=== PATIENT | female | born 1980 | race Caucasian/White ===

== ENCOUNTER 2023-04-18 12:56 | Outpatient (AMB) | payer OTHER, SELFPAY ==
--- NOTE | 2023-04-18 13:14 | HO.SPINEOV ---
Intake Intake Visit Reasons: radiculopathy Intake Note: Mr. Gibson is here today c/o back pain. MRI done @ [facility]. Oracle Applications Developer Required: No Assessment & Plan Assessment & Plan (1) Lumbar disc herniation with radiculopathy: Code(s): M51.16 - Intervertebral disc disorders with radiculopathy, lumbar region Plan Dear colleague Thank you for referring Nicolasa Gibson to the office today with a chief complaint of right lumbar radiculopathy. HPI: This 43-year-old male developed an acute pain radiating down his right leg on 07/27/2022. Pain radiates into his posterior thigh, calf and then to the outside of his small toe. Pain is associated with tingling. No weakness. He tried physical therapy and injections without success. The pain is not improving and constantly 4/10 with flare ups to 8/10 when he walks stands or sits for prolonged periods of times. He still uses Tylenol and anti-inflammatory drugs without success PMH: Unprovoked pulmonary embolism in 2016, Chronic pain syndrome for which she has a spinal cord stimulator, bipolar/anxiety/depression, diabetes insipidus Social history: Nonsmoker Medications: Coumadin, Latuda, Trulicity, methylphenidate, Allergies: Sulfa and cephalosporins Physical Exam: Pleasant male. He ambulates with a cane. Straight leg raise positive on the right side radiating pain down to his calf. There is decreased sensation in the S1 dermatome. The Achilles reflex is diminished on the right side. Radiological Studies: MRI done at [facility] on 09/19/2022 shows a disc herniation compressing the right S1 nerve root. The imaging was reviewed in detail with the patient. Impression/Plan: This 43-year-old male is suffering from an right S1 radiculopathy caused by a disc herniation L5-S1 and not responding to conservative treatments. I offered him a lumbar microdiskectomy L5-S1, right side. He is scheduled for May [id number]. He needs to stops Coumadin 1 week prior to surgery. He will obtain surgical clearance from his primary care physician. Thank you for allowing me to participate in your patients care. total time spent was 50 minutes in counseling ,coordination of plan, personal review of imaging, surgical decision making and subsequent plan Arron Salgado MD, PhD Spine Fellowship Trained Neurosurgeon Director, [facility] Coding Level of Care Code New Pt Level 4 (24310) Diagnoses Lumbar disc herniation with radiculopathy M51.16
== END 2023-04-18 13:51 | disposition home or self-care (01) ==
PROVIDERS: Referring Provider Physician Assistant; Visit Provider Neurological Surgery
DX: M51.16 Intervertebral disc disorders with radiculopathy, lumbar region (principal)
CPT/HCPCS: 99204

== ENCOUNTER → 2023-04-18 12:56 | Outpatient (BNVA) | payer OTHER, SELFPAY | PROVIDERS: Visit Provider Neurological Surgery ==

== ENCOUNTER 2023-05-29 05:57 | Day surgery (SDC) | payer OTHER, SELFPAY ==
[2023-05-15 14:36] VITALS: BMI 40.7
--- NOTE | 2023-05-16 09:55 | HO.ANESPROP2 ---
Documented by User: Sofie Mckeon NP 05/28/23 10:18 HPI - Anesthesia Eval Consult details Narrative: 43yo M for Right L5-S1 Microlumbar discectomy, 05/29/23 Medically optimized Pt not seen in PAT d/t travel Coumadin for hx PE Follws renal for CKD St 3, Neurogenic bladder s/p cystectomy with ileal conduit. Stable at Last office visit 06/2022 Diabetes Insipidus - recieves 2L fluid through Jtube overnight. Per Dr Lopez, must hold after midnight DOS. FTM transgender He/Him . s/p hyst/mastectomy PMFSH Active Problems Active Problems: All Active Problems (Updated 05/15/23 @ 14:33 by Shavonne Adamson RN) Lumbar disc herniation with radiculopathy (Acute) Past Medical History Medical History (Updated 05/15/23 @ 14:33 by Shavonne Adamson RN) VRE (vancomycin-resistant Enterococci) Sleep apnea Neurogenic bladder Chronic nausea Secondary nephrogenic diabetes insipidus Reflex sympathetic dystrophy Recurrent UTI (urinary tract infection) Neuropathic pain of lower extremity Chronic renal insufficiency Asthma Transgender man on hormone therapy Depression Anxiety Bipolar disorder Chronic pain syndrome Pulmonary embolism Right lumbar radiculopathy Surgical History Surgical History (Updated 05/15/23 @ 14:32 by Shavonne Adamson RN) Hx of total cystectomy History of esophagogastroduodenoscopy (EGD) H/O colonoscopy Hx of bilateral mastectomy Hx of appendectomy Hx of arthroscopic knee surgery Hx of hysterectomy S/P placement of nerve stimulator Social History Social History Are you a primary furnace caretaker to a significant other at home: No Do you presently have visiting 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 If so, by whom?: No Are you DNR?: No Advance Directives Information Provided: Yes (as above noted-will bring copy DOS) Advance Directives on File: No Recently lost weight without trying: No Eating poorly because of decreased appetite: No Nutrition Risks: No Nutritional Risk Poor oral hygiene: Yes (missing teeth, crowns) Meds Allergies Allergy/AdvReac Type Severity Reaction Status Date / Time Cephalosporins Allergy Intermediate Hives Verified 05/15/23 09:23 enoxaparin [From Lovenox] Allergy Intermediate Hives Verified 05/15/23 09:23 Sulfa (Sulfonamide Allergy Intermediate Hives Verified 05/15/23 09:23 Antibiotics) Home Medications Medication Instructions Recorded Confirmed Last Taken Type albuterol sulfate 90 mcg/actuation 2 puff inhalation Q4-6H PRN 05/15/23 05/15/23 Unknown History aerosol inhaler (Ventolin HFA) Shortness Of Breath bupropion HCl 150 mg 24 hr tablet, 300 mg PO BEDTIME 05/15/23 05/15/23 Unknown History extended release capsaicin 0.025 % topical cream 1 appl topical BID 05/15/23 05/15/23 Unknown History cholecalciferol (vitamin D3) 25 50 mcg PO DAILY 05/15/23 05/15/23 Unknown History mcg (1,000 unit) capsule cyclobenzaprine 5 mg tablet 5 mg PO TID 05/15/23 05/15/23 Unknown History dulaglutide 4.5 mg/0.5 mL 4.5 mg subcut QWEEK 05/15/23 05/15/23 Unknown History subcutaneous pen injector (Trulicity) gabapentin 300 mg capsule 300 mg PO QPM 05/15/23 05/15/23 Unknown History lurasidone 80 mg tablet 80 mg PO QPM 05/15/23 05/15/23 Unknown History methylphenidate HCl 5 mg tablet 5 mg PO TID 05/15/23 05/15/23 Unknown History ondansetron 8 mg disintegrating 8 mg PO QID PRN nausea 05/15/23 05/15/23 05/29/23 History tablet promethazine 6.25 mg/5 mL oral 25 mg PO TID PRN Nausea And 05/15/23 05/15/23 Unknown History syrup Vomiting testosterone (AndroGel) 2 pump topical DAILY 05/15/23 05/15/23 Unknown History trazodone 100 mg tablet 250 mg PO BEDTIME 05/15/23 05/15/23 Unknown History warfarin 5 mg tablet (Jantoven) 5 mg PO DAILY 05/15/23 05/15/23 05/22/23 History Exam Exam Date and Time: May 16, 2023 0955 Height,Weight and Vital Signs: Height 5 ft 5 in Weight 111 kg Pertinent Lab Results Pertinent Lab Results: CMP 02/2023 WNL Narrative Narrative: EKG 04/2023 NSR @ 84 Nonspecific T wave abn (no change from previous) Assessment and Plan Assessment Anesthesia Assessment: Chart Reviewed Documented by User: Mendoza Mina MD 05/29/23 07:27 PMF Past Medical History Medical History (Updated 05/15/23 @ 14:33 by Shavonne Adamson RN) VRE (vancomycin-resistant Enterococci) Sleep apnea Neurogenic bladder Chronic nausea Secondary nephrogenic diabetes insipidus Reflex sympathetic dystrophy Recurrent UTI (urinary tract infection) Neuropathic pain of lower extremity Chronic renal insufficiency Asthma Transgender man on hormone therapy Depression Anxiety Bipolar disorder Chronic pain syndrome Pulmonary embolism Right lumbar radiculopathy Family History Family history of problems with anesthesia: No Surgical History Surgical History (Updated 05/15/23 @ 14:32 by Shavonne Adamson RN) Hx of total cystectomy History of esophagogastroduodenoscopy (EGD) H/O colonoscopy Hx of bilateral mastectomy Hx of appendectomy Hx of arthroscopic knee surgery Hx of hysterectomy S/P placement of nerve stimulator History of Problems with Anesthesia: No Social History Social History Are you a primary furnace caretaker to a significant other at home: No Do you presently have visiting 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 If so, by whom?: No Are you DNR?: No Advance Directives Information Provided: Yes (as above noted-will bring copy DOS) Advance Directives on File: No Recently lost weight without trying: No Eating poorly because of decreased appetite: No Nutrition Risks: No Nutritional Risk Poor oral hygiene: Yes (missing teeth, crowns) Meds Allergies Allergy/AdvReac Type Severity Reaction Status Date / Time Cephalosporins Allergy Intermediate Hives Verified 05/15/23 09:23 enoxaparin [From Lovenox] Allergy Intermediate Hives Verified 05/15/23 09:23 Sulfa (Sulfonamide Allergy Intermediate Hives Verified 05/15/23 09:23 Antibiotics) Home Medications Medication Instructions Recorded Confirmed Last Taken Type albuterol sulfate 90 mcg/actuation 2 puff inhalation Q4-6H PRN 05/15/23 05/15/23 Unknown History aerosol inhaler (Ventolin HFA) Shortness Of Breath bupropion HCl 150 mg 24 hr tablet, 300 mg PO BEDTIME 05/15/23 05/15/23 Unknown History extended release capsaicin 0.025 % topical cream 1 appl topical BID 05/15/23 05/15/23 Unknown History cholecalciferol (vitamin D3) 25 50 mcg PO DAILY 05/15/23 05/15/23 Unknown History mcg (1,000 unit) capsule cyclobenzaprine 5 mg tablet 5 mg PO TID 05/15/23 05/15/23 Unknown History dulaglutide 4.5 mg/0.5 mL 4.5 mg subcut QWEEK 05/15/23 05/15/23 Unknown History subcutaneous pen injector (Trulicity) gabapentin 300 mg capsule 300 mg PO QPM 05/15/23 05/15/23 Unknown History lurasidone 80 mg tablet 80 mg PO QPM 05/15/23 05/15/23 Unknown History methylphenidate HCl 5 mg tablet 5 mg PO TID 05/15/23 05/15/23 Unknown History ondansetron 8 mg disintegrating 8 mg PO QID PRN nausea 05/15/23 05/15/23 05/29/23 History tablet promethazine 6.25 mg/5 mL oral 25 mg PO TID PRN Nausea And 05/15/23 05/15/23 Unknown History syrup Vomiting testosterone (AndroGel) 2 pump topical DAILY 05/15/23 05/15/23 Unknown History trazodone 100 mg tablet 250 mg PO BEDTIME 05/15/23 05/15/23 Unknown History warfarin 5 mg tablet (Jantoven) 5 mg PO DAILY 1005/15/23 05/22/23 History Exam Airway Mallampati Class: II TM Dist: >3cm Neck ROM: Limited Heart: rrr Lungs: cta Assessment and Plan Assessment Anesthesia Assessment: Anesthesia Plan Discussed Final Anesthetic Review Family History of Problems with Anesthesia: No History of Problems with Anesthesia: No ASA Class: III Final Preanesthetic Review: No Changes in Pt Med Stat, Meds/Allgs Chart Reviewed, Consent Obtained/Reviewed and Anes Risks/Benef Reviewed Patient Risk: Intermediate Anesthetic Plan Anesthetic Plan: GA and Agree w/ Assess. and Plan Disposition: Standard PACU
[2023-05-29] VITALS (7 sets, daily range): BP systolic 112–126; BP diastolic 57–82; PULSE 78–93; RESP 16–22; TEMP 36.3–36.6; O2SAT 94–98; BMI 39.1
--- NOTE | ~2023-05-29 | FL_ITS ---
EXAMINATION: XR FLUOROSCOPY WITH IMAGES CLINICAL INFORMATION: L5-S1 decompression. COMPARISON: None available. TECHNIQUE: Fluoroscopy Supervised By: Dr. Arron Salgado. Fluoroscopy Time: 0 minutes 6.5 seconds. Cumulative Dose: 12.733 mGy. DAP: 3.559 Gycm2. Images: 1. FINDINGS: Image demonstrates posterior surgical instruments and probe projecting over the posterior L5-S1 disc space FL/FL guidance in OR IMPRESSION: Fluoroscopy guidance for L5-S1 decompression.
--- OUTSIDE RECORDS SUMMARY | 2023-05-29 05:59 | XMS_ITS | Continuity of Care Document ---
Author Name Unknown Organization [facility] Address Unknown Care Team Providers Care Cover Machine Operator Name Role Phone Luzma SENIOR, Carlos Gaston Primary Care Physician [phone] Encounter [facility] Date(s): 05/29/21 - 06/05/21 [facility] Attending Physician: Shavonne Wolfe MD Referring Physician: Carlos Segal NP Allergies, Adverse Reactions, Alerts Substance Reaction Severity Status cephalosporins 1 Hives Active sulfa drugs Hives Active Lovenox hives Active 1Patient tolerated Zosyn in ED as demonstrated during April 2015 admission. Immunizations Given and Recorded Vaccine Date Status Refusal Reason SARS-CoV-2 (COVID-19) mRNA BNT-162b2 vac 10/14/20 Recorded SARS-CoV-2 (COVID-19) mRNA BNT-162b2 vac 09/23/20 Recorded influenza virus vaccine, inactivated 04/04/20 Eric rded influenza virus vaccine, inactivated 06/12/19 Eric rded influenza virus vaccine, inactivated 1 08/18/18 Gi nevin influenza virus vaccine, inactivated 2 05/29/17 Gi nevin influenza virus vaccine, inactivated 09/19/16 Give n influenza virus vaccine, inactivated 04/30/15 Give n influenza virus vaccine, inactivated 06/01/14 Give n influenza virus vaccine, inactivated 05/19/13 Give n influenza virus vaccine, inactivated 3 06/15/12 Gi nevin influenza virus vaccine, inactivated 4 07/19/10 Gi nevin influenza virus vaccine, inactivated 04/20/09 Give n tetanus/diphtheria/pertussis, acel(Tdap) 5 08/18/18 Given pneumococcal 23-valent vaccine 02/12/14 Given Human Papillomavirus Vaccine 6 06/30/07 Given Human Papillomavirus Vaccine 03/02/07 Given Human Papillomavirus Vaccine 7 01/01/07 Given Influenza Inactive (IM) (oldterm) 8 06/12/07 Given Hepatitis B Vaccine (old term) 9 06/23/06 Given 1Result Comment: [08/18/2018] [facility]: 12908-344-28 2Result Comment: [05/29/2017] [facility]:13288-408-16 3Admin Note: [facility] clinic, date approx per patient 4Admin Note: VIM given dated 03/14/10 MULIT 5Result Comment: [08/18/2018] [facility]: 93120-802-21 6Admin Note: VIM GIVIN 08/20/06 # 3 7Admin Note: VIM GIVIN 08/20/06 8Admin Note: VIM-SANOFI 9Admin Note: BERNICE GIVEN TODAY DATE ON BERNICE 02/11/2001 Medications albuterol 0.083% inhalation solution 3 mL = 2.5 mg, Inhalation, Every 6 hours, # 360 mL, 0 Refills, Maintenance, 04/25/17 10:49:23, Solution Start Date: 04/25/17 Stop Date: 05/25/17 Status: Ordered albuterol CFC free 90 mcg/inh inhalation aerosol 2, puffs, Inhalation, 4 times a day, PRN, # 1 each, Refills 3, Tot. Refills 3, Maintenance, 04/24/18 13:48:36 EDT, Aerosol, Route to Pharmacy Electronically, [id number], [facility], Compound Start Date: 04/24/18 Stop Date: 08/22/18 Status: Ordered AndroGel Pump 20.25 mg/actuation (1.62%) transdermal gel = 40.5 mg, Topically, Daily in AM, # 75 Gm, 5 Refills, Maintenance, 07/31/20 15:28:00 EST, [facility], 165.1, cm, 04/18/20 17:02:00 EDT, Height, 128.1, kg, 04/08/19 8:08:00 EDT, Dry Weight Start Date: 07/31/20 Stop Date: 01/27/21 Status: Ordered atomoxetine 25 mg oral capsule TAKE ONE CAPSULE BY MOUTH EVERY DAY Start Date: 03/21/21 Status: Ordered buPROPion 150 mg/24 hours (XL) oral tablet, extended release 2 tablet = 300 mg, By Mouth, Every 24 hours, # 30 tablet, 0 Refills, Maintenance, 06/22/17 19:39:25EST, ER Tablet Start Date: 06/22/17 Status: Ordered Cogentin Tablet 0.5 mg, By Mouth, 2 times a day, Refills 0, Maintenance, 11/10/20 11:12:00 EDT, Partial fill upon patient request if the prescription is for a schedule II opioid drug. Start Date: 11/10/20 Status: Ordered cyanocobalamin 1000 mcg/ml injectable solution 1 mL = 1,000 mcg, Subcutaneous Injection, Every 30 days, IM injection to Left arm [facility]:30928-997-11 [id number] Exp: 07/23, # 1 mL, 0 Refills, Maintenance, 04/13/19 14:55:41 EDT, Solution Start Date: 04/13/19 Status: Ordered Cyanocobalamin 1000 mcg/mL injection = 1,000 mcg, Intramuscular, Left deltoid IM. Pt tolerated well. Office Supplied Medication [facility] [id number] Lot [id number] Exp 08/2020, # 1 mL, 0 Refills, Maintenance, 02/18/19 13:00:00 EDT Start Date: 02/18/19 Status: Ordered docusate sodium 100 mg oral capsule 1 capsule = 100 mg, By Mouth, 2 times a day, 0 Refills, Maintenance, 03/15/14 10:36:50, Capsule Start Date: 03/15/14 Status: Ordered famotidine 20 mg oral tablet 20 mg, 1, tablet, By Mouth, 2 times a day, PRN, esophageal pain , # 180 tablet, Refills 0, Maintenance, Other, 02/22/16 10:01:17 EDT Start Date: 02/22/16 Status: Ordered G tube change G tube change, See Instructions, # 1 each, Refills 0, Tot. Refills 0, Maintenance, G tube change 6Fr with 5cc baloon, 04/05/21 10:00:00 EDT, Supply Start Date: 04/05/21 Status: Ordered J-tube J-tube, See Instructions, # 1 each, Refills 0, Tot. Refills 0, Maintenance, 16 Filipino Tsrin-Ikeuab-Tgusv J tube, transgastric, 02/20/21 9:48:00 EDT, Supply Start Date: 02/20/21 Status: Ordered Jantoven 5 mg oral tablet See Instructions, TAKE ONE TABLET BY MOUTH EVERY DAY OR DIRECTED BY NURSE, # 30 tablet, 5 Refills, Maintenance, [facility], 165.1, cm, 01/24/21 11:40:00 EDT, Height, 128.1, kg, 04/08/19 8:08:00 EDT, Dry Weight Start Date: 02/18/21 Status: Ordered LaMICtal 200 mg oral tablet 1 tablet = 200 mg, By Mouth, Daily, 0 Refills, Maintenance, 03/30/19 15:11:59 EDT Start Date: 03/30/19 Status: Ordered Latuda 60 mg oral tablet 1 tablet = 60 mg, By Mouth, Daily, # 30 tablet, 5 Refills, Maintenance, 10/24/16 17:25:54, Tablet Start Date: 10/24/16 Status: Ordered NuLYTELY with Flavor Packs oral powder for reconstitution See Instructions, Drink 240mL every 10-15 minutes, # 4,000 mL, 0 Refills, Maintenance, 02/29/20 17:00:00 EDT, [facility], Drink 240mL every 10-15 minutes, 165, cm, 12/29/19 14:57:00 EDT, Height, 128.1, kg, 04/08/19 8:08:00 EDT, Dry Weight Start Date: 02/29/20 Status: Ordered omeprazole 20 mg oral enteric coated capsule 1 capsule = 20 mg, By Mouth, Daily, PRN Other, esophageal pain , # 90 capsule, 0 Refills, Maintenance, 08/14/17 8:17:45 EST, EC Capsule Start Date: 08/14/17 Status: Ordered ondansetron 8 mg oral tablet, disintegrating 1 tablet, By Mouth, 4 times a day, PRN NEEDED FOR NAUSEA, ok to override for travel, # 120 tablet, 1 Refills, Maintenance, 12/27/20 13:14:00 EDT, [facility], 165.1, cm, 12/06/2113:16:00 EDT, Height, 128.1, kg, 04/08/19 8:08:00 EDT,... Start Date: 12/27/20 Status: Ordered promethazine 12.5 mg oral tablet 1 tablet = 12.5 mg, By Mouth, Every 6 hours, PRN for nausea/vomiting, # 60 tablet, 1 Refills, Maintenance, 08/16/20 16:13:00 EST, Tablet, [facility], Partial fill upon patient request if the prescription is for a schedule II opioid drug... Start Date: 08/16/20 Status: Ordered promethazine 12.5 mg rectal suppository 1 supp = 12.5 mg, Rectally, Every 6 hours, PRN for motion sickness, ok to override for travel, # 30supp, 1 Refills, Maintenance, 12/27/20 13:14:00 EDT, Suppository, [facility], Partial fill upon patient request if the prescription is f... Start Date: 12/27/20 Status: Ordered promethazine 6.25 mg/5 mL oral syrup 20 mL = 25 mg, J Tube, 3 times a day, PRN as needed for nausea/vomiting, # 1,000 mL, 1 Refills, Maintenance, 05/18/21 17:19:00 EDT, Syrup, [facility], Partial fill upon patient request if the prescription is for a schedule II opioid hiram... Start Date: 05/18/21 Status: Ordered propranolol 60 mg oral capsule, extended release 60 mg, 1, capsule, By Mouth, Daily, Rx by psych, # 90 capsule, Refills 0, Tot. Refills 0, Maintenance, 06/19/18 10:21:46 EST, Do Not Route Start Date: 06/19/18 Status: Ordered See instructions See instructions, See Instructions, # 1 each, Refills 0, Tot. Refills 0, Maintenance, G/J Tube Supplies: Pump bags (Infinity Pump) and syringes to administer medications., 11/21/17 16:08:24 EDT, Compound Start Date: 11/21/17 Status: Ordered Strattera 25 mg oral capsule 1 capsule = 25 mg, By Mouth, Daily in AM, # 30 capsule, 0 Refills, Maintenance, 03/29/21 14:25:00 EDT, Capsule, Partial fill upon patient request if the prescription is for a schedule II opioid drug. Start Date: 03/29/21 Status: Ordered Sublocade 100 mg/0.5 mL subcutaneous solution, extended release Subcutaneous Infusion, Every 28 days, 0 Refills, Maintenance, 03/30/19 15:14:06 EDT Start Date: 03/30/19 Status: Ordered testosterone 20.25 mg/actuation (1.62%) transdermal gel = 40.5 mg, Topically, Daily in AM, # 75 Gm, 5 Refills, Maintenance, 02/14/20 16:00:00 EDT, [facility], 165, cm, 12/29/19 14:57:00 EDT, Height, 128.1, kg, 04/08/19 8:08:00 EDT, Dry Weight Start Date: 02/14/20 Status: Ordered traZODone 100 mg oral tablet See Instructions, 1 - 2 tablet By Mouth at bedtime 30 days, # 60 tablet, Refills 0, Tot. Refills 0,Maintenance, 05/18/17 15:31:13 EDT, Instructions Replace Required Details, Route to Pharmacy Electronically, [id number], [facility] Start Date: 05/18/17 Status: Ordered Vitamin D3 1000 intl units oral tablet 1 tablet, By Mouth, Daily, WITH FOOD., # 90 Unknown, 3 Refills, Maintenance, 02/14/21 15:18:00 EDT,[facility], 165.1, cm, 01/24/21 11:40:00 EDT, Height, 128.1, kg, 04/08/19 8:08:00 EDT, Dry Weight Start Date: 02/14/21 Status: Ordered Problem List Condition Effective Dates Status Health Status Inform ant Secondary nephrogenic diabet es insipidus(Confirmed) Active Change in bowel habits(Confirmed) Active Asthma-moderate persistent(Confirmed) Active Bipolar disorder(Confirmed) Active Cannabis use daily; has cert ificate for medical marijuana use for nausea, sleep +/- pain ,+/- mood(Confirmed) Active Chronic colitis(Confirmed) Active Chronic use of opiate drugs therapeutic purposes(Confirmed) 10/28/13 Active Self-catheterizes urinary bladder(Confirmed) Active Vitamin B 12 deficiency(Confirmed) Active Constipation(Confirmed) Active Nausea(Confirmed) Active Excision of meniscus of knee(Confirmed) Active Gender identity disorder(Confirmed) Active Chronic use of opiate drugs therapeutic purposes(Confirmed) Active History of appendectomy(Confirmed) Active History of bilateral mastectomy(Confirmed) Active Jejunostomy tube in situ(Confirmed) Active Lack of Adequate Sleep(Confirmed) Active Severe obesity (BMI >= 40)(Confirmed) Active Neuropathic pain of lower extremity(Confirmed) Active *[facility] [phone] CARE MANAG ER MEME GREGORY(Confirmed) Active Pruritus with morphine(Confirmed) Active Recurrent UTI(Confirmed) Active Reflex sympathetic dystrophy(Confirmed) Active Dry heaves(Confirmed) Active Urinary retention(Confirmed) Active Urinary retention(Confirmed) Active Sepsis(Confirmed) Active Sleep-disordered breathing(Confirmed) Active Feeding by G-tube(Confirmed) Active Suprapubic catheter(Confirmed) Active Vital Signs Most recent to oldest [Reference Range]: 1 Height 165.1 cm (05/29/21 2:39 PM) Weight 123.2 kg (05/29/21 2:39 PM) Pulse Rate [55-90 bpm] 101 bpm *H* (05/29/21 2:39 PM) Body Mass Index [18.5-24.99] 45.2 *>HHI* (05/29/21 2:39 PM) Blood Pressure [90-138/55-84 mm Hg] 113/ 74mm Hg (05/29/21 2:39 PM) Temperature [96.8-100.4 DegF] 98.1 DegF (05/29/21 2:39 PM) Blood pressure sites Arm, left (05/29/21 2:39 PM) Weight Obtained Via Bed scale (05/29/21 2:39 PM) Social History Social History Type Response Smoking Status Former smoker; Other : quit few months ago; entered on: 02/15/15 Sex
--- OUTSIDE RECORDS SUMMARY | 2023-05-29 05:59 | XMS_ITS | Continuity of Care Document ---
Author Name Unknown Organization [facility] Address [address] [place] [address]- Care Team Providers Care Pharmacy Account Director Name Role Phone Luzma SENIOR, Carlos Gaston Primary Care Physician Encounter [facility] Date(s): 08/02/21 - 09/01/21 [facility] [address] [place] [address]- Allergies, Adverse Reactions, Alerts Substance Reaction Severity [...] term) 9 06/23/06 Given 1Result Comment: [08/18/2018] [facility]: [id number] 2Result Comment: [05/29/2017] [facility]:[id number] 3Admin Note: [facility] clinic, date approx per patient 4Admin Note: VIM given dated 03/14/10 MULIT 5Result Comment: [08/18/2018] [facility]: [id number] 6Admin Note: VIM GIVIN 08/20/06 # 3 [...] 13:48:36 EDT, Aerosol, Route to Pharmacy Electronically, [id number], [facility], Compound Start [...] 30 days, IM injection to Left arm [facility]:[id number] Lot:[id number] Exp: 07/23, # 1 mL, 0 Refills, Maintenance, 04/13/19 14:55:41 EDT, Solution Start Date: 04/13/19 Status: Ordered Cyanocobalamin 1000 mcg/mL injection = 1,000 mcg, Intramuscular, Left deltoid IM. Pt tolerated well. Office Supplied Medication [facility] [id number] Lot [id number] Exp 08/2020, # 1 mL, [...] Refills 0, Tot. Refills 0, Maintenance, 16 Central African Kivkq-Fygqwx-Clhdl J tube, transgastric, 02/20/21 9:48:00 EDT, Supply Start Date: 02/20/21 Status: Ordered Jantoven 5 mg oral tablet 1 tablet, By Mouth, Daily, OR DIRECTED BY NURSE., # 30 tablet, 5 Refills, [facility], 165, cm, 08/16/21 8:31:00 EST, Height, 113.4, kg, 08/16/21 8:31:00 EST, Dry Weight Start Date: 08/20/21 Status: Ordered LaMICtal 200 mg oral tablet [...] times a day, PRN NEEDED FOR NAUSEA, # 120 tablet, 1 Refills, [facility], 165.1, cm, 05/29/21 14:39:00 EDT, Height Start Date: 06/26/21 Status: Ordered promethazine 12.5 mg oral tablet [...] Replace Required Details, Route to Pharmacy Electronically, [id number], [facility] Start Date: 05/18/17 Status: Ordered Vitamin D3 1000 intl units oral tablet 1 tablet, By Mouth, Daily, WITH FOOD., # 90 Unknown, 3 Refills, Maintenance, 02/14/21 15:18:00 EDT,[facility], 165.1, cm, 01/24/21 [...] Active Neuropathic pain of lower extremity(Confirmed) Active *[facility] [phone] CARE MANAG MEME GREGORY(Confirmed) Active Pruritus with morphine(Confirmed) Active Pulmonary embolus(Confirmed) 1 Active Recurrent UTI(Confirmed) Active Reflex sympathetic dystrophy(Confirmed) Active Dry heaves(Confirmed) Active Urinary retention(Confirmed) Active Urinary retention(Confirmed) Active Sepsis(Confirmed) Active Sleep-disordered breathing(Confirmed) Active Feeding by G-tube(Confirmed) Active Suprapubic catheter(Confirmed) Active 1unprovoked PE 2014, heme recommended lifelong anticogulation due to high-risk of recurrence Social History Social History Type Response Smoking Status Former smoker; Other : quit few months ago; entered on: 02/15/15 Sex Female
--- OUTSIDE RECORDS SUMMARY | 2023-05-29 06:00 | XMS_ITS | Continuity of Care Document ---
Author Name Unknown Organization [facility] Address Unknown Care Team Providers Care Handle Bender Name Role Phone Luzma SENIOR, Carlos Gaston Primary Care Physician [phone] Encounter [facility] Date(s): 08/24/21 - 12/06/21 [facility] Attending Physician: Shavonne Wolfe [...] term) 9 06/23/06 Given 1Result Comment: [08/18/2018] [facility]: [id number] 2Result Comment: [05/29/2017] [facility]:[id number] 3Admin Note: [facility] clinic, date approx per patient 4Admin Note: VIM given dated 03/14/10 MULIT 5Result Comment: [08/18/2018] [facility]: [id number] 6Admin Note: VIM GIVIN 08/20/06 # 3 [...] 13:48:36 EDT, Aerosol, Route to Pharmacy Electronically, [id number], [facility], Compound Start [...] 30 days, IM injection to Left arm [facility]:[id number] Lot:[id number] Exp: 07/23, # 1 mL, 0 Refills, Maintenance, 04/13/19 14:55:41 EDT, Solution Start Date: 04/13/19 Status: Ordered Cyanocobalamin 1000 mcg/mL injection = 1,000 mcg, Intramuscular, Left deltoid IM. Pt tolerated well. Office Supplied Medication [facility] [id number] Lot [id number] Exp 08/2020, # 1 mL, [...] Refills 0, Tot. Refills 0, Maintenance, 16 Telugu Etpms-Qlkrhi-Fxwcj J tube, transgastric, 02/20/21 9:48:00 EDT, Supply [...] Replace Required Details, Route to Pharmacy Electronically, [id number], [facility] Start Date: 05/18/17 Status: Ordered Vitamin D3 1000 intl units oral tablet 1 tablet, By Mouth, Daily, WITH FOOD., # 90 Unknown, 3 Refills, Maintenance, 02/14/21 15:18:00 EDT,[facility], 165.1, cm, 01/24/21 11:40:00 EDT, [...] Active Neuropathic pain of lower extremity(Confirmed) Active *[facility] [phone] CARE MANAG MEME GREGORY(Confirmed) Active Pruritus with [...]
--- OUTSIDE RECORDS SUMMARY | 2023-05-29 06:00 | XMS_ITS | Continuity of Care Document ---
Author Name Unknown Organization [facility] Address [address] [place] [address]- Care Team Providers Care Associate Store Manager Name Role Phone Juan Alvarado DO Primary Care Physician Encounter [facility] Date(s): 11/13/22 - 12/13/[address] [address]- Allergies, Adverse Reactions, Alerts Substance Reaction Severity Status cephalosporins 1 Hives Active sulfa drugs Hives Active Lovenox hives Active 1Patient tolerated Zosyn in ED as demonstrated during April 2015 admission. Immunizations Given and Recorded Vaccine Date Status Refusal Reason SARS-CoV-2 (COVID-19) mRNA BNT-162b2 vac 05/16/21 Recorded SARS-CoV-2 (COVID-19) mRNA BNT-162b2 vac 10/14/20 Recorded [...] acel(Tdap) 5 08/18/18 Given pneumococcal 23-valent vaccine 7/12/14 Given Human Papillomavirus Vaccine 6 06/30/07 Given Human Papillomavirus Vaccine 03/02/07 Given Human Papillomavirus Vaccine 7 01/01/07 Given Influenza Inactive (IM) (oldterm) 8 06/12/07 Given Hepatitis B Vaccine (old term) 9 06/23/06 Given 1Result Comment: [08/18/2018] [facility]: [id number] 2Result Comment: [05/29/2017] [facility]:[id number] 3Admin [facility], date approx per patient 4Admin Note: VIM given dated 03/14/10 MULIT 5Result Comment: [08/18/2018] [facility]: [id number] 6Admin Note: VIM GIVIN 08/20/06 # 3 [...] 13:48:36 EDT, Aerosol, Route to Pharmacy Electronically, [id number], [facility], Compound Start Date: 04/24/18 Stop Date: 08/22/18 Status: Ordered AndroGel Pump 20.25 mg/actuation (1.62%) transdermal gel = 40.5 mg, Topically, Daily in AM, # 75 Gm, 5 Refills, Maintenance, 07/31/20 15:28:00 EST, [facility], 165.1, cm, 04/18/20 17:02:00 EDT, Height, 128.1, kg, 04/08/19 8:08:00 EDT, Dry Weight Start Date: 07/31/20 Stop Date: 01/27/21 Status: Ordered Ativan 1 mg oral tablet 1 tablet = 1 mg, By Mouth, 3 times a day, 0 Refills, Maintenance, 08/02/22 9:44:00 EST, Partial fill upon patient request if the prescription is for a schedule II opioid drug. Start Date: 08/02/22 Status: Ordered buPROPion 150 mg/24 hours (XL) [...] 30 days, IM injection to Left arm [facility]:[id number] Lot:[id number] Exp: 07/23, # 1 mL, 0 Refills, Maintenance, 04/13/19 14:55:41 EDT, Solution Start Date: 04/13/19 Status: Ordered Cyanocobalamin 1000 mcg/mL injection = 1,000 mcg, Intramuscular, Left deltoid IM. Pt tolerated well. Office Supplied Medication [facility] [id number] Lot [id number] Exp 08/2020, # 1 mL, [...] EDT, Supply Start Date: 04/05/21 Status: Ordered gabapentin 300 mg oral capsule 300 mg, 1, capsule, By Mouth, Daily at bedtime, # 30 capsule, Refills 0, Tot. Refills 0, Maintenance, 08/02/22 9:46:00 EST, Route to Pharmacy Electronically, [facility], Partial fill upon patient request if the prescription is for a ginger... Start Date: 08/02/22 Status: Ordered J-tube J-tube, See Instructions, # 1 each, Refills 0, Tot. Refills 0, Maintenance, 16 Panamanian Xyrvo-Lsxdvb-Ypxne J tube, transgastric, 02/20/21 9:48:00 EDT, Supply Start Date: 02/20/21 Status: Ordered Jantoven 5 mg oral tablet 1 tablet, By Mouth, Daily, for 30 days, OR DIRECTED BY [facility] NURSE., # 30 tablet, 11 Refills, Physician Stop 08/29/23 8:30:00 EST, 09/03/22 8:30:00 EST, [facility], 165, cm, 08/28/22 10:52:00 EST, Height, 113.4, kg, ... Start Date: 09/03/22 Stop Date: 08/29/23 Status: Ordered LaMICtal 200 mg oral tablet 1 tablet = 200 mg, By Mouth, Daily, 0 Refills, Maintenance, 03/30/19 15:11:59 EDT Start Date: 03/30/19 Status: Ordered Latuda 60 mg oral tablet 1 tablet = 60 mg, By Mouth, Daily, # 30 tablet, 5 Refills, Maintenance, 10/24/16 17:25:54, Tablet Start Date: 10/24/16 Status: Ordered methylphenidate 5 mg oral tablet 5 mg, 1, tablet, By Mouth, 3 times a day, Refills 0, Tot. Refills 0, Maintenance, 08/02/22 9:44:00 EST, Partial fill upon patient request if the prescription is for a schedule II opioid drug. Start Date: 08/02/22 Status: Ordered NuLYTELY with Flavor Packs oral [...] FOR NAUSEA, # 120 tablet, 1 Refills, Physician Stop 08/04/24 0:00:00 EST, 10/08/22 8:28:00 EST, [facility], 165, cm, 10/08/22 8:08:00 EST, Height, 113.4, kg, 08/16/21 8:31:00 EST, Dry Weight Start Date: 10/08/22 Stop Date: 08/04/24 Status: Ordered promethazine 12.5 mg oral tablet [...] nausea/vomiting, # 1,000 mL, 1 Refills, Maintenance, 07/03/22 9:21:00 EST, Syrup, [facility], Partial fill upon patient request if the prescription is for a schedule II opioid drug... Start Date: 07/03/22 Status: Ordered See instructions See instructions, See Instructions, # 1 each, Refills 0, Tot. Refills 0, Maintenance, G/J Tube Supplies: Pump bags (Infinity Pump) and syringes to administer medications., 11/21/17 16:08:24 EDT, Compound Start Date: 11/21/17 Status: Ordered testosterone 20.25 mg/actuation (1.62%) transdermal gel = 40.5 mg, Topically, Daily in AM, # 75 Gm, 5 Refills, Maintenance, 02/14/20 16:00:00 EDT, [facility], 165, cm, 12/29/19 14:57:00 EDT, Height, 128.1, kg, 04/08/19 8:08:00 EDT, Dry Weight Start Date: 02/14/20 Status: Ordered traZODone 100 mg oral tablet See Instructions, 1 - 2 tablet By Mouth at bedtime 30 days, # 60 tablet, Refills 0, Tot. Refills 0,Maintenance, 05/18/17 15:31:13 EDT, Instructions Replace Required Details, Route to Pharmacy Electronically, [id number], [facility] Start Date: 05/18/17 Status: Ordered Trulicity Pen 0.75 mg/0.5 mL subcutaneous solution INJECT 0.5ML INTO THE SKIN EVERY 7 DAYS Start Date: 10/08/22 Status: Ordered Vitamin D3 1000 intl units oral tablet 1 tablet, By Mouth, Daily, WITH FOOD., # 90 tablet, 1 Refills, Maintenance, 07/18/22 16:49:00 EST, [facility], 165, cm, 03/18/22 14:23:00 EDT, Height, 113.4, kg, 08/16/21 8:31:00 EST, Dry Weight Start Date: 07/18/22 Status: Ordered Problem List Condition Confirmation Course Effective Dates Status Health St atus Informant Secondary nephrogenic diabetes insipidus Confirmed Active Change in bowel habits Confirmed Active Asthma-moderate persistent Confirmed Active Bipolar disorder Confirmed Active Cannabis use daily; has certificate for medical marijuana use for nausea, sleep +/- pain ,+/- mood Confirmed Active Chronic colitis Confirmed Active Chronic kidney disease stage 3 Confirmed 09/26/20 Active Chronic use of opiate drugs therapeutic purposes Confirmed 10/28/13 Active Vitamin B 12 deficiency Confirmed Active Constipation Confirmed Active Abdominal wall hernia at previous stoma site Confirmed Active Nausea Confirmed Active Excision of meniscus of knee Confirmed Active Gender identity disorder Confirmed Active Chronic use of opiate drugs therapeutic purposes Confirmed Active History of appendectomy Confirmed Active History of bilateral mastectomy Confirmed Active Jejunostomy tube in situ Confirmed Active Lack of Adequate Sleep Confirmed Active Severe obesity (BMI >= 40) Confirmed Active Neuropathic pain of lower extremity Confirmed Active *[facility] [phone] VICE ADMIRAL MEME GREGORY Confirmed Active Pruritus with morphine Confirmed Active Pulmonary embolus 1 Confirmed Active Recurrent UTI Confirmed Active Reflex sympathetic dystrophy Confirmed Active Dry heaves Confirmed Active Urinary retention Confirmed Active Urinary retention Confirmed Active Sciatic pain Confirmed Active Severe obesity Confirmed Active Sleep-disordered breathing Confirmed Active 1unprovoked PE 2014, heme recommended lifelong anticogulation due to high-risk of recurrence Social History Social History Type Response Smoking Status Former smoker; Other : quit few months ago; entered on: 02/15/15 Sex Female Patient Care team information Care Team Personnel Name: Renea Thayer RN Position: [facility] RN Member Role: Primary Care Nurse Name: Radha Woods RN Position: [facility] SN RN Member Role: Primary Care Nurse Name: Larissa Pino RN Position: [facility] ED RN W/OE and Tasks Member Role: Primary Care Nurse Name: Lela Mcintyre RN Position: [facility] SN RN Member Role: Primary Care Nurse Name: Charisse Chris RN Position: [facility] SN RN Member Role: Primary Care Nurse Name: Omar Henning RN Position: [facility] RN Member Role: Primary Care Nurse Name: Marlyn Evans NP Position: [facility] Associate Professional Member Role: Primary Care Nurse Address: Address: [address] [place] [address] Name: Junie Kenny RN Position: [facility] RN Member Role: Primary Care Nurse Name: Jayla De RN Position: [facility] RN Member Role: Primary Care Nurse Name: Shea Stevens RN Position: [facility] RN Member Role: Primary Care Nurse Name: Margarita Bain RN Position: [facility] SN RN Member Role: Primary Care Nurse Name: Yady Tanner RN Position: [facility] RN Member Role: Primary Care Nurse Name: Omar Rutledge RN Position: [facility] RN Member Role: Primary Care Nurse Name: Rashmi Mendez RN Position: [facility] OB RN Member Role: Primary Care Nurse Name: Omar John RN Position: [facility] RN Member Role: Primary Care Nurse Name: Jayla Lai RN Position: [facility] RN Member Role: Primary Care Nurse Name: Pricilla Hendricks RN Position: [facility] RN Member Role: Primary Care Nurse Name: Zabrina Beck RN Position: [facility] RN Member Role: Primary Care Nurse Name: Juan Alvarado DO Position: [facility] Primary Care Physician Member Role: PCP Address: Address: [address] [place] [address] Name: Sophie Luciano RN Position: [facility] SN RN Member Role: Primary Care Nurse Name: Trace Elliott RN Position: [facility] SN RN Member Role: Primary Care Nurse Name: Ashley Langley RN Position: [facility] ED RN W/OE and Tasks Member Role: Primary Care Nurse Name: Flora Gonzalez RN Position: [facility] [employer]or Member Role: Primary Care Nurse Name: Mary Anne Simons RN Position: [facility] RN Member Role: Primary Care Nurse Name: Lela Hoang RN Position: [facility] Onco RN Member Role: Primary Care Nurse Name: Estela Che RN Position: [facility] RN Member Role: Primary Care Nurse Name: Lisandra Gan RN Position: [facility] [employer] Contractor Member Role: Primary Care Nurse Name: Bia Alcazar RN Position: [facility] [employer]or Member Role: Primary Care Nurse Name: Everton Cosby RN Position: [facility] SN RN Member Role: Primary Care Nurse Care Team Related Persons Name: ARIEL CHRISTY Address: [place] [address] Name: ARIEL CHRISTY Address: home [address] [place] [address] Name: MARIBEL CHRISTY Address: [place] [address] Name: NURY TREJO Address: [address] [place] [address] Name: NURY WOLFE Address: [place] [address]
--- OUTSIDE RECORDS SUMMARY | 2023-05-29 06:00 | XMS_ITS | Continuity of Care Document ---
Author Name Unknown Organization [facility] Address [address] [place] [address]- Care Team Providers Care Correctional Classification Counselor Name Role Phone Juan Alvarado DO Primary Care Physician Encounter [facility] Date(s): 08/26/22 - 09/25/22 [facility] [address] [place] [address]- Allergies, Adverse Reactions, Alerts Substance Reaction Severity [...] term) 9 06/23/06 Given 1Result Comment: [08/18/2018] [facility]: [id number] 2Result Comment: [05/29/2017] [facility]:[id number] 3[facility] approx per [facility] 4Admin Note: VIM given dated 03/14/10 MULIT 5Result Comment: [08/18/2018] [facility]: [id number] 6Admin Note: VIM GIVIN 08/20/06 # 3 [...] 13:48:36 EDT, Aerosol, Route to Pharmacy Electronically, [id number], [facility], Compound Start [...] 30 days, IM injection to Left arm [facility]:[id number] Lot:[id number] Exp: 07/23, # 1 mL, 0 Refills, Maintenance, 04/13/19 14:55:41 EDT, Solution Start Date: 04/13/19 Status: Ordered Cyanocobalamin 1000 mcg/mL injection = 1,000 mcg, Intramuscular, Left deltoid IM. Pt tolerated well. Office Supplied Medication [facility] [id number] Lot [id number] Exp 08/2020, # 1 mL, [...] Refills 0, Tot. Refills 0, Maintenance, 16 Bulgarian Cruho-Gjbusk-Mzsod J tube, transgastric, 02/20/21 9:48:00 EDT, Supply Start Date: 02/20/21 Status: Ordered Jantoven 5 mg oral tablet 1 tablet, By Mouth, Daily, for 30 days, OR DIRECTED BY [facility] NURSE., # 30 tablet, 11 Refills, Physician Stop 08/29/23 8:30:00 EST, 09/03/22 8:30:00 EST, [facility], 165, cm, 08/28/22 10:52:00 EST, [...] opioid drug. Start Date: 03/29/21 Status: Ordered testosterone 20.25 mg/actuation (1.62%) transdermal gel = 40.5 mg, Topically, Daily in AM, # 75 Gm, 5 Refills, Maintenance, 02/14/20 16:00:00 EDT, [facility], 165, cm, 12/29/19 14:57:00 EDT, Height, 128.1, kg, 04/08/19 8:08:00 EDT, Dry Weight Start Date: 02/14/20 Status: Ordered traZODone 100 mg oral tablet See Instructions, 1 - 2 tablet By Mouth at bedtime 30 days, # 60 tablet, Refills 0, Tot. Refills 0,Maintenance, 05/18/17 15:31:13 EDT, Instructions Replace Required Details, Route to Pharmacy Electronically, [id number], [facility] Start Date: 05/18/17 Status: Ordered Vitamin D3 1000 intl units oral tablet 1 tablet, By Mouth, Daily, WITH FOOD., # 90 tablet, 1 Refills, Maintenance, 07/18/22 16:49:00 EST, [facility], 165, cm, 03/18/22 14:23:00 EDT, Height, 113.4, kg, 08/16/21 8:31:00 EST, Dry Weight Start Date: 07/18/22 Status: Ordered Problem List Condition Confirmation Course Effective Dates Status Health at Informant Secondary nephrogenic diabetes insipidus Confirmed Active [...] 12 deficiency Confirmed Active Constipation Confirmed Active Nausea Confirmed Active Excision of meniscus of knee Confirmed Active Gender identity disorder Confirmed Active Chronic use of opiate drugs therapeutic purposes Confirmed Active History of appendectomy Confirmed Active History of bilateral mastectomy Confirmed Active Jejunostomy tube in situ Confirmed Active Lack of Adequate Sleep Confirmed Active Severe obesity (BMI >= 40) Confirmed Active Neuropathic pain of lower extremity Confirmed Active *[facility] [phone] DENTAL ASSISTANT MEME GREGORY Confirmed Active Pruritus with morphine Confirmed Active Pulmonary embolus 1 Confirmed Active Recurrent UTI Confirmed Active Reflex sympathetic dystrophy Confirmed Active Dry heaves Confirmed Active Urinary retention Confirmed Active Urinary retention Confirmed Active Sciatic pain Confirmed Active Sleep-disordered breathing Confirmed Active 1unprovoked PE 2014, heme recommended lifelong anticogulation due to high-risk of recurrence Social History Social History Type Response Smoking Status Former smoker; Other : quit few months ago; entered on: 02/15/15 Sex Female Patient Care team information Care Team Personnel Name: Renea Thayer RN Position: [facility] RN Member Role: Primary Care Nurse Name: Radha Woods RN Position: [facility] SN RN Member Role: Primary Care Nurse Name: Larissa Pino RN Position: [facility] ED RN W/OE and Tasks Member Role: Primary Care Nurse Name: Lela Mcintyre RN Position: [facility] SN RN Member Role: Primary Care Nurse Name: Charisse Chris RN Position: [facility] SN RN Member Role: Primary Care Nurse Name: Omar Henning RN Position: [facility] RN Member Role: Primary Care Nurse Name: Marlyn Evans NP Position: [facility] Associate Professional Member Role: Primary Care Nurse Address: Address: [address] [place] [address]- Name: Junie Kenny RN Position: [facility] RN Member Role: Primary Care Nurse Name: Jayla De RN Position: [facility] RN Member Role: Primary Care Nurse Name: Shea Stevens RN Position: [facility] RN Member Role: Primary Care Nurse Name: Margarita Bain RN Position: [facility] SN RN Member Role: Primary Care Nurse Name: Yady Tanner RN Position: [facility] RN Member Role: Primary Care Nurse Name: Omar Ruteldge RN Position: [facility] RN Member Role: Primary Care Nurse Name: Rashmi Mendez RN Position: [facility] OB RN Member Role: Primary Care Nurse Name: Omar John RN Position: [facility] RN Member Role: Primary Care Nurse Name: Jayla Lai RN Position: [facility] RN Member Role: Primary Care Nurse Name: Pricilla Hendricks RN Position: [facility] RN Member Role: Primary Care Nurse Name: Zabrina Beck RN Position: [facility] RN Member Role: Primary Care Nurse Name: Juan Alvarado DO Position: [facility] Primary Care Physician Member Role: PCP Address: Address: [address] [place] [address] Name: Sophie Luciano RN Position: [facility] SN RN Member Role: Primary Care Nurse Name: Trace Elliott RN Position: [facility] SN RN Member Role: Primary Care Nurse Name: Ashley Langley RN Position: [facility] ED RN W/OE and Tasks Member Role: Primary Care Nurse Name: Flora Gonzalez RN Position: [facility] Soil Evaluator Member Role: Primary Care Nurse Name: Mary Anne Simons RN Position: [facility] RN Member Role: Primary Care Nurse Name: Lela Hoang RN Position: [facility] Onco RN Member Role: Primary Care Nurse Name: Estela Che RN Position: [facility] RN Member Role: Primary Care Nurse Name: Lisandra Gan RN Position: [facility] Soil Evaluator Member Role: Primary Care Nurse Name: Bia Alcazar RN Position: [facility] Soil Evaluator Member Role: Primary Care Nurse Name: Everton Cosby RN Position: [facility] SN RN Member Role: Primary Care Nurse Care Team Related Persons Name: JHON CHRISTYE Address: home [address] [place] [address] Name: ARIEL CHRISTY Address: home [address] [place] [address] Name: MARIBEL CHRISTY Address: [place] [address] Name: NURY TREJO Address: home [address] [place] [address] Name: NURY WOLFE Address: [place] [address]
--- OUTSIDE RECORDS SUMMARY | 2023-05-29 06:00 | XMS_ITS | Continuity of Care Document ---
Author Name Unknown Organization [facility] Address [address] [place] [address]- Care Team Providers Care Arabic Teacher Name Role Phone Luzma SENIOR, Carlos Gaston Primary Care Physician [phone] Encounter [facility] Date(s): 05/04/21 - 06/03/21 [facility] [address] [place] [address]- Allergies, Adverse Reactions, Alerts Substance Reaction Severity [...] term) 9 06/23/06 Given 1Result Comment: [08/18/2018] [facility]: [id number] 2Result Comment: [05/29/2017] [facility]:[id number] 3Admin Note: [facility] clinic, date approx per patient 4Admin Note: VIM given dated 03/14/10 MULIT 5Result Comment: [08/18/2018] [facility]: [id number] 6Admin Note: VIM GIVIN 08/20/06 # 3 [...] 13:48:36 EDT, Aerosol, Route to Pharmacy Electronically, [id number], [facility], Compound Start [...] 30 days, IM injection to Left arm [facility]:26300-396-06 Lot:[id number] Exp: 07/23, # 1 mL, 0 Refills, Maintenance, 04/13/19 14:55:41 EDT, Solution Start Date: 04/13/19 Status: Ordered Cyanocobalamin 1000 mcg/mL injection = 1,000 mcg, Intramuscular, Left deltoid IM. Pt tolerated well. Office Supplied Medication [facility] [id number] Lot [id number] Exp 08/2020, # 1 mL, [...] Refills 0, Tot. Refills 0, Maintenance, 16 Malay Hiwst-Iojogk-Mhonp J tube, transgastric, 02/20/21 9:48:00 EDT, Supply [...] Refills, Maintenance, 02/14/20 16:00:00 EDT, [facility], 165, cm, 12/29/19 14:57:00 EDT, Height, 128.1, kg, 04/08/19 8:08:00 EDT, Dry Weight Start Date: 02/14/20 Status: Ordered traZODone 100 mg oral tablet See Instructions, 1 - 2 tablet By Mouth at bedtime 30 days, # 60 tablet, Refills 0, Tot. Refills 0,Maintenance, 05/18/17 15:31:13 EDT, Instructions Replace Required Details, Route to Pharmacy Electronically, [id number], [facility] Start Date: 05/18/17 Status: Ordered Vitamin D3 1000 intl units oral tablet 1 tablet, By Mouth, Daily, WITH FOOD., # 90 Unknown, 3 Refills, Maintenance, 02/14/21 15:18:00 EDT,[facility], 165.1, cm, 01/24/21 11:40:00 EDT, [...] Active Neuropathic pain of lower extremity(Confirmed) Active *[facility] [phone] CARE MANAG MEME GREGORY(Confirmed) Active Pruritus with morphine(Confirmed) Active Recurrent UTI(Confirmed) Active Reflex sympathetic dystrophy(Confirmed) Active Dry heaves(Confirmed) Active Urinary retention(Confirmed) Active Urinary retention(Confirmed) Active Sepsis(Confirmed) Active Sleep-disordered breathing(Confirmed) Active Feeding by G-tube(Confirmed) Active Suprapubic catheter(Confirmed) Active Social History Social History Type Response Smoking Status Former smoker; Other : quit few months ago; entered on: 02/15/15 Sex
--- OUTSIDE RECORDS SUMMARY | 2023-05-29 06:00 | XMS_ITS | Continuity of Care Document ---
Author Name Unknown Organization [facility] Address [address] [place] [address]- Care Team Providers Care Label Stitcher Name Role Phone Luzma SENIOR, Carlos Gaston Primary Care Physician [phone] Encounter [facility] Date(s): 12/04/21 - 01/03/22 [facility] [address] [place] [address]- Allergies, Adverse Reactions, Alerts Substance Reaction Severity [...] Given 1Result Comment: [08/18/2018] [facility]: 05528-410-30 2Result Comment: [05/29/2017] [facility]:[id number] 3Admin Note: [facility] clinic, date approx per patient 4Admin Note: VIM given dated 03/14/10 MULIT 5Result Comment: [08/18/2018] [facility]: [id number] 6Admin Note: VIM GIVIN 08/20/06 # 3 [...] 13:48:36 EDT, Aerosol, Route to Pharmacy Electronically, [id number], [facility], Compound Start [...] injection to Left arm [facility]:[id number] Lot:[id number] Exp: 07/23, # 1 mL, 0 Refills, Maintenance, 04/13/19 14:55:41 EDT, Solution Start Date: 04/13/19 Status: Ordered Cyanocobalamin 1000 mcg/mL injection = 1,000 mcg, Intramuscular, Left deltoid IM. Pt tolerated well. Office Supplied Medication [facility] 1755-0602-55 Lot [id number] Exp 08/2020, # 1 mL, [...] Refills 0, Tot. Refills 0, Maintenance, 16 Ethiopian Aquha-Tqlvrx-Jblmw J tube, transgastric, 02/20/21 9:48:00 EDT, Supply [...] Replace Required Details, Route to Pharmacy Electronically, [id number], [facility] Start Date: 05/18/17 Status: Ordered Vitamin D3 1000 intl units oral tablet 1 tablet, By Mouth, Daily, WITH FOOD., # 90 Unknown, 3 Refills, Maintenance, 02/14/21 15:18:00 EDT,[facility], 165.1, cm, 01/24/21 11:40:00 EDT, [...] Active Neuropathic pain of lower extremity(Confirmed) Active *[facility] [phone] CARE MANAG MEME GREGORY(Confirmed) Active Pruritus with morphine(Confirmed) Active Pulmonary embolus(Confirmed) 1 Active Recurrent UTI(Confirmed) Active Reflex sympathetic dystrophy(Confirmed) Active Dry heaves(Confirmed) Active Urinary retention(Confirmed) Active Urinary retention(Confirmed) Active Sepsis(Confirmed) Active Severe obesity(Confirmed) Active Sleep-disordered breathing(Confirmed) Active Feeding by G-tube(Confirmed) Active Suprapubic catheter(Confirmed) Active 1unprovoked PE 2014, heme recommended lifelong anticogulation due to high-risk of recurrence Social History Social History Type Response Smoking Status Former smoker; Other : quit few months ago; entered on: 02/15/15 Sex Female
--- OUTSIDE RECORDS SUMMARY | 2023-05-29 06:00 | XMS_ITS | Continuity of Care Document ---
Author Name Unknown Organization [facility] Address [address] [place] [address]- Care Team Providers Care Wheat Washer Name Role Phone Luzma SENIOR, Carlos Gaston Primary Care Physician [phone] Encounter [facility] Date(s): 03/29/21 - 04/28/21 [facility] [address] [place] [address]- Attending Physician: Admtr, Heidi Allergies, Adverse Reactions, Alerts Substance Reaction Severity [...] term) 9 06/23/06 Given 1Result Comment: [08/18/2018] [facility]: [id number] 2Result Comment: [05/29/2017] [facility]:[id number] 3[facility], date approx per patient 4Admin Note: VIM given dated 03/14/10 MULIT 5Result Comment: [08/18/2018] [facility]: [id number] 6Admin Note: VIM GIVIN 08/20/06 # 3 [...] 13:48:36 EDT, Aerosol, Route to Pharmacy Electronically, [id number], [facility], Compound Start [...] 30 days, IM injection to Left arm [facility]:77084-363-95 Lot:[id number] Exp: 07/23, # 1 mL, 0 Refills, Maintenance, 04/13/19 14:55:41 EDT, Solution Start Date: 04/13/19 Status: Ordered Cyanocobalamin 1000 mcg/mL injection = 1,000 mcg, Intramuscular, Left deltoid IM. Pt tolerated well. Office Supplied Medication [facility] 3847-5557-97 Lot [id number] Exp 08/2020, # 1 mL, [...] Refills 0, Tot. Refills 0, Maintenance, 16 Vietnamese Uuwmv-Myfyda-Acgms J tube, transgastric, 02/20/21 9:48:00 EDT, Supply [...] is f... Start Date: 12/27/20 Status: Ordered propranolol 60 mg oral capsule, [...] Replace Required Details, Route to Pharmacy Electronically, [id number], [facility] Start Date: 05/18/17 Status: Ordered Vitamin [...] Active Neuropathic pain of lower extremity(Confirmed) Active *[facility] [phone] CARE MANAG ER MEME GREGORY(Confirmed) Active Pruritus with morphine(Confirmed) Active Recurrent UTI(Confirmed) Active Reflex sympathetic dystrophy(Confirmed) Active Dry heaves(Confirmed) Active Urinary retention(Confirmed) Active Urinary retention(Confirmed) Active Sepsis(Confirmed) Active Sleep-disordered breathing(Confirmed) Active Feeding by G-tube(Confirmed) Active Suprapubic catheter(Confirmed) Active Vital Signs Most recent to oldest [Reference Range]: 1 2 3 Height 164 cm (04/24/16 9:25 AM) 165.00 cm (10/24/11 12:13 PM) 166.00 cm (02/18/08 10:34 AM) Weight 65.7 kg (04/24/16 9: AM) 123.000 kg (02/18/08 10:34 AM) Oxygen Saturation [94-100 %] 97 % (04/24/16: AM) Pulse Rate [55-90 bpm] 62 bpm (04/24/16: AM) 80 bpm (10/24/11 12:13 PM) 76 bpm (02/18/08 10:34 AM) Body Mass Index [18.50-24.99] 24.43 (04/24/16 9:25 AM) 44.64 *>HHI* (02/18/08 10:34 AM) Blood Pressure [90-138/55-84 mm Hg] 118/58mm Hg (04/24/16 9:25 AM) 120/70mm Hg (10/24/11 12:13 PM) 120/90mm Hg (02/18/08 10:34 AM) Respiratory Rate [16-30 br/min] 12 br/min *L* (04/24/16 9: AM) Temperature [96.8-100.4 DegF] 98.2 DegF (04/24/16 9:25 AM) 98.6 DegF (10/24/11 12:13 PM) 98.5 DegF (02/18/08 10:34 AM) Blood pressure sites Arm, right (04/24/16: AM) Arm, left (10/24/11 12:13 PM) Arm, left (02/18/08 10:34 AM) Temperature Route Tympanic (04/24/16 9:25 AM) Weight Obtained Via Standing scale (04/24/16 9:25 AM) Social History Social History Type Response Smoking Status Former smoker; Other : quit few months ago; entered on: 02/15/15 Sex
--- OUTSIDE RECORDS SUMMARY | 2023-05-29 06:00 | XMS_ITS | Continuity of Care Document ---
Author Name Unknown Organization [facility] Address [address] [place] [address]- Care Team Providers Care Surgical Orderly Name Role Phone Luzma SENIOR, Carlos Gaston Primary Care Physician Encounter [facility] Date(s): 04/04/21 - 05/04/21 [facility] [address] [place] [address]- Allergies, Adverse Reactions, Alerts Substance Reaction Severity [...] 9 06/23/06 Given 1Result Comment: [08/18/2018] [facility]: 68497-887-53 2Result Comment: [05/29/2017] [facility]:37300-207-03 3Admin Note: [facility] clinic, date approx per patient 4Admin Note: VIM given dated 03/14/10 MULIT 5Result Comment: [08/18/2018] [facility]: 38926-360-25 6Admin Note: VIM GIVIN 08/20/06 # 3 [...] 13:48:36 EDT, Aerosol, Route to Pharmacy Electronically, [id number], [facility], Compound Start [...] days, IM injection to Left arm [facility]:55494-509-61 Lot:[id number] Exp: 07/23, # 1 mL, 0 Refills, Maintenance, 04/13/19 14:55:41 EDT, Solution Start Date: 04/13/19 Status: Ordered Cyanocobalamin 1000 mcg/mL injection = 1,000 mcg, Intramuscular, Left deltoid IM. Pt tolerated well. Office Supplied Medication [facility] 6260-0883-40 Lot [id number] Exp 08/2020, # 1 mL, [...] Refills 0, Tot. Refills 0, Maintenance, 16 Belarusian Kxcgd-Azvagj-Oiqnd J tube, transgastric, 02/20/21 9:48:00 EDT, Supply [...] Replace Required Details, Route to Pharmacy Electronically, [id number], [facility] Start Date: 05/18/17 Status: Ordered Vitamin [...] Active Neuropathic pain of lower extremity(Confirmed) Active *[facility] [phone] CARE MANAG LUANN GREGORY(Confirmed) Active Pruritus with morphine(Confirmed) Active Recurrent UTI(Confirmed) Active Reflex sympathetic dystrophy(Confirmed) Active Dry heaves(Confirmed) Active Urinary retention(Confirmed) Active Urinary retention(Confirmed) Active Sepsis(Confirmed) Active Sleep-disordered breathing(Confirmed) Active Feeding by G-tube(Confirmed) Active Suprapubic catheter(Confirmed) Active Social History Social History Type Response Smoking Status Former smoker; Other : quit few months ago; entered on: 02/15/15 Sex
--- OUTSIDE RECORDS SUMMARY | 2023-05-29 06:00 | XMS_ITS | Continuity of Care Document ---
Author Name Unknown Organization [facility] Address [address] [place] [address]- Care Team Providers Care Neurology Technologist Name Role Phone Luzma SENIOR, Carlos Gaston Primary Care Physician [phone] Encounter [facility] Date(s): 05/23/21 - 06/22/21 [facility] [address] [place] [address]- Allergies, Adverse Reactions, Alerts Substance Reaction Severity [...] term) 9 06/23/06 Given 1Result Comment: [08/18/2018] [facility]: [id number] 2Result Comment: [05/29/2017] [facility]:[id number] 3Admin Note: [facility] clinic, date approx per patient 4Admin Note: VIM given dated 03/14/10 MULIT 5Result Comment: [08/18/2018] [facility]: 50389-244-14 6Admin Note: VIM GIVIN 08/20/06 # 3 [...] 13:48:36 EDT, Aerosol, Route to Pharmacy Electronically, [id number], [facility], Compound Start [...] 30 days, IM injection to Left arm [facility]:73452-718-23 Lot:[id number] Exp: 07/23, # 1 mL, 0 Refills, Maintenance, 04/13/19 14:55:41 EDT, Solution Start Date: 04/13/19 Status: Ordered Cyanocobalamin 1000 mcg/mL injection = 1,000 mcg, Intramuscular, Left deltoid IM. Pt tolerated well. Office Supplied Medication [facility] [id number] Lot 9038 Exp 08/2020, # 1 mL, [...] Refills 0, Tot. Refills 0, Maintenance, 16 Macedonian Fpnzm-Xwnbby-Qtpjt J tube, transgastric, 02/20/21 9:48:00 EDT, Supply [...] Refills, Maintenance, 02/14/20 16:00:00 EDT, [facility], 165, cm, 12/29/19 14:57:00 EDT, Height, 128.1, kg, 04/08/19 8:08:00 EDT, Dry Weight Start Date: 02/14/20 Status: Ordered traZODone 100 mg oral tablet See Instructions, 1 - 2 tablet By Mouth at bedtime 30 days, # 60 tablet, Refills 0, Tot. Refills 0,Maintenance, 05/18/17 15:31:13 EDT, Instructions Replace Required Details, Route to Pharmacy Electronically, [id number], [facility] Start Date: 05/18/17 Status: Ordered Vitamin D3 1000 intl units oral tablet 1 tablet, By Mouth, Daily, WITH FOOD., # 90 Unknown, 3 Refills, Maintenance, 02/14/21 15:18:00 EDT,[facility], 165.1, cm, 01/24/21 11:40:00 EDT, [...] extremity(Confirmed) Active *[facility] [phone] CARE MANAG MEME GREGORY(Confirmed) Active Pruritus with [...]
--- OUTSIDE RECORDS SUMMARY | 2023-05-29 06:00 | XMS_ITS | Continuity of Care Document ---
Author Name Unknown Organization [facility] Address [address] [place] [address]- Care Team Providers Care Belt Cutter Name Role Phone Juan Alvarado DO Primary Care Physician [phone] [facility] 10[facility]/22 [facility] [address] [place] [address]- Allergies, Adverse Reactions, Alerts Substance Reaction Severity [...] term) 9 06/23/06 Given 1Result Comment: [08/18/2018] [facility]: [id number] 2Result Comment: [05/29/2017] [facility]:[id number] 3[facility], date approx per patient 4Admin Note: VIM given dated 03/14/10 MULIT 5Result Comment: [08/18/2018] [facility]: [id number] 6Admin Note: VIM GIVIN 08/20/06 # 3 [...] 13:48:36 EDT, Aerosol, Route to Pharmacy Electronically, [id number], [facility], Compound Start [...] 30 days, IM injection to Left arm [facility]:57374-126-02 Lot:[id number] Exp: 07/23, # 1 mL, 0 Refills, Maintenance, 04/13/19 14:55:41 EDT, Solution Start Date: 04/13/19 Status: Ordered Cyanocobalamin 1000 mcg/mL injection = 1,000 mcg, Intramuscular, Left deltoid IM. Pt tolerated well. Office Supplied Medication [facility] [id number] Lot [id number] Exp 08/2020, # 1 mL, [...] Refills 0, Tot. Refills 0, Maintenance, 16 Swazi Yewlm-Txcjjv-Gxhzx J tube, transgastric, 02/20/21 9:48:00 EDT, Supply Start Date: 02/20/21 Status: Ordered Jantoven 5 mg oral tablet 1 tablet, By Mouth, Daily, for 30 days, OR DIRECTED BY COUMADIN CLINIC NURSE., # 30 tablet, 11 Refills, Physician Stop 08/29/23 8:30:00 EST, 09/03/22 8:30:00 EST, [facility], 165, cm, 08/28/22 10:52:00 EST, [...] 0:00:00 EST, 10/08/22 8:28:00 EST, [facility], 165, cm, 10/08/22 8:08:00 EST, [...] Replace Required Details, Route to Pharmacy Electronically, [id number], [facility] Start Date: 05/18/17 Status: Ordered Trulicity [...] Neuropathic pain of lower extremity Confirmed Active *[facility] [phone] MANAGER FAST FOOD MEME GREGORY Confirmed Active Pruritus with morphine [...] Team Personnel Name: Renea Thayer RN Position: [facility] RN Member Role: Primary Care Nurse Name: Radha Woods RN Position: [facility] RN Member Role: Primary Care Nurse Name: Larissa Pino RN Position: [facility] ED RN W/OE and Tasks Member Role: Primary Care Nurse Name: Lela Mcintyre RN Position: [facility] SN RN Member Role: Primary Care Nurse Name: Charisse Chris RN Position: [facility] SN RN Member Role: Primary Care Nurse Name: Omar Henning RN Position: [facility] RN Member Role: Primary Care Nurse Name: Marlyn Evans NP Position: [facility] Associate Professional Member Role: Primary Care Nurse Address: Address: [address] [place] [address]- Name: uJnie Kenny RN Position: [facility] RN Member Role: Primary Care Nurse Name: Jayla De RN Position: [facility] RN Member Role: Primary Care Nurse Name: Shea Stevens RN Position: [facility] RN Member Role: Primary Care Nurse Name: Margarita Bain RN Position: [facility] SN RN Member Role: Primary Care Nurse Name: Yady Tanner RN Position: [facility] RN Member Role: Primary Care Nurse Name: Omar Rutledge RN Position: [facility] RN Member Role: Primary Care Nurse Name: Rashmi Mendez RN Position: [facility] OB RN Member Role: Primary Care Nurse Name: Omar John RN Position: [facility] RN Member Role: Primary Care Nurse Name: Jayla Lai RN Position: [facility] RN Member Role: Primary Care Nurse Name: Pricilla Hendricks RN Position: [facility] RN Member Role: Primary Care Nurse Name: Zabrina Beck RN Position: [facility] RN Member Role: Primary Care Nurse Name: Juan Alvarado DO Position: [facility] Primary Care Physician Member Role: PCP Address: Address: [address] [place] [address] Name: Sophie Luciano RN Position: [facility] SN RN Member Role: Primary Care Nurse Name: Trace Elliott RN Position: [facility] SN RN Member Role: Primary Care Nurse Name: Ashley Langley RN Position: [facility] ED RN W/OE and Tasks Member Role: Primary Care Nurse Name: Flora Gonzalez RN Position: [facility] Geological Engineering Teacher Member Role: Primary Care Nurse Name: Mary Anne Simons RN Position: [facility] RN Member Role: Primary Care Nurse Name: Lela Hoang RN Position: [facility] Onco RN Member Role: Primary Care Nurse Name: Estela Che RN Position: [facility] RN Member Role: Primary Care Nurse Name: Lisandra Gan RN Position: [facility] Geological Engineering Teacher Member Role: Primary Care Nurse Name: Bia Alcazar RN Position: [facility] Geological Engineering Teacher Member Role: Primary Care Nurse Name: Harjeet ZHENG Hteekalinda Position: [facility] SN RN Member Role: Primary Care Nurse Care Team Related Persons Name: ARIEL CHRISTY Address: [place] [address] Name: ARIEL CHRISTY Address: home [address] [place] [address] Name: MARIBEL CHRISTY Address: [place] [address] Name: NURY TREJO Address: home [address] [place] [address] Name: NURY WOLFE Address: [place] [address]
--- OUTSIDE RECORDS SUMMARY | 2023-05-29 06:00 | XMS_ITS | Continuity of Care Document ---
Author Name Unknown Organization [facility] Address [address] [place] [address]- Care Team Providers Care Environmental Engineer Scientist Name Role Phone Tresa SENIOR, Hannah Mccoy Primary Care Physician [facility] - 04/17/22 [facility] [address] [place] [address]- Attending Physician: Admtr, Ar8 Allergies, Adverse Reactions, Alerts Substance Reaction Severity [...] term) 9 06/23/06 Given 1Result Comment: [08/18/2018] [facility]: [id number] 2Result Comment: [05/29/2017] [facility]:[id number] 3Admin Note: [facility] clinic, date approx per patient 4Admin Note: VIM given dated 03/14/10 MULIT 5Result Comment: [08/18/2018] [facility]: [id number] 6Admin Note: VIM GIVIN 08/20/06 # 3 [...] 13:48:36 EDT, Aerosol, Route to Pharmacy Electronically, [id number], [facility], Compound Start [...] 30 days, IM injection to Left arm [facility]:[id number] Lot:[id number] Exp: 07/23, # 1 mL, 0 Refills, Maintenance, 04/13/19 14:55:41 EDT, Solution Start Date: 04/13/19 Status: Ordered Cyanocobalamin 1000 mcg/mL injection = 1,000 mcg, Intramuscular, Left deltoid IM. Pt tolerated well. Office Supplied Medication [facility] [id number] Lot [id number] Exp 08/2020, # 1 mL, [...] Refills 0, Tot. Refills 0, Maintenance, 16 Korean Zcter-Pkxdhm-Poprd J tube, transgastric, 02/20/21 9:48:00 EDT, Supply Start Date: 02/20/21 Status: Ordered Jantoven 5 mg oral tablet 1 tablet, By Mouth, Daily, OR DIRECTED BY COUMADIN CLINIC NURSE., # 30 tablet, 5 Refills, 03/05/22 8:34:00 EDT, [facility], 165, cm, 12/11/21 10:50:00 EDT, Height, 113.4, kg, 08/16/21 8:31:00 EST, Dry Weight Start Date: 03/05/22 Status: Ordered LaMICtal 200 mg oral tablet [...] Replace Required Details, Route to Pharmacy Electronically, [id number], [facility] Start Date: 05/18/17 Status: Ordered Vitamin D3 1000 intl units oral tablet 1 tablet, By Mouth, Daily, WITH FOOD., # 90 tablet, 1 Refills, [facility], 165, cm, 12/11/21 10:50:00 EDT, Height, 113.4, kg, 08/16/21 8:31:00 EST, Dry Weight Start Date: 01/15/22 Status: Ordered Problem List Condition Effective Dates [...] Active Neuropathic pain of lower extremity(Confirmed) Active *[facility] [phone] CARE MANAG ER MEME GREGORY(Confirmed) Active Pruritus with morphine(Confirmed) Active Pulmonary embolus(Confirmed) 1 Active Recurrent UTI(Confirmed) Active Reflex sympathetic dystrophy(Confirmed) Active Dry heaves(Confirmed) Active Urinary retention(Confirmed) Active Urinary retention(Confirmed) Active Sepsis(Confirmed) Active Severe obesity(Confirmed) Active Sleep-disordered breathing(Confirmed) Active Feeding by G-tube(Confirmed) Active Suprapubic catheter(Confirmed) Active 1unprovoked PE 2014, heme recommended lifelong anticogulation due to high-risk of recurrence Vital Signs Most recent to oldest [Reference Range]: 1 2 3 Height 164 cm (04/24/16 9:25 AM) 165.00 cm (10/24/11 12:13 PM) 166.00 cm (02/18/08 10:34 AM) Weight 65.7 kg (04/24/16 9:25 AM) 123.000 kg (02/18/08 10:34 AM) Oxygen Saturation [94-100 %] 97 % (04/24/16 9:25 AM) Pulse Rate [55-90 bpm] 62 bpm (04/24/16:25 AM) 80 bpm (10/24/11 12:13 PM) 76 [...] 10:34 AM) Blood pressure sites Arm, right (04/24/16 9:25 AM) Arm, left (10/24/11 12:13 PM) Arm, left (02/18/08 10:34 AM) Temperature Route Tympanic (04/24/16 9:25 AM) Weight Obtained Via Standing scale (04/24/16 9:25 AM) Social History Social History Type Response Smoking Status Former smoker; Other : quit few months ago; entered on: 02/15/15 Sex Female Care Team Personnel Name: Hannah Gtz NP Address: [address] [place], [place] [address]
--- OUTSIDE RECORDS SUMMARY | 2023-05-29 06:01 | XMS_ITS | Continuity of Care Document ---
Author Name Unknown Organization [facility] Address [address] [place] [address]- Care Team Providers Care Gas Pumping Station Operator Name Role Phone Tresa SENIOR, Hannah Mccoy Primary Care Physician [facility] 02[facility]22 - 03/27/22 [facility] [address] [place] [address]- Allergies, Adverse Reactions, Alerts Substance Reaction Severity [...] Vaccine 6 06/30/07 Given Human Papillomavirus Vaccine 7/30/07 Given Human Papillomavirus Vaccine 7 01/01/07 Given Influenza Inactive (IM) (oldterm) 8 06/12/07 Given Hepatitis B Vaccine (old term) 9 06/23/06 Given 1Result Comment: [08/18/2018] [facility]: [id number] 2Result Comment: [05/29/2017] [facility]:[id number] 3Admin Note: [facility] clinic, date approx per patient 4Admin Note: VIM given dated 03/14/10 MULIT 5Result Comment: [08/18/2018] [facility]: [id number] 6Admin Note: VIM GIVIN 08/20/06 # 3 [...] 13:48:36 EDT, Aerosol, Route to Pharmacy Electronically, [id number], [facility], Compound Start [...] 30 days, IM injection to Left arm [facility]:35767-804-85 Lot:[id number] Exp: 07/23, # 1 mL, 0 Refills, Maintenance, 04/13/19 14:55:41 EDT, Solution Start Date: 04/13/19 Status: Ordered Cyanocobalamin 1000 mcg/mL injection = 1,000 mcg, Intramuscular, Left deltoid IM. Pt tolerated well. Office Supplied Medication [facility] [id number] Lot [id number] Exp 08/2020, # 1 mL, [...] Refills 0, Tot. Refills 0, Maintenance, 16 Nigerian Cpguz-Abotme-Iauqw J tube, transgastric, 02/20/21 9:48:00 EDT, Supply [...] Replace Required Details, Route to Pharmacy Electronically, [id number], [facility] Start Date: 05/18/17 Status: Ordered Vitamin [...] pain of lower extremity(Confirmed) Active *[facility] [phone] CARE MANAG ER MEME GREGORY(Confirmed) Active Pruritus [...]
--- OUTSIDE RECORDS SUMMARY | 2023-05-29 06:01 | XMS_ITS | Continuity of Care Document ---
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 Name Role Phone Tresa SENIOR, Hannah Mccoy Primary Care Physician [phone] [facility] 01[facility]11[facility]22 - 02/10/22 [facility] Adult [address] [place] [address]- Allergies, Adverse Reactions, Alerts Substance Reaction Severity [...] 9 06/23/06 Given 1Result Comment: [08/18/2018] [facility]: [id number] 2Result Comment: [05/29/2017] [facility]:[id number] 3Admin Note: [facility] clinic, date approx per patient 4Admin Note: VIM given dated 03/14/10 MULIT 5Result Comment: [08/18/2018] [facility]: [id number] 6Admin Note: VIM GIVIN 08/20/06 # 3 [...] 13:48:36 EDT, Aerosol, Route to Pharmacy Electronically, [id number], [facility], Compound Start [...] days, IM injection to Left arm [facility]:63012-645-12 Lot:[id number] Exp: 07/23, # 1 mL, 0 Refills, Maintenance, 04/13/19 14:55:41 EDT, Solution Start Date: 04/13/19 Status: Ordered Cyanocobalamin 1000 mcg/mL injection = 1,000 mcg, Intramuscular, Left deltoid IM. Pt tolerated well. Office Supplied Medication [facility] 9779-2749-27 Lot 9038 Exp 08/2020, # 1 mL, [...] Refills 0, Tot. Refills 0, Maintenance, 16 Tajik Isree-Lnnflt-Ihsak J tube, transgastric, 02/20/21 9:48:00 EDT, Supply [...] Replace Required Details, Route to Pharmacy Electronically, [id number], [facility] Start Date: 05/18/17 Status: Ordered Vitamin [...] Active Neuropathic pain of lower extremity(Confirmed) Active *[facility] [phone] CARE MANAG LUANN GREGORY(Confirmed) Active Pruritus with morphine(Confirmed) Active Pulmonary [...]
--- OUTSIDE RECORDS SUMMARY | 2023-05-29 06:01 | XMS_ITS | Continuity of Care Document ---
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 Role Phone Juan Alvarado DO Primary Care Physician [facility] 02[facility]23 - 03/27/23 [facility] [address] [place] [address]- Allergies, Adverse Reactions, Alerts Substance Reaction Severity [...] term) 9 06/23/06 Given 1Result Comment: [08/18/2018] [facility]: 17875-317-48 2Result Comment: [05/29/2017] [facility]:[id number] 3Admin Note[facility], date approx per patient 4Admin Note: VIM given dated 03/14/10 MULIT 5Result Comment: [08/18/2018] [facility]: [id number] 6Admin Note: VIM GIVIN 08/20/06 # 3 [...] 13:48:36 EDT, Aerosol, Route to Pharmacy Electronically, [id number], [facility], Compound Start [...] opioid drug. Start Date: 08/02/22 Status: Ordered bisacodyl 5 mg oral delayed release tablet 2 tablet = 10 mg, By Mouth, Daily, PRN for constipation, # 60 tablet, 0 Refills, Acute 08/04/24 0:00:00 EST, 02/21/23 8:59:00 EDT, EC Tablet, [facility], Partial fill upon patient request if the prescription is for a schedule II opioid... Start Date: 02/21/23 Stop Date: 08/04/24 Status: Ordered buPROPion 150 mg/24 hours (XL) oral tablet, extended release 2 tablet = 300 mg, By Mouth, Every 24 hours, # 30 tablet, 0 Refills, Maintenance, 06/22/17 19:39:25EST, ER Tablet Start Date: 06/22/17 Status: Ordered capsaicin 0.025% topical cream 1 application, Topically, 2 times a day, # 60 Gm, 3 Refills, Acute 08/04/24 0:00:00 EST, 01/07/23 14:09:00 EDT, Cream, [facility], Partial fill upon patient request if the prescription is for a schedule II opioid drug., 1 application To... Start Date: 01/07/23 Stop Date: 08/04/24 Status: Ordered Cogentin Tablet 0.5 mg, By Mouth, 2 times a day, Refills 0, Maintenance, 11/10/20 11:12:00 EDT, Partial fill upon patient request if the prescription is for a schedule II opioid drug. Start Date: 11/10/20 Status: Ordered cyanocobalamin 1000 mcg/ml injectable solution 1 mL = 1,000 mcg, Subcutaneous Injection, Every 30 days, IM injection to Left arm [facility]:44778-677-72 Lot:[id number] Exp: 07/23, # 1 mL, 0 Refills, Maintenance, 04/13/19 14:55:41 EDT, Solution Start Date: 04/13/19 Status: Ordered Cyanocobalamin 1000 mcg/mL injection = 1,000 mcg, Intramuscular, Left deltoid IM. Pt tolerated well. Office Supplied Medication [facility] 4935-3965-34 Lot 9038 Exp 08/2020, # 1 mL, 0 Refills, Maintenance, 02/18/19 13:00:00 EDT Start Date: 02/18/19 Status: Ordered cyclobenzaprine 5 mg oral tablet 1 tablet = 5 mg, By Mouth, 3 times a day, # 90 tablet, 0 Refills, Acute 08/04/24 0:00:00 EST, 01/07/23 14:10:00 EDT, [facility], Partial fill upon patient request if the prescription is for a schedule II opioid drug., 165, cm, 01/07/23... Start Date: 01/07/23 Stop Date: 08/04/24 Status: Ordered docusate sodium 100 mg oral [...] Refills 0, Tot. Refills 0, Maintenance, 16 Burmese Fzzjk-Ipftfx-Wrbbr J tube, transgastric, 02/20/21 9:48:00 EDT, Supply [...] Replace Required Details, Route to Pharmacy Electronically, [id number], [facility] 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 Pruritus with morphine [...] Team Personnel Name: Renea Thayer RN Position: [facility] RN Member Role: Primary Care Nurse Name: Radha Woods RN Position: [facility] SN RN Member Role: Primary Care Nurse Name: Larissa Pino RN Position: [facility] ED RN W/OE and Tasks Member Role: Primary Care Nurse Name: Lela Mcintyre RN Position: [facility] SN RN Member Role: Primary Care Nurse Name: Charisse Chris RN Position: [facility] SN RN Member Role: Primary Care Nurse Name: Omar Henning RN Position: [facility] RN Member Role: Primary Care Nurse Name: Marlyn Evans NP Position: [facility] Associate Professional Member Role: Primary Care Nurse Address: Address: [address] [place] [address] Name: Junie Kenny RN Position: [facility] RN Member Role: Primary Care Nurse Name: Jayla De RN Position: [facility] RN Member Role: Primary Care Nurse Name: Shea Stevens RN Position: [facility] RN Member Role: Primary Care Nurse Name: Margarita Bain RN Position: [facility] SN RN Member Role: Primary Care Nurse Name: Yady Tanner RN Position: [facility] RN Member Role: Primary Care Nurse Name: Omar Rutledge RN Position: [facility] RN Member Role: Primary Care Nurse Name: Rashmi Mendez RN Position: [facility] OB RN Member Role: Primary Care Nurse Name: Omar John RN Position: [facility] RN Member Role: Primary Care Nurse Name: Jayla Lai RN Position: [facility] RN Member Role: Primary Care Nurse Name: Pircilla Hendricks RN Position: [facility] RN Member Role: Primary Care Nurse Name: Zabrina Beck RN Position: [facility] RN Member Role: Primary Care Nurse Name: Juan Alvarado DO Position: [facility] Physician - Primary Care Member Role: PCP Address: Address: [address] [place] [address] Name: Sophie Luciano RN Position: [facility] SN RN Member Role: Primary Care Nurse Name: Trace Elliott RN Position: [facility] SN RN Member Role: Primary Care Nurse Name: Flora Gonzalez RN Position: [facility] [employer] Glass Specialist Member Role: Primary Care Nurse Name: Mary Anne Simons RN Position: [facility] RN Member Role: Primary Care Nurse Name: Lela Hoang RN Position: [facility] Onco RN Member Role: Primary Care Nurse Name: Estela Che RN Position: [facility] RN Member Role: Primary Care Nurse Name: Lisandra Gan RN Position: [facility] [employer] Glass Specialist Member Role: Primary Care Nurse Name: Bia Alcazar RN Position: [facility] [employer] Specialist Member Role: Primary Care Nurse Name: Duane Cosby RNeekalinda Position: [facility] SN RN Member Role: Primary Care Nurse Care Team Related Persons Name: ARIEL CHRISTY Address: [address] [place], [place] [id number] Name: ARIEL CHRISTY Address: home [address] [place] [address] Name: MARIBEL CHRISTY Address: [place] [address] Name: NURY TREJO Address: home [address] [place] [address] Name: NURY WOLFE Address: [place] [address]
--- OUTSIDE RECORDS SUMMARY | 2023-05-29 06:01 | XMS_ITS | Continuity of Care Document ---
Author Name Unknown Organization [facility] Kris lt Address [address] [place] [address]- Care Team Providers Care Automation Tester Name Role Phone Tresa SENIOR, Hannah Mccoy Primary Care Physician [facility] - 02[facility]10/22 [facility] Adult [address] [place] [address]- Allergies, Adverse Reactions, Alerts Substance Reaction Severity [...] term) 9 06/23/06 Given 1Result Comment: [08/18/2018] [facility]: [id number] 2Result Comment: [05/29/2017] [facility]:[id number] 3Admin Note: [facility] clinic, date approx per patient 4Admin Note: VIM given dated 03/14/10 MULIT 5Result Comment: [08/18/2018] [facility]: [id number] 6Admin Note: VIM GIVIN 08/20/06 # 3 [...] 13:48:36 EDT, Aerosol, Route to Pharmacy Electronically, [id number], [facility], Compound Start [...] 30 days, IM injection to Left arm [facility]:[id number] Lot:[id number] Exp: 07/23, # 1 mL, 0 Refills, Maintenance, 04/13/19 14:55:41 EDT, Solution Start Date: 04/13/19 Status: Ordered Cyanocobalamin 1000 mcg/mL injection = 1,000 mcg, Intramuscular, Left deltoid IM. Pt tolerated well. Office Supplied Medication [facility] 1182-3636-97 Lot [id number] Exp 08/2020, # 1 mL, [...] Refills 0, Tot. Refills 0, Maintenance, 16 Armenian Lnuzr-Eofsrg-Sfyxg J tube, transgastric, 02/20/21 9:48:00 EDT, Supply [...] Replace Required Details, Route to Pharmacy Electronically, [id number], [facility] Start Date: 05/18/17 Status: Ordered Vitamin [...] pain of lower extremity(Confirmed) Active *[facility] [phone] CARE MANAG LUANN GREGORY(Confirmed) Active Pruritus with [...]
--- OUTSIDE RECORDS SUMMARY | 2023-05-29 06:01 | XMS_ITS | Continuity of Care Document ---
Author Name Unknown Organization [facility] Address [address] [place] [address]- Care Team Providers Care Assistant Site Manager Name Role Phone Juan Alvarado DO Primary Care Physician [phone] Encounter [facility] Date(s): 08/28/22 - 09/04/22 [facility] [address] [place] [address]- Encounter Diagnosis Chronic kidney disease stage 3(Discharge Diagnosis) - 08/28/22 Pulmonary embolus(Discharge Diagnosis) - 08/28/22 Gender identity disorder(Discharge Diagnosis) - 08/28/22 Severe obesity (BMI >= 40)(Discharge Diagnosis) - 08/28/22 Bipolar disorder(Discharge Diagnosis) - 08/28/22 Jejunostomy tube in situ(Discharge Diagnosis) - 08/28/22 Secondary nephrogenic diabetes insipidus(Discharge Diagnosis) - 08/28/22 Sciatic pain(Discharge Diagnosis) - 08/28/22 Attending Physician: Juan Alvarado DO Allergies, Adverse Reactions, Alerts Substance Reaction Severity [...] term) 9 06/23/06 Given 1Result Comment: [08/18/2018] [facility]: 71236-756-27 2Result Comment: [05/29/2017] [facility]:[id number] 3[facility] 4Admin Note: VIM given dated 03/14/10 MULIT 5Result Comment: [08/18/2018] [facility]: [id number] 6Admin Note: VIM GIVIN 08/20/06 # 3 [...] 13:48:36 EDT, Aerosol, Route to Pharmacy Electronically, [id number], [facility], Compound Start [...] 30 days, IM injection to Left arm [facility]:85864-929-58 Lot:[id number] Exp: 07/23, # 1 mL, 0 Refills, Maintenance, 04/13/19 14:55:41 EDT, Solution Start Date: 04/13/19 Status: Ordered Cyanocobalamin 1000 mcg/mL injection = 1,000 mcg, Intramuscular, Left deltoid IM. Pt tolerated well. Office Supplied Medication [facility] 5289-6677-25 Lot [id number] Exp 08/2020, # 1 mL, [...] EST, Route to Pharmacy Electronically, [facility], Partial fill upon patient request if the prescription is for a ginger... Start Date: 08/02/22 Status: Ordered J-tube J-tube, See Instructions, # 1 each, Refills 0, Tot. Refills 0, Maintenance, 16 Cymro Uniqm-Baftvu-Fllhy J tube, transgastric, 02/20/21 9:48:00 EDT, Supply Start Date: 02/20/21 Status: Ordered Jantoven 5 mg oral tablet 1 tablet, By Mouth, Daily, for 30 days, OR DIRECTED BY COUMADIN CLINIC NURSE., # 30 tablet, 11 Refills, Physician Stop 08/29/23 8:30:00 EST, 09/03/22 8:30:00 EST, [facility], 165, cm, 08/28/22 10:52:00 EST, [...] Maintenance, 12/27/20 13:14:00 EDT, Suppository, [facility], Partial fill upon patient request if the prescription is f... Start Date: 12/27/20 Status: Ordered promethazine 6.25 mg/5 mL oral syrup 20 mL = 25 mg, J Tube, 3 times a day, PRN as needed for nausea/vomiting, # 1,000 mL, 1 Refills, Maintenance, 07/03/22 9:21:00 EST, Syrup, [facility], Partial fill upon patient request if the prescription is for a schedule II opioid drug... Start Date: 07/03/22 Status: Ordered See instructions See instructions, See Instructions, # 1 each, Refills 0, Tot. Refills 0, Maintenance, G/J Tube Supplies: Pump bags (Keystone Technologiesity Pump) and syringes to administer medications., 11/21/17 [...] Replace Required Details, Route to Pharmacy Electronically, [id number], [facility] Start Date: 05/18/17 Status: Ordered Vitamin [...] Neuropathic pain of lower extremity Confirmed Active *[facility] [phone] LITIGATION LEGAL ASSISTANT MEME HARDINBonnie Confirmed Active Pruritus with morphine Confirmed Active Pulmonary embolus 1 Confirmed Active Recurrent UTI Confirmed Active Reflex sympathetic dystrophy Confirmed Active Dry heaves Confirmed Active Urinary retention Confirmed Active Urinary retention Confirmed Active Sciatic pain Confirmed Active Sleep-disordered breathing Confirmed Active 1unprovoked PE 2013, heme recommended lifelong anticogulation due to high-risk of recurrence Diagnosis Diagnosis Type Effective Dates Health Status Clinical Service Informant Chronic kidney disease stage 3 Discharge Diagnosis 08/28/22 Pulmonary embolus Discharge Diagnosis 08/28/22 Gender identity disorder Discharge Diagnosis 08/28/22 Severe obesity (BMI >= 40) Discharge Diagnosis 08/28/22 Bipolar disorder Discharge Diagnosis 08/28/22 Jejunostomy tube in situ Discharge Diagnosis 08/28/22 Secondary nephrogenic diabetes insipidus Discharge Diagnosis 08/28/22 Sciatic pain Discharge Diagnosis 08/28/22 Vital Signs Most recent to oldest [Reference Range]: 1 Height 165 cm (08/28/22 10:52 AM) Weight 115 kg (08/28/22 10:52 AM) Oxygen Saturation [94-100 %] 95 % (08/28/22 10:52 AM) Pulse Rate [55-90 bpm] 105 bpm *H* (08/28/22 10:52 AM) Body Mass Index [18.5-24.99 kg/m2] 42.24 kg/m2 *>HHI* (08/28/22 10:52 AM) Blood Pressure [90-138/55-84 mm Hg] 121/ 79mm Hg (08/28/22 10:52 AM) Respiratory Rate [16-30 br/min] 16 br/mi n (08/28/22 10:52 AM) Blood pressure sites Arm, left (08/28/22 10:52 AM) Weight Obtained Via Standing scale (08/28/22 10:52 AM) Social History Social History Type Response Smoking Status Former smoker; Other : quit few months ago; entered on: 02/15/15 Sex Female Note * Sharon Cuello: PERFORM, SIGN, VERIFY Event Display: Patient Education/Instruction Authored Date: [id number] [facility] *[facility] Clinical Summary Name JACK CHRISTY Age 42 Years 1980 PCP Juan Alvarado DO PCP Visit Date 08/28/2022 10:45:00 Additional Instructions: Scheduled Appointments?? Future Appointments ?No Future Appointments Scheduled Follow-Up Instructions ?? Diagnosis Chronic kidney disease, stage 3 unspecified; Gender identity disorder, unspecified; Nephrogenic diabetes insipidus; Sciatica, unspecified side; Other pulmonary embolism without acute cor pulmonale; Other artificial openings of gastrointestinal tract status; Morbid (severe) obesity due to excess calories; Bipolar disorder, unspecified Medications: Please continue your medications until treatment is completed or stopped by your provider. Discuss any questions related to medications with your provider. Medications to Continue with No Changes These medications were not printed or sent to your pharmacy Albuterol (albuterol 0.083% inhalation solution) 3 Milliliter Inhalation every 6 hours for 30 Days.Refills: 0. Next Dose: Albuterol (albuterol CFC free 90 mcg/inh inhalation aerosol) 2 puff(s) Inhalation 4 times a day as needed for wheezing for 30 Days. Refills: 3. Next Dose: Atomoxetine (Strattera 25 mg oral capsule) 1 capsule Oral Daily in the morning. Next Dose: Benztropine (Cogentin Tablet) 0.5 Milligram Oral twice a day. Next Dose: BuPROpion (buPROPion 150 mg/24 hours (XL) oral tablet, extended release) 2 tab(s) Oral every 24 hours. Next Dose: Cholecalciferol (Vitamin D3 1000 intl units oral tablet) 1 tab(s) Oral Daily. WITH FOOD.. Refills: 1. Next Dose: Cyanocobalamin (cyanocobalamin 1000 mcg/ml injectable solution) 1 Milliliter Subcutaneous Injectionevery 30 days. IM injection to Left arm [facility]:24360-563-28 Lot:[id number] Exp: 07/23. Refills: 0. Next Dose: Cyanocobalamin (Cyanocobalamin 1000 mcg/mL injection) 1,000 Microgram Intramuscular. Left deltoid IM. Pt tolerated well. Office Supplied Medication [facility] 8368-2919-74 Lot [id number] Exp 08/2020. Next Dose: Docusate (docusate sodium 100 mg oral capsule) 1 capsule Oral twice a day. Next Dose: Famotidine (famotidine 20 mg oral tablet) 1 tab(s) Oral twice a day as needed Other. esophageal pain . Next Dose: Gabapentin (gabapentin 300 mg oral capsule) 1 capsule Oral Daily at Bedtime. Refills: 0. Next Dose: Lamotrigine (LaMICtal 200 mg oral tablet) 1 tab(s) Oral Daily. Next Dose: Lorazepam (Ativan 1 mg oral tablet) 1 tab(s) Oral 3 times a day. Next Dose: lurasidone (Latuda 60 mg oral tablet) 1 tab(s) Oral Daily. Refills: 5. Next Dose: Methylphenidate (methylphenidate 5 mg oral tablet) 1 tab(s) Oral 3 times a day. Next Dose: Miscellaneous Rx (G tube change) G tube change 6Fr with 5cc baloon. Refills: 0. Next Dose: Miscellaneous Rx (J-tube) 16 Cymro Fgfua-Odpqxj-Ftwjy J tube, transgastric. Refills: 0. Next Dose: Miscellaneous Rx (See instructions) G/J Tube Supplies: Pump bags (Infinity Pump) and syringes to administer medications.. Refills: 0. Next Dose: Omeprazole (omeprazole 20 mg oral enteric coated capsule) 1 capsule Oral Daily as needed Other. esophageal pain . Next Dose: Ondansetron (ondansetron 8 mg oral tablet, disintegrating) 1 tab(s) Oral 4 times a day as needed ASNEEDED FOR NAUSEA. Refills: 1. Next Dose: PEG Electrolyte Solution (NuLYTELY with Flavor Packs oral powder for reconstitution) Drink 240mL every 10-15 minutes. Refills: 0. Next Dose: Promethazine (promethazine 12.5 mg oral tablet) 1 tab(s) Oral every 6 hours as needed for nausea/vomiting. Refills: 1. Next Dose: Promethazine (promethazine 12.5 mg rectal suppository) 1 suppository(ies) Per rectum every 6 hours as needed for motion sickness. ok to override for travel. Refills: 1. Next Dose: Promethazine (promethazine 6.25 mg/5 mL oral syrup) 20 Milliliter Jejunostomy tube 3 times a day asneeded as needed for nausea/vomiting. Refills: 1. Next Dose: Testosterone (AndroGel Pump 20.25 mg/actuation (1.62%) transdermal gel) 40.5 Milligram Topically Daily in the morning for 30 Days. Refills: 5. Next Dose: Testosterone (testosterone 20.25 mg/actuation (1.62%) transdermal gel) 40.5 Milligram Topically Daily in the morning. Refills: 5. Next Dose: Trazodone (traZODone 100 mg oral tablet) 1 - 2 tablet By Mouth at bedtime 30 days. Refills: 0. Next Dose: Warfarin (Jantoven 5 mg oral tablet) 1 tab(s) Oral Daily. OR DIRECTED BY COUMADIN CLINIC NURSE..Refills: 5. Next Dose: No Longer Take the Following Medications Buprenorphine (Sublocade 100 mg/0.5 mL subcutaneous solution, extended release) Subcutaneous Infusion Every 28 days. Allergy Info:?? Lovenox; sulfa drugs; cephalosporins Medications Given This Visit Future Orders ?Hemoglobin A1C (Monitoring)? Order Date:08/28/22?- Complete on or after?08/28/22 ?CBC w/ Differential? Order Date:10/27/22?- Complete on or after?10/27/22 ?Comprehensive Metabolic Panel? Order Date:10/27/22?- Complete on or after?10/27/22 Vital Signs Height 165 cm Weight 115 kg BMI 42.24 kg/m2 Blood Pressure 121 mm Hg/79 mm Hg Temperature Pulse Rate 105 bpm Respiratory Rate 16 br/min 02 Sat Mode of Delivery 95 %/ You can now view a summary of your hospital visit from the comfort of your home through a free online portal called [email or web address]. [email or web address] is a website that allows you to securely view your medical information including discharge summary, medications and follow-up visits. ??You can alsosend a secure electronic message to your doctor???s office to request appointments, renew medications or just ask a question. You can enroll at [email or web address] or register during your next office visit. Disclaimer:?? The information provided is of a general nature and is intended to be used in conjunction with the recommendations and advice of your health care practitioner. ??Every effort has been made to ensure that the information provided is accurate and complete at the time it is provided to you however, as your needs change, or, as new ??information becomes available, different or additional instructions may be required. If you have questions, please consult with your primary care provider or pharmacist, as appropriate. ??This information is not intended to serve as substitution for assessment and evaluation by a qualified health care provider. If you do not have a primary care provider, you may find a [facility] provider by calling [facility] at [phone]. For information about the plan of care including goals and instructions for your diagnosis, please see the patient education orders section of this document. Patient Education Materials?? The content of this educational material or handout may have been modified, supplemented, or adapted from its original content and format to support your individualized medical care. Patient Care team information Care Team Personnel Name: Renea Thayer RN Position: [facility] RN Member Role: Primary Care Nurse Name: Radha Woods RN Position: [facility] SN RN Member Role: Primary Care Nurse Name: Larissa Pino RN Position: [facility] ED RN W/OE and Tasks Member Role: Primary Care Nurse Name: Lela Mcintyre RN Position: [facility] SN RN Member Role: Primary Care Nurse Name: Charisse Chris RN Position: [facility] SN RN Member Role: Primary Care Nurse Name: Omar Henning RN Position: [facility] RN Member Role: Primary Care Nurse Name: Marlyn Evans NP Position: [facility] Associate Professional Member Role: Primary Care Nurse Address: Address: [address] [place] [address] Name: Junie Kenny RN Position: [facility] RN Member Role: Primary Care Nurse Name: Jayla De RN Position: [facility] RN Member Role: Primary Care Nurse Name: Shea Stevens RN Position: [facility] RN Member Role: Primary Care Nurse Name: Margarita Bain RN Position: [facility] SN RN Member Role: Primary Care Nurse Name: Yady Tanner RN Position: [facility] RN Member Role: Primary Care Nurse Name: Omar Rutledge RN Position: [facility] RN Member Role: Primary Care Nurse Name: Rashmi Mendez RN Position: [facility] OB RN Member Role: Primary Care Nurse Name: Omar John RN Position: [facility] RN Member Role: Primary Care Nurse Name: Jayla Lai RN Position: [facility] RN Member Role: Primary Care Nurse Name: Pricilla Hendricks RN Position: [facility] RN Member Role: Primary Care Nurse Name: Zabrina Beck RN Position: [facility] RN Member Role: Primary Care Nurse Name: Juan Alvarado DO Position: [facility] Primary Care Physician Member Role: PCP Address: Address: [address] [place] [address]- Name: Sophie Luciano RN Position: [facility] SN RN Member Role: Primary Care Nurse Name: Trace Elliott RN Position: [facility] SN RN Member Role: Primary Care Nurse Name: Ashley Langley RN Position: [facility] ED RN W/OE and Tasks Member Role: Primary Care Nurse Name: Flora Gonzalez RN Position: [facility] [employer] Assistant Member Role: Primary Care Nurse Name: Mary Anne Simons RN Position: [facility] RN Member Role: Primary Care Nurse Name: Lela Hoang RN Position: [facility] [employer] RN Member Role: Primary Care Nurse Name: Estela Che RN Position: [facility] RN Member Role: Primary Care Nurse Name: Lisandra Gan RN Position: [facility] [employer] Assistant Member Role: Primary Care Nurse Name: Bia Alcazar RN Position: [facility] [employer] Assistant Member Role: Primary Care Nurse Name: Everton Cosby RN Position: [facility] SN RN Member Role: Primary Care Nurse Care Team Related Persons Name: ARIEL CHRISTY Address: home [address] [place] [id number] Name: ARIEL CHRISTY Address: home [address] [place] [address] Name: MARIBEL CHRISTY Address: [place] [address] Name: NURY TREJO Address: home [address] [place] [address] Name: NURY WOLFE Address: [place] [address]
--- OUTSIDE RECORDS SUMMARY | 2023-05-29 06:01 | XMS_ITS | Continuity of Care Document ---
Author Name Unknown Organization [facility] ter Address [address] [place] [address]- Care Team Providers Care Manager Rental Name Role Phone Luzma SENIOR, Carlos Gaston Primary Care Physician [place] [facility] Date(s): 05/11/21 - 05/11/[address] [address] Discharge Disposition: A-D/C Home Attending Physician: Francesco Aguirre MD Admitting Physician: Francesco Aguirre MD Referring Physician: Francesco Agiurre MD Allergies, Adverse Reactions, Alerts Substance Reaction Severity [...] 06/23/06 Given 1Result Comment: [08/18/2018] [facility]: [id number] 2Result Comment: [05/29/2017] [facility]:41216-235-83 3[facility] 4Admin Note: VIM given dated 03/14/10 MULIT 5Result Comment: [08/18/2018] [facility]: 44264-322-03 6Admin Note: VIM GIVIN 08/20/06 # 3 [...] 13:48:36 EDT, Aerosol, Route to Pharmacy Electronically, [id number], [facility], Compound Start [...] IM injection to Left arm [facility]:46821-746-04 Lot:[id number] Exp: 07/23, # 1 mL, 0 Refills, Maintenance, 04/13/19 14:55:41 EDT, Solution Start Date: 04/13/19 Status: Ordered Cyanocobalamin 1000 mcg/mL injection = 1,000 mcg, Intramuscular, Left deltoid IM. Pt tolerated well. Office Supplied Medication [facility] 3833-7425-51 Lot [id number] Exp 08/2020, # 1 mL, [...] Maintenance, G tube change 6Fr with 5cc balrupert, 04/05/21 10:00:00 EDT, Supply Start Date: 04/05/21 Status: Ordered J-tube J-tube, See Instructions, # 1 each, Refills 0, Tot. Refills 0, Maintenance, 16 Maltese Lymdn-Xgoybc-Mvfdj J tube, transgastric, 02/20/21 9:48:00 EDT, Supply [...] Replace Required Details, Route to Pharmacy Electronically, [id number], [facility] Start Date: 05/18/17 Status: Ordered Vitamin [...] Neuropathic pain of lower extremity(Confirmed) Active *[facility] [phone] CARE MANAG ER MEME GREGORY(Confirmed) Active Pruritus with morphine(Confirmed) Active Recurrent UTI(Confirmed) Active Reflex sympathetic dystrophy(Confirmed) Active Dry heaves(Confirmed) Active Urinary retention(Confirmed) Active Urinary retention(Confirmed) Active Sepsis(Confirmed) Active Sleep-disordered breathing(Confirmed) Active Feeding by G-tube(Confirmed) Active Suprapubic catheter(Confirmed) Active Procedures Procedure Date Related Diagnosis Body Site Status Upper gastrointestinal endos copy for directed placement of percutaneous gastrostomy tube 05/11/21 Completed Vital Signs Most recent to oldest [Reference Range]: 1 2 3 Height 165.1 cm (05/11/21 10:50 AM) Weight 125.6 kg (05/11/21 10:50 AM) Oxygen Saturation [94-100 %] 95 % (05/11/21 12:24 PM) 93 % *L* (05/11/21 12:15 PM) 97 % (05/11/21 10:50 AM) Pulse Rate [55-90 bpm] 95 bpm *H* (05/11/21 10:50 AM) Body Mass Index [18.5-24.99] 46.08 *>HHI* (05/11/21 10:50 AM) Blood Pressure [90-138/55-84 mm Hg] 99/58mm Hg (05/11/21 12:24 PM) 91/48mm Hg (05/11/21 12:15 PM) 106/75mm Hg (05/11/21 10:50 AM) Respiratory Rate [16-30 br/min] 20 br/min (05/11/21 12:24 PM) 22 br/min (05/11/21 12:15 PM) 17 br/min (05/11/21 10:50 AM) Temperature [96.8-100.4 DegF] 97.7 DegF (05/11/21 10:50 AM) Mode of Delivery (Oxygen) Room air (05/11/21 12:24 PM) Room air (05/11/21 10:50 AM) Blood pressure sites Arm, left (10/8/21 10:50 AM) Temperature Route Temporal (05/11/21 10:50 AM) Social History Social History Type Response Smoking Status Former smoker; Other : quit few months ago; entered on: 02/15/15 Sex
--- OUTSIDE RECORDS SUMMARY | 2023-05-29 06:01 | XMS_ITS | Continuity of Care Document ---
Author Name Unknown Organization [facility] Address [address] [place] [address]- Care Team Providers Care Personal Lines Underwriter Name Role Phone Luzma SENIOR, Carlos Gaston Primary Care Physician Encounter [facility] Date(s): 05/23/21 - 06/23/21 [facility] [address] [place] [address]- Attending Physician: Jabari AVALOS, Alysha Rosario Allergies, Adverse Reactions, Alerts Substance Reaction Severity [...] term) 9 06/23/06 Given 1Result Comment: [08/18/2018] [facility]: 70512-813-40 2Result Comment: [05/29/2017] [facility]:47204-769-01 3Admin [facility], date approx per patient 4Admin Note: VIM given dated 03/14/10 MULIT 5Result Comment: [08/18/2018] [facility]: 84006-603-44 6Admin Note: VIM GIVIN 08/20/06 # 3 [...] 13:48:36 EDT, Aerosol, Route to Pharmacy Electronically, [id number], [facility], Compound Start [...] 30 days, IM injection to Left arm [facility]:67868-100-66 Lot:[id number] Exp: 07/23, # 1 mL, 0 Refills, Maintenance, 04/13/19 14:55:41 EDT, Solution Start Date: 04/13/19 Status: Ordered Cyanocobalamin 1000 mcg/mL injection = 1,000 mcg, Intramuscular, Left deltoid IM. Pt tolerated well. Office Supplied Medication [facility] 1541-6090-99 Lot [id number] Exp 08/2020, # 1 mL, [...] Refills 0, Tot. Refills 0, Maintenance, 16 Lebanese Wfqdi-Hbdsmy-Kmrjb J tube, transgastric, 02/20/21 9:48:00 EDT, Supply [...] Refills, Maintenance, 02/14/20 16:00:00 EDT, [facility], 165, cm, 12/29/19 14:57:00 EDT, Height, 128.1, kg, 04/08/19 8:08:00 EDT, Dry Weight Start Date: 02/14/20 Status: Ordered traZODone 100 mg oral tablet See Instructions, 1 - 2 tablet By Mouth at bedtime 30 days, # 60 tablet, Refills 0, Tot. Refills 0,Maintenance, 05/18/17 15:31:13 EDT, Instructions Replace Required Details, Route to Pharmacy Electronically, [id number], [facility] Start Date: 05/18/17 Status: Ordered Vitamin D3 1000 intl units oral tablet 1 tablet, By Mouth, Daily, WITH FOOD., # 90 Unknown, 3 Refills, Maintenance, 02/14/21 15:18:00 EDT,[facility], 165.1, cm, 01/24/21 11:40:00 [...] extremity(Confirmed) Active *[facility] [phone] CARE MANAG ER MEME GREGORY(Confirmed) Active Pruritus [...]
--- OUTSIDE RECORDS SUMMARY | 2023-05-29 06:01 | XMS_ITS | Continuity of Care Document ---
Author Name Unknown Organization [facility] Address [address] [place] [address]- Care Team Providers Care Salesperson Sheet Music Name Role Phone Luzma SENIOR, Carlos Gaston Primary Care Physician Encounter [facility] Date(s): 03/26/21 - 04/25/21 [facility] [address] [place] [address]- Allergies, Adverse Reactions, Alerts Substance Reaction Severity [...] Vaccine 03/02/07 Given Human Papillomavirus Vaccine 7 5/31/07 Given Influenza Inactive (IM) (oldterm) 8 06/12/07 Given Hepatitis B Vaccine (old term) 9 06/23/06 Given 1Result Comment: [08/18/2018] [facility]: 89070-272-19 2Result Comment: [05/29/2017] [facility]:[id number] 3Admin Note: [facility] clinic, date approx per patient 4Admin Note: VIM given dated 03/14/10 MULIT 5Result Comment: [08/18/2018] [facility]: [id number] 6Admin Note: VIM GIVIN 08/20/06 # 3 [...] 13:48:36 EDT, Aerosol, Route to Pharmacy Electronically, [id number], [facility], Compound Start [...] days, IM injection to Left arm [facility]:94631-967-47 Lot:[id number] Exp: 07/23, # 1 mL, 0 Refills, Maintenance, 04/13/19 14:55:41 EDT, Solution Start Date: 04/13/19 Status: Ordered Cyanocobalamin 1000 mcg/mL injection = 1,000 mcg, Intramuscular, Left deltoid IM. Pt tolerated well. Office Supplied Medication [facility] 8097-0567-15 Lot [id number] Exp 08/2020, # 1 mL, [...] Refills 0, Tot. Refills 0, Maintenance, 16 Italian Yjlcr-Mubwed-Ssmzj J tube, transgastric, 02/20/21 9:48:00 EDT, Supply [...] Replace Required Details, Route to Pharmacy Electronically, [id number], [facility] Start Date: 05/18/17 Status: Ordered Vitamin D3 1000 intl units oral tablet 1 tablet, By Mouth, Daily, WITH FOOD., # 90 Unknown, 3 Refills, Maintenance, 02/14/21 15:18:00 EDT,[facility], 165.1, cm, 01/24/21 11:40:00 EDT, [...] Active Neuropathic pain of lower extremity(Confirmed) Active *[facility] [phone] CARE MANAG ER MEME GREGORY(Confirmed) Active Pruritus [...]
--- OUTSIDE RECORDS SUMMARY | 2023-05-29 06:02 | XMS_ITS | Continuity of Care Document ---
Author Name Unknown Organization [facility] Address [address] [place] [address]- Care Team Providers Care Signal Repairer Name Role Phone Juan Alvarado DO Primary Care Physician [phone] Encounter [facility] Date(s): 02/11/23 - 03/13/23 [facility] [address] [place] [address]- Allergies, Adverse Reactions, Alerts Substance Reaction Severity [...] 1Result Comment: [08/18/2018] [facility]: 82711-547-94 2Result Comment: [05/29/2017] [facility]:22923-444-18 3[facility], [facility] approx per [facility] 4Admin Note: VIM given dated 03/14/10 MULIT 5Result Comment: [08/18/2018] [facility]: 57683-055-19 6Admin Note: VIM GIVIN 08/20/06 # 3 [...] 13:48:36 EDT, Aerosol, Route to Pharmacy Electronically, [id number], [facility], Compound Start [...] to Left arm [facility]:50873-040-44 Lot:[id number] Exp: 07/23, # 1 mL, 0 Refills, Maintenance, 04/13/19 14:55:41 EDT, Solution Start Date: 04/13/19 Status: Ordered Cyanocobalamin 1000 mcg/mL injection = 1,000 mcg, Intramuscular, Left deltoid IM. Pt tolerated well. Office Supplied Medication [facility] 7307-0425-72 Lot [id number] Exp 08/2020, # 1 mL, [...] Refills 0, Tot. Refills 0, Maintenance, 16 Trinidadian Wladf-Bnanfj-Cdeet J tube, transgastric, 02/20/21 9:48:00 EDT, Supply [...] Replace Required Details, Route to Pharmacy Electronically, [id number], [facility] Start Date: 05/18/17 Status: Ordered Trulicity [...] List Condition Confirmation Course Effective Dates [facility] Informant Secondary nephrogenic diabetes insipidus Confirmed Active [...] Neuropathic pain of lower extremity Confirmed Active *[facility] [phone] [employer] [facility]E GREGORY Confirmed Active Pruritus with morphine [...] Team Personnel Name: Renea Thayer RN Position: [facility] RN Member Role: Primary Care Nurse Name: Radha Woods RN Position: [facility] SN RN Member Role: Primary Care Nurse Name: Larissa Pino RN Position: [facility] ED RN W/OE and Tasks Member Role: Primary Care Nurse Name: Lela Mcintyre RN Position: [facility] SN RN Member Role: Primary Care Nurse Name: Charisse Chris RN Position: [facility] SN RN Member Role: Primary Care Nurse Name: Omar Henning RN Position: [facility] RN Member Role: Primary Care Nurse Name: Marlyn Evans NP Position: [facility] Associate Professional Member Role: Primary Care Nurse Address: Address: [address] [place] [address] Name: Junie Kenny RN Position: [facility] RN Member Role: Primary Care Nurse Name: Jayla De RN Position: [facility] RN Member Role: Primary Care Nurse Name: Shea Stevens RN Position: [facility] RN Member Role: Primary Care Nurse Name: Margarita Bain RN Position: [facility] SN RN Member Role: Primary Care Nurse Name: Yady Tanner RN Position: [facility] RN Member Role: Primary Care Nurse Name: Omar Rutledge RN Position: [facility] RN Member Role: Primary Care Nurse Name: Rashmi Mendez RN Position: [facility] OB RN Member Role: Primary Care Nurse Name: Omar John RN Position: [facility] RN Member Role: Primary Care Nurse Name: Jayla Lai RN Position: [facility] RN Member Role: Primary Care Nurse Name: Pricilla Hendricks RN Position: [facility] RN Member Role: Primary Care Nurse Name: Zabrina Beck RN Position: [facility] RN Member Role: Primary Care Nurse Name: Juan Alvarado DO Position: [facility] Physician - Primary Care Member Role: PCP Address: Address: [address] [place] [id number]- Name: Sophie Luciano RN Position: [facility] SN RN Member Role: Primary Care Nurse Name: Trace Elliott RN Position: [facility] SN RN Member Role: Primary Care Nurse Name: Ashley Langley RN Position: [facility] ED RN W/OE and Tasks Member Role: Primary Care Nurse Name: Flora Gonzalez RN Position: [facility] Felt Tipping Machine Tender Member Role: Primary Care Nurse Name: Mary Anne Simons RN Position: [facility] RN Member Role: Primary Care Nurse Name: Lela Hoang RN Position: [facility] Onco RN Member Role: Primary Care Nurse Name: Estela Che RN Position: [facility] RN Member Role: Primary Care Nurse Name: Lisandra Gan RN Position: [facility] Felt Tipping Machine Tender Member Role: Primary Care Nurse Name: Bia Alcazar RN Position: [facility] Felt Tipping Machine Tender Member Role: Primary Care Nurse Name: Everton Cosby RN Position: [facility] SN RN Member Role: Primary Care Nurse Care Team Related Persons Name: ARIEL CHRISTY Address: home [address] [place] [id number] Name: ARIEL CHRISTY Address: home [address] [place] [id number] Name: MARIBEL CHRISTY Address: [place] [address] Name: NURY TREJO Address: [address] [place] [address] Name: NURY WOLFE Address: [place] [address]
--- OUTSIDE RECORDS SUMMARY | 2023-05-29 06:02 | XMS_ITS | Continuity of Care Document ---
Author Name Unknown Organization [facility] Address [address] [place] [address]- Care Team Providers Care Explosives Detonator Name Role Phone Juan Alvarado DO Primary Care Physician [phone] Encounter [facility] Date(s): 04/16/23 - 05/16/23 [facility] [address] [place] [address]- Allergies, Adverse Reactions, Alerts Substance Reaction Severity Status Lovenox hives Active cephalosporins 1 Hives Active sulfa drugs Hives Active 1Patient tolerated Zosyn in ED as demonstrated during April 2015 admission. Immunizations Given and Recorded Vaccine Date Status Refusal Reason influenza virus vaccine, inactivated 04/19/23 Eric rded influenza virus vaccine, inactivated 04/04/20 Eric rded [...] influenza virus vaccine, inactivated 04/20/09 Give n SARS-CoV-2 (COVID-19) mRNA BNT-162b2 vac 05/16/21 Recorded SARS-CoV-2 (COVID-19) mRNA BNT-162b2 vac 10/14/20 Recorded SARS-CoV-2 (COVID-19) mRNA BNT-162b2 vac 09/23/20 Recorded tetanus/diphtheria/pertussis, acel(Tdap) 5 08/18/18 Given pneumococcal 23-valent vaccine 02/12/14 Given Human Papillomavirus Vaccine 6 06/30/07 Given Human Papillomavirus Vaccine 03/02/07 Given Human Papillomavirus Vaccine 7 01/01/07 Given Influenza Inactive (IM) (oldterm) 8 06/12/07 Given Hepatitis B Vaccine (old term) 9 06/23/06 Given 1Result Comment: [08/18/2018] [facility]: 90819-990-41 2Result Comment: [05/29/2017] [facility]:[id number] 3Admin Note: [facility] clinic, date approx per patient 4Admin Note: VIM given dated 03/14/10 MULIT 5Result Comment: [08/18/2018] [facility]: 17447-690-44 6Admin Note: VIM GIVIN 08/20/06 # 3 7Admin Note: VIM GIVIN 08/20/06 8Admin Note: VIM-SANOFI 9Admin Note: BERNICE GIVEN TODAY DATE ON BERNICE 02/11/2001 Medications albuterol CFC free 90 mcg/inh inhalation aerosol 2, puffs, Inhalation, 4 times a day, PRN, # 1 each, Refills 3, Tot. Refills 3, Maintenance, 04/24/18 13:48:36 EDT, Aerosol, Route to Pharmacy Electronically, [id number], [facility], Compound Start [...] 5 mg oral delayed release tablet 2 tablet, By Mouth, Daily, # 60 tablet, 5 Refills, Maintenance, 05/09/23 13:22:00 EDT, [facility], 165, cm, 04/29/23 12:52:00 EDT, Height, 113.4, kg, 08/16/21 8:31:00 EST, Dry Weight Start Date: 05/09/23 Status: Ordered buPROPion 150 mg/24 hours (XL) [...] opioid drug. Start Date: 11/10/20 Status: Ordered cyclobenzaprine 5 mg oral tablet 1 tablet, By Mouth, 3 times a day, # 90 tablet, 0 Refills, Maintenance, 04/18/23 10:02:00 EDT, [facility], 165, cm, 02/21/23 8:47:00 EDT, Height, 113.4, kg, 08/16/21 8:31:00 EST, Dry Weight Start Date: 04/18/23 Status: Ordered G tube change G tube [...] EST, Route to Pharmacy Electronically, [facility], Partial fill upon patient request if the prescription is for a ginger... Start Date: 08/02/22 Status: Ordered J-tube J-tube, See Instructions, # 1 each, Refills 0, Tot. Refills 0, Maintenance, 16 Luxembourgish Ynhoe-Eytzuz-Efidl J tube, transgastric, 02/20/21 9:48:00 EDT, Supply Start Date: 02/20/21 Status: Ordered Jantoven 5 mg oral tablet 1 tablet, By Mouth, Daily, for 30 days, OR DIRECTED BY [facility] NURSE., # 30 tablet, 11 Refills, Physician Stop 08/29/23 8:30:00 EST, 09/03/22 8:30:00 EST, [facility], 165, cm, 08/28/22 10:52:00 EST, Height, 113.4, kg, ... Start Date: 09/03/22 Stop Date: 08/29/23 Status: Ordered Latuda 60 mg oral tablet [...] opioid drug. Start Date: 08/02/22 Status: Ordered ondansetron 8 mg oral tablet, disintegrating See Instructions, DISSOLVE ONE TABLET BY MOUTH FOUR TIMES A DAY NEEDED FOR NAUSEA, # 120 tablet,1 Refills, Maintenance, 04/02/23 15:39:00 EDT, [facility], 165, cm, 02/21/23 8:47:00 EDT, Height, 113.4, kg, 08/16/21 8:31:00 EST, Dry W... Start Date: 04/02/23 Status: Ordered promethazine 6.25 mg/5 mL oral syrup 20 mL = 25 mg, J Tube, 3 times a day, PRN as needed for nausea/vomiting, # 1,000 mL, 1 Refills, Maintenance, 04/21/23 8:50:00 EDT, Syrup, [facility], Partial fill upon patient request if the prescription is for a schedule II opioid drug... Start Date: 04/21/23 Status: Ordered See instructions See instructions, See Instructions, # 1 each, Refills 0, Tot. Refills 0, Maintenance, G/J Tube Supplies: Pump bags (Infinity Pump) and syringes to administer medications., 11/21/17 16:08:24 EDT, Compound Start Date: 11/21/17 Status: Ordered traZODone 100 mg oral tablet See Instructions, 1 - 2 tablet By Mouth at bedtime 30 days, # 60 tablet, Refills 0, Tot. Refills 0,Maintenance, 05/18/17 15:31:13 EDT, Instructions Replace Required Details, Route to Pharmacy Electronically, [id number], [facility] Start Date: 05/18/17 Status: Ordered Trulicity Pen 0.75 mg/0.5 mL subcutaneous solution INJECT 0.5ML INTO THE SKIN EVERY 7 DAYS Start Date: 10/08/22 Status: Ordered Vitamin D3 1000 intl units oral tablet 1 tablet, By Mouth, Daily, WITH FOOD., # 90 tablet, 1 Refills, Maintenance, 04/02/23 15:38:00 EDT, [facility], 165, cm, 02/21/23 8:47:00 EDT, Height, 113.4, kg, 08/16/21 8:31:00 EST, Dry Weight Start Date: 04/02/23 Stop Date: 09/29/23 Status: Ordered Problem List Condition Confirmation Course Effective Dates Status H ealth Status Informant Secondary nephrogenic diabetes insipidus Confirmed Active [...] Active Lack of Adequate Sleep Confirmed Active 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 Severe obesity (BMI >= 40) Confirmed Active Neuropathic pain of lower extremity Confirmed Active *[facility] [phone] [employer] [facility]E GREGORY Confirmed Active Pruritus with morphine [...] Team Personnel Name: Renea Thayer RN Position: [facility] RN Member Role: Primary Care Nurse Name: Radha Woods RN Position: [facility] SN RN Member Role: Primary Care Nurse Name: Larissa Pino RN Position: [facility] ED RN W/OE and Tasks Member Role: Primary Care Nurse Name: Lela Mcintyre RN Position: [facility] SN RN Member Role: Primary Care Nurse Name: Charisse Chris RN Position: [facility] SN RN Member Role: Primary Care Nurse Name: Omar Henning RN Position: [facility] RN Member Role: Primary Care Nurse Name: Marlyn Evans NP Position: [facility] Associate Professional Member Role: Primary Care Nurse Address: Address: [address] [place] [id number]- Name: Junie Kenny RN Position: [facility] RN Member Role: Primary Care Nurse Name: Jayla De RN Position: [facility] RN Member Role: Primary Care Nurse Name: Shea Stevens RN Position: [facility] RN Member Role: Primary Care Nurse Name: Margarita Bain RN Position: [facility] ED RN W/OE and Tasks Member Role: Primary Care Nurse Name: Yady Tanner RN Position: [facility] RN Member Role: Primary Care Nurse Name: Omar Rutledge RN Position: [facility] RN Member Role: Primary Care Nurse Name: Rashmi Mendez RN Position: [facility] OB RN Member Role: Primary Care Nurse Name: Omar John RN Position: [facility] RN Member Role: Primary Care Nurse Name: Jayla Lai RN Position: [facility] RN Member Role: Primary Care Nurse Name: Pricilla Hendricks RN Position: [facility] RN Member Role: Primary Care Nurse Name: Zabrina Beck RN Position: [facility] RN Member Role: Primary Care Nurse Name: Juan Alvarado DO Position: [facility] Physician - Primary Care Member Role: PCP Address: Address: [address] [place] [address] Name: Sophie Luciano RN Position: [facility] SN RN Member Role: Primary Care Nurse Name: Trace Elliott RN Position: [facility] SN RN Member Role: Primary Care Nurse Name: Flora Gonzalez RN Position: [facility] [employer] Tender Member Role: Primary Care Nurse Name: Mary Anne Simons RN Position: [facility] RN Member Role: Primary Care Nurse Name: Lela Hoang RN Position: [facility] Onco RN Member Role: Primary Care Nurse Name: Estela Che RN Position: [facility] RN Member Role: Primary Care Nurse Name: Lisandra Gan RN Position: [facility] [place] Tender Member Role: Primary Care Nurse Name: Bia Alcazar RN Position: [facility] [place] Tender Member Role: Primary Care Nurse Name: Harjeet RN [place] Position: [facility] SN RN Member Role: Primary Care Nurse Care Team Related Persons Name: WESTLEYARIEL Obrien Address: home [address] [place] [id number] Name: ARIEL CHRISTY Address: home [address] [place] [address] Name: MARIBEL CHRISTY Address: [place] [address] Name: NURY TREJO Address: home [address] [place] [id number] Name: NURY WOLFE Address: [place] [address]
--- OUTSIDE RECORDS SUMMARY | 2023-05-29 06:02 | XMS_ITS | Continuity of Care Document ---
Author Name Unknown Organization [facility] Address [address] [place] [address]- Care Team Providers Care Propagation Manager Name Role Phone Juan Alvarado DO Primary Care Physician Encounter 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) - 04/29/23 Asthma-moderate persistent(Discharge Diagnosis) - 04/29/23 Bipolar disorder(Discharge Diagnosis) - 04/29/23 Chronic kidney disease stage 3(Discharge Diagnosis) - 04/29/23 Gender identity disorder(Discharge Diagnosis) - 04/29/23 Severe obesity (BMI >= 40)(Discharge Diagnosis) - 04/29/23 Jejunostomy tube in situ(Discharge Diagnosis) - 04/29/23 Secondary nephrogenic diabetes insipidus(Discharge Diagnosis) - 04/29/23 Pulmonary embolus(Discharge Diagnosis) - 04/29/23 Attending Physician: Sukhdeep SENIOR, Keke Mccoy Allergies, Adverse Reactions, Alerts Substance Reaction Severity [...] term) 9 06/23/06 Given 1Result Comment: [08/18/2018] [facility]: [id number] 2Result Comment: [05/29/2017] [facility]:[id number] 3[facility], [facility] approx per patient 4Admin Note: VIM given dated 03/14/10 MULIT 5Result Comment: [08/18/2018] [facility]: [id number] 6Admin Note: VIM GIVIN 08/20/06 # 3 7Admin Note: VIM GIVIN 08/20/06 8Admin Note: VIM-SANOFI 9Admin Note: BERNICE GIVEN TODAY DATE ON BERNICE 02/11/2001 Medications albuterol CFC free 90 mcg/inh inhalation aerosol 2, puffs, Inhalation, 4 times a day, PRN, # 1 each, Refills 3, Tot. Refills 3, Maintenance, 04/24/18 13:48:36 EDT, Aerosol, Route to Pharmacy Electronically, [id number], [facility], Compound Start [...] 0 Refills, Maintenance, 04/18/23 10:02:00 EDT, [facility], 165, cm, 02/21/23 8:47:00 EDT, [...] 08/02/22 9:46:00 EST, Route to Pharmacy Electronically, [facility], Partial fill upon patient request if the prescription is for a ginger... Start Date: 08/02/22 Status: Ordered J-tube J-tube, See Instructions, # 1 each, Refills 0, Tot. Refills 0, Maintenance, 16 Latvian Dxdxh-Ltdoyg-Lkvbf J tube, transgastric, 02/20/21 9:48:00 EDT, Supply Start Date: 02/20/21 Status: Ordered Jantoven 5 mg oral tablet 1 tablet, By Mouth, Daily, for 30 days, OR DIRECTED BY [facility] CLINIC NURSE., # 30 tablet, 11 Refills, Physician Stop 08/29/23 8:30:00 EST, 09/03/22 8:30:00 EST, [facility], 165, cm, 08/28/22 10:52:00 EST, [...] Maintenance, 04/21/23 8:50:00 EDT, Syrup, [facility], Partial fill upon patient request [...] Replace Required Details, Route to Pharmacy Electronically, [id number], [facility] 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 Confirmed Active Pruritus with morphine Confirmed Active [...] Effective Dates Health Status Clinical Service Informant Lumbar disc herniation with radiculopathy Discharge Diagnosis 04/29/23 Asthma-moderate persistent Discharge Diagnosis 04/29/23 Bipolar disorder Discharge Diagnosis 04/29/23 Chronic kidney disease stage 3 Discharge Diagnosis 04/29/23 Gender identity disorder Discharge Diagnosis 04/29/23 Severe obesity (BMI >= 40) Discharge Diagnosis 04/29/23 Jejunostomy tube in situ Discharge Diagnosis 04/29/23 Secondary nephrogenic diabetes insipidus Discharge Diagnosis 04/29/23 Pulmonary embolus Discharge Diagnosis 04/29/23 Vital Signs Most recent to oldest [Reference Range]: 1 Height 165 cm (04/29/23 12:52 PM) Weight 111 kg (04/29/23 12:52 PM) Oxygen Saturation [94-100 %] 96 % (04/29/23 12:52 PM) Pulse Rate [55-90 bpm] 89 bpm (04/29/23 12:52 PM) Body Mass Index [18.5-24.99 kg/m2] 40.77 kg/m2 *>HHI* (04/29/23 12:52 PM) Blood Pressure [90-138/55-84 mm Hg] 105/ 75mm Hg (04/29/23 12:52 PM) Blood pressure sites Arm, right (04/29/23 12:52 PM) Weight Obtained Via Standing scale (04/29/23 12:52 PM) Social History Social History Type Response Smoking Status Former smoker; Other : quit few months ago; entered on: 02/15/15 Sex Female EKG study * Event Display: ECG 12-Lead Authored Date: Please click on pdf link to open report * Event Display: ECG 12-Lead Authored Date: Ventricular Rate: 84 BPM Atrial Rate: 84 BPM P-R Interval: 164 ms QRS Duration: 100 ms Q-T Interval: 374 ms QTC Calculation(Bazett): 441 ms P [place]: 39 degrees R [place]: -1 degrees T [place]: 17 degrees Suspect unspecified pacemaker failure Normal sinus rhythm Nonspecific T wave abnormality Abnormal ECG When compared with ECG of 02-AUG-2022 10:09, No significant change was found Confirmed by LINSEY GALE ([id number]) on 04/29/2023 1:33:52 PM Irvona: LINSEY GALE Note * Sharon Cuello: PERFORM, SIGN, VERIFY Event Display: Patient Education/Instruction Authored Date: [id number] [facility] *[facility] Clinical Summary Name JACK CHRISTY Age 43 Years 1980 PCP Juan Alvarado DO PCP Visit Date 04/29/2023 12:29:00 Additional Instructions: Scheduled Appointments?? Future Appointments ?No Future Appointments Scheduled Follow-Up Instructions ?? Diagnosis Chronic kidney disease, stage 3 unspecified; Gender identity disorder, unspecified; Morbid (severe)obesity due to excess calories; Nephrogenic diabetes insipidus; Unspecified asthma, uncomplicated; Encounter for other preprocedural examination; Bipolar disorder, unspecified; Other pulmonary embolism without acute cor pulmonale; Intervertebral disc disorders with radiculopathy, lumbar region; Other artificial openings of gastrointestinal tract status Medications: Please continue your medications until treatment is completed or stopped by your provider. Discuss any questions related to medications with your provider. Medications to Continue with No Changes These medications were not printed or sent to your pharmacy Albuterol (albuterol CFC free 90 mcg/inh inhalation aerosol) 2 puff(s) Inhalation 4 times a day as needed for wheezing for 30 Days. Refills: 3. Next Dose: Benztropine (Cogentin Tablet) 0.5 Milligram Oral twice a day. Next Dose: Bisacodyl (bisacodyl 5 mg oral delayed release tablet) 2 tab(s) Oral Daily as needed for constipation. Refills: 0. Next Dose: BuPROpion (buPROPion 150 mg/24 hours (XL) oral tablet, extended release) 2 tab(s) Oral every 24 hours. Next Dose: Capsaicin Topical (capsaicin 0.025% topical cream) 1 huma Topically twice a day. Refills: 3. Next Dose: Cholecalciferol (Vitamin D3 1000 intl units oral tablet) 1 tab(s) Oral Daily for 90 Days. WITH FOOD.. Refills: 1. Next Dose: Cyclobenzaprine (cyclobenzaprine 5 mg oral tablet) 1 tab(s) Oral 3 times a day. Refills: 0. Next Dose: dulaglutide (Trulicity Pen 0.75 mg/0.5 mL subcutaneous solution) INJECT 0.5ML INTO THE SKIN EVERY 7DAYS. Next Dose: Gabapentin (gabapentin 300 mg oral capsule) 1 capsule Oral Daily at Bedtime. Refills: 0. Next Dose: Lorazepam (Ativan 1 mg oral [...] 0. Next Dose: Miscellaneous Rx (J-tube) 16 Latvian Qfgjf-Exleze-Zczso J tube, transgastric. Refills: 0. Next Dose: Miscellaneous Rx (See instructions) G/J Tube Supplies: Pump bags (Infinity Pump) and syringes to administer medications.. Refills: 0. Next Dose: Ondansetron (ondansetron 8 mg oral tablet, disintegrating) DISSOLVE ONE TABLET BY MOUTH FOUR TIMES A DAY NEEDED FOR NAUSEA. Refills: 1. Next Dose: Promethazine (promethazine 6.25 mg/5 mL oral syrup) 20 Milliliter Jejunostomy tube 3 times a day asneeded as needed for nausea/vomiting. Refills: 1. Next Dose: Testosterone (AndroGel Pump 20.25 mg/actuation (1.62%) transdermal gel) 40.5 Milligram Topically Daily in the morning for 30 Days. Refills: 5. Next Dose: Trazodone (traZODone 100 mg oral tablet) 1 - 2 tablet By Mouth at bedtime 30 days. Refills: 0. Next Dose: Warfarin (Jantoven 5 mg oral tablet) 1 tab(s) Oral Daily for 30 Days. OR DIRECTED BY COUMADIN CLINIC NURSE.. Refills: 11. Next Dose: Allergy Info:?? Lovenox; sulfa drugs; cephalosporins Medications Given This Visit Future Orders ?No future orders Vital Signs Height 165 cm Weight 111 kg BMI 40.77 kg/m2 Blood Pressure 105 mm Hg/75 mm Hg Temperature Pulse Rate 89 bpm Respiratory Rate 02 Sat Mode of Delivery 96 %/ You can now view a summary of your hospital visit from the comfort of your home through a free online portal called [employer]. [employer] is a website that allows you to securely view your medical information including discharge summary, medications and follow-up visits. ??You can alsosend a secure electronic message to your doctor???s office to request appointments, renew medications or just ask a question. You can enroll at [email or web address] or register during your next office visit. [...] primary care provider, you may find a [facility] provider by calling [facility] Link at [phone]. [facility], in keeping with [facility] guidance, no longer requires face masks for staff, patientsor visitors in most situations. Similar to time spent indoors at other locations, there is the chance that you were exposed to respiratory viruses during your time with us (such as flu or COVID-19).? If you develop symptoms concerning for a viral respiratory infection, please seek testing (and treatment if indicated) from your medical provider or home test kit. For information about the plan of care including goals and instructions for your diagnosis, please see the patient education orders section of this document. Patient Education Materials?? The content of this educational material or handout may have been modified, supplemented, or adapted from its original content and format to support your individualized medical care. Patient Care team information Care Team Personnel Name: Rneea Thayer RN Position: [facility] RN Member Role: Primary Care Nurse Name: Radha Woods RN Position: [facility] SN RN Member Role: Primary Care Nurse Name: Larissa Pino RN Position: [facility] ED RN W/OE and Tasks Member Role: Primary Care Nurse Name: Lela Mcintyre RN Position: [facility] SN RN Member Role: Primary Care Nurse Name: Charisse Chris RN Position: [facility] SN RN Member Role: Primary Care Nurse Name: Omar Henning RN Position: [facility] RN Member Role: Primary Care Nurse Name: Marlyn Evans NP Position: [facility] Associate Professional Member Role: Primary Care Nurse Address: Address: [address] [place] [address] [[email or web address]] Name: Junie Kenny RN Position: S RN Member Role: Primary Care Nurse Name: Jayla De RN Position: [facility] RN Member Role: Primary Care Nurse Name: Shea Stevens RN Position: [facility] RN Member Role: Primary Care Nurse Name: Margarita Bain RN Position: [facility] ED RN W/OE and Tasks Member Role: Primary Care Nurse Name: Yady Tanner RN Position: [facility] RN Member Role: Primary Care Nurse Name: Omar Rutledge RN Position: [facility] RN Member Role: Primary Care Nurse Name: Rashmi Mendez RN Position: [facility] OB RN Member Role: Primary Care Nurse Name: Omar John RN Position: [facility] RN Member Role: Primary Care Nurse Name: Jayla Lai RN Position: [facility] RN Member Role: Primary Care Nurse Name: Pricilla Hendricks RN Position: [facility] RN Member Role: Primary Care Nurse Name: Zabrina Beck RN Position: [facility] RN Member Role: Primary Care Nurse Name: Juan Alvarado DO Position: [facility] Physician - Primary Care Member Role: PCP Address: Address: [address] [place] [address] Name: Sophie Luciano RN Position: [facility] SN RN Member Role: Primary Care Nurse Name: Trace Elliott RN Position: [facility] SN RN Member Role: Primary Care Nurse Name: Flora Gonzalez RN Position: [facility] Terminal Operator Member Role: Primary Care Nurse Name: Mary Anne Simons RN Position: [facility] RN Member Role: Primary Care Nurse Name: Lela Hoang RN Position: [facility] Onco RN Member Role: Primary Care Nurse Name: Estela Che RN Position: [facility] RN Member Role: Primary Care Nurse Name: Lisandra Gan RN Position: [facility] Terminal Operator Member Role: Primary Care Nurse Name: Bia Alcazar RN Position: [facility] Terminal Operator Member Role: Primary Care Nurse Name: Harjeet ZHENG [place] Position: [facility] SN RN Member Role: Primary Care Nurse Care Team Related Persons Name: ARIEL CHRISTY Address: home [address] [place] [id number] Name: ARIEL CHRISTY Address: home [address] [place] [id number] Name: MARIBEL CHRISTY Address: [place] [address] Name: NURY TREJO Address: home [address] [place] [address] Name: NURY WOLFE Address: [place] [address]
--- OUTSIDE RECORDS SUMMARY | 2023-05-29 06:02 | XMS_ITS | Continuity of Care Document ---
Author Name Unknown Organization [facility] Kris lt Address [address] [place] [address]- Care Team Providers Care Collar Separator Name Role Phone Tresa SENIOR, Hannah Mccoy Primary Care Physician Encounter [facility] Date(s): 02/08/22 - 03/10/22 [facility] Adult [address] [place] [address]- Allergies, Adverse Reactions, Alerts Substance Reaction Severity [...] term) 9 06/23/06 Given 1Result Comment: [08/18/2018] [facility]: [id number] 2Result Comment: [05/29/2017] [facility]:[id number] 3Admin Note: [facility] clinic, date approx per patient 4Admin Note: VIM given dated 03/14/10 MULIT 5Result Comment: [08/18/2018] [facility]: [id number] 6Admin Note: VIM GIVIN 08/20/06 # 3 [...] 13:48:36 EDT, Aerosol, Route to Pharmacy Electronically, [id number], [facility], Compound Start [...] 30 days, IM injection to Left arm [facility]:[id number] Lot:[id number] Exp: 07/23, # 1 mL, 0 Refills, Maintenance, 04/13/19 14:55:41 EDT, Solution Start Date: 04/13/19 Status: Ordered Cyanocobalamin 1000 mcg/mL injection = 1,000 mcg, Intramuscular, Left deltoid IM. Pt tolerated well. Office Supplied Medication [facility] [id number] Lot [id number] Exp 08/2020, # 1 mL, [...] Refills 0, Tot. Refills 0, Maintenance, 16 Costa Rican Luzth-Mudixy-Pdiao J tube, transgastric, 02/20/21 9:48:00 EDT, Supply [...] Replace Required Details, Route to Pharmacy Electronically, [id number], [facility] Start Date: 05/18/17 Status: Ordered Vitamin [...] Active Neuropathic pain of lower extremity(Confirmed) Active *[facility] [phone] CARE MANAG LUANN GREGORY(Confirmed) Active Pruritus with [...]
--- OUTSIDE RECORDS SUMMARY | 2023-05-29 06:02 | XMS_ITS | Continuity of Care Document ---
Author Name Unknown Organization [facility] Address [address] [place] [address]- Care Team Providers Care Supervisor Ride Assembly Name Role Phone Tresa SENIOR, Hannah Mccoy Primary Care Physician Encounter [facility] Date(s): 02/07/22 - 03/09/22 [facility] [address] [place] [address]- Allergies, Adverse Reactions, Alerts Substance Reaction Severity [...] term) 9 06/23/06 Given 1Result Comment: [08/18/2018] [facility]: [id number] 2Result Comment: [05/29/2017] [facility]:[id number] 3Admin Note: [facility] clinic, date approx per patient 4Admin Note: VIM given dated 03/14/10 MULIT 5Result Comment: [08/18/2018] [facility]: [id number] 6Admin Note: VIM GIVIN 08/20/06 # 3 [...] 13:48:36 EDT, Aerosol, Route to Pharmacy Electronically, [id number], [facility], Compound Start [...] 30 days, IM injection to Left arm [facility]:[id number] Lot:[id number] Exp: 07/23, # 1 mL, 0 Refills, Maintenance, 04/13/19 14:55:41 EDT, Solution Start Date: 04/13/19 Status: Ordered Cyanocobalamin 1000 mcg/mL injection = 1,000 mcg, Intramuscular, Left deltoid IM. Pt tolerated well. Office Supplied Medication [facility] [id number] Lot [id number] Exp 08/2020, # 1 mL, [...] Refills 0, Tot. Refills 0, Maintenance, 16 Kyrgyz Vfrqa-Tgisqa-Osjcy J tube, transgastric, 02/20/21 9:48:00 EDT, Supply [...] Replace Required Details, Route to Pharmacy Electronically, [id number], [facility] Start Date: 05/18/17 Status: Ordered Vitamin [...] Active Neuropathic pain of lower extremity(Confirmed) Active *[facility] [phone] CARE MANAG MEME GREGORY(Confirmed) Active Pruritus with [...]
--- OUTSIDE RECORDS SUMMARY | 2023-05-29 06:02 | XMS_ITS | Continuity of Care Document ---
Author Name Unknown Organization [facility] Address Unknown Care Team Providers Care Employment And Claims Aide Name Role Phone Luzma SENIOR, Carlos Gaston Primary Care Physician [phone] Encounter [facility] Date(s): 03/21/21 - 04/20/21 [facility] Allergies, Adverse Reactions, Alerts Substance Reaction Severity [...] term) 9 06/23/06 Given 1Result Comment: [08/18/2018] [facility]: [id number] 2Result Comment: [05/29/2017] [facility]:[id number] 3Admin Note: [facility] clinic, date approx per patient 4Admin Note: VIM given dated 03/14/10 MULIT 5Result Comment: [08/18/2018] [facility]: [id number] 6Admin Note: VIM GIVIN 08/20/06 # 3 [...] 13:48:36 EDT, Aerosol, Route to Pharmacy Electronically, [id number], [facility], Compound Start [...] 30 days, IM injection to Left arm [facility]:[id number] Lot:[id number] Exp: 07/23, # 1 mL, 0 Refills, Maintenance, 04/13/19 14:55:41 EDT, Solution Start Date: 04/13/19 Status: Ordered Cyanocobalamin 1000 mcg/mL injection = 1,000 mcg, Intramuscular, Left deltoid IM. Pt tolerated well. Office Supplied Medication [facility] [id number] Lot [id number] Exp 08/2020, # 1 mL, [...] Tot. Refills 0, Maintenance, 16 Costa Rican Pagiq-Incoke-Qfpli J tube, transgastric, 02/20/21 9:48:00 EDT, Supply [...] Replace Required Details, Route to Pharmacy Electronically, [id number], [facility] Start Date: 05/18/17 Status: Ordered Vitamin D3 1000 intl units oral tablet 1 tablet, By Mouth, Daily, WITH FOOD., # 90 Unknown, 3 Refills, Maintenance, 02/14/21 15:18:00 EDT,[facility], 165.1, cm, 01/24/21 11:40:00 EDT, [...] Neuropathic pain of lower extremity(Confirmed) Active *[facility] [phone] CARE MANAG ER MEME GREGORY(Confirmed) Active Pruritus [...]
--- OUTSIDE RECORDS SUMMARY | 2023-05-29 06:02 | XMS_ITS | Continuity of Care Document ---
Author Name Unknown Organization [facility] Address Unknown Care Team Providers Care Therapeutic Program Worker Name Role Phone Luzma SENIOR, Carlos Gaston Primary Care Physician Encounter [facility] Date(s): 05/02/21 - 05/09/21 [facility] Attending Physician: Taz Edward MD Admitting Physician: Taz Edward MD Allergies, Adverse Reactions, Alerts Substance Reaction Severity Status sulfa drugs Hives Active Lovenox hives Active cephalosporins 1 Hives Active 1Patient tolerated Zosyn in ED [...] term) 9 06/23/06 Given 1Result Comment: [08/18/2018] [facility]: [id number] 2Result Comment: [05/29/2017] [facility]:[id number] 3Admin Note: [facility] clinic, date approx per patient 4Admin Note: VIM given dated 03/14/10 MULIT 5Result Comment: [08/18/2018] [facility]: [id number] 6Admin Note: VIM GIVIN 08/20/06 # 3 [...] 13:48:36 EDT, Aerosol, Route to Pharmacy Electronically, [id number], [facility], Compound Start [...] 30 days, IM injection to Left arm [facility]:[id number] Lot:[id number] Exp: 07/23, # 1 mL, 0 Refills, Maintenance, 04/13/19 14:55:41 EDT, Solution Start Date: 04/13/19 Status: Ordered Cyanocobalamin 1000 mcg/mL injection = 1,000 mcg, Intramuscular, Left deltoid IM. Pt tolerated well. Office Supplied Medication [facility] [id number] Lot [id number] Exp 08/2020, # 1 mL, [...] Refills 0, Tot. Refills 0, Maintenance, 16 Bengali Rgwhs-Qssxwf-Qvcjy J tube, transgastric, 02/20/21 9:48:00 EDT, Supply [...] Replace Required Details, Route to Pharmacy Electronically, [id number], [facility] Start Date: 05/18/17 Status: Ordered Vitamin D3 1000 intl units oral tablet 1 tablet, By Mouth, Daily, WITH FOOD., # 90 Unknown, 3 Refills, Maintenance, 02/14/21 15:18:00 EDT,[facility], 165.1, cm, 01/24/21 11:40:00 EDT, [...] Active Neuropathic pain of lower extremity(Confirmed) Active *[facility] [phone] CARE MANAG ER MEME LEDEZMADORON(Confirmed) Active Pruritus with morphine(Confirmed) Active Recurrent UTI(Confirmed) Active Reflex sympathetic dystrophy(Confirmed) Active Dry heaves(Confirmed) Active Urinary retention(Confirmed) Active Urinary retention(Confirmed) Active Sepsis(Confirmed) Active Sleep-disordered breathing(Confirmed) Active Feeding by G-tube(Confirmed) Active Suprapubic catheter(Confirmed) Active Vital Signs Most recent to oldest [Reference Range]: 1 Height 165.1 cm (05/02/21 11:04 AM) Oxygen Saturation [94-100 %] 99 % (05/02/21 11:04 AM) Pulse Rate [55-90 bpm] 96 bpm *H* (05/02/21 11:04 AM) Temperature [96.8-100.4 DegF] 96.9 DegF (05/02/21 11:04 AM) Mode of Delivery (Oxygen) Room air (05/02/21 11:04 AM) Social History Social History Type Response Smoking Status Former smoker; Other : quit few months ago; entered on: 02/15/15 Sex
--- OUTSIDE RECORDS SUMMARY | 2023-05-29 06:02 | XMS_ITS | Continuity of Care Document ---
Author Name Unknown Organization [facility] Address [address] [place] [address]- Care Team Providers Care Arts Therapist Name Role Phone Juan Alvarado DO Primary Care Physician Encounter [facility] Date(s): 07/30/22 - 08/29/22 [facility] [address] [place] [address]- Allergies, Adverse Reactions, Alerts Substance Reaction Severity [...] Comment: [08/18/2018] [facility]: [id number] 2Result Comment: [05/29/2017] [facility]:[id number] 3Admin [facility], date approx per patient 4Admin Note: VIM given dated 03/14/10 MULIT 5Result Comment: [08/18/2018] [facility]: [id number] 6Admin Note: VIM GIVIN 08/20/06 # 3 [...] 13:48:36 EDT, Aerosol, Route to Pharmacy Electronically, [id number], [facility], Compound Start [...] Left arm [facility]:[id number] Lot:[id number] Exp: 07/23, # 1 mL, 0 Refills, Maintenance, 04/13/19 14:55:41 EDT, Solution Start Date: 04/13/19 Status: Ordered Cyanocobalamin 1000 mcg/mL injection = 1,000 mcg, Intramuscular, Left deltoid IM. Pt tolerated well. Office Supplied Medication [facility] 6444-6007-10 Lot [id number] Exp 08/2020, # 1 mL, [...] EST, Route to Pharmacy Electronically, [facility], Partial fill upon patient request if the prescription is for a ginger... Start Date: 08/02/22 Status: Ordered J-tube J-tube, See Instructions, # 1 each, Refills 0, Tot. Refills 0, Maintenance, 16 [place] Islander Szwzf-Smxwtp-Xbpwo J tube, transgastric, 02/20/21 9:48:00 EDT, Supply Start Date: 02/20/21 Status: Ordered Jantoven 5 mg oral tablet 1 tablet, By Mouth, Daily, OR DIRECTED BY [facility]MADIN CLINIC NURSE., # 30 tablet, 5 Refills, 03/05/22 8:34:00 EDT, [facility], 165, cm, 12/11/21 10:50:00 EDT, [...] Replace Required Details, Route to Pharmacy Electronically, [id number], [facility] 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 Confirmed Active Pruritus with morphine [...] Team Personnel Name: Renea Thayer RN Position: [facility] RN Member Role: Primary Care Nurse Name: Radha Woods RN Position: [facility] RN Member Role: Primary Care Nurse Name: Larissa Pino RN Position: [facility] ED RN W/OE and Tasks Member Role: Primary Care Nurse Name: Lela Mcintyre RN Position: [facility] SN RN Member Role: Primary Care Nurse Name: Charisse Chris RN Position: [facility] SN RN Member Role: Primary Care Nurse Name: Omar Henning RN Position: [facility] RN Member Role: Primary Care Nurse Name: Marlyn Evans NP Position: [facility] Associate Professional Member Role: Primary Care Nurse Address: Address: [address] [place] [address]- Name: Junie Kenny RN Position: [facility] RN Member Role: Primary Care Nurse Name: Jayla De RN Position: [facility] RN Member Role: Primary Care Nurse Name: hSea Stevens RN Position: [facility] RN Member Role: Primary Care Nurse Name: Margarita Bain RN Position: [facility] SN RN Member Role: Primary Care Nurse Name: Yady Tanner RN Position: [facility] RN Member Role: Primary Care Nurse Name: Omar Rutledge RN Position: [facility] RN Member Role: Primary Care Nurse Name: Rashmi Mendez RN Position: [facility] OB RN Member Role: Primary Care Nurse Name: Omar John RN Position: [facility] RN Member Role: Primary Care Nurse Name: Jayla Lai RN Position: [facility] RN Member Role: Primary Care Nurse Name: Pricilla Hendricks RN Position: [facility] RN Member Role: Primary Care Nurse Name: Zabrina Beck RN Position: [facility] RN Member Role: Primary Care Nurse Name: Juan Alvarado DO Position: [facility] Primary Care Physician Member Role: PCP Address: Address: [address] [place] [address] Name: Sophie Luciano RN Position: [facility] SN RN Member Role: Primary Care Nurse Name: Trace Elliott RN Position: [facility] SN RN Member Role: Primary Care Nurse Name: Ashley Langley RN Position: [facility] ED RN W/OE and Tasks Member Role: Primary Care Nurse Name: Flora Gonzalez RN Position: [facility] Javascript Software Engineer Member Role: Primary Care Nurse Name: Mary Anne Simons RN Position: [facility] RN Member Role: Primary Care Nurse Name: Lela Hoang RN Position: [facility] Onco RN Member Role: Primary Care Nurse Name: Estela Che RN Position: [facility] RN Member Role: Primary Care Nurse Name: Lisandra Gan RN Position: [facility] Javascript Software Engineer Member Role: Primary Care Nurse Name: Bia Alcazar RN Position: [facility] Javascript Software Engineer Member Role: Primary Care Nurse Name: Duane Cosby RNeekalinda Position: [facility] SN RN Member Role: Primary Care Nurse Care Team Related Persons Name: ARIEL CHRISTY Address: home [address] [place] [address] Name: ARIEL CHRISTY Address: home [address] [place] [address] Name: MARIBEL CHRISTY Address: [place] [address] Name: NURY TREJO Address: [address] [place] [address] Name: NURY WOLFE Address: [place] [address]
--- OUTSIDE RECORDS SUMMARY | 2023-05-29 06:03 | XMS_ITS | Continuity of Care Document ---
Author Name Unknown Organization [facility] Address [address] [place] [address]- Care Team Providers Care Chief Commercial Officer Name Role Phone Juan Alvarado DO Primary Care Physician [phone] Encounter [facility] Date(s): 08/21/22 - 09/20/22 [facility] [address] [place] [address]- Allergies, Adverse Reactions, Alerts Substance Reaction Severity [...] term) 9 06/23/06 Given 1Result Comment: [08/18/2018] [facility]: [id number] 2Result Comment: [05/29/2017] [facility]:[id number] 3Admin [facility], date approx per patient 4Admin Note: VIM given dated 03/14/10 MULIT 5Result Comment: [08/18/2018] [facility]: [id number] 6Admin Note: VIM GIVIN 08/20/06 # 3 [...] 13:48:36 EDT, Aerosol, Route to Pharmacy Electronically, [id number], [facility], Compound Start [...] 30 days, IM injection to Left arm [facility]:[id number] Lot:[id number] Exp: 07/23, # 1 mL, 0 Refills, Maintenance, 04/13/19 14:55:41 EDT, Solution Start Date: 04/13/19 Status: Ordered Cyanocobalamin 1000 mcg/mL injection = 1,000 mcg, Intramuscular, Left deltoid IM. Pt tolerated well. Office Supplied Medication [facility] 6907-7822-16 Lot [id number] Exp 08/2020, # 1 mL, [...] Refills 0, Tot. Refills 0, Maintenance, 16 Kosovan Tlfnp-Mzoyde-Cgdgy J tube, transgastric, 02/20/21 9:48:00 EDT, Supply Start Date: 02/20/21 Status: Ordered Jantoven 5 mg oral tablet 1 tablet, By Mouth, Daily, for 30 days, OR DIRECTED BY [facility]MADIN CLINIC NURSE., # 30 tablet, 11 Refills, Physician Stop 08/29/23 8:30:00 EST, 09/03/22 8:30:00 EST, [facility], 165, cm, 08/28/22 10:52:00 EST, [...] Gm, 5 Refills, Maintenance, 02/14/20 16:00:00 EDT, [facility], 165, cm, 12/29/19 14:57:00 EDT, Height, 128.1, kg, 04/08/19 8:08:00 EDT, Dry Weight Start Date: 02/14/20 Status: Ordered traZODone 100 mg oral tablet See Instructions, 1 - 2 tablet By Mouth at bedtime 30 days, # 60 tablet, Refills 0, Tot. Refills 0,Maintenance, 05/18/17 15:31:13 EDT, Instructions Replace Required Details, Route to Pharmacy Electronically, [id number], [facility] 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 Pruritus with morphine [...] Care team information Care Team Personnel Name: Reena Thayer RN Position: [facility] RN Member Role: Primary Care Nurse Name: Radha Woods RN Position: [facility] SN RN Member Role: Primary Care Nurse Name: Larissa Pino RN Position: [facility] ED RN W/OE and Tasks Member Role: Primary Care Nurse Name: Lela Mcintyre RN Position: [facility] SN RN Member Role: Primary Care Nurse Name: Charisse Chris RN Position: [facility] SN RN Member Role: Primary Care Nurse Name: Omar Henning RN Position: [facility] RN Member Role: Primary Care Nurse Name: Marlyn Evans NP Position: [facility] Associate Professional Member Role: Primary Care Nurse Address: Address: [address] [place] [address]- Name: Junie Kenny RN Position: [facility] RN Member Role: Primary Care Nurse Name: Jayla De RN Position: [facility] RN Member Role: Primary Care Nurse Name: Shea Stevens RN Position: [facility] RN Member Role: Primary Care Nurse Name: Margarita Bain RN Position: [facility] SN RN Member Role: Primary Care Nurse Name: Yady Tanner RN Position: [facility] RN Member Role: Primary Care Nurse Name: Omar Rutledge RN Position: [facility] RN Member Role: Primary Care Nurse Name: Rashmi Mendez RN Position: [facility] OB RN Member Role: Primary Care Nurse Name: Omar John RN Position: [facility] RN Member Role: Primary Care Nurse Name: Jayla Lai RN Position: [facility] RN Member Role: Primary Care Nurse Name: Pricilla Hendricks RN Position: [facility] RN Member Role: Primary Care Nurse Name: Zabrina Beck RN Position: [facility] RN Member Role: Primary Care Nurse Name: Juan Alvarado DO Position: [facility] Primary Care Physician Member Role: PCP Address: Address: [address] [place] [address] Name: Sophie Luciano RN Position: [facility] SN RN Member Role: Primary Care Nurse Name: Trace Elliott RN Position: [facility] SN RN Member Role: Primary Care Nurse Name: Ashley Langley RN Position: [facility] ED RN W/OE and Tasks Member Role: Primary Care Nurse Name: Flora Gonzalez RN Position: [facility] Imposer Member Role: Primary Care Nurse Name: Mary Anne Simons RN Position: [facility] RN Member Role: Primary Care Nurse Name: Lela Hoang RN Position: [facility] Onco RN Member Role: Primary Care Nurse Name: Estela Che RN Position: [facility] RN Member Role: Primary Care Nurse Name: Lisandra Gan RN Position: [facility] Imposer Member Role: Primary Care Nurse Name: Bia Alcazar RN Position: [facility] Imposer Member Role: Primary Care Nurse Name: Everton Cosby RN Position: [facility] SN RN Member Role: Primary Care Nurse Care Team Related Persons Name: JHON CHRISTYE Address: home [address] [place] [address] Name: ARIEL CHRISTY Address: home [address] [place] [address] Name: MARIBEL CHRISTY Address: [place] [address] Name: NURY TREJO Address: home [address] [place] [address] Name: NURY WOLFE Address: [place] [address]
--- OUTSIDE RECORDS SUMMARY | 2023-05-29 06:03 | XMS_ITS | Continuity of Care Document ---
Author Name Unknown Organization [facility] Address [address] [place] [address]- Care Team Providers Care Karate Black Belt Name Role Phone Juan Alvarado DO Primary Care Physician [phone] Encounter [facility] Date(s): 01/03/23 - 02/02/23 [facility] [address] [place] [address]- Allergies, Adverse Reactions, Alerts Substance Reaction Severity [...] 1Result Comment: [08/18/2018] [facility]: [id number] 2Result Comment: [05/29/2017] [facility]:[id number] 3Admin Note[facility], date approx per patient 4Admin Note: VIM given dated 03/14/10 MULIT 5Result Comment: [08/18/2018] [facility]: [id number] 6Admin Note: VIM GIVIN 08/20/06 # 3 [...] 13:48:36 EDT, Aerosol, Route to Pharmacy Electronically, [id number], [facility], Compound Start [...] injection to Left arm [facility]:02692-478-52 Lot:[id number] Exp: 07/23, # 1 mL, 0 Refills, Maintenance, 04/13/19 14:55:41 EDT, Solution Start Date: 04/13/19 Status: Ordered Cyanocobalamin 1000 mcg/mL injection = 1,000 mcg, Intramuscular, Left deltoid IM. Pt tolerated well. Office Supplied Medication [facility] 5926-5397-20 Lot [id number] Exp 08/2020, # 1 mL, [...] is for a schedule II opioid drug., anurag Jack, 01/07/23... Start Date: 01/07/23 Stop Date: 08/04/24 [...] Refills 0, Tot. Refills 0, Maintenance, 16 [place]an Xpblf-Pjqpth-Akxuc J tube, transgastric, 02/20/21 9:48:00 EDT, Supply Start Date: 02/20/21 Status: Ordered Jantoven 5 mg oral tablet 1 tablet, By Mouth, Daily, for 30 days, OR DIRECTED BY COUMADIN CLINIC NURSE., # 30 tablet, 11 Refills, Physician Stop 08/29/23 8:30:00 EST, 09/03/22 8:30:00 EST, [facility], 165anurag, 08/28/22 10:52:00 EST, Height, 113.4, kg, ... [...] Replace Required Details, Route to Pharmacy Electronically, [id number], [facility] 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 Confirmed Active Pruritus with morphine [...] Team Personnel Name: Renea Thayer RN Position: [facility] RN Member Role: Primary Care Nurse Name: Radha Woods RN Position: [facility] SN RN Member Role: Primary Care Nurse Name: Larissa Pino RN Position: [facility] ED RN W/OE and Tasks Member Role: Primary Care Nurse Name: Lela Mcintyre RN Position: [facility] SN RN Member Role: Primary Care Nurse Name: Charisse Chris RN Position: [facility] SN RN Member Role: Primary Care Nurse Name: Omar Henning RN Position: [facility] RN Member Role: Primary Care Nurse Name: Marlyn Evans NP Position: [facility] Associate Professional Member Role: Primary Care Nurse Address: Address: [address] [place] [id number] Name: Junie Kenny RN Position: [facility] RN Member Role: Primary Care Nurse Name: Jayla De RN Position: [facility] RN Member Role: Primary Care Nurse Name: Shea Stevens RN Position: [facility] RN Member Role: Primary Care Nurse Name: Margarita Bain RN Position: [facility] SN RN Member Role: Primary Care Nurse Name: Yady Tanner RN Position: [facility] RN Member Role: Primary Care Nurse Name: Omar Rutledge RN Position: [facility] RN Member Role: Primary Care Nurse Name: Rashmi Mendez RN Position: [facility] OB RN Member Role: Primary Care Nurse Name: Omar John RN Position: [facility] RN Member Role: Primary Care Nurse Name: Jayla Lai RN Position: [facility] RN Member Role: Primary Care Nurse Name: Pricilla Hendricks RN Position: [facility] RN Member Role: Primary Care Nurse Name: Zabrina Beck RN Position: [facility] RN Member Role: Primary Care Nurse Name: Juan Alvarado DO Position: [facility] Physician - Primary Care Member Role: PCP Address: Address: [address] [place] [address]- Name: Sophie Luciano RN Position: [facility] SN RN Member Role: Primary Care Nurse Name: Trace Elliott RN Position: [facility] SN RN Member Role: Primary Care Nurse Name: Ashley Langley RN Position: [facility] ED RN W/OE and Tasks Member Role: Primary Care Nurse Name: Flora Gonzalez RN Position: [facility] [employer] Tr[employer] Workers Member Role: Primary Care Nurse Name: Mary Anne Simons RN Position: [facility] RN Member Role: Primary Care Nurse Name: Lela Hoang RN Position: [facility] Onco RN Member Role: Primary Care Nurse Name: Estela Che RN Position: [facility] RN Member Role: Primary Care Nurse Name: Lisandra Gan RN Position: [facility] [employer] Tr[employer] Workers Member Role: Primary Care Nurse Name: Bia Alcazar RN Position: [facility] [employer] Workers Member Role: Primary Care Nurse Name: Everton Cosby RN Position: [facility] SN RN Member Role: Primary Care Nurse Care Team Related Persons Name: ARIEL CHRISTY Address: home [address] [place] [address] Name: ARIEL CHRISTY Address: home [address] [place] [address] Name: MARIBEL CHRISTY Address: [place] [address] Name: NURY TREJO Address: home [address] [place] [id number] Name: NURY WOLFE Address: [place] [address]
--- OUTSIDE RECORDS SUMMARY | 2023-05-29 06:03 | XMS_ITS | Continuity of Care Document ---
Author Name Unknown Organization [facility] Address [address] [place] [address]- Care Team Providers Care Orthopaedic Technologist Name Role Phone Luzma SENIOR, Carlos Gaston Primary Care Physician [place] [facility] [place] 07/12/21 - 08/11/21 [facility] [address] [place] [address]- Allergies, Adverse Reactions, Alerts Substance Reaction Severity [...] 1Result Comment: [08/18/2018] [facility]: [id number] 2Result Comment: [05/29/2017] [facility]:[id number] 3Admin Note: [facility] clinic, date approx per patient 4Admin Note: VIM given dated 03/14/10 MULIT 5Result Comment: [08/18/2018] [facility]: [id number] 6Admin Note: VIM GIVIN 08/20/06 # 3 [...] 13:48:36 EDT, Aerosol, Route to Pharmacy Electronically, [id number], [facility], Compound Start [...] injection to Left arm [facility]:68852-979-20 Lot:[id number] Exp: 07/23, # 1 mL, 0 Refills, Maintenance, 04/13/19 14:55:41 EDT, Solution Start Date: 04/13/19 Status: Ordered Cyanocobalamin 1000 mcg/mL injection = 1,000 mcg, Intramuscular, Left deltoid IM. Pt tolerated well. Office Supplied Medication [facility] 2026-1575-17 Lot [id number] Exp 08/2020, # 1 mL, [...] Refills 0, Tot. Refills 0, Maintenance, 16 Japanese Qgniv-Jtkqgz-Vuesk J tube, transgastric, 02/20/21 9:48:00 EDT, Supply [...] Replace Required Details, Route to Pharmacy Electronically, [id number], [facility] Start Date: 05/18/17 Status: Ordered Vitamin D3 1000 intl units oral tablet 1 tablet, By Mouth, Daily, WITH FOOD., # 90 Unknown, 3 Refills, Maintenance, 02/14/21 15:18:00 EDT,[facility], 165.1, cm, 01/24/21 11:40:00 EDT, [...] Active Neuropathic pain of lower extremity(Confirmed) Active *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
--- OUTSIDE RECORDS SUMMARY | 2023-05-29 06:03 | XMS_ITS | Continuity of Care Document ---
Author Name Unknown Organization [facility] Address [address] [place] [address]- Care Team Providers Care Environmental Marketer Name Role Phone Juan Alvarado DO Primary Care Physician Encounter [facility] Date(s): 02/21/23 - 03/23/23 [facility] [address] [place] [address]- Attending Physician: Admtr, Ar8 Allergies, Adverse Reactions, [...] term) 9 06/23/06 Given 1Result Comment: [08/18/2018] [facility]: [id number] 2Result Comment: [05/29/2017] [facility]:[id number] 3[facility]x per patient 4Admin Note: VIM given dated 03/14/10 MULIT 5Result Comment: [08/18/2018] [facility]: [id number] 6Admin Note: VIM GIVIN 08/20/06 # 3 [...] 13:48:36 EDT, Aerosol, Route to Pharmacy Electronically, [id number], [id number], Compound Start [...] 30 days, IM injection to Left arm [facility]:[id number] Lot:[id number] Exp: 07/23, # 1 mL, 0 Refills, Maintenance, 04/13/19 14:55:41 EDT, Solution Start Date: 04/13/19 Status: Ordered Cyanocobalamin 1000 mcg/mL injection = 1,000 mcg, Intramuscular, Left deltoid IM. Pt tolerated well. Office Supplied Medication [facility] [id number] Lot [id number] Exp 08/2020, # 1 mL, [...] Refills 0, Tot. Refills 0, Maintenance, 16 [place] Gtbqs-Claamj-Xofuf J tube, transgastric, 02/20/21 9:48:00 EDT, Supply [...] Replace Required Details, Route to Pharmacy Electronically, [id number], [facility] Start Date: 05/18/17 Status: Ordered Trulicity [...] List Condition Confirmation Course Effective Dates Status [facility] at Informant Secondary nephrogenic diabetes insipidus Confirmed [...] Neuropathic pain of lower extremity Confirmed Active *CCA [phone] DIRECTOR OF GROUP COUNSELING PROGRAM MEME GREGORY Confirmed Active Pruritus with morphine [...] AM) Body Mass Index [18.50-24.99] 24.43 (04/24/16 9: AM) 44.64 *>HHI* (02/18/08 10:34 AM) Blood Pressure [90-138/55-84 mm Hg] 118/58mm Hg (04/24/16 9:25 AM) 120/70mm Hg (10/24/11 12:13 PM) 120/90mm Hg (02/18/08 10:34 AM) Respiratory Rate [16-30 br/min] 12 br/min *L* (04/24/16 9:25 AM) Temperature [96.8-100.4 DegF] 98.2 DegF (04/24/16 9: AM) 98.6 DegF (10/24/11 12:13 PM) 98.5 [...] Sex Female EKG study * Event Display: EKG Authored Date: Laboratory * Event Display: Non BH Lab Results Authored Date: * Event Display: Non BH Lab Results Authored Date: * Event Display: Non BH Lab Results Authored Date: * Event Display: Non BH Lab Results Authored Date: XR Chest Views * Event Display: X-Ray Chest Authored Date: * Event Display: X-Ray Chest Authored Date: * Event Display: X-Ray Chest Authored Date: XR Abdomen Views * Event Display: X-Ray Abdomen Authored Date: * Event Display: X-Ray Abdomen Authored Date: * Event Display: X-Ray Abdomen Authored Date: CT Abdomen * Event Display: CT Scan Abdomen Authored Date: * Event Display: CT Scan Abdomen Authored Date: CT Chest * Event Display: CT Scan Chest Authored Date: US Abdomen * Event Display: Ultrasound Abdomen Authored Date: Radiology * Event Display: IR Special Procedures Authored Date: * Event Display: IR Special Procedures, Non-BH Authored Date: * Event Display: Ultrasound Miscellaneous Authored Date: * Event Display: Ultrasound Miscellaneous Authored Date: * Pricila Vargas: PERFORM Event Display: Radiology Results Scanned Authored Date: * Pricila Vargas: PERFORM Event Display: Radiology Results Scanned Authored Date: [id number] * Pricila Vargas: PERFORM Event Display: Radiology Results Scanned Authored Date: [facility] Note * Marques Houston MD: PERFORM, SIGN, VERIFY Event Display: Patient Education/Instruction Authored Date: [id number] [facility] BMP PV Family Clinical Summary Person Information Visit Date 04/26/2016 3:00 PM Name JACK CHRISTY Age 36 Years 1980 12:00 AM PCP Marques Houston MD PCP Sex Female Race White Ethnicity Non-/Non- Language Hungarian You can now view a summary of your hospital visit from the comfort of your home through a free online portal called [employer]. [employer]ity is a website that allows you to securely view your medical information including discharge summary, medications and follow-up visits. You can also send a secure electronic message to your doctor???s office to request appointments, renew medicationsor just ask a question. You can enroll at [email or web address] or register during your next office visit. Smoking can increase your chances of developing chronic health problems and can cause harmful effects to other family members in your house. If you smoke, you are strongly encouraged to quit. Please call the [place] Smokers??? Helpline at 1-041-UYQWNOW (or ) or log on to [email or web address] for more information. Reason for Visit: Allergy Info: Macrobid; Lovenox; sulfa drugs; cephalosporins Smoking Status Former smoker Vital Signs Height 164 cm Weight 65.7 kg BMI 24.43 Blood Pressure 118 mm Hg/58 mm Hg Temperature 98.2 DegF Pulse Rate 62 bpm Respiratory Rate 12 br/min 02 Sat Mode of Delivery 97 %/ Medication Information Acetaminophen (Tylenol 325 mg oral tablet) 975 mg, Oral, every 6 hours, As Needed, Pain , Mild, Refills: 0 AcetaZOLAMIDE (acetaZOLAMIDE 250 mg oral tablet) 250 mg, Oral, twice a day, 14 days, Refills: 0 Bisacodyl 10 mg, Oral, Daily at Bedtime, Refills: 0 BuPROpion (buPROPion 300 mg/24 hours (XL) oral tablet, extended release) 1 tablet, Oral, Daily, Refills: 0 Docusate (docusate sodium 100 mg oral capsule) 1 capsule, Oral, twice a day, Refills: 0 ERTApenem (ertapenem 1 gm injectable powder for injection) 1 Gm, IV Piggyback, every 24 hours, 7 days, Refills: 0 Famotidine (famotidine 20 mg oral tablet) 1 tablet, Oral, twice a day, Refills: 0 Fentanyl (fentanyl 12 mcg/hr transdermal film, extended release) 1 patch, Topically, every 72 hours, Refills: 0 Fentanyl (fentaNYL 50 mcg/hr transdermal film, extended release) 1 patch, Topically, every 72 hours, Refills: 0 [place] (lithium 450 mg oral tablet, extended release) 1 tablet, Oral, twice a day, Refills: 0 Lorazepam (Ativan 0.5 mg oral tablet) 0.5 tablet, Oral, every 8 hours, As Needed, as needed for anxiety, Refills: 0 Methylnaltrexone (Relistor 8 mg/0.4 mL subcutaneous solution) 0.4 mL, Subcutaneous Injection, Daily, Refills: 0 Morphine (morphine 20 mg/5 mL oral solution) 5 mL, Oral, 5 times a day, 14 days, Refills: 0 Nystatin Topical (nystatin topical 376033 u/gm powder) , See Instructions, Topically 3 times a day,Refills: 0 Testosterone (testosterone enanthate 200 mg/ml intramuscular solution) 140 mg, Intramuscular, Every14 days, Refills: 5 Trazodone (traZODone 100 mg oral tablet) 1 tablet, Oral, Daily at Bedtime, Refills: 3 Warfarin (warfarin 7.5 mg oral tablet) 1 tablet, Oral, Daily, further per INR levels,per PCP, 7 days, Refills: 0 Future Orders No future orders Orders Completed this Visit No visit orders documented Problem List Problem Chronic use of opiate drugs therapeutic purposes Bipolar disorder Reflex sympathetic dystrophy Chronic colitis Asthma Excision of meniscus of knee Gender identity disorder Morbid obesity Sleep-disordered breathing 18-APR-2014 21:07:46 Drug-induced nausea and vomiting Cannabis dependence, continuous Lack of adequate sleep Clinical finding Pruritus of skin Spasm of back muscles History of appendectomy History of bilateral mastectomy Neuropathic pain 18-APR-2014 21:15:44 Constipation Retention of urine Retching Altered bowel function Patient care statuses Recurrent urinary tract infection Suprapubic urinary catheter in situ Sepsis Systemic inflammatory response syndrome Pyelonephritis Cobalamin deficiency Acquired nephrogenic diabetes insipidus Diagnosis Urinary tract infection, site not specified; Sepsis, unspecified organism; Bacteremia; Fever, unspecified Procedures No Procedures Documented If the following labs have been performed in the last year, the most recent result is displayed below. Diagnostic Results Lab Result Value Date Lead Hemoglobin A1C LDL HDL Triglycerides Total Cholesterol Disclaimer: The information provided is of a general nature and is intended to be used in conjunction with the recommendations and advice of your health care practitioner. Every effort has been made to ensure that the information provided is accurate and complete at the time it is provided to you however, as your needs change, or, as new information becomes available, different or additional instructions may be required. If you have questions, please consult with your primary care provider or pharmacist, as appropriate. This information is not intended to serve as substitution for assessment and evaluation by a qualified health care provider. If you do not have a primary care provider, you may find a [facility] provider by calling [facility] Link at [phone]. For information about the plan of care including goals and instructions for your diagnosis, please see the patient education orders section of this document. Patient Visit Summary: Future Appointments: Follow-Up Instructions With: Address: When: friday 1:40 Comments: Patient Education Materials Additional Instructions: * Marques Houston MD: PERFORM, SIGN, VERIFY Event Display: Patient Education/Instruction Authored Date: [id number] [facility] BMP PV Family Clinical Summary Person Information Visit Date 04/26/2016 3:00 PM Name JACK CHRISTY Age 36 Years 1980 12:00 AM PCP Marques Houston MD PCP Sex Female Race White Ethnicity Non-/Non- Language Hungarian You can now view a summary of your hospital visit from the comfort of your home through a free online portal called [employer]. [employer]ity is a website that allows you to securely view your medical information including discharge summary, medications and follow-up visits. You can also send a secure electronic message to your doctor???s office to request appointments, renew medicationsor just ask a question. You can enroll at [email or web address] or register during your next office visit. Smoking can increase your chances of developing chronic health problems and can cause harmful effects to other family members in your house. If you smoke, you are strongly encouraged to quit. Please call the [place] Smokers??? Helpline at 2-402-RDILNOW (or ) or log on to [email or web address] for more information. Reason for Visit: Allergy Info: Macrobid; Lovenox; sulfa drugs; cephalosporins Smoking Status Former smoker Vital Signs Height 164 cm Weight 65.7 kg BMI 24.43 Blood Pressure 118 mm Hg/58 mm Hg Temperature 98.2 DegF Pulse Rate 62 bpm Respiratory Rate 12 br/min 02 Sat Mode of Delivery 97 %/ Medication Information Acetaminophen (Tylenol 325 mg oral tablet) 975 mg, Oral, every 6 hours, As Needed, Pain , Mild, Refills: 0 AcetaZOLAMIDE (acetaZOLAMIDE 250 mg oral tablet) 250 mg, Oral, twice a day, 14 days, Refills: 0 Bisacodyl 10 mg, Oral, Daily at Bedtime, Refills: 0 BuPROpion (buPROPion 300 mg/24 hours (XL) oral tablet, extended release) 1 tablet, Oral, Daily, Refills: 0 Docusate (docusate sodium 100 mg oral capsule) 1 capsule, Oral, twice a day, Refills: 0 ERTApenem (ertapenem 1 gm injectable powder for injection) 1 Gm, IV Piggyback, every 24 hours, 7 days, Refills: 0 Famotidine (famotidine 20 mg oral tablet) 1 tablet, Oral, twice a day, Refills: 0 Fentanyl (fentanyl 12 mcg/hr transdermal film, extended release) 1 patch, Topically, every 72 hours, Refills: 0 Fentanyl (fentaNYL 50 mcg/hr transdermal film, extended release) 1 patch, Topically, every 72 hours, Refills: 0 [place] (lithium 450 mg oral tablet, extended release) 1 tablet, Oral, twice a day, Refills: 0 Lorazepam (Ativan 0.5 mg oral tablet) 0.5 tablet, Oral, every 8 hours, As Needed, as needed for anxiety, Refills: 0 Methylnaltrexone (Relistor 8 mg/0.4 mL subcutaneous solution) 0.4 mL, Subcutaneous Injection, Daily, Refills: 0 Morphine (morphine 20 mg/5 mL oral solution) 5 mL, Oral, 5 times a day, 14 days, Refills: 0 Nystatin Topical (nystatin topical 383715 u/gm powder) , See Instructions, Topically 3 times a day,Refills: 0 Testosterone (testosterone enanthate 200 mg/ml intramuscular solution) 140 mg, Intramuscular, Every14 days, Refills: 5 Trazodone (traZODone 100 mg oral tablet) 1 tablet, Oral, Daily at Bedtime, Refills: 3 Warfarin (warfarin 7.5 mg oral tablet) 1 tablet, Oral, Daily, further per INR levels,per PCP, 7 days, Refills: 0 Future Orders No future orders Orders Completed this Visit No visit orders documented Problem List Problem Chronic use of opiate drugs therapeutic purposes Bipolar disorder Reflex sympathetic dystrophy Chronic colitis Asthma Excision of meniscus of knee Gender identity disorder Morbid obesity Sleep-disordered breathing 18-APR-2014 21:07:46 Drug-induced nausea and vomiting Cannabis dependence, continuous Lack of adequate sleep Clinical finding Pruritus of skin Spasm of back muscles History of appendectomy History of bilateral mastectomy Neuropathic pain 18-APR-2014 21:15:44 Constipation Retention of urine Retching Altered bowel function Patient care statuses Recurrent urinary tract infection Suprapubic urinary catheter in situ Sepsis Systemic inflammatory response syndrome Pyelonephritis Cobalamin deficiency Acquired nephrogenic diabetes insipidus Diagnosis Urinary tract infection, site not specified; Sepsis, unspecified organism; Bacteremia; Fever, unspecified Procedures No Procedures Documented If the following labs have been performed in the last year, the most recent result is displayed below. Diagnostic Results Lab Result Value Date Lead Hemoglobin A1C LDL HDL Triglycerides Total Cholesterol Disclaimer: The information provided is of a general nature and is intended to be used in conjunction with the recommendations and advice of your health care practitioner. Every effort has been made to ensure that the information provided is accurate and complete at the time it is provided to you however, as your needs change, or, as new information becomes available, different or additional instructions may be required. If you have questions, please consult with your primary care provider or pharmacist, as appropriate. This information is not intended to serve as substitution for assessment and evaluation by a qualified health care provider. If you do not have a primary care provider, you may find a [facility] provider by calling [facility] Link at [phone]. For information about the plan of care including goals and instructions for your diagnosis, please see the patient education orders section of this document. Patient Visit Summary: Future Appointments: Follow-Up Instructions With: Address: When: friday 1:40 Comments: Patient Education Materials Additional Instructions: Patient Care team information Care Team Personnel Name: Renea Thayer RN Position: [facility] RN Member Role: Primary Care Nurse Name: Radha Woods RN Position: [facility] SN RN Member Role: Primary Care Nurse Name: Larissa Pino RN Position: [facility] ED RN W/OE and Tasks Member Role: Primary Care Nurse Name: Lela Mcintyre RN Position: [facility] SN RN Member Role: Primary Care Nurse Name: Charisse Chris RN Position: [facility] SN RN Member Role: Primary Care Nurse Name: Omar Henning RN Position: [facility] RN Member Role: Primary Care Nurse Name: Marlyn Evans NP Position: [facility] Associate Professional Member Role: Primary Care Nurse Address: Address: [address] [place] [address] Name: Junie Kenny RN Position: [facility] RN Member Role: Primary Care Nurse Name: Jayla De RN Position: S RN Member Role: Primary Care Nurse Name: Shea Stevens RN Position: [facility] RN Member Role: Primary Care Nurse Name: Margarita Bain RN Position: [facility] SN RN Member Role: Primary Care Nurse Name: Yady Tanner RN Position: [facility] RN Member Role: Primary Care Nurse Name: Omar Rutledge RN Position: [facility] RN Member Role: Primary Care Nurse Name: Rashmi Mendez RN Position: [facility] OB RN Member Role: Primary Care Nurse Name: Omar John RN Position: [facility] RN Member Role: Primary Care Nurse Name: Jayla Lai RN Position: [facility] RN Member Role: Primary Care Nurse Name: Pricilla Hendricks RN Position: [facility] RN Member Role: Primary Care Nurse Name: Zabrina Beck RN Position: [facility] RN Member Role: Primary Care Nurse Name: Juan Alvarado DO Position: [facility] Physician - Primary Care Member Role: PCP Address: Address: [address] [place] [id number]- Name: Sophie Luciano RN Position: [facility] SN RN Member Role: Primary Care Nurse Name: Trace Elliott RN Position: [facility] SN RN Member Role: Primary Care Nurse Name: Ashley Langley RN Position: [facility] ED RN W/OE and Tasks Member Role: Primary Care Nurse Name: Flora Gonzalez RN Position: [facility] Motor Tester Member Role: Primary Care Nurse Name: Mary Anne Simons RN Position: [facility] RN Member Role: Primary Care Nurse Name: Lela Hoang RN Position: [facility] Onco RN Member Role: Primary Care Nurse Name: Estela Che RN Position: [facility] RN Member Role: Primary Care Nurse Name: Lisandra Gan RN Position: [facility] Motor Tester Member Role: Primary Care Nurse Name: Bia Alcazar RN Position: [facility] Motor Tester Member Role: Primary Care Nurse Name: Everton Cosby RN Position: [facility] SN RN Member Role: Primary Care Nurse Care Team Related Persons Name: ARIEL CHRISTY Address: home [address] [place] [id number] Name: ARIEL CHRISTY Address: home [address] [place] [id number] Name: MARIBEL CHRISTY Address: [place] [address] Name: NURY TREJO Address: home [address] [place] [id number] Name: NURY WOLFE Address: [place] [address]
--- OUTSIDE RECORDS SUMMARY | 2023-05-29 06:03 | XMS_ITS | Continuity of Care Document ---
Author Name Unknown Organization [facility] Address [address] [place] [address]- Care Team Providers Care Litigation Support Analyst Name Role Phone Juan Alvarado DO Primary Care Physician [place] [facility] [place] 05/24/23 [facility] [address] [place] [address]- Attending Physician: Sukhdeep SENIOR, Keke Mccoy Referring Physician: Juan Alvarado DO Allergies, Adverse Reactions, [...] 06/23/06 Given 1Result Comment: [08/18/2018] [facility]: [id number] 2Result Comment: [05/29/2017] [facility]:[id number] 3[facility], date approx per patient 4Admin Note: VIM given dated 03/14/10 MULIT 5Result Comment: [08/18/2018] [facility]: [id number] 6Admin Note: VIM GIVIN 08/20/06 # 3 7Admin Note: VIM GIVIN 08/20/06 8Admin Note: VIM-SANOFI 9Admin Note: BERNICE GIVEN TODAY DATE ON BERNICE 02/11/2001 Medications albuterol CFC free 90 mcg/inh inhalation aerosol 2, puffs, Inhalation, 4 times a day, PRN, # 1 each, Refills 3, Tot. Refills 3, Maintenance, 04/24/18 13:48:36 EDT, Aerosol, Route to Pharmacy Electronically, [id number], [facility], Compound Start [...] Dry Weight Start Date: 04/18/23 Status: Ordered fondaparinux 10 mg/0.8 mL subcutaneous solution See Instructions, inject 10 mg Subcutaneously once every 24hours. last dose 24H prior to procedure.restart when told by proceduralist.[facility] disp 8 syringes please, # 6.4 mL, 0 Refills, Maintenance, 05/23/23 13:19:00 EDT, [facility], [place]... Start Date: 05/23/23 Status: Ordered G tube change G tube [...] EST, Route to Pharmacy Electronically, [facility], Partial fill upon patient request if the prescription is for a ginger... Start Date: 08/02/22 Status: Ordered J-tube J-tube, See Instructions, # 1 each, Refills 0, Tot. Refills 0, Maintenance, 16 Kazakh Ildkf-Suxztk-Bmblv J tube, transgastric, 02/20/21 9:48:00 EDT, Supply Start Date: 02/20/21 Status: Ordered Jantoven 2.5 mg oral tablet See Instructions, take 2-3 tabs daily as directed by the coumadin clinic., # 90 tablet, 11 Refills,Maintenance, 05/22/23 10:07:00 EDT, [facility], Partial fill upon patient request if the prescription is for a schedule II opioid drug.,... Start Date: 05/22/23 Status: Ordered Latuda 60 mg oral tablet [...] Maintenance, 04/21/23 8:50:00 EDT, Syrup, [facility], Partial fill upon patient request [...] Replace Required Details, Route to Pharmacy Electronically, [id number], [facility] Start Date: 05/18/17 Status: Ordered Trulicity [...] pain of lower extremity Confirmed Active *[facility] [phone] SILVER BUFFER MEME GREGORY Confirmed Active Pruritus with morphine [...] Team Personnel Name: Renea Thayer RN Position: [facility] RN Member Role: Primary Care Nurse Name: Radha Woods RN Position: [facility] SN RN Member Role: Primary Care Nurse Name: Larissa Pino RN Position: [facility] ED RN W/OE and Tasks Member Role: Primary Care Nurse Name: Lela Mcintyre RN Position: [facility] SN RN Member Role: Primary Care Nurse Name: Charisse Chris RN Position: [facility] SN RN Member Role: Primary Care Nurse Name: Omar Henning RN Position: [facility] RN Member Role: Primary Care Nurse Name: Marlyn Evans NP Position: [facility] Associate Professional Member Role: Primary Care Nurse Address: Address: [address] [place] [address]- [place] Name: Junie Kenny RN Position: [facility] RN Member Role: Primary Care Nurse Name: Jayla De RN Position: [facility] RN Member Role: Primary Care Nurse Name: Shea Stevens RN Position: [facility] RN Member Role: Primary Care Nurse Name: Margarita Bain RN Position: [facility] SN RN Member Role: Primary Care Nurse Name: Yady Tanner RN Position: [facility] RN Member Role: Primary Care Nurse Name: Maty RNOmar Position: [facility] RN Member Role: Primary Care Nurse Name: Rashmi Mendez RN Position: [facility] OB RN Member Role: Primary Care Nurse Name: Omar John RN Position: [facility] RN Member Role: Primary Care Nurse Name: Jayla Lai RN Position: [facility] RN Member Role: Primary Care Nurse Name: Pricilla Hendricks RN Position: [facility] RN Member Role: Primary Care Nurse Name: Zabrina Beck RN Position: [facility] RN Member Role: Primary Care Nurse Name: Juan Alvarado DO Position: [facility] Physician - Primary Care Member Role: PCP Address: Address: [address] [place] [address]- Name: Sophie Luciano RN Position: [facility] SN RN Member Role: Primary Care Nurse Name: Trace Elliott RN Position: [facility] SN RN Member Role: Primary Care Nurse Name: Flora Gonzlaez RN Position: [facility] Certified Tumor Registrar Member Role: Primary Care Nurse Name: Mary nAne Simons RN Position: [facility] RN Member Role: Primary Care Nurse Name: Lela Hoang RN Position: [facility] Onco RN Member Role: Primary Care Nurse Name: Estela Che RN Position: [facility] RN Member Role: Primary Care Nurse Name: Lisandra Gan RN Position: [facility] Certified Tumor Registrar Member Role: Primary Care Nurse Name: Bia Alcazar RN Position: [facility] Certified Tumor Registrar Member Role: Primary Care Nurse Name: Everton Cosby RN Position: [facility] SN RN Member Role: Primary Care Nurse Care Team Related Persons Name: ARIEL CHRISTY Address: home [address] [place] [address] Name: ARIEL CHRISTY Address: [address] [place] [address] Name: MARIBEL CHRISTY Address: [place] [address] Name: NURY TREJO Address: home [address] [place] [address] Name: NURY WOLFE Address: [place] [address]
--- OUTSIDE RECORDS SUMMARY | 2023-05-29 06:03 | XMS_ITS | Continuity of Care Document ---
Author Name Unknown Organization [facility] Address [address] [place] [address]- Care Team Providers Care Customer Solutions Supervisor Name Role Phone Juan Alvarado DO Primary Care Physician [phone] [place] [facility] [place]17/23 [place] 05/17/23 [facility] [address] [place] [address]- Allergies, Adverse Reactions, Alerts Substance Reaction Severity [...] BNT-162b2 vac 09/23/20 Recorded tetanus/diphtheria/pertussis, acel(Tdap) 5 1/15/19 Given pneumococcal 23-valent vaccine 02/12/14 Given Human Papillomavirus Vaccine 6 06/30/07 Given Human Papillomavirus Vaccine 03/02/07 Given Human Papillomavirus Vaccine 7 01/01/07 Given Influenza Inactive (IM) (oldterm) 8 06/12/07 Given Hepatitis B Vaccine (old term) 9 06/23/06 Given 1Result Comment: [08/18/2018] [facility] [place] [id number] 2Result Comment: [05/29/2017] [facility] [place][id number] 3Admin Note: [facility] clinic, date approx per patient 4Admin Note: VIM given dated 03/14/10 MULIT 5Result Comment: [08/18/2018] [facility] [place]: [id number] 6Admin Note: VIM GIVIN 08/20/06 # 3 7Admin Note: VIM GIVIN 08/20/06 8Admin Note: VIM-SANOFI 9Admin Note: BERNICE GIVEN TODAY DATE ON BERNICE 02/11/2001 Medications albuterol CFC free 90 mcg/inh inhalation aerosol 2, puffs, Inhalation, 4 times a day, PRN, # 1 each, Refills 3, Tot. Refills 3, Maintenance, 04/24/18 13:48:36 EDT, Aerosol, Route to Pharmacy Electronically, [id number], [facility], Compound Start [...] Refills 0, Tot. Refills 0, Maintenance, 16 Greek Qfrax-Wyuvtb-Vddwg J tube, transgastric, 02/20/21 9:48:00 EDT, Supply Start Date: 02/20/21 Status: Ordered Jantoven 5 mg oral tablet 1 tablet, By Mouth, Daily, for 30 days, OR DIRECTED BY [facility]MADIN CLINIC NURSE., # 30 tablet, 11 Refills, Physician Stop 08/29/23 8:30:00 EST, 09/03/22 8:30:00 EST, [facility], 165, cm, 08/28/22 10:52:00 EST, [...] Replace Required Details, Route to Pharmacy Electronically, [id number], [facility]... 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 Pruritus with morphine [...] Team Personnel Name: Renea Thayer RN Position: [facility] RN Member Role: Primary Care Nurse Name: Radha Woods RN Position: [facility] SN RN Member Role: Primary Care Nurse Name: Larissa Pino RN Position: [facility] ED RN W/OE and Tasks Member Role: Primary Care Nurse Name: Lela Mcintyre RN Position: [facility] SN RN Member Role: Primary Care Nurse Name: Charisse Chris RN Position: [facility] SN RN Member Role: Primary Care Nurse Name: Omar Henning RN Position: [facility] RN Member Role: Primary Care Nurse Name: Marlyn Evans NP Position: [facility] Associate Professional Member Role: Primary Care Nurse Address: Address: [address] [place] [address] Name: Junie Kenny RN Position: [facility] RN Member Role: Primary Care Nurse Name: Jayla De RN Position: [facility] RN Member Role: Primary Care Nurse Name: Shea Stevens RN Position: [facility] RN Member Role: Primary Care Nurse Name: Margarita Bain RN Position: [facility] ED RN W/OE and Tasks Member Role: Primary Care Nurse Name: Yady Tanner RN Position: [facility] RN Member Role: Primary Care Nurse Name: Omar Rutledge RN Position: [facility] RN Member Role: Primary Care Nurse Name: Rashmi Mendez RN Position: [facility] OB RN Member Role: Primary Care Nurse Name: Omar John RN Position: [facility] RN Member Role: Primary Care Nurse Name: Jayla Lai RN Position: [facility] RN Member Role: Primary Care Nurse Name: Pricilla Hendricks RN Position: [facility] RN Member Role: Primary Care Nurse Name: Zabrina Beck RN Position: [facility] RN Member Role: Primary Care Nurse Name: Juan Alvarado DO Position: [facility] Physician - Primary Care Member Role: PCP Address: Address: [address] [place] [address] Name: Sophie Luciano RN Position: [facility] SN RN Member Role: Primary Care Nurse Name: Trace Elliott RN Position: [facility] SN RN Member Role: Primary Care Nurse Name: Flora Gonzalez RN Position: [facility] Commercial Light Fixture Assembler Member Role: Primary Care Nurse Name: Mary Anne Simons RN Position: [facility] RN Member Role: Primary Care Nurse Name: Lela Hoang RN Position: [facility] Onco RN Member Role: Primary Care Nurse Name: Estela Che RN Position: [facility] RN Member Role: Primary Care Nurse Name: Lisandra Gan RN Position: [facility] Commercial Light Fixture Assembler Member Role: Primary Care Nurse Name: Bia Alcazar RN Position: [facility] Commercial Light Fixture Assembler Member Role: Primary Care Nurse Name: Harjeet RN [place] Position: [facility] SN RN Member Role: Primary Care Nurse Care Team Related Persons Name: WESTLEYARIEL Address: [address] [place] [address] Name: ARIEL CHRISTY Address: home [address] [place] [address] Name: MARIBEL CHRISTY Address: [place] [address] Name: NURY TREJO Address: home [address] [place] [address] Name: NURY WOLFE Address: [place] [address]
--- OUTSIDE RECORDS SUMMARY | 2023-05-29 06:03 | XMS_ITS | Continuity of Care Document ---
Author Name Unknown Organization [facility] Address [address] [place] [address]- Care Team Providers Care Communications Program Manager Name Role Phone Hannah Gtz NP Primary Care Physician En[place] [facility] [place] Date(s): 01/11/22 - 02/23/22 [facility] [address] [place] [address]- Attending Physician: Hannah Gtz NP Allergies, Adverse Reactions, Alerts Substance Reaction [...] 1Result Comment: [08/18/2018] [facility]: [id number] 2Result Comment: [05/29/2017] [facility]:[id number] 3Admin Note: [facility] clinic, date approx per patient 4Admin Note: VIM given dated 03/14/10 MULIT 5Result Comment: [08/18/2018] [facility]: [id number] 6Admin Note: VIM GIVIN 08/20/06 # 3 [...] 13:48:36 EDT, Aerosol, Route to Pharmacy Electronically, [id number], [facility], Compound Start [...] injection to Left arm [facility]:96404-275-28 Lot:[id number] Exp: 07/23, # 1 mL, 0 Refills, Maintenance, 04/13/19 14:55:41 EDT, Solution Start Date: 04/13/19 Status: Ordered Cyanocobalamin 1000 mcg/mL injection = 1,000 mcg, Intramuscular, Left deltoid IM. Pt tolerated well. Office Supplied Medication [facility] [id number] Lot [id number] Exp 08/2020, # 1 mL, [...] 0, Tot. Refills 0, Maintenance, 16 Botswanan Izyku-Ukuhmd-Edurt J tube, transgastric, 02/20/21 9:48:00 EDT, Supply [...] Replace Required Details, Route to Pharmacy Electronically, [id number], [facility] Start Date: 05/18/17 Status: Ordered Vitamin [...] Active *[facility] [phone] CARE MANAG LUANN GREGORY(Confirmed) Active Pruritus with [...]
--- OUTSIDE RECORDS SUMMARY | 2023-05-29 06:04 | XMS_ITS | Continuity of Care Document ---
Author Name Unknown Organization [facility] Address [address] [place] [address]- Care Team Providers Care Office Machine Inspector Name Role Phone Luzma SENIOR, Carlos Gaston Primary Care Physician [phone] [place] [facility] [place] 05/15/21 - 06/14/21 [facility] [address] [place] [address]- Allergies, Adverse Reactions, Alerts Substance Reaction Severity [...] term) 9 06/23/06 Given 1Result Comment: [08/18/2018] [facility]: [id number] 2Result Comment: [05/29/2017] [facility]:[id number] 3Admin Note: [facility], date approx per patient 4Admin Note: VIM given dated 03/14/10 MULIT 5Result Comment: [08/18/2018] [facility]: [id number] 6Admin Note: VIM GIVIN 08/20/06 # 3 [...] 13:48:36 EDT, Aerosol, Route to Pharmacy Electronically, [id number], [facility], Compound Start [...] 30 days, IM injection to Left arm [facility]:[id number] Lot:[id number] Exp: 07/23, # 1 mL, 0 Refills, Maintenance, 04/13/19 14:55:41 EDT, Solution Start Date: 04/13/19 Status: Ordered Cyanocobalamin 1000 mcg/mL injection = 1,000 mcg, Intramuscular, Left deltoid IM. Pt tolerated well. Office Supplied Medication [facility] [id number] Lot [id number] Exp 08/2020, # 1 mL, [...] Refills 0, Tot. Refills 0, Maintenance, 16 Slovenian Hrtno-Stseyh-Vldqf J tube, transgastric, 02/20/21 9:48:00 EDT, Supply [...] Refills, Maintenance, 02/14/20 16:00:00 EDT, [facility], 165, cm, 12/29/19 14:57:00 EDT, Height, 128.1, kg, 04/08/19 8:08:00 EDT, Dry Weight Start Date: 02/14/20 Status: Ordered traZODone 100 mg oral tablet See Instructions, 1 - 2 tablet By Mouth at bedtime 30 days, # 60 tablet, Refills 0, Tot. Refills 0,Maintenance, 05/18/17 15:31:13 EDT, Instructions Replace Required Details, Route to Pharmacy Electronically, [id number], [facility] Start Date: 05/18/17 Status: Ordered Vitamin D3 1000 intl units oral tablet 1 tablet, By Mouth, Daily, WITH FOOD., # 90 Unknown, 3 Refills, Maintenance, 02/14/21 15:18:00 EDT,[facility], 165.1, cm, 01/24/21 11:40:00 EDT, [...] Active Neuropathic pain of lower extremity(Confirmed) Active *[facility] [phone] CARE MANAG MEME GREGORY(Confirmed) Active Pruritus with [...]
--- OUTSIDE RECORDS SUMMARY | 2023-05-29 06:04 | XMS_ITS | Continuity of Care Document ---
Author Name Unknown Organization [facility] Address [address] [place] [address]- Care Team Providers Care Solar Lab Technician Name Role Phone Luzma SENIOR, Carlos Gaston Primary Care Physician Encounter [facility] Date(s): 03/24/21 - 04/23/21 [facility] [address] [place] [address]- Allergies, Adverse Reactions, Alerts Substance Reaction Severity [...] 1Result Comment: [08/18/2018] [facility]: [id number] 2Result Comment: [05/29/2017] [facility]:[id number] 3Admin Note: [facility] clinic, date approx per patient 4Admin Note: VIM given dated 03/14/10 MULIT 5Result Comment: [08/18/2018] [facility]: 61667-237-13 6Admin Note: VIM GIVIN 08/20/06 # 3 [...] 13:48:36 EDT, Aerosol, Route to Pharmacy Electronically, [id number], [facility], Compound Start [...] injection to Left arm [facility]:44762-225-03 Lot:[id number] Exp: 07/23, # 1 mL, 0 Refills, Maintenance, 04/13/19 14:55:41 EDT, Solution Start Date: 04/13/19 Status: Ordered Cyanocobalamin 1000 mcg/mL injection = 1,000 mcg, Intramuscular, Left deltoid IM. Pt tolerated well. Office Supplied Medication [facility] [id number] Lot [id number] Exp 08/2020, # 1 mL, [...] Refills 0, Tot. Refills 0, Maintenance, 16 Icelandic Wduma-Aoxcft-Ncdcf J tube, transgastric, 02/20/21 9:48:00 EDT, Supply [...] Replace Required Details, Route to Pharmacy Electronically, [id number], [facility] Start Date: 05/18/17 Status: Ordered Vitamin D3 1000 intl units oral tablet 1 tablet, By Mouth, Daily, WITH FOOD., # 90 Unknown, 3 Refills, Maintenance, 02/14/21 15:18:00 EDT,[facility], 165.1, cm, 01/24/21 11:40:00 EDT, [...] extremity(Confirmed) Active *[facility] [phone] CARE MANAG ER MEME GREGORY(Confirmed) Active Pruritus [...]
--- OUTSIDE RECORDS SUMMARY | 2023-05-29 06:04 | XMS_ITS | Continuity of Care Document ---
Author Name Unknown Organization [facility] Address [address] [place] [address]- Care Team Providers Care Camp Recreation Specialist Name Role Phone Juan Alvarado DO Primary Care Physician [place] [facility] [place] 04/14/23 - 05/14/23 [facility] [address] [place] [address]- Allergies, Adverse Reactions, Alerts Substance Reaction Severity [...] 9 06/23/06 Given 1Result Comment: [08/18/2018] [facility]: [id number] 2Result Comment: [05/29/2017] [facility]:[id number] 3Admin Note: [facility] clinic, date approx per patient 4Admin Note: VIM given dated 03/14/10 MULIT 5Result Comment: [08/18/2018] [facility]: [id number] 6Admin Note: VIM GIVIN 08/20/06 # 3 7Admin Note: VIM GIVIN 08/20/06 8Admin Note: VIM-SANOFI 9Admin Note: BERNICE GIVEN TODAY DATE ON BERNICE 02/11/2001 Medications albuterol CFC free 90 mcg/inh inhalation aerosol 2, puffs, Inhalation, 4 times a day, PRN, # 1 each, Refills 3, Tot. Refills 3, Maintenance, 04/24/18 13:48:36 EDT, Aerosol, Route to Pharmacy Electronically, [id number], [facility], Compound Start [...] EST, Route to Pharmacy Electronically, [facility], Partial fill upon patient request if the prescription is for a ginger... Start Date: 08/02/22 Status: Ordered J-tube J-tube, See Instructions, # 1 each, Refills 0, Tot. Refills 0, Maintenance, 16 Georgian Acfcv-Crkgbn-Waosw J tube, transgastric, 02/20/21 9:48:00 EDT, Supply Start Date: 02/20/21 Status: Ordered Jantoven 5 mg oral tablet 1 tablet, By Mouth, Daily, for 30 days, OR DIRECTED BY [facility] NURSE., # 30 tablet, 11 Refills, Physician Stop 08/29/23 8:30:00 EST, 09/03/22 8:30:00 EST, [facility], 165, cm, 08/28/22 10:52:00 EST, [...] Dry W... Start Date: 04/02/23 Status: Ordered oxyCODONE 5 mg oral tablet 5 mg, 1, tablet, G Tube, Daily, PRN, for 7 days, # 7 tablet, Refills 0, Tot. Refills 0, Acute 05/16/23 13:38:00 EDT, as needed for pain, 05/09/23 13:38:00 EDT, Route to Pharmacy Electronically, [facility], Partial fill upon patient requ... Start Date: 05/09/23 Stop Date: 05/16/23 Status: Ordered promethazine 6.25 mg/5 mL oral [...] Replace Required Details, Route to Pharmacy Electronically, [id number], [facility] 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 Pruritus with morphine [...] Team Personnel Name: Renea Thayer RN Position: [facility] RN Member Role: Primary Care Nurse Name: Radha Woods RN Position: [facility] SN RN Member Role: Primary Care Nurse Name: Larissa Pino RN Position: [facility] ED RN W/OE and Tasks Member Role: Primary Care Nurse Name: Lela Mcintyre RN Position: [facility] SN RN Member Role: Primary Care Nurse Name: Charisse Chris RN Position: [facility] SN RN Member Role: Primary Care Nurse Name: Omar Henning RN Position: [facility] RN Member Role: Primary Care Nurse Name: Marlyn Evans NP Position: [facility] Associate Professional Member Role: Primary Care Nurse Address: Address: [address] [place] [address]- [place] Name: Junie Kenny RN Position: [facility] RN Member Role: Primary Care Nurse Name: Jayla De RN Position: [facility] RN Member Role: Primary Care Nurse Name: Shea Stevens RN Position: [facility] RN Member Role: Primary Care Nurse Name: Margarita Bain RN Position: [facility] ED RN W/OE and Tasks Member Role: Primary Care Nurse Name: Yady Tanner RN Position: [facility] RN Member Role: Primary Care Nurse Name: Omar Rutledge RN Position: [facility] RN Member Role: Primary Care Nurse Name: Rashmi Mendez RN Position: [facility] OB RN Member Role: Primary Care Nurse Name: Omar John RN Position: [facility] RN Member Role: Primary Care Nurse Name: Jayla Lai RN Position: [facility] RN Member Role: Primary Care Nurse Name: Pricilla Hendricks RN Position: [facility] RN Member Role: Primary Care Nurse Name: Zabrina Beck RN Position: [facility] RN Member Role: Primary Care Nurse Name: Juan Alvarado DO Position: [facility] Physician - Primary Care Member Role: PCP Address: Address: [address] [place] [id number]- [place] Name: Sophie Luciano RN Position: [facility] SN RN Member Role: Primary Care Nurse Name: Trace Elliott RN Position: [facility] SN RN Member Role: Primary Care Nurse Name: Flora Gonzalez RN Position: [facility] [place] Member Role: Primary Care Nurse Name: Mary Anne Simons RN Position: [facility] RN Member Role: Primary Care Nurse Name: Lela Hoang RN Position: [facility] Onco RN Member Role: Primary Care Nurse Name: Estela Che RN Position: [facility] RN Member Role: Primary Care Nurse Name: Lisandra Gan RN Position: [facility] [place] Member Role: Primary Care Nurse Name: Bia Alcazar RN Position: [facility] [place] Member Role: Primary Care Nurse Name: Harjeet ZHENG [place] Position: [facility] RN Member Role: Primary Care Nurse Care Team Related Persons Name: WESTLEYARIEL Address: home [address] [place] [address] Name: WESTLEYARIEL Address: home [address] [place] [address] Name: MARIBEL CHRISTY Address: [place] [address] Name: NURY TREJO Address: home [address] [place] [id number] Name: NURY WOLFE Address: [place] [address]
--- OUTSIDE RECORDS SUMMARY | 2023-05-29 06:04 | XMS_ITS | Continuity of Care Document ---
Author Name Unknown Organization [facility] Address [address] [place] [address]- Care Team Providers Care Crusher Wet Ground Mica Name Role Phone Luzma SENIOR, Carlos Gaston Primary Care Physician [phone] [place] [facility] [place] [facility] [address] [place] [address]- Attending Physician: Admtr, Heidi Allergies, Adverse Reactions, [...] 9 06/23/06 Given 1Result Comment: [08/18/2018] [facility]: [id number] 2Result Comment: [05/29/2017] [facility]:[id number] 3Admin Note[facility], date approx per patient 4Admin Note: VIM given dated 03/14/10 MULIT 5Result Comment: [08/18/2018] [facility]: 51471-678-03 6Admin Note: VIM GIVIN 08/20/06 # 3 [...] 13:48:36 EDT, Aerosol, Route to Pharmacy Electronically, [id number], [facility], Compound Start [...] days, IM injection to Left arm [facility]:42415-521-66 Lot:[id number] Exp: 07/23, # 1 mL, 0 Refills, Maintenance, 04/13/19 14:55:41 EDT, Solution Start Date: 04/13/19 Status: Ordered Cyanocobalamin 1000 mcg/mL injection = 1,000 mcg, Intramuscular, Left deltoid IM. Pt tolerated well. Office Supplied Medication [facility] 5964-5973-14 Lot [id number] Exp 08/2020, # 1 mL, [...] 0, Tot. Refills 0, Maintenance, 16 Latvian Hmliz-Pswnca-Bguom J tube, transgastric, 02/20/21 9:48:00 EDT, Supply [...] Refills, Maintenance, 02/14/20 16:00:00 EDT, [facility], 165, cm, 12/29/19 14:57:00 EDT, Height, 128.1, kg, 04/08/19 8:08:00 EDT, Dry Weight Start Date: 02/14/20 Status: Ordered traZODone 100 mg oral tablet See Instructions, 1 - 2 tablet By Mouth at bedtime 30 days, # 60 tablet, Refills 0, Tot. Refills 0,Maintenance, 05/18/17 15:31:13 EDT, Instructions Replace Required Details, Route to Pharmacy Electronically, [id number], [facility] Start Date: 05/18/17 Status: Ordered Vitamin D3 1000 intl units oral tablet 1 tablet, By Mouth, Daily, WITH FOOD., # 90 Unknown, 3 Refills, Maintenance, 02/14/21 15:18:00 EDT,[facility], 165.1, cm, 01/24/21 11:40:00 EDT, [...] pain of lower extremity(Confirmed) Active *[facility] [phone] CARE MANAG ER MEME GREGORY(Confirmed) Active Pruritus [...] AM) Pulse Rate [55-90 bpm] 62 bpm (04/24/16 9:25 AM) 80 bpm (10/24/11 12:13 PM) 76 bpm (02/18/08 10:34 AM) Body Mass Index [18.50-24.99] 24.43 (04/24/16 9:25 AM) 44.64 *>HHI* (02/18/08 10:34 AM) Blood Pressure [90-138/55-84 mm Hg] 118/58mm Hg (04/24/16 9:25 AM) 120/70mm Hg (10/24/11 12:13 PM) 120/90mm Hg (02/18/08 10:34 AM) Respiratory Rate [16-30 br/min] 12 br/min *L* (9/21/16 9:25 AM) Temperature [96.8-100.4 DegF] 98.2 DegF [...]
--- OUTSIDE RECORDS SUMMARY | 2023-05-29 06:04 | XMS_ITS | Continuity of Care Document ---
Author Name Unknown Organization [facility] Address Unknown Care Team Providers Care Atomic Spectroscopist Name Role Phone Luzma SENIOR, Carlos Gaston Primary Care Physician [phone] [place] [facility] [place]/21 [facility] Attending Physician: Heidi Figueroa Admitting Physician: AdmtrHeidi Referring Physician: AdmtrHeidi Allergies, Adverse Reactions, Alerts Substance Reaction Severity [...] Given 1Result Comment: [08/18/2018] [facility]: 41357-698-54 2Result Comment: [05/29/2017] [facility]:50628-180-16 3Admin [facility], date approx per patient 4Admin Note: VIM given dated 03/14/10 MULIT 5Result Comment: [08/18/2018] [facility]: 46467-200-75 6Admin Note: VIM GIVIN 08/20/06 # 3 [...] 13:48:36 EDT, Aerosol, Route to Pharmacy Electronically, [id number], [facility], Compound Start [...] IM injection to Left arm [facility]:94280-580-88 Lot:[id number] Exp: 07/23, # 1 mL, 0 Refills, Maintenance, 04/13/19 14:55:41 EDT, Solution Start Date: 04/13/19 Status: Ordered Cyanocobalamin 1000 mcg/mL injection = 1,000 mcg, Intramuscular, Left deltoid IM. Pt tolerated well. Office Supplied Medication [facility] 4964-3412-45 Lot [id number] Exp 08/2020, # 1 mL, [...] Refills 0, Tot. Refills 0, Maintenance, 16 [place] Xglsd-Sjcoql-Ppgmb J tube, transgastric, 02/20/21 9:48:00 EDT, Supply [...] Refills, Maintenance, 02/14/20 16:00:00 EDT, [facility], 165, cm, 12/29/19 14:57:00 EDT, Height, 128.1, kg, 04/08/19 8:08:00 EDT, Dry Weight Start Date: 02/14/20 Status: Ordered traZODone 100 mg oral tablet See Instructions, 1 - 2 tablet By Mouth at bedtime 30 days, # 60 tablet, Refills 0, Tot. Refills 0,Maintenance, 05/18/17 15:31:13 EDT, Instructions Replace Required Details, Route to Pharmacy Electronically, [id number], [facility] Start Date: 05/18/17 Status: Ordered Vitamin D3 1000 intl units oral tablet 1 tablet, By Mouth, Daily, WITH FOOD., # 90 Unknown, 3 Refills, Maintenance, 02/14/21 15:18:00 EDT,[facility], 165.1, cm, 01/24/21 11:40:00 EDT, [...] lower extremity(Confirmed) Active *[facility] [phone] CARE MANAG MEME GREGORY(Confirmed) Active Pruritus with [...]
--- OUTSIDE RECORDS SUMMARY | 2023-05-29 06:04 | XMS_ITS | Continuity of Care Document ---
Author Name Unknown Organization [facility] Address [address] [place] [address]- Care Team Providers Care Pathology Lab Technician Name Role Phone Luzma SENIOR, Carlos Gaston Primary Care Physician En[place] [facility] [place](s): 05/25/21 - 06/24/21 [facility] [place] [address] [place] [address]- Allergies, Adverse Reactions, Alerts Substance Reaction Severity [...] term) 9 06/23/06 Given 1Result Comment: [08/18/2018] [facility]: 35134-583-47 2Result Comment: [05/29/2017] [facility]:55866-581-39 3Admin Note: [facility] clinic, date approx per patient 4Admin Note: VIM given dated 03/14/10 MULIT 5Result Comment: [08/18/2018] [facility]: 16869-514-46 6Admin Note: VIM GIVIN 08/20/06 # 3 [...] 13:48:36 EDT, Aerosol, Route to Pharmacy Electronically, [id number], [facility], Compound Start [...] 30 days, IM injection to Left arm [facility]:37395-428-80 Lot:[id number] Exp: 07/23, # 1 mL, 0 Refills, Maintenance, 04/13/19 14:55:41 EDT, Solution Start Date: 04/13/19 Status: Ordered Cyanocobalamin 1000 mcg/mL injection = 1,000 mcg, Intramuscular, Left deltoid IM. Pt tolerated well. Office Supplied Medication [facility] 7711-5835-37 Lot [id number] Exp 08/2020, # 1 mL, [...] Refills 0, Tot. Refills 0, Maintenance, 16 Yakut Rymck-Rxbkde-Ynmlc J tube, transgastric, 02/20/21 9:48:00 EDT, Supply [...] Refills, Maintenance, 02/14/20 16:00:00 EDT, [facility], 165, cm, 12/29/19 14:57:00 EDT, Height, 128.1, kg, 04/08/19 8:08:00 EDT, Dry Weight Start Date: 02/14/20 Status: Ordered traZODone 100 mg oral tablet See Instructions, 1 - 2 tablet By Mouth at bedtime 30 days, # 60 tablet, Refills 0, Tot. Refills 0,Maintenance, 05/18/17 15:31:13 EDT, Instructions Replace Required Details, Route to Pharmacy Electronically, [id number], [facility] Start Date: 05/18/17 Status: Ordered Vitamin D3 1000 intl units oral tablet 1 tablet, By Mouth, Daily, WITH FOOD., # 90 Unknown, 3 Refills, Maintenance, 02/14/21 15:18:00 EDT,[facility], 165.1, cm, 01/24/21 11:40:00 EDT, [...] Neuropathic pain of lower extremity(Confirmed) Active *[facility] [phone] CARE MANAG MEME GREGORY(Confirmed) Active Pruritus with [...]
--- OUTSIDE RECORDS SUMMARY | 2023-05-29 06:04 | XMS_ITS | Continuity of Care Document ---
Author Name Unknown Organization [facility] Address [address] [place] [address]- Care Team Providers Care Watch Assembly Inspector Name Role Phone Luzma SENIOR, Carlos Gaston Primary Care Physician [phone] Encounter [facility] Date(s): 03/10/21 - 04/09/21 [facility] [address] [place] [address]- Allergies, Adverse Reactions, Alerts Substance Reaction Severity [...] 1Result Comment: [08/18/2018] [facility]: 11187-983-05 2Result Comment: [05/29/2017] [facility]:36748-278-26 3Admin Note: [facility] clinic, date approx per patient 4Admin Note: VIM given dated 03/14/10 MULIT 5Result Comment: [08/18/2018] [facility]: 57400-420-80 6Admin Note: VIM GIVIN 08/20/06 # 3 [...] 13:48:36 EDT, Aerosol, Route to Pharmacy Electronically, [id number], [facility], Compound Start [...] to Left arm [facility]:02647-355-81 Lot:[id number] Exp: 07/23, # 1 mL, 0 Refills, Maintenance, 04/13/19 14:55:41 EDT, Solution Start Date: 04/13/19 Status: Ordered Cyanocobalamin 1000 mcg/mL injection = 1,000 mcg, Intramuscular, Left deltoid IM. Pt tolerated well. Office Supplied Medication [facility] 3257-7915-38 Lot 9038 Exp 08/2020, # 1 mL, [...] Refills 0, Tot. Refills 0, Maintenance, 16 Swiss Yeqsd-Tsmbar-Urlcf J tube, transgastric, 02/20/21 9:48:00 EDT, Supply [...] Replace Required Details, Route to Pharmacy Electronically, [id number], [facility] Start Date: 05/18/17 Status: Ordered Vitamin D3 1000 intl units oral tablet 1 tablet, By Mouth, Daily, WITH FOOD., # 90 Unknown, 3 Refills, Maintenance, 02/14/21 15:18:00 EDT,[facility], 165.1, cm, 01/24/21 11:40:00 EDT, [...] pain of lower extremity(Confirmed) Active *[facility] [phone] CARE MANAG ER MEME GREGORY(Confirmed) Active Pruritus [...]
--- OUTSIDE RECORDS SUMMARY | 2023-05-29 06:04 | XMS_ITS | Continuity of Care Document ---
Author Name Unknown Organization [facility] Address [address] [place] [address]- Care Team Providers Care Web Services Manager Name Role Phone Luzma SENIOR, Carlos Gaston Primary Care Physician En[place] [facility] [place] Date(s): 05/18/21 - 06/17/21 [facility] [address] [place] [address]- Allergies, Adverse Reactions, Alerts Substance Reaction Severity [...] term) 9 06/23/06 Given 1Result Comment: [08/18/2018] [facility]: 06942-503-32 2Result Comment: [05/29/2017] [facility]:86232-458-65 3Admin Note: [facility] clinic, date approx per patient 4Admin Note: VIM given dated 03/14/10 MULIT 5Result Comment: [08/18/2018] [facility]: 90862-518-33 6Admin Note: VIM GIVIN 08/20/06 # 3 [...] 13:48:36 EDT, Aerosol, Route to Pharmacy Electronically, [id number], [facility], Compound Start [...] 30 days, IM injection to Left arm [facility]:33608-605-17 Lot:[id number] Exp: 07/23, # 1 mL, 0 Refills, Maintenance, 04/13/19 14:55:41 EDT, Solution Start Date: 04/13/19 Status: Ordered Cyanocobalamin 1000 mcg/mL injection = 1,000 mcg, Intramuscular, Left deltoid IM. Pt tolerated well. Office Supplied Medication [facility] 1643-7907-41 Lot [id number] Exp 08/2020, # 1 mL, [...] Refills 0, Tot. Refills 0, Maintenance, 16 Wolof Lsbtm-Baaqpo-Nenwu J tube, transgastric, 02/20/21 9:48:00 EDT, Supply [...] Refills, Maintenance, 02/14/20 16:00:00 EDT, [email or web address], 165, cm, 12/29/19 14:57:00 EDT, Height, 128.1, kg, 04/08/19 8:08:00 EDT, Dry Weight Start Date: 02/14/20 Status: Ordered traZODone 100 mg oral tablet See Instructions, 1 - 2 tablet By Mouth at bedtime 30 days, # 60 tablet, Refills 0, Tot. Refills 0,Maintenance, 05/18/17 15:31:13 EDT, Instructions Replace Required Details, Route to Pharmacy Electronically, [id number], [facility] Start Date: 05/18/17 Status: Ordered Vitamin D3 1000 intl units oral tablet 1 tablet, By Mouth, Daily, WITH FOOD., # 90 Unknown, 3 Refills, Maintenance, 02/14/21 15:18:00 EDT,[email or web address], 165.1, cm, 01/24/21 11:40:00 EDT, [...] Active Neuropathic pain of lower extremity(Confirmed) Active *[facility] [phone] CARE MANAG MEME GREGORY(Confirmed) Active Pruritus with [...]
--- OUTSIDE RECORDS SUMMARY | 2023-05-29 06:04 | XMS_ITS | Continuity of Care Document ---
Author Name Unknown Organization [facility] Address Unknown Care Team Providers Care Energy Professional Name Role Phone Luzma SENIOR, Carlos Gaston Primary Care Physician [place] [facility] [place] 08[place] [facility] Attending Physician: Shavonne Wolfe [...] 9 06/23/06 Given 1Result Comment: [08/18/2018] [facility]: 83354-495-79 2Result Comment: [05/29/2017] [facility]:59967-859-45 3Admin Note: [facility] clinic, date approx per patient 4Admin Note: VIM given dated 03/14/10 MULIT 5Result Comment: [08/18/2018] [facility]: 88954-270-46 6Admin Note: VIM GIVIN 08/20/06 # 3 [...] 13:48:36 EDT, Aerosol, Route to Pharmacy Electronically, [id number], [facility], Compound Start [...] days, IM injection to Left arm [facility]:10401-511-10 Lot:[id number] Exp: 07/23, # 1 mL, 0 Refills, Maintenance, 04/13/19 14:55:41 EDT, Solution Start Date: 04/13/19 Status: Ordered Cyanocobalamin 1000 mcg/mL injection = 1,000 mcg, Intramuscular, Left deltoid IM. Pt tolerated well. Office Supplied Medication [facility] 1365-7065-56 Lot [id number] Exp 08/2020, # 1 mL, [...] Refills 0, Tot. Refills 0, Maintenance, 16 Uruguayan Yehsp-Ysxeva-Orshv J tube, transgastric, 02/20/21 9:48:00 EDT, Supply [...] Replace Required Details, Route to Pharmacy Electronically, [id number], [facility] Start Date: 05/18/17 Status: Ordered Vitamin D3 1000 intl units oral tablet 1 tablet, By Mouth, Daily, WITH FOOD., # 90 Unknown, 3 Refills, Maintenance, 02/14/21 15:18:00 EDT,[facility], 165.1, cm, 01/24/21 11:40:00 EDT, [...] Active Neuropathic pain of lower extremity(Confirmed) Active *[facility] [phone] CARE MANAG MEME GREGORY(Confirmed) Active Pruritus with [...]
--- OUTSIDE RECORDS SUMMARY | 2023-05-29 06:04 | XMS_ITS | Continuity of Care Document ---
Author Name Unknown Organization [facility] Address [address] [place] [address]- Care Team Providers Care Packaging Operator Name Role Phone Juan Alvarado DO Primary Care Physician [phone] Encounter [facility] Date(s): 04/15/23 - 05/15/23 [facility] [address] [place] [address]- Allergies, Adverse Reactions, Alerts Substance Reaction Severity [...] term) 9 06/23/06 Given 1Result Comment: [08/18/2018] [facility]: 25197-227-30 2Result Comment: [05/29/2017] [facility]:15940-162-25 3Admin Note: [facility] clinic, date approx per patient 4Admin Note: VIM given dated 03/14/10 MULIT 5Result Comment: [08/18/2018] [facility]: 04697-641-05 6Admin Note: VIM GIVIN 08/20/06 # 3 7Admin Note: VIM GIVIN 08/20/06 8Admin Note: VIM-SANOFI 9Admin Note: BERNICE GIVEN TODAY DATE ON BERNICE 02/11/2001 Medications albuterol CFC free 90 mcg/inh inhalation aerosol 2, puffs, Inhalation, 4 times a day, PRN, # 1 each, Refills 3, Tot. Refills 3, Maintenance, 04/24/18 13:48:36 EDT, Aerosol, Route to Pharmacy Electronically, [id number], [facility], Compound Start [...] EST, Route to Pharmacy Electronically, [facility], Partial fill upon patient request if the prescription is for a ginger... Start Date: 08/02/22 Status: Ordered J-tube J-tube, See Instructions, # 1 each, Refills 0, Tot. Refills 0, Maintenance, 16 Khmer Vhfqo-Bzxlpo-Ezped J tube, transgastric, 02/20/21 9:48:00 EDT, Supply Start Date: 02/20/21 Status: Ordered Jantoven 5 mg oral tablet 1 tablet, By Mouth, Daily, for 30 days, OR DIRECTED BY COUMADIN CLINIC NURSE., # 30 tablet, 11 Refills, Physician Stop 08/29/23 8:30:00 EST, 09/03/22 8:30:00 EST, [facility], 165, cm, 08/28/22 10:52:00 EST, [...] Replace Required Details, Route to Pharmacy Electronically, [id number], [facility] 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 GREGORY Confirmed Active Pruritus with morphine [...] Team Personnel Name: Renea Thayer RN Position: [facility] RN Member Role: Primary Care Nurse Name: Radha Woods RN Position: [facility] SN RN Member Role: Primary Care Nurse Name: Larissa Pino RN Position: [facility] ED RN W/OE and Tasks Member Role: Primary Care Nurse Name: Lela Mcintyre RN Position: [facility] SN RN Member Role: Primary Care Nurse Name: Charisse Chris RN Position: [facility] SN RN Member Role: Primary Care Nurse Name: Omar Henning RN Position: [facility] RN Member Role: Primary Care Nurse Name: Marlyn Evans NP Position: [facility] Associate Professional Member Role: Primary Care Nurse Address: Address: [address] [place] [address]- [place] Name: Junie Kenny RN Position: [facility] RN Member Role: Primary Care Nurse Name: Jayla De RN Position: [facility] RN Member Role: Primary Care Nurse Name: Shea Stevens RN Position: [facility] RN Member Role: Primary Care Nurse Name: Margarita Bain RN Position: [facility] ED RN W/OE and Tasks Member Role: Primary Care Nurse Name: Yady Tanner RN Position: [facility] RN Member Role: Primary Care Nurse Name: Omar Rutledge RN Position: [facility] RN Member Role: Primary Care Nurse Name: Rashmi Mendez RN Position: [facility] OB RN Member Role: Primary Care Nurse Name: Omar John RN Position: [facility] RN Member Role: Primary Care Nurse Name: Jayla Lai RN Position: [facility] RN Member Role: Primary Care Nurse Name: Pricilla Hendricks RN Position: [facility] RN Member Role: Primary Care Nurse Name: Zabrina Beck RN Position: [facility] RN Member Role: Primary Care Nurse Name: Juan Alvarado DO Position: [facility] Physician - Primary Care Member Role: PCP Address: Address: [address] [place] [address]- [place] Name: Sophie Luciano RN Position: [facility] SN RN Member Role: Primary Care Nurse Name: Trace Elliott RN Position: [facility] SN RN Member Role: Primary Care Nurse Name: Flora Gonzalez RN Position: [facility] Personalized Living Manager Member Role: Primary Care Nurse Name: Mary Anne Simons RN Position: [facility] RN Member Role: Primary Care Nurse Name: Lela Hoang RN Position: [facility] Onco RN Member Role: Primary Care Nurse Name: Estela Che RN Position: [facility] RN Member Role: Primary Care Nurse Name: Lisandra Gan RN Position: [facility] Personalized Living Manager Member Role: Primary Care Nurse Name: Bia Alcazar RN Position: [facility] Personalized Living Manager Member Role: Primary Care Nurse Name: Harjeet ZHENG [place] Position: [facility] FOSTER RN Member Role: Primary Care Nurse Care Team Related Persons Name: WESTLEYARIEL Address: home [address] [place] [address] Name: WESTLEYARIEL Address: home [address] [place] [address] Name: MARIBEL CHRISTY Address: [place] [address] Name: NURY TREJO Address: home [address] [place] [address] Name: NURY WOLFE Address: [place] [address]
--- OUTSIDE RECORDS SUMMARY | 2023-05-29 06:04 | XMS_ITS | Continuity of Care Document ---
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 Abdominal wall hernia at previous stoma site(Discharge Diagnosis) - 10/08/22 Attending Physician: Juan Alvarado DO Allergies, Adverse [...] Comment: [08/18/2018] [facility]: [id number] 2Result Comment: [05/29/2017] [facility]:[id number] 3Admin [facility], date approx per patient 4Admin Note: VIM given dated 03/14/10 MULIT 5Result Comment: [08/18/2018] [facility]: 62967-959-06 6Admin Note: VIM GIVIN 08/20/06 # 3 [...] 13:48:36 EDT, Aerosol, Route to Pharmacy Electronically, [id number], [facility], Compound Start [...] to Left arm [facility]:68203-605-70 Lot:[id number] Exp: 07/23, # 1 mL, 0 Refills, Maintenance, 04/13/19 14:55:41 EDT, Solution Start Date: 04/13/19 Status: Ordered Cyanocobalamin 1000 mcg/mL injection = 1,000 mcg, Intramuscular, Left deltoid IM. Pt tolerated well. Office Supplied Medication [facility] 7516-5606-10 Lot [id number] Exp 08/2020, # 1 mL, [...] EST, Route to Pharmacy Electronically, [facility], Partial fill upon patient request if the prescription is for a ginger... Start Date: 08/02/22 Status: Ordered J-tube J-tube, See Instructions, # 1 each, Refills 0, Tot. Refills 0, Maintenance, 16 Kiswahili Jmcci-Cbikbe-Itsgj J tube, transgastric, 02/20/21 9:48:00 EDT, Supply Start Date: 02/20/21 Status: Ordered Jantoven 5 mg oral tablet 1 tablet, By Mouth, Daily, for 30 days, OR DIRECTED BY COUMADIN CLINIC NURSE., # 30 tablet, 11 Refills, Physician Stop 08/29/23 8:30:00 EST, 09/03/22 8:30:00 EST, [facility], 165, cm, 08/28/22 10:52:00 EST, Height, 113.4, kg, 2... Start Date: 09/03/22 Stop Date: 08/29/23 Status: Ordered LaMICtal 200 mg oral tablet 1 tablet = 200 mg, By Mouth, Daily, 0 Refills, Maintenance, 03/30/19 15:11:59 EDT Start Date: 03/30/19 Status: Ordered Latuda 60 mg oral tablet 1 tablet = 60 mg, By Mouth, Daily, # 30 tablet, 5 Refills, Maintenance, 03/23/17 17:25:54, Tablet Start Date: 10/24/16 Status: Ordered [...] 0:00:00 EST, 10/08/22 8:28:00 EST, [facility], 165, cm, 10/08/22 8:08:00 EST, [...] 0, Maintenance, G/J Tube Supplies: Pump bags (Bundle Buyity Pump) and syringes to administer medications., 11/21/17 [...] Replace Required Details, Route to Pharmacy Electronically, [id number], [facility] 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 Confirmed Active Pruritus with morphine [...] Effective Dates Health Status Clinical Service Informant Dry heaves Discharge Diagnosis 10/08/22 Cannabis use daily; has certificate for medical marijuana use for nausea, sleep +/- pain ,+/- mood Discharge Diagnosis 10/08/22 Secondary nephrogenic diabetes insipidus Discharge Diagnosis 10/08/22 Abdominal wall hernia at previous stoma site Discharge Diagnosis 10/08/22 Vital Signs Most recent to oldest [Reference Range]: 1 Height 165 cm (10/08/22 8:08 AM) Weight 112 kg (10/08/22 8:08 AM) Oxygen Saturation [94-100 %] 97 % (10/08/22 8:08 AM) Pulse Rate [55-90 bpm] 116 bpm *H* (10/08/22 8:08 AM) Body Mass Index [18.5-24.99 kg/m2] 41.14 kg/m2 *>HHI* (10/08/22 8:08 AM) Blood Pressure [90-138/55-84 mm Hg] 116/ 82mm Hg (10/08/22 8:08 AM) Respiratory Rate [16-30 br/min] 18 br/mi n (10/08/22 8:08 AM) Mode of Delivery (Oxygen) Room air (10/08/22 8:08 AM) Blood pressure sites Arm, left (10/08/22 8:08 AM) Weight Obtained Via Standing scale (10/08/22 8:08 AM) Social History Social History Type Response Smoking Status Former smoker; Other : quit few months ago; entered on: 02/15/15 Sex Female Note * Sharon Cuello: PERFORM, SIGN, VERIFY Event Display: Patient Education/Instruction Authored Date: [id number] [facility] *[facility] Clinical Summary Name JACK CHRISTY Age 42 Years 1980 PCP Juan Alvarado DO PCP Visit Date 10/08/2022 08:04:00 Additional Instructions: Scheduled Appointments?? Future Appointments ?No Future Appointments Scheduled Follow-Up Instructions ?? Diagnosis Cannabis dependence, uncomplicated; Vomiting, unspecified; Ventral hernia without obstruction or gangrene; Nephrogenic diabetes insipidus Medications: Please continue your medications until treatment is completed or stopped by your provider. Discuss any questions related to medications with your provider. Medications to Continue with No Changes [facility], [address], [place] [id number], [phone] Ondansetron (ondansetron 8 mg oral tablet, disintegrating) 1 tab(s) Oral 4 times a day as needed ASNEEDED FOR NAUSEA. Refills: 1. Next Dose: These medications were not printed or sent [...] 30 days. IM injection to Left arm [facility]:68388-313-60 Lot:[id number] Exp: 07/23. Refills: 0. Next Dose: Cyanocobalamin (Cyanocobalamin 1000 mcg/mL injection) 1,000 Microgram Intramuscular. Left deltoid IM. Pt tolerated well. Office Supplied Medication [facility] 8260-0627-07 Lot [id number] Exp 08/2020. Next Dose: Docusate (docusate sodium 100 mg oral capsule) 1 capsule Oral twice a day. Next Dose: dulaglutide (Trulicity Pen 0.75 mg/0.5 mL subcutaneous solution) INJECT 0.5ML INTO THE SKIN EVERY 7DAYS. Next Dose: Famotidine (famotidine 20 mg oral [...] 0. Next Dose: Miscellaneous Rx (J-tube) 16 Kiswahili Ditcx-Wwkzyq-Aqlkm J tube, transgastric. Refills: 0. Next Dose: Miscellaneous Rx (See instructions) G/J Tube Supplies: Pump bags (Infinity Pump) and syringes to administer medications.. Refills: 0. Next Dose: Omeprazole (omeprazole 20 mg oral enteric coated capsule) 1 capsule Oral Daily as needed Other. esophageal pain . Next Dose: PEG Electrolyte Solution (NuLYTELY with [...] cephalosporins Medications Given This Visit Future Orders ?Comprehensive Metabolic Panel? Order Date:12/07/22?- Complete on or after?12/07/22 Vital Signs Height 165 cm Weight 112 kg BMI 41.14 kg/m2 Blood Pressure 116 mm Hg/82 mm Hg Temperature Pulse Rate 116 bpm Respiratory Rate 18 br/min 02 Sat Mode of Delivery 97 %/Room air You can now view a summary of your hospital visit from the comfort of your home through a free online portal called [employer]. [employer] is a website that allows you to securely view your medical information including discharge summary, medications and follow-up visits. ??You can alsosend a secure electronic message to your doctor???s office to request appointments, renew medications or just ask a question. You can enroll at [email or web address] or register during your next office [...] a [facility] provider by calling [facility] [employer] at [phone]. For information about the plan of care [...] Team Personnel Name: Renea Thayer RN Position: [facility] RN Member Role: Primary Care Nurse Name: Radha Woods RN Position: [facility] SN RN Member Role: Primary Care Nurse Name: Larissa Pino RN Position: [facility] ED RN W/OE and Tasks Member Role: Primary Care Nurse Name: Lela Mcintyre RN Position: [facility] SN RN Member Role: Primary Care Nurse Name: Charisse Chris RN Position: [facility] SN RN Member Role: Primary Care Nurse Name: Omar Henning RN Position: [facility] RN Member Role: Primary Care Nurse Name: Marlyn Evans NP Position: [facility] Associate Professional Member Role: Primary Care Nurse Address: Address: [address] [place] [address]- Name: Junie Kenny RN Position: [facility] RN Member Role: Primary Care Nurse Name: Jayla De RN Position: [facility] RN Member Role: Primary Care Nurse Name: Shea Stevens RN Position: [facility] RN Member Role: Primary Care Nurse Name: Margarita Bain RN Position: [facility] SN RN Member Role: Primary Care Nurse Name: Yady Tanner RN Position: [facility] RN Member Role: Primary Care Nurse Name: Omar Rutledge RN Position: [facility] RN Member Role: Primary Care Nurse Name: Rashmi Mendez RN Position: [facility] OB RN Member Role: Primary Care Nurse Name: Omar John RN Position: [facility] RN Member Role: Primary Care Nurse Name: Jayla Lai RN Position: [facility] RN Member Role: Primary Care Nurse Name: Pricilla Hendricks RN Position: [facility] RN Member Role: Primary Care Nurse Name: Zabrina Beck RN Position: [facility] RN Member Role: Primary Care Nurse Name: Juan Alvarado DO Position: [facility] Primary Care Physician Member Role: PCP Address: Address: [address] [place] [address]- [place] Name: Sophie Luciano RN Position: [facility] SN RN Member Role: Primary Care Nurse Name: Trace Elliott RN Position: [facility] SN RN Member Role: Primary Care Nurse Name: Ashley Langley RN Position: [facility] ED RN W/OE and Tasks Member Role: Primary Care Nurse Name: Flora Gonzalez RN Position: [facility] [employer] Intern Member Role: Primary Care Nurse Name: Ronak RN, Mary Anne Leahy Position: [facility] RN Member Role: Primary Care Nurse Name: Lela Hoang RN Position: [facility] Onco RN Member Role: Primary Care Nurse Name: Estela Che RN Position: [facility] RN Member Role: Primary Care Nurse Name: Lisandra Gna RN Position: [facility] [employer] Intern Member Role: Primary Care Nurse Name: Ottoniel RNBia Position: [facility] [employer] Intern Member Role: Primary Care Nurse Name: Everton Cosby RN Position: [facility] SN RN Member Role: Primary Care Nurse Care Team Related Persons Name: ARIEL CHRISTY Address: [address] [place] [address] Name: ARIEL CHRISTY Address: [address] [place] [address] Name: MARIBEL CHRISTY Address: [place] [address] Name: NURY TREJO Address: home [address] [place] [address] Name: NURY WOLFE Address: [place] [address]
--- OUTSIDE RECORDS SUMMARY | 2023-05-29 06:04 | XMS_ITS | Continuity of Care Document ---
Author Name Unknown Organization [facility] Address [address] [place] [address]- Care Team Providers Care Refinery Process Engineer Name Role Phone Luzma SENIOR, Carlos Gaston Primary Care Physician [place] [facility] Date(s): 05/11/21 - 06/10/21 [facility] [address] [place] [address]- Allergies, Adverse Reactions, Alerts Substance Reaction Severity [...] Comment: [08/18/2018] [facility]: [id number] 2Result Comment: [05/29/2017] [facility]:52643-581-36 3Admin Note: [facility] clinic, date approx per patient 4Admin Note: VIM given dated 03/14/10 MULIT 5Result Comment: [08/18/2018] [facility]: 85490-267-24 6Admin Note: VIM GIVIN 08/20/06 # 3 [...] 13:48:36 EDT, Aerosol, Route to Pharmacy Electronically, [id number], [facility], Compound Start [...] Left arm [facility]:83033-763-38 Lot:[id number] Exp: 07/23, # 1 mL, 0 Refills, Maintenance, 04/13/19 14:55:41 EDT, Solution Start Date: 04/13/19 Status: Ordered Cyanocobalamin 1000 mcg/mL injection = 1,000 mcg, Intramuscular, Left deltoid IM. Pt tolerated well. Office Supplied Medication [facility] 1540-5584-78 Lot [id number] Exp 08/2020, # 1 mL, [...] Refills 0, Tot. Refills 0, Maintenance, 16 Montenegrin Jnlfw-Wlhqsx-Sokxq J tube, transgastric, 02/20/21 9:48:00 EDT, Supply [...] Refills, Maintenance, 02/14/20 16:00:00 EDT, [facility], 165, cm, 12/29/19 14:57:00 EDT, Height, 128.1, kg, 04/08/19 8:08:00 EDT, Dry Weight Start Date: 02/14/20 Status: Ordered traZODone 100 mg oral tablet See Instructions, 1 - 2 tablet By Mouth at bedtime 30 days, # 60 tablet, Refills 0, Tot. Refills 0,Maintenance, 05/18/17 15:31:13 EDT, Instructions Replace Required Details, Route to Pharmacy Electronically, [id number], [facility] Start Date: 05/18/17 Status: Ordered Vitamin D3 1000 intl units oral tablet 1 tablet, By Mouth, Daily, WITH FOOD., # 90 Unknown, 3 Refills, Maintenance, 02/14/21 15:18:00 EDT,[facility], 165.1, cm, 01/24/21 11:40:00 EDT, [...] of lower extremity(Confirmed) Active *[facility] [phone] CARE MANAG MEME GREGORY(Confirmed) Active Pruritus with [...]
--- OUTSIDE RECORDS SUMMARY | 2023-05-29 06:05 | XMS_ITS | Continuity of Care Document ---
Author Name Unknown Organization [facility] Address [address] [place] [address]- Care Team Providers Care Crocodile Farmer Name Role Phone Luzma SENIOR, Carlos Gaston Primary Care Physician Encounter [facility] Date(s): 04/12/21 - 05/12/21 [facility] [address] [place] [address]- Allergies, Adverse Reactions, Alerts Substance Reaction Severity [...] 1Result Comment: [08/18/2018] [facility]: [id number] 2Result Comment: [05/29/2017] [facility]:[id number] 3Admin Note: [facility] clinic, date approx per patient 4Admin Note: VIM given dated 03/14/10 MULIT 5Result Comment: [08/18/2018] [facility]: 90258-421-30 6Admin Note: VIM GIVIN 08/20/06 # 3 [...] 13:48:36 EDT, Aerosol, Route to Pharmacy Electronically, [id number], [facility], Compound Start [...] injection to Left arm [facility]:79975-158-29 Lot:[id number] Exp: 07/23, # 1 mL, 0 Refills, Maintenance, 04/13/19 14:55:41 EDT, Solution Start Date: 04/13/19 Status: Ordered Cyanocobalamin 1000 mcg/mL injection = 1,000 mcg, Intramuscular, Left deltoid IM. Pt tolerated well. Office Supplied Medication [facility] 4933-1449-15 Lot 9038 Exp 08/2020, # 1 mL, [...] 0, Tot. Refills 0, Maintenance, 16 Bulgarian Wyblh-Eabxbs-Qunso J tube, transgastric, 02/20/21 9:48:00 EDT, Supply [...] Replace Required Details, Route to Pharmacy Electronically, [id number], [facility] Start Date: 05/18/17 Status: Ordered Vitamin D3 1000 intl units oral tablet 1 tablet, By Mouth, Daily, WITH FOOD., # 90 Unknown, 3 Refills, Maintenance, 02/14/21 15:18:00 EDT,[facility], 165.1, cm, 01/24/21 11:40:00 EDT, [...] Active Neuropathic pain of lower extremity(Confirmed) Active *[facility] [phone] CARE MANAG ER MEME GREGORY(Confirmed) Active Pruritus [...]
--- OUTSIDE RECORDS SUMMARY | 2023-05-29 06:05 | XMS_ITS | Continuity of Care Document ---
Author Name Unknown Organization [facility] Address [address] [place] [address]- Care Team Providers Care Solder Sprayer Name Role Phone Luzma SENIOR, Carlos Gaston Primary Care Physician [phone] Encounter [facility] Date(s): 03/28/21 - 04/27/21 [facility] [address] [place] [address]- Allergies, Adverse Reactions, Alerts Substance Reaction Severity [...] Given 1Result Comment: [08/18/2018] [facility]: [id number] 2Result Comment: [05/29/2017] [facility]:[id number] 3Admin Note: [facility] clinic, date approx per patient 4Admin Note: VIM given dated 03/14/10 MULIT 5Result Comment: [08/18/2018] [facility]: [id number] 6Admin Note: VIM GIVIN 08/20/06 # 3 [...] 13:48:36 EDT, Aerosol, Route to Pharmacy Electronically, [id number], [facility], Compound Start [...] IM injection to Left arm [facility]:51893-290-41 Lot:[id number] Exp: 07/23, # 1 mL, 0 Refills, Maintenance, 04/13/19 14:55:41 EDT, Solution Start Date: 04/13/19 Status: Ordered Cyanocobalamin 1000 mcg/mL injection = 1,000 mcg, Intramuscular, Left deltoid IM. Pt tolerated well. Office Supplied Medication [facility] 7648-6342-78 Lot [id number] Exp 08/2020, # 1 mL, [...] Refills 0, Tot. Refills 0, Maintenance, 16 Nepali Yaqux-Ozeltz-Fbqpg J tube, transgastric, 02/20/21 9:48:00 EDT, Supply [...] Replace Required Details, Route to Pharmacy Electronically, [id number], [facility] Start Date: 05/18/17 Status: Ordered Vitamin D3 1000 intl units oral tablet 1 tablet, By Mouth, Daily, WITH FOOD., # 90 Unknown, 3 Refills, Maintenance, 02/14/21 15:18:00 EDT,[facility], 165.1, cm, 01/24/21 11:40:00 EDT, [...] Active Neuropathic pain of lower extremity(Confirmed) Active *[facility] [phone] CARE MANAG ER MEME GREGORY(Confirmed) Active Pruritus [...]
--- OUTSIDE RECORDS SUMMARY | 2023-05-29 06:05 | XMS_ITS | Continuity of Care Document ---
Author Name Unknown Organization [facility] Address [address] [place] [address]- Care Team Providers Care Sfdc Consultant Name Role Phone Tresa SENIOR, Hannah Mccoy Primary Care Physician En[place] [facility] [place] Date(s): 12/12/21 - 01/11/22 [facility] [address] [place] [address]- Allergies, Adverse Reactions, Alerts Substance Reaction Severity [...] [08/18/2018] [facility]: 49845-982-03 2Result Comment: [05/29/2017] [facility]:10574-647-91 3Admin Note: [facility] clinic, date approx per patient 4Admin Note: VIM given dated 03/14/10 MULIT 5Result Comment: [08/18/2018] [facility]: 61830-760-80 6Admin Note: VIM GIVIN 08/20/06 # 3 [...] 13:48:36 EDT, Aerosol, Route to Pharmacy Electronically, [id number], [facility], Compound Start [...] Left arm [facility]:88109-432-59 Lot:[id number] Exp: 07/23, # 1 mL, 0 Refills, Maintenance, 04/13/19 14:55:41 EDT, Solution Start Date: 04/13/19 Status: Ordered Cyanocobalamin 1000 mcg/mL injection = 1,000 mcg, Intramuscular, Left deltoid IM. Pt tolerated well. Office Supplied Medication [facility] 5322-5239-91 Lot [id number] Exp 08/2020, # 1 mL, [...] Refills 0, Tot. Refills 0, Maintenance, 16 Albanian Pqhls-Rgifor-Jhbrc J tube, transgastric, 02/20/21 9:48:00 EDT, Supply [...] Replace Required Details, Route to Pharmacy Electronically, [id number], [facility] Start Date: 05/18/17 Status: Ordered Vitamin D3 1000 intl units oral tablet 1 tablet, By Mouth, Daily, WITH FOOD., # 90 Unknown, 3 Refills, Maintenance, 02/14/21 15:18:00 EDT,[facility], 165.1, cm, 01/24/21 11:40:00 EDT, [...] Neuropathic pain of lower extremity(Confirmed) Active *[facility] [phone] CARE MANAG MEME GREGORY(Confirmed) Active Pruritus with [...]
--- OUTSIDE RECORDS SUMMARY | 2023-05-29 06:05 | XMS_ITS | Continuity of Care Document ---
Author Name Unknown Organization [facility] Address Unknown Care Team Providers Care Storage Consultant Name Role Phone Luzma SENIOR, Carlos Gaston Primary Care Physician [place] [facility] [place](s): 11/06/21 - 12/06/21 [facility] Attending Physician: AdmtrHeidi Admitting Physician: Admtr, Heidi Referring Physician: Admtr, Ar8 Allergies, Adverse Reactions, Alerts [...] Comment: [08/18/2018] [facility]: [id number] 2Result Comment: [05/29/2017] [facility]:[id number] 3Admin Note: [facility] clinic, date approx per patient 4Admin Note: VIM given dated 03/14/10 MULIT 5Result Comment: [08/18/2018] [facility]: [id number] 6Admin Note: VIM GIVIN 08/20/06 # 3 [...] 13:48:36 EDT, Aerosol, Route to Pharmacy Electronically, [id number], [facility], Compound Start [...] to Left arm [facility]:[id number] Lot:[id number] Exp: 07/23, # 1 mL, 0 Refills, Maintenance, 04/13/19 14:55:41 EDT, Solution Start Date: 04/13/19 Status: Ordered Cyanocobalamin 1000 mcg/mL injection = 1,000 mcg, Intramuscular, Left deltoid IM. Pt tolerated well. Office Supplied Medication [facility] 5780-0177-67 Lot [id number] Exp 08/2020, # 1 mL, [...] Refills 0, Tot. Refills 0, Maintenance, 16 Yoruba Wfdzw-Igyoes-Bfjfm J tube, transgastric, 02/20/21 9:48:00 EDT, Supply [...] Replace Required Details, Route to Pharmacy Electronically, [id number], [facility] Start Date: 05/18/17 Status: Ordered Vitamin D3 1000 intl units oral tablet 1 tablet, By Mouth, Daily, WITH FOOD., # 90 Unknown, 3 Refills, Maintenance, 02/14/21 15:18:00 EDT,[facility], 165.1, cm, 01/24/21 11:40:00 EDT, [...] lower extremity(Confirmed) Active *[facility] [phone] CARE MANAG MEME GREGORY(Confirmed) Active Pruritus with [...]
--- OUTSIDE RECORDS SUMMARY | 2023-05-29 06:05 | XMS_ITS | Continuity of Care Document ---
Author Name Unknown Organization [facility] Address [address] [place] [address]- Care Team Providers Care Head Girls Golf Coach Name Role Phone Juan Alvarado DO Primary Care Physician [phone] [place] [facility] [place] Date(s): 04/14/23 - 05/14/23 [facility] [address] [place] [address]- Allergies, Adverse Reactions, Alerts Substance Reaction Severity [...] 9 06/23/06 Given 1Result Comment: [08/18/2018] [facility]: [id number] 2Result Comment: [05/29/2017] [facility]:[id number] 3Admin Note: [facility] clinic, date approx per patient 4Admin Note: VIM given dated 03/14/10 MULIT 5Result Comment: [08/18/2018] [facility]: [id number] 6Admin Note: VIM GIVIN 08/20/06 # 3 7Admin Note: VIM GIVIN 08/20/06 8Admin Note: VIM-SANOFI 9Admin Note: BERNICE GIVEN TODAY DATE ON BERNICE 02/11/2001 Medications albuterol CFC free 90 mcg/inh inhalation aerosol 2, puffs, Inhalation, 4 times a day, PRN, # 1 each, Refills 3, Tot. Refills 3, Maintenance, 04/24/18 13:48:36 EDT, Aerosol, Route to Pharmacy Electronically, [id number], [facility], Compound Start [...] Refills 0, Tot. Refills 0, Maintenance, 16 Setswana Tqpnr-Dhmdso-Nsjuk J tube, transgastric, 02/20/21 9:48:00 EDT, Supply Start Date: 02/20/21 Status: Ordered Jantoven 5 mg oral tablet 1 tablet, By Mouth, Daily, for 30 days, OR DIRECTED BY [facility] NURSE., # 30 tablet, 11 Refills, Physician Stop 08/29/23 8:30:00 EST, 09/03/22 8:30:00 EST, [email or web address], 165, cm, 08/28/22 10:52:00 EST, [...] Replace Required Details, Route to Pharmacy Electronically, [id number], [facility] 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 HELPER MEME GREGORY Confirmed Active Pruritus with [...] Team Personnel Name: Renea Thayer RN Position: [facility] RN Member Role: Primary Care Nurse Name: Radha Woods RN Position: [facility] SN RN Member Role: Primary Care Nurse Name: Larissa Pino RN Position: [facility] ED RN W/OE and Tasks Member Role: Primary Care Nurse Name: Lela Mcintyre RN Position: [facility] SN RN Member Role: Primary Care Nurse Name: Charisse Chris RN Position: [facility] SN RN Member Role: Primary Care Nurse Name: Omar Henning RN Position: [facility] RN Member Role: Primary Care Nurse Name: Marlyn Evans NP Position: [facility] Associate Professional Member Role: Primary Care Nurse Address: Address: [address] [place] [address]- [place] Name: Junie Kenny RN Position: [facility] RN Member Role: Primary Care Nurse Name: Jayla De RN Position: [facility] RN Member Role: Primary Care Nurse Name: Shea Stevens RN Position: [facility] RN Member Role: Primary Care Nurse Name: Margarita Bain RN Position: [facility] ED RN W/OE and Tasks Member Role: Primary Care Nurse Name: Yady Tanner RN Position: [facility] RN Member Role: Primary Care Nurse Name: Omar Rutledge RN Position: [facility] RN Member Role: Primary Care Nurse Name: Rashmi Mendez RN Position: [facility] OB RN Member Role: Primary Care Nurse Name: Omar John RN Position: [facility] RN Member Role: Primary Care Nurse Name: Jayla Lai RN Position: [facility] RN Member Role: Primary Care Nurse Name: Pricilla Hendricks RN Position: [facility] RN Member Role: Primary Care Nurse Name: Zabrina Beck RN Position: [facility] RN Member Role: Primary Care Nurse Name: Juan Alvarado DO Position: [facility] Physician - Primary Care Member Role: PCP Address: Address: [address] [place] [address]- [place] Name: Sophie Luciano RN Position: [facility] SN RN Member Role: Primary Care Nurse Name: Trace Elliott RN Position: [facility] SN RN Member Role: Primary Care Nurse Name: Flora Gonzalez RN Position: [facility] Welder Setter Electron Beam Machine Member Role: Primary Care Nurse Name: Mary Anne Simons RN Position: [facility] RN Member Role: Primary Care Nurse Name: Lela Hoang RN Position: [facility] Onco RN Member Role: Primary Care Nurse Name: Estela Che RN Position: [facility] RN Member Role: Primary Care Nurse Name: Lisandra Gan RN Position: [facility] Welder Setter Electron Beam Machine Member Role: Primary Care Nurse Name: Bia Alcazar RN Position: [facility] Welder Setter Electron Beam Machine Member Role: Primary Care Nurse Name: Harjeet ZHENG [place] Position: [facility] RN Member Role: Primary Care Nurse Care Team Related Persons Name: JHON CHRISTYE Address: home [address] [place] [address] Name: WESTLEYARIEL Address: home [address] [place] [address] Name: MARIBEL CHRISTY Address: [place] [address] Name: NURY TREJO Address: home [address] [place] [address] Name: NURY WOLFE Address: [place] [address]
--- OUTSIDE RECORDS SUMMARY | 2023-05-29 06:05 | XMS_ITS | Continuity of Care Document ---
Author Name Unknown Organization [facility] Address [address] [place] [address]- Care Team Providers Care Pediatric Psychologist Name Role Phone Juan Alvarado DO Primary Care Physician Encounter [facility] [place] Date(s): 02/21/23 - 02/28/23 [facility] [address] [place] [address]- Encounter Diagnosis Constipation(Discharge Diagnosis) - 02/21/23 Attending Physician: Juan Alvarado DO Allergies, Adverse [...] influenza virus vaccine, inactivated 1 08/18/18 Gi nevni influenza virus vaccine, inactivated 2 05/29/17 Gi nevin influenza virus vaccine, inactivated 09/19/16 Give n influenza virus vaccine, inactivated 04/30/15 Give n influenza virus vaccine, inactivated 06/01/14 Give n influenza virus vaccine, inactivated 05/19/13 Give n influenza virus vaccine, inactivated 3 06/15/12 Gi nevin influenza virus vaccine, inactivated 4 07/19/10 Gi nevin influenza virus vaccine, inactivated 04/20/09 Give n tetanus/diphtheria/pertussis, acel(Tdap) 5 1/15/19 Given pneumococcal 23-valent vaccine 02/12/14 Given Human Papillomavirus Vaccine 6 06/30/07 Given Human Papillomavirus Vaccine 03/02/07 Given Human Papillomavirus Vaccine 7 01/01/07 Given Influenza Inactive (IM) (oldterm) 8 06/12/07 Given Hepatitis B Vaccine (old term) 9 06/23/06 Given 1Result Comment: [08/18/2018] [facility]: [id number] 2Result Comment: [05/29/2017] [facility]:[id number] 3Admin Note: [facility] clinic, date approx per patient 4Admin Note: VIM given dated 03/14/10 MULIT 5Result Comment: [08/18/2018] [facility]: [id number] 6Admin Note: VIM GIVIN 08/20/06 # 3 [...] 13:48:36 EDT, Aerosol, Route to Pharmacy Electronically, [id number], [facility], Compound Start [...] [facility]:65112-255-52 Lot:[id number] Exp: 07/23, # 1 mL, 0 Refills, Maintenance, 04/13/19 14:55:41 EDT, Solution Start Date: 04/13/19 Status: Ordered Cyanocobalamin 1000 mcg/mL injection = 1,000 mcg, Intramuscular, Left deltoid IM. Pt tolerated well. Office Supplied Medication [facility] 2524-5235-96 Lot [id number] Exp 08/2020, # 1 mL, [...] 0, Tot. Refills 0, Maintenance, 16 Albanian Abhhw-Ufeljc-Zgayc J tube, transgastric, 02/20/21 9:48:00 EDT, Supply [...] Replace Required Details, Route to Pharmacy Electronically, [id number], [facility] 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 LEAD MEME GREGORY Confirmed Active Pruritus with morphine [...] Diagnosis Diagnosis Type Effective Dates Health Status Cl inical Service Informant Constipation Discharge Diagnosis 02/21/23 Vital Signs Most recent to oldest [Reference Range]: 1 Height 165 cm (02/21/23 8:47 AM) Oxygen Saturation [94-100 %] 98 % (02/21/23 8:47 AM) Pulse Rate [55-90 bpm] 92 bpm *H* (02/21/23 8:47 AM) Blood Pressure [90-138/55-84 mm Hg] 118/ 81mm Hg (02/21/23 8:47 AM) Social History Social History Type Response Smoking Status Former smoker; Other : quit few months ago; entered on: 02/15/15 Sex Female Note * Romina Bell: PERFORM, SIGN, VERIFY Event Display: Patient Education/Instruction Authored Date: [id number] [facility] *[facility] Clinical Summary Name JACK CHRISTY Age 42 Years 1980 PCP Juan Alvarado DO PCP Visit Date 02/21/2023 08:37:00 Additional Instructions: Scheduled Appointments?? Future Appointments ?No Future Appointments Scheduled Follow-Up Instructions ?? Diagnosis Constipation, unspecified Medications: Please continue your medications until treatment is completed or stopped by your provider. Discuss any questions related to medications with your provider. New Medications [facility], [address] [place] [address], [place] [id number], [phone] Bisacodyl (bisacodyl 5 mg oral delayed release tablet) 2 tab(s) Oral Daily as needed for constipation. Refills: 0. Next Dose: Medications to Continue with No Changes These [...] 30 days. IM injection to Left arm [facility]:92574-259-16 Lot:[id number] Exp: 07/23. Refills: 0. Next Dose: Cyanocobalamin (Cyanocobalamin 1000 mcg/mL injection) 1,000 Microgram Intramuscular. Left deltoid IM. Pt tolerated well. Office Supplied Medication [facility] 7775-4181-52 Lot [id number] Exp 08/2020. Next Dose: Cyclobenzaprine (cyclobenzaprine 5 mg oral tablet) 1 tab(s) Oral 3 times a day. Refills: 0. Next Dose: Docusate (docusate sodium 100 mg [...] 0. Next Dose: Miscellaneous Rx (J-tube) 16 Albanian Ppfxd-Qweepf-Yyioz J tube, transgastric. Refills: 0. Next Dose: [...] Visit Future Orders ?Comprehensive Metabolic Panel? Order Date:02/21/23?- Complete on or after?02/21/23 Vital Signs Height 165 cm Weight BMI Blood Pressure 118 mm Hg/81 mm Hg Temperature Pulse Rate 92 bpm Respiratory Rate 02 Sat Mode of Delivery 98 %/ You can now view a summary of your hospital visit from the comfort of your home through a free online portal called [employer]. [employer] is a website that allows you to securely view your medical information including discharge summary, medications and follow-up visits. ??You can alsosend a secure electronic message to your doctor???s office to request appointments, renew medications or just ask a question. You can enroll at [email or web address] or register during your next office [...] primary care provider, you may find a [facility] provider by calling [facility] Link at [phone]. For information about the plan of care [...] Team Personnel Name: Renea Thayer RN Position: [facility] RN Member Role: Primary Care Nurse Name: Radha Woods RN Position: [facility] SN RN Member Role: Primary Care Nurse Name: Larissa Pino RN Position: [facility] ED RN W/OE and Tasks Member Role: Primary Care Nurse Name: Lela Mcintyre RN Position: [facility] SN RN Member Role: Primary Care Nurse Name: Charisse Chris RN Position: [facility] SN RN Member Role: Primary Care Nurse Name: Omar Henning RN Position: [facility] RN Member Role: Primary Care Nurse Name: Marlyn Evans NP Position: [facility] Associate Professional Member Role: Primary Care Nurse Address: Address: [address] [place] [address] Name: Junie Kenny RN Position: [facility] RN Member Role: Primary Care Nurse Name: Jayla De RN Position: [facility] RN Member Role: Primary Care Nurse Name: Shea Stevens RN Position: [facility] RN Member Role: Primary Care Nurse Name: Margarita Bain RN Position: [facility] SN RN Member Role: Primary Care Nurse Name: Yady Tanner RN Position: [facility] RN Member Role: Primary Care Nurse Name: Omar Rutledge RN Position: [facility] RN Member Role: Primary Care Nurse Name: Rashmi Mendez RN Position: [facility] OB RN Member Role: Primary Care Nurse Name: Omar John RN Position: [facility] RN Member Role: Primary Care Nurse Name: Jayla Lai RN Position: [facility] RN Member Role: Primary Care Nurse Name: Pricilla Hendricks RN Position: [facility] RN Member Role: Primary Care Nurse Name: Zabrina Beck RN Position: [facility] RN Member Role: Primary Care Nurse Name: Juan Alvarado DO Position: [facility] Physician - Primary Care Member Role: PCP Address: Address: [address] [place] [id number] Name: Sophie Luciano RN Position: [facility] SN RN Member Role: Primary Care Nurse Name: Trace Elliott RN Position: [facility] SN RN Member Role: Primary Care Nurse Name: Ashley Langley RN Position: [facility] ED RN W/OE and Tasks Member Role: Primary Care Nurse Name: Flora Gonzalez RN Position: [facility] Gear Changer Member Role: Primary Care Nurse Name: Mary Anne Simons RN Position: [facility] RN Member Role: Primary Care Nurse Name: Lela Hoang RN Position: [facility] Onco RN Member Role: Primary Care Nurse Name: Estela Che RN Position: [facility] RN Member Role: Primary Care Nurse Name: Lisandra Gan RN Position: [facility] Gear Changer Member Role: Primary Care Nurse Name: Bia Alcazar RN Position: [facility] Gear Changer Member Role: Primary Care Nurse Name: Everton Cosby RN Position: [facility] SN RN Member Role: Primary Care Nurse Care Team Related Persons Name: ARIEL CHRISTY Address: home [address] [place] [address] Name: ARIEL CHRISTY Address: home [address] [place] [address] Name: MARIBEL CHRISTY Address: [place] [address] Name: NURY TREJO Address: home [address] [place] [address] Name: NURY WOLFE Address: [place] [address]
--- OUTSIDE RECORDS SUMMARY | 2023-05-29 06:05 | XMS_ITS | Continuity of Care Document ---
Author Name Unknown Organization [facility] Address [address] [place] [address]- Care Team Providers Care Clinical Laboratory Technician Name Role Phone Luzma SENIOR, Carlos Gaston Primary Care Physician Encounter [facility] Date(s): 08/16/21 - 08/16/[address] [address] Discharge Disposition: A-D/C Home Attending Physician: Francesco Aguirre MD Admitting Physician: Francesco Aguirre MD Referring Physician: Francesco Aguirre MD Allergies, Adverse Reactions, Alerts Substance Reaction [...] Given 1Result Comment: [08/18/2018] [facility]: [id number] 2Result Comment: [05/29/2017] [facility]:76116-106-08 3Admin [facility], date approx per patient 4Admin Note: VIM given dated 03/14/10 MULIT 5Result Comment: [08/18/2018] [facility]: [id number] 6Admin Note: VIM GIVIN 08/20/06 # 3 [...] 13:48:36 EDT, Aerosol, Route to Pharmacy Electronically, [id number], [facility], Compound Start [...] IM injection to Left arm [facility]:29353-111-61 Lot:[id number] Exp: 07/23, # 1 mL, 0 Refills, Maintenance, 04/13/19 14:55:41 EDT, Solution Start Date: 04/13/19 Status: Ordered Cyanocobalamin 1000 mcg/mL injection = 1,000 mcg, Intramuscular, Left deltoid IM. Pt tolerated well. Office Supplied Medication [facility] 8770-0451-76 Lot [id number] Exp 08/2020, # 1 mL, [...] Refills 0, Tot. Refills 0, Maintenance, 16 Turkmen Inotl-Qlhilv-Bgbol J tube, transgastric, 02/20/21 9:48:00 EDT, Supply [...] [facility], 165.1, cm, 10/26/21 14:39:00 EDT, Height Start Date: 06/26/21 Status: [...] Refills, Maintenance, 02/14/20 16:00:00 EDT, [facility], 165, cm, 12/29/19 14:57:00 EDT, Height, 128.1, kg, 04/08/19 8:08:00 EDT, Dry Weight Start Date: 02/14/20 Status: Ordered traZODone 100 mg oral tablet See Instructions, 1 - 2 tablet By Mouth at bedtime 30 days, # 60 tablet, Refills 0, Tot. Refills 0,Maintenance, 05/18/17 15:31:13 EDT, Instructions Replace Required Details, Route to Pharmacy Electronically, [id number], [facility] Start Date: 05/18/17 Status: Ordered Vitamin D3 1000 intl units oral tablet 1 tablet, By Mouth, Daily, WITH FOOD., # 90 Unknown, 3 Refills, Maintenance, 02/14/21 15:18:00 EDT,[facility], 165.1, cm, 01/24/21 11:40:00 EDT, [...] pain of lower extremity(Confirmed) Active *[facility] [phone] CARE MANAG MEME GREGORY(Confirmed) Active Pruritus with morphine(Confirmed) Active Pulmonary embolus(Confirmed) 1 Active Recurrent UTI(Confirmed) Active Reflex sympathetic dystrophy(Confirmed) Active Dry heaves(Confirmed) Active Urinary retention(Confirmed) Active Urinary retention(Confirmed) Active Sepsis(Confirmed) Active Sleep-disordered breathing(Confirmed) Active Feeding by G-tube(Confirmed) Active Suprapubic catheter(Confirmed) Active 1unprovoked PE 2013, heme recommended lifelong anticogulation due to high-risk of recurrence Procedures Procedure Date Related Diagnosis Body Site Status Upper gastrointestinal endos copy for directed placement of percutaneous gastrostomy tube 08/16/21 Completed Vital Signs Most recent to oldest [Reference Range]: 1 2 3 Height 165 cm (08/16/21 8:31 AM) Oxygen Saturation [94-100 %] 99 % (08/16/21 10:01 AM) 99 % (08/16/21 9:49 AM) 96 % (08/16/21 8:31 AM) Pulse Rate [55-90 bpm] 96 bpm *H* (08/16/21 8:31 AM) Blood Pressure [90-138/55-84 mm Hg] 112/72mm Hg (08/16/21 10:01 AM) 103/64mm Hg (08/16/21 9:49 AM) 116/99mm Hg (08/16/21 8:31 AM) Respiratory Rate [16-30 br/min] 20 br/min (08/16/21 10:01 AM) 20 br/min (08/16/21 9:49 AM) 20 br/min (08/16/21 8:31 AM) Temperature [96.8-100.4 DegF] 98.2 DegF (08/16/21 8:31 AM) Mode of Delivery (Oxygen) Room air (08/16/21 10:01 AM) Room air (08/16/21 9:49 AM) Room air (08/16/21 8:31 AM) Blood pressure sites Arm, left (08/16/21 10:01 AM) Arm, left (08/16/21 9:49 AM) Arm, left (08/16/21 8:31 AM) Temperature Route Temporal (08/16/21 8:31 AM) Dry Weight 113.4 kg (08/16/21 8:31 AM) Social History Social History Type Response Smoking Status Former smoker; Other : quit few months ago; entered on: 02/15/15 Sex Female
--- OUTSIDE RECORDS SUMMARY | 2023-05-29 06:05 | XMS_ITS | Continuity of Care Document ---
Author Name Unknown Organization [facility] Address [address] [place] [address]- Care Team Providers Care Job Change Crew Member Name Role Phone Luzma SENIOR, Carlos Gaston Primary Care Physician [phone] [facility] - 05/02/21 [facility] [address] [place] [address]- Allergies, Adverse Reactions, Alerts Substance Reaction Severity [...] 1Result Comment: [08/18/2018] [facility]: [id number] 2Result Comment: [05/29/2017] [facility]:[id number] 3Admin Note: [facility] clinic, date approx per patient 4Admin Note: VIM given dated 03/14/10 MULIT 5Result Comment: [08/18/2018] [facility]: [id number] 6Admin Note: VIM GIVIN 08/20/06 # 3 [...] 13:48:36 EDT, Aerosol, Route to Pharmacy Electronically, [id number], [facility], Compound Start [...] injection to Left arm [facility]:61957-143-24 Lot:[id number] Exp: 07/23, # 1 mL, 0 Refills, Maintenance, 04/13/19 14:55:41 EDT, Solution Start Date: 04/13/19 Status: Ordered Cyanocobalamin 1000 mcg/mL injection = 1,000 mcg, Intramuscular, Left deltoid IM. Pt tolerated well. Office Supplied Medication [facility] 5519-6668-34 Lot [id number] Exp 08/2020, # 1 mL, [...] Refills 0, Tot. Refills 0, Maintenance, 16 Slovak Vkumg-Pzojgx-Ftghl J tube, transgastric, 02/20/21 9:48:00 EDT, Supply [...] Replace Required Details, Route to Pharmacy Electronically, [id number], [facility] Start Date: 05/18/17 Status: Ordered Vitamin D3 1000 intl units oral tablet 1 tablet, By Mouth, Daily, WITH FOOD., # 90 Unknown, 3 Refills, Maintenance, 02/14/21 15:18:00 EDT,[facility], 165.1, cm, 01/24/21 11:40:00 EDT, [...] Active Neuropathic pain of lower extremity(Confirmed) Active *[facility] [phone] CARE MANAG ER MEME GREGORY(Confirmed) Active Pruritus [...]
--- OUTSIDE RECORDS SUMMARY | 2023-05-29 06:05 | XMS_ITS | Continuity of Care Document ---
Author Name Unknown Organization [facility] Address [address] [place] [address]- Care Team Providers Care Pediatric Surgeon Name Role Phone Juan Alvarado DO Primary Care Physician [phone] [facility] - 09/27/22 [facility] [address] [place] [address]- Attending Physician: Admtr, Ar8 Allergies, Adverse Reactions, [...] term) 9 06/23/06 Given 1Result Comment: [08/18/2018] [facility]: [id number] 2Result Comment: [05/29/2017] [facility]:[id number] 3[facility], [facility] approx per [facility] 4Admin Note: VIM given dated 03/14/10 MULIT 5Result Comment: [08/18/2018] [facility]: [id number] 6Admin Note: VIM GIVIN 08/20/06 # 3 [...] 13:48:36 EDT, Aerosol, Route to Pharmacy Electronically, [id number], [facility], Compound Start [...] 30 days, IM injection to Left arm [facility]:57412-458-69 Lot:[id number] Exp: 07/23, # 1 mL, 0 Refills, Maintenance, 04/13/19 14:55:41 EDT, Solution Start Date: 04/13/19 Status: Ordered Cyanocobalamin 1000 mcg/mL injection = 1,000 mcg, Intramuscular, Left deltoid IM. Pt tolerated well. Office Supplied Medication [facility] 5348-4847-18 Lot [id number] Exp 08/2020, # 1 mL, [...] EST, Route to Pharmacy Electronically, [facility], Partial fill upon patient request if the prescription is for a ginger... Start Date: 08/02/22 Status: Ordered J-tube J-tube, See Instructions, # 1 each, Refills 0, Tot. Refills 0, Maintenance, 16 Greenlandic Vejdp-Qsebvk-Tlfyj J tube, transgastric, 02/20/21 9:48:00 EDT, Supply Start Date: 02/20/21 Status: Ordered Jantoven 5 mg oral tablet 1 tablet, By Mouth, Daily, for 30 days, OR DIRECTED BY [facility] NURSE., # 30 tablet, 11 Refills, Physician Stop 08/29/23 8:30:00 EST, 09/03/22 8:30:00 EST, [facility], 165, cm, 08/28/22 10:52:00 EST, [...] Replace Required Details, Route to Pharmacy Electronically, [id number], [facility] Start Date: 05/18/17 Status: Ordered Vitamin [...] Neuropathic pain of lower extremity Confirmed Active *[facility] [phone] [employer]BI[employer]SEM[employer] MEME GREGORY Confirmed Active Pruritus with morphine [...] study * Event Display: EKG Authored Date: Note * Event Display: IR Special Procedures, Non-BH Authored Date: * Event Display: Non BH Lab Results Authored Date: * Event Display: Non BH Lab Results Authored Date: * Event Display: Non BH Lab Results Authored Date: * Marques Houston MD: PERFORM, SIGN, VERIFY Event Display: Patient Education/Instruction Authored Date: [id number] [facility] PV Family Clinical Summary Person Information Visit Date 04/26/2016 3:00 PM Name JACK CHRISTY Age 36 Years 1980 12:00 AM PCP Marques Houston MD PCP Sex Female Race White Ethnicity Non-/Non- Language Burundian You can now view a summary of your hospital visit from the comfort of your home through a free online portal called [employer]. [employer] is a website that allows you to securely view your medical information including discharge summary, medications and follow-up visits. You can also send a secure electronic message to your doctor???s office to request appointments, renew medicationsor just ask a question. You can enroll at [email or web address] or register during your next office visit. Smoking can increase your chances of developing chronic health problems and can cause harmful effects to other family members in your house. If you smoke, you are strongly encouraged to quit. Please call the [place] Smokers??? Helpline at 3-092-PPFONOW (or ) or log on to [email or web address] for more information. Reason for Visit: Allergy [...] patch, Topically, every 72 hours, Refills: 0 Exline (lithium 450 mg oral tablet, extended release) [...] days, Refills: 0 Nystatin Topical (nystatin topical 999856 u/gm powder) , See Instructions, Topically 3 [...] primary care provider, you may find a [facility] provider by calling [facility] PV [employer] Link at [phone]. For information about the plan of care including goals and instructions for your diagnosis, please see the patient education orders section of this document. Patient Visit Summary: Future Appointments: Follow-Up Instructions With: Address: When: friday 1:40 Comments: Patient Education Materials Additional Instructions: * Marques Houston MD: PERFORM, SIGN, VERIFY Event Display: Patient Education/Instruction Authored Date: [id number] [facility] BMP PV Family Clinical Summary Person Information Visit Date 04/26/2016 3:00 PM Name JACK CHRISTY Age 36 Years 1980 12:00 AM PCP Marques Houston MD PCP Sex Female Race White Ethnicity Non-/Non- Language Burundian You can now view a summary of your hospital visit from the comfort of your home through a free online portal called [employer]. [employer] is a website that allows you to securely view your medical information including discharge summary, medications and follow-up visits. You can also send a secure electronic message to your doctor???s office to request appointments, renew medicationsor just ask a question. You can enroll at [email or web address] or register during your next office visit. Smoking can increase your chances of developing chronic health problems and can cause harmful effects to other family members in your house. If you smoke, you are strongly encouraged to quit. Please call the [place] Smokers??? Helpline at 7-548-SBBMNOW (or ) or log on to [email or web address] for more information. Reason for Visit: Allergy [...] patch, Topically, every 72 hours, Refills: 0 Exline (lithium 450 mg oral tablet, extended release) [...] days, Refills: 0 Nystatin Topical (nystatin topical 015696 u/gm powder) , See Instructions, Topically 3 [...] primary care provider, you may find a [facility] provider by calling [facility] PV [employer] [facility] at [phone]. For information about the plan of care including goals and instructions for your diagnosis, please see the patient education orders section of this document. Patient Visit Summary: Future Appointments: Follow-Up Instructions With: Address: When: friday 1:40 Comments: Patient Education Materials Additional Instructions: * Event Display: Ultrasound Miscellaneous Authored Date: * Event Display: Ultrasound Miscellaneous Authored Date: * Pricila Vargas: PERFORM Event Display: Radiology Results Scanned Authored Date: * Pricila Vargas: PERFORM Event Display: Radiology Results Scanned Authored Date: * Pricila Vargas: PERFORM Event Display: Radiology Results Scanned Authored Date: [facility] XR Chest Views * Event Display: X-Ray [...] * Event Display: Ultrasound Abdomen Authored Date: Patient Care team information Care Team Personnel Name: Renea Thayer RN Position: [facility] RN Member Role: Primary Care Nurse Name: Radha Woods RN Position: [facility] SN RN Member Role: Primary Care Nurse Name: Larissa Pino RN Position: [facility] ED RN W/OE and Tasks Member Role: Primary Care Nurse Name: Lela Mcintyre RN Position: [facility] SN RN Member Role: Primary Care Nurse Name: Charisse Chris RN Position: [facility] SN RN Member Role: Primary Care Nurse Name: Omar Henning RN Position: [facility] RN Member Role: Primary Care Nurse Name: Marlyn Evans NP Position: [facility] Associate Professional Member Role: Primary Care Nurse Address: Address: [address] [place] [address] Name: Junie Kenny RN Position: [facility] RN Member Role: Primary Care Nurse Name: Jayla De RN Position: [facility] RN Member Role: Primary Care Nurse Name: Shea Stevens RN Position: [facility] RN Member Role: Primary Care Nurse Name: Margarita Bain RN Position: [facility] SN RN Member Role: Primary Care Nurse Name: Yady Tanner RN Position: [facility] RN Member Role: Primary Care Nurse Name: Omar Rutledge RN Position: [facility] RN Member Role: Primary Care Nurse Name: Rashmi Mendez RN Position: [facility] OB RN Member Role: Primary Care Nurse Name: Omar John RN Position: [facility] RN Member Role: Primary Care Nurse Name: Jayla Lai RN Position: [facility] RN Member Role: Primary Care Nurse Name: Pricilla Hendricks RN Position: [facility] RN Member Role: Primary Care Nurse Name: Zabrina Beck RN Position: [facility] RN Member Role: Primary Care Nurse Name: Juan Alvarado DO Position: [facility] Primary Care Physician Member Role: PCP Address: Address: [address] [place] [id number] Name: Sophie Luciano RN Position: [facility] SN RN Member Role: Primary Care Nurse Name: Trace Elliott RN Position: [facility] SN RN Member Role: Primary Care Nurse Name: Ashley Langley RN Position: [facility] ED RN W/OE and Tasks Member Role: Primary Care Nurse Name: Flora Gonzalez RN Position: [facility] Chemistry Physics Teacher Member Role: Primary Care Nurse Name: Mary Anne Simons RN Position: [facility] RN Member Role: Primary Care Nurse Name: Lela Hoang RN Position: [facility] Onco RN Member Role: Primary Care Nurse Name: Estela Che RN Position: [facility] RN Member Role: Primary Care Nurse Name: Lisandra aGn RN Position: [facility] Chemistry Physics Teacher Member Role: Primary Care Nurse Name: Bia Alcazar RN Position: [facility] Chemistry Physics Teacher Member Role: Primary Care Nurse Name: Harjeet ZHENG [place] Position: [facility] SN RN Member Role: Primary Care Nurse Care Team Related Persons Name: WESTLEYARIEL Address: home [address] [place] [address] Name: ARIEL CHRISTY Address: home [address] [place] [address] Name: MARIBEL CHRISTY Address: [place] [address] Name: NURY TREJO Address: home [address] [place] [address] Name: NURY WOLFE Address: [place] [address]
--- OUTSIDE RECORDS SUMMARY | 2023-05-29 06:05 | XMS_ITS | Continuity of Care Document ---
Author Name Unknown Organization [facility] Address [address] [place] [address]- Care Team Providers Care Brakeshoe Repairer Name Role Phone Luzma SENIOR, Carlos Gaston Primary Care Physician [facility] 08[facility]18/21 [facility] [address] [place] [address]- Allergies, Adverse Reactions, Alerts Substance Reaction Severity [...] 1Result Comment: [08/18/2018] [facility]: 63078-470-65 2Result Comment: [05/29/2017] [facility]:64163-728-90 3Admin Note: [facility] clinic, date approx per patient 4Admin Note: VIM given dated 03/14/10 MULIT 5Result Comment: [08/18/2018] [facility]: 53082-188-48 6Admin Note: VIM GIVIN 08/20/06 # 3 [...] 13:48:36 EDT, Aerosol, Route to Pharmacy Electronically, [id number], [facility], Compound Start [...] IM injection to Left arm [facility]:03280-180-70 Lot:[id number] Exp: 07/23, # 1 mL, 0 Refills, Maintenance, 04/13/19 14:55:41 EDT, Solution Start Date: 04/13/19 Status: Ordered Cyanocobalamin 1000 mcg/mL injection = 1,000 mcg, Intramuscular, Left deltoid IM. Pt tolerated well. Office Supplied Medication [facility] 4077-0901-47 Lot [id number] Exp 08/2020, # 1 mL, [...] Refills 0, Tot. Refills 0, Maintenance, 16 Algerian Rhqta-Bkqekf-Ujfey J tube, transgastric, 02/20/21 9:48:00 EDT, Supply [...] a schedule II opioid drug. Start Date: 8/26/21 Status: Ordered Sublocade 100 mg/0.5 mL subcutaneous [...] Replace Required Details, Route to Pharmacy Electronically, [id number], [facility] Start Date: 05/18/17 Status: Ordered Vitamin D3 1000 intl units oral tablet 1 tablet, By Mouth, Daily, WITH FOOD., # 90 Unknown, 3 Refills, Maintenance, 02/14/21 15:18:00 EDT,[facility], 165.1, cm, 01/24/21 11:40:00 EDT, [...] Active Neuropathic pain of lower extremity(Confirmed) Active *[facility] [phone] CARE MANAG MEME GREGORY(Confirmed) Active Pruritus with [...]
--- OUTSIDE RECORDS SUMMARY | 2023-05-29 06:05 | XMS_ITS | Continuity of Care Document ---
Author Name Unknown Organization [facility] Address [address] [place] [address]- Care Team Providers Care Surveillance Operator Name Role Phone Juan Alvarado DO Primary Care Physician [facility] - 02[facility]/23 [facility] [address] [place] [address]- Attending Physician: Admtr, Ar8 Allergies, Adverse Reactions, [...] term) 9 06/23/06 Given 1Result Comment: [08/18/2018] [facility]: [id number] 2Result Comment: [05/29/2017] [facility]:[id number] 3[facility], date approx per patient 4Admin Note: VIM given dated 03/14/10 MULIT 5Result Comment: [08/18/2018] [facility]: 69336-150-01 6Admin Note: VIM GIVIN 08/20/06 # 3 [...] 13:48:36 EDT, Aerosol, Route to Pharmacy Electronically, [id number], [facility], Compound Start [...] 30 days, IM injection to Left arm [facility]:77044-301-16 Lot:[id number] Exp: 07/23, # 1 mL, 0 Refills, Maintenance, 04/13/19 14:55:41 EDT, Solution Start Date: 04/13/19 Status: Ordered Cyanocobalamin 1000 mcg/mL injection = 1,000 mcg, Intramuscular, Left deltoid IM. Pt tolerated well. Office Supplied Medication [facility] 6057-4065-50 Lot [id number] Exp 08/2020, # 1 mL, [...] Refills 0, Tot. Refills 0, Maintenance, 16 Andorran Zoxtt-Oipxya-Uweil J tube, transgastric, 02/20/21 9:48:00 EDT, Supply [...] Refills, Maintenance, 02/29/20 17:00:00 EDT, [facility], Drink 240mL every 10-15 minutes, [...] 0:00:00 EST, 10/08/22 8:28:00 EST, [facility], 165, cm, 10/08/22 8:08:00 EST, [...] Replace Required Details, Route to Pharmacy Electronically, [id number], [facility] Start Date: 05/18/17 Status: Ordered Trulicity [...] Neuropathic pain of lower extremity Confirmed Active *[facility] [phone] DIRECTOR OF CULTURE MEME GREGORY Confirmed Active Pruritus with morphine [...] Oxygen Saturation [94-100 %] 97 % (04/24/16 9: AM) Pulse Rate [55-90 bpm] 62 bpm [...] Display: Radiology Results Scanned Authored Date: [facility] Note * Rosemarie AVALOS, Marques Leahy: PERFORM, SIGN, VERIFY Event Display: Patient Education/Instruction Authored Date: [id number] [facility] BMP PV Family Clinical Summary Person Information Visit Date 04/26/2016 3:00 PM Name JACK CHRISTY Age 36 Years 1980 12:00 AM PCP Rosemarie AVALOS, Marques Leahy PCP Sex Female Race White Ethnicity Non-/Non- Language Tanzanian You can now view a summary of your hospital visit from the comfort of your home through a free online portal called [employer]. [employer] is a website that allows you to securely view your medical information including discharge summary, medications and follow-up visits. You can also send a secure electronic message to your doctor???s office to request appointments, renew medicationsor just ask a question. You can enroll at [email or web address] or register during your next office visit. Smoking can increase your chances of developing chronic health problems and can cause harmful effects to other family members in your house. If you smoke, you are strongly encouraged to quit. Please call the [place] Smokers??? Helpline at 3-970-XCNPNOW (or ) or log on to [email or web address] for more information. Reason for Visit: Allergy [...] patch, Topically, every 72 hours, Refills: 0 [place] (lithium 450 mg oral tablet, extended release) [...] days, Refills: 0 Nystatin Topical (nystatin topical 888342 u/gm powder) , See Instructions, Topically 3 [...] primary care provider, you may find a [facility] provider by calling [facility] [employer] at [phone]. For information about the plan of care including goals and instructions for your diagnosis, please see the patient education orders section of this document. Patient Visit Summary: Future Appointments: Follow-Up Instructions With: Address: When: friday 1:40 Comments: Patient Education Materials Additional Instructions: * Marques Houston MD: PERFORM, SIGN, VERIFY Event Display: Patient Education/Instruction Authored Date: [id number] [facility] BMP PV Family Clinical Summary Person Information Visit Date 04/26/2016 3:00 PM Name JACK CHRISTY Age 36 Years 1980 12:00 AM PCP Marques Huoston MD PCP Sex Female Race White Ethnicity Non-/Non- Language Tanzanian You can now view a summary of your hospital visit from the comfort of your home through a free online portal called [employer]. [employer] is a website that allows you to securely view your medical information including discharge summary, medications and follow-up visits. You can also send a secure electronic message to your doctor???s office to request appointments, renew medicationsor just ask a question. You can enroll at [email or web address] or register during your next office visit. Smoking can increase your chances of developing chronic health problems and can cause harmful effects to other family members in your house. If you smoke, you are strongly encouraged to quit. Please call the [place] Smokers??? Helpline at 5-410-PRKVNOW (or ) or log on to [email or web address] for more information. Reason for Visit: Allergy [...] patch, Topically, every 72 hours, Refills: 0 [place] (lithium 450 mg oral tablet, extended release) [...] days, Refills: 0 Nystatin Topical (nystatin topical 033500 u/gm powder) , See Instructions, Topically 3 [...] primary care provider, you may find a [facility] provider by calling [facility] Link at [phone]. For information about the plan of care including goals and instructions for your diagnosis, please see the patient education orders section of this document. Patient Visit Summary: Future Appointments: Follow-Up Instructions With: Address: When: friday 1:40 Comments: Patient Education Materials Additional Instructions: Patient Care team information Care Team Personnel Name: Renea Thayer RN Position: [facility] RN Member Role: Primary Care Nurse Name: Radha Woods RN Position: [facility] SN RN Member Role: Primary Care Nurse Name: Larissa Pino RN Position: [facility] ED RN W/OE and Tasks Member Role: Primary Care Nurse Name: Lela Mcintyre RN Position: [facility] SN RN Member Role: Primary Care Nurse Name: Charisse Chris RN Position: [facility] SN RN Member Role: Primary Care Nurse Name: Omar Henning RN Position: [facility] RN Member Role: Primary Care Nurse Name: Marlyn Evans NP Position: [facility] Associate Professional Member Role: Primary Care Nurse Address: Address: [address] [place] [address]- Name: Junie Kenny RN Position: [facility] RN Member Role: Primary Care Nurse Name: Jayla De RN Position: [facility] RN Member Role: Primary Care Nurse Name: Shea Stevens RN Position: [facility] RN Member Role: Primary Care Nurse Name: Margarita Bain RN Position: [facility] SN RN Member Role: Primary Care Nurse Name: Yady Tanner RN Position: [facility] RN Member Role: Primary Care Nurse Name: Omar Rutledge RN Position: [facility] RN Member Role: Primary Care Nurse Name: Rashmi Mendez RN Position: [facility] OB RN Member Role: Primary Care Nurse Name: Omar John RN Position: [facility] RN Member Role: Primary Care Nurse Name: Jayla Lai RN Position: [facility] RN Member Role: Primary Care Nurse Name: Pricilla Hendricks RN Position: [facility] RN Member Role: Primary Care Nurse Name: Zabrina Beck RN Position: [facility] RN Member Role: Primary Care Nurse Name: Juan Alvarado DO Position: [facility] Physician - Primary Care Member Role: PCP Address: Address: [address] [place] [id number]- [place] Name: Sophie Luciano RN Position: [facility] SN RN Member Role: Primary Care Nurse Name: Trace Elliott RN Position: [facility] SN RN Member Role: Primary Care Nurse Name: Ashley Langley RN Position: [facility] TAJ RN W/OE and Tasks Member Role: Primary Care Nurse Name: Flora Gonzalez RN Position: [facility] Traffic I Manager Member Role: Primary Care Nurse Name: Ronak RNMary Anne Position: [facility] RN Member Role: Primary Care Nurse Name: Lela Hoang RN Position: [facility] Onco RN Member Role: Primary Care Nurse Name: Estela Che RN Position: [facility] RN Member Role: Primary Care Nurse Name: Lisandra Gan RN Position: [facility] Traffic I Manager Member Role: Primary Care Nurse Name: Bia Alcazar RN Position: [facility] Traffic I Manager Member Role: Primary Care Nurse Name: Everton Cosby RN Position: [facility] SN RN Member Role: Primary Care Nurse Care Team Related Persons Name: ARIEL CHRISTY Address: home [address] [place] [address] Name: ARIEL CHRISTY Address: home [address] [place] [address] Name: MARIBEL CHRISTY Address: [place] [address] Name: NURY TREJO Address: home [address] [place] [address] Name: NURY WOLFE Address: [place] [address]
--- OUTSIDE RECORDS SUMMARY | 2023-05-29 06:05 | XMS_ITS | Continuity of Care Document ---
Author Name Unknown Organization [facility] Address [address] [place] [address]- Care Team Providers Care Supervisor Typesetting Name Role Phone Luzma SENIOR, Carlos Gaston Primary Care Physician Encounter [facility] Date(s): 07/23/21 - 08/22/21 [facility] [address] [place] [address]- Allergies, Adverse Reactions, Alerts Substance Reaction Severity [...] 1Result Comment: [08/18/2018] [facility]: [id number] 2Result Comment: [05/29/2017] [facility]:[id number] 3Admin Note: [facility] clinic, date approx per patient 4Admin Note: VIM given dated 03/14/10 MULIT 5Result Comment: [08/18/2018] [facility]: [id number] 6Admin Note: VIM GIVIN 08/20/06 # 3 [...] 13:48:36 EDT, Aerosol, Route to Pharmacy Electronically, [id number], [facility], Compound Start [...] injection to Left arm [facility]:04433-794-82 Lot:[id number] Exp: 07/23, # 1 mL, 0 Refills, Maintenance, 04/13/19 14:55:41 EDT, Solution Start Date: 04/13/19 Status: Ordered Cyanocobalamin 1000 mcg/mL injection = 1,000 mcg, Intramuscular, Left deltoid IM. Pt tolerated well. Office Supplied Medication [facility] [id number] Lot [id number] Exp 08/2020, # 1 mL, [...] 0, Tot. Refills 0, Maintenance, 16 Algerian Phfia-Xkrrew-Jndcn J tube, transgastric, 02/20/21 9:48:00 EDT, Supply [...] Replace Required Details, Route to Pharmacy Electronically, [id number], [facility] Start Date: 05/18/17 Status: Ordered Vitamin D3 1000 intl units oral tablet 1 tablet, By Mouth, Daily, WITH FOOD., # 90 Unknown, 3 Refills, Maintenance, 02/14/21 15:18:00 EDT,[facility], 165.1, cm, 01/24/21 11:40:00 EDT, [...] of lower extremity(Confirmed) Active *[facility] [phone] CARE MANAG MEME GREGORY(Confirmed) Active Pruritus with [...]
--- OUTSIDE RECORDS SUMMARY | 2023-05-29 06:06 | XMS_ITS | Continuity of Care Document ---
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: [id number] 2Result Comment: [05/29/2017] [facility]:[id number] 3Admin Note[facility], date approx per patient 4Admin Note: VIM given dated 03/14/10 MULIT 5Result Comment: [08/18/2018] [facility]: [id number] 6Admin Note: VIM GIVIN 08/20/06 # 3 [...] 13:48:36 EDT, Aerosol, Route to Pharmacy Electronically, [id number], [facility], Compound Start [...] [facility]:[id number] Lot:[id number] Exp: 07/23, # 1 mL, 0 Refills, Maintenance, 04/13/19 14:55:41 EDT, Solution Start Date: 04/13/19 Status: Ordered Cyanocobalamin 1000 mcg/mL injection = 1,000 mcg, Intramuscular, Left deltoid IM. Pt tolerated well. Office Supplied Medication [facility] [id number] Lot [id number] Exp 08/2020, # 1 mL, [...] Refills 0, Tot. Refills 0, Maintenance, 16 Senegalese Atszi-Znvjmc-Llexf J tube, transgastric, 02/20/21 9:48:00 EDT, Supply [...] 0, Maintenance, G/J Tube Supplies: Pump bags (Percolateity Pump) and syringes to administer medications., 11/21/17 [...] Refills, Maintenance, 02/14/20 16:00:00 EDT, [facility], 165, cm, 12/29/19 14:57:00 EDT, Height, 128.1, kg, 04/08/19 8:08:00 EDT, Dry Weight Start Date: 02/14/20 Status: Ordered traZODone 100 mg oral tablet See Instructions, 1 - 2 tablet By Mouth at bedtime 30 days, # 60 tablet, Refills 0, Tot. Refills 0,Maintenance, 05/18/17 15:31:13 EDT, Instructions Replace Required Details, Route to Pharmacy Electronically, [id number], [facility] Start Date: 05/18/17 Status: Ordered Vitamin D3 1000 intl units oral tablet 1 tablet, By Mouth, Daily, WITH FOOD., # 90 Unknown, 3 Refills, Maintenance, 02/14/21 15:18:00 EDT,[facility], 165.1, cm, 01/24/21 11:40:00 EDT, [...] Active Neuropathic pain of lower extremity(Confirmed) Active *[facility] [phone] CARE MANAG ER MEME GREGORY(Confirmed) Active Pruritus [...] Effective Dates Health Status Clinical Service Informant Nausea Discharge Diagnosis 12/12/21 Recurrent UTI Discharge Diagnosis 12/12/21 Elevated WBC count Discharge Diagnosis 12/12/21 Severe obesity (BMI >= 40) Discharge Diagnosis 12/12/21 Recurrent major depression resistant to treatment Discharge Diagnosis 12/12/21 New onset headache Discharge Diagnosis 12/12/21 Vital Signs Most recent to oldest [Reference Range]: 1 Height 165 cm (12/11/21 10:50 AM) Weight 112.1 kg (12/11/21 10:50 AM) Oxygen Saturation [94-100 %] 97 % (12/11/21 10:50 AM) Pulse Rate [55-90 bpm] 91 bpm *H* (12/11/21 10:50 AM) Body Mass Index [18.5-24.99] 41.18 *>HHI* (12/11/21 10:50 AM) Blood Pressure [90-138/55-84 mm Hg] 118/ 84mm Hg (12/11/21 10:50 AM) Respiratory Rate [16-30 br/min] 18 br/mi n (12/11/21 10:50 AM) Blood pressure sites Arm, left (12/11/21 10:50 AM) Weight Obtained Via Standing scale (12/11/21 10:50 AM) Social History Social History Type Response Smoking Status Former smoker; Other : quit few months ago; entered on: 02/15/15 Sex Female
--- OUTSIDE RECORDS SUMMARY | 2023-05-29 06:06 | XMS_ITS | Continuity of Care Document ---
Author Name Unknown Organization [facility] Address [address] [place] [address]- Care Team Providers Care Vp Integration Name Role Phone Luzma SENIOR, Carlos Gaston Primary Care Physician Encounter [facility] Date(s): 05/14/21 - 06/13/21 [facility] [address] [place] [address]- Allergies, Adverse Reactions, Alerts Substance Reaction Severity [...] [08/18/2018] [facility]: [id number] 2Result Comment: [05/29/2017] [facility]:24768-473-62 3Admin Note: [facility] clinic, date approx per patient 4Admin Note: VIM given dated 03/14/10 MULIT 5Result Comment: [08/18/2018] [facility]: 78016-092-02 6Admin Note: VIM GIVIN 08/20/06 # 3 [...] 13:48:36 EDT, Aerosol, Route to Pharmacy Electronically, [id number], [facility], Compound Start [...] Left arm [facility]:69585-751-44 Lot:[id number] Exp: 07/23, # 1 mL, 0 Refills, Maintenance, 04/13/19 14:55:41 EDT, Solution Start Date: 04/13/19 Status: Ordered Cyanocobalamin 1000 mcg/mL injection = 1,000 mcg, Intramuscular, Left deltoid IM. Pt tolerated well. Office Supplied Medication [facility] 3094-3764-79 Lot 9038 Exp 08/2020, # 1 mL, [...] 0, Tot. Refills 0, Maintenance, 16 Setswana Jxcop-Crimjj-Obtgb J tube, transgastric, 02/20/21 9:48:00 EDT, Supply [...] Refills, Maintenance, 02/14/20 16:00:00 EDT, [facility], 165, cm, 12/29/19 14:57:00 EDT, Height, 128.1, kg, 04/08/19 8:08:00 EDT, Dry Weight Start Date: 02/14/20 Status: Ordered traZODone 100 mg oral tablet See Instructions, 1 - 2 tablet By Mouth at bedtime 30 days, # 60 tablet, Refills 0, Tot. Refills 0,Maintenance, 05/18/17 15:31:13 EDT, Instructions Replace Required Details, Route to Pharmacy Electronically, [id number], [facility] Start Date: 05/18/17 Status: Ordered Vitamin D3 1000 intl units oral tablet 1 tablet, By Mouth, Daily, WITH FOOD., # 90 Unknown, 3 Refills, Maintenance, 02/14/21 15:18:00 EDT,[facility], 165.1, cm, 01/24/21 11:40:00 EDT, [...] Active Neuropathic pain of lower extremity(Confirmed) Active *[facility] [phone] CARE MANAG MEME GREGORY(Confirmed) Active Pruritus with [...]
--- OUTSIDE RECORDS SUMMARY | 2023-05-29 06:06 | XMS_ITS | Continuity of Care Document ---
Author Name Unknown Organization [facility] Address [address] [place] [address]- Care Team Providers Care Glazier Supervisor Name Role Phone Luzma SENIOR, Carlos Gaston Primary Care Physician [facility] Date(s): 03/29/21 - 04/05/21 [facility] [address] [place] [address]- Encounter Diagnosis Palpitations(Discharge Diagnosis) - 03/29/21 Attending Physician: Liza Martins NP Allergies, Adverse Reactions, Alerts Substance Reaction [...] term) 9 06/23/06 Given 1Result Comment: [08/18/2018] [facility]: [id number] 2Result Comment: [05/29/2017] [facility]:[id number] 3[facility], date approx per patient 4Admin Note: VIM given dated 03/14/10 MULIT 5Result Comment: [08/18/2018] [facility]: [id number] 6Admin Note: VIM GIVIN 08/20/06 # 3 [...] 13:48:36 EDT, Aerosol, Route to Pharmacy Electronically, [id number], [facility], Compound Start [...] 30 days, IM injection to Left arm [facility]:81738-214-68 Lot:[id number] Exp: 07/23, # 1 mL, 0 Refills, Maintenance, 04/13/19 14:55:41 EDT, Solution Start Date: 04/13/19 Status: Ordered Cyanocobalamin 1000 mcg/mL injection = 1,000 mcg, Intramuscular, Left deltoid IM. Pt tolerated well. Office Supplied Medication [facility] 9323-4559-31 Lot 9038 Exp 08/2020, # 1 mL, [...] Refills 0, Tot. Refills 0, Maintenance, 16 Swedish Liynr-Urjwdi-Ttgpc J tube, transgastric, 02/20/21 9:48:00 EDT, Supply [...] Maintenance, 08/16/20 16:13:00 EST, Tablet, [facility], Partial fill upon patient request if the prescription is for a schedule II opioid drug... Start Date: 08/16/20 Status: Ordered promethazine 12.5 mg rectal suppository 1 supp = 12.5 mg, Rectally, Every 6 hours, PRN for motion sickness, ok to override for travel, # 30supp, 1 Refills, Maintenance, 12/27/20 13:14:00 EDT, Suppository, [facility], Partial fill upon patient request [...] Replace Required Details, Route to Pharmacy Electronically, [id number], [facility] Start Date: 05/18/17 Status: Ordered Vitamin [...] pain of lower extremity(Confirmed) Active *[facility] [phone] CARE MANAG ER MEME GREGORY(Confirmed) Active Pruritus with morphine(Confirmed) Active Recurrent UTI(Confirmed) Active Reflex sympathetic dystrophy(Confirmed) Active Dry heaves(Confirmed) Active Urinary retention(Confirmed) Active Urinary retention(Confirmed) Active Sepsis(Confirmed) Active Sleep-disordered breathing(Confirmed) Active Feeding by G-tube(Confirmed) Active Suprapubic catheter(Confirmed) Active Diagnosis Diagnosis Type Effective Dates Health Status Cl inical Service Informant Palpitations Discharge Diagnosis 03/29/21 Vital Signs Most recent to oldest [Reference Range]: 1 Height 165.1 cm (03/29/21 2:21 PM) Weight 131.2 kg (03/29/21 2:21 PM) Oxygen Saturation [94-100 %] 98 % (03/29/21 2:21 PM) Pulse Rate [55-90 bpm] 110 bpm *H* (03/29/21 2:21 PM) Body Mass Index [18.5-24.99] 48.13 *>HHI* (03/29/21 2:21 PM) Blood Pressure [90-138/55-84 mm Hg] 120/ 88mm Hg (03/29/21 2:21 PM) Respiratory Rate [16-30 br/min] 24 br/mi n (03/29/21 2:21 PM) Blood pressure sites Arm, right (03/29/21 2:21 PM) Social History Social History Type Response Smoking Status Former smoker; Other : quit few months ago; entered on: 02/15/15 Sex
--- OUTSIDE RECORDS SUMMARY | 2023-05-29 06:06 | XMS_ITS | Continuity of Care Document ---
Author Name Unknown Organization [facility] Address [address] [place] [address]- Care Team Providers Care Egg Processing Supervisor Name Role Phone Luzma SENIOR, Carlos Gaston Primary Care Physician Encounter [facility] Date(s): 12/11/21 - 01/10/22 [facility] [address] [place] [address]- Attending Physician: Admtr, Heidi Allergies, Adverse Reactions, [...] 9 06/23/06 Given 1Result Comment: [08/18/2018] [facility]: 14065-352-97 2Result Comment: [05/29/2017] [facility]:[id number] 3Admin Note[facility], date approx per patient 4Admin Note: VIM given dated 03/14/10 MULIT 5Result Comment: [08/18/2018] [facility]: 00514-932-42 6Admin Note: VIM GIVIN 08/20/06 # 3 [...] 13:48:36 EDT, Aerosol, Route to Pharmacy Electronically, [id number], [facility], Compound Start [...] days, IM injection to Left arm [facility]:48089-220-48 Lot:[id number] Exp: 07/23, # 1 mL, 0 Refills, Maintenance, 04/13/19 14:55:41 EDT, Solution Start Date: 04/13/19 Status: Ordered Cyanocobalamin 1000 mcg/mL injection = 1,000 mcg, Intramuscular, Left deltoid IM. Pt tolerated well. Office Supplied Medication [facility] 7821-8374-80 Lot [id number] Exp 08/2020, # 1 mL, [...] Refills 0, Tot. Refills 0, Maintenance, 16 Marshallese Flixt-Iwyhym-Tnnsx J tube, transgastric, 02/20/21 9:48:00 EDT, Supply [...] Replace Required Details, Route to Pharmacy Electronically, [id number], [facility] Start Date: 05/18/17 Status: Ordered Vitamin D3 1000 intl units oral tablet 1 tablet, By Mouth, Daily, WITH FOOD., # 90 Unknown, 3 Refills, Maintenance, 02/14/21 15:18:00 EDT,[facility], 165.1, cm, 01/24/21 11:40:00 EDT, [...] of lower extremity(Confirmed) Active *[facility] [phone] CARE MANAG ER MEME GREGORY(Confirmed) Active Pruritus [...]
--- OUTSIDE RECORDS SUMMARY | 2023-05-29 06:06 | XMS_ITS | Continuity of Care Document ---
Author Name Unknown Organization [facility] Address [address] [place] [address]- Care Team Providers Care Pharmacist Critical Care Name Role Phone Juan Alvarado DO Primary Care Physician En[place] [facility] Date([place]): 01/07/23 - 01/14/23 [facility] [address] [place] [address]- Encounter Diagnosis Jejunostomy tube in situ(Discharge Diagnosis) - 01/07/23 Chronic back pain(Discharge Diagnosis) - 01/07/23 Attending Physician: Juan Alvarado DO Allergies, Adverse [...] Comment: [08/18/2018] [facility]: [id number] 2Result Comment: [05/29/2017] [facility]:[id number] 3[facility] approx per patient 4Admin Note: VIM given dated 03/14/10 MULIT 5Result Comment: [08/18/2018] [facility]: [id number] 6Admin Note: VIM GIVIN 08/20/06 # 3 [...] 13:48:36 EDT, Aerosol, Route to Pharmacy Electronically, [id number], [facility], Compound Start [...] Left arm [facility]:[id number] Lot:[id number] Exp: 07/23, # 1 mL, 0 Refills, Maintenance, 04/13/19 14:55:41 EDT, Solution Start Date: 04/13/19 Status: Ordered Cyanocobalamin 1000 mcg/mL injection = 1,000 mcg, Intramuscular, Left deltoid IM. Pt tolerated well. Office Supplied Medication [facility] 7994-1309-79 Lot [id number] Exp 08/2020, # 1 mL, [...] Refills 0, Tot. Refills 0, Maintenance, 16 Argentine Jhpas-Jiupmk-Tylqu J tube, transgastric, 02/20/21 9:48:00 EDT, Supply [...] Replace Required Details, Route to Pharmacy Electronically, [id number], [facility] Start Date: 05/18/17 Status: Ordered Trulicity [...] lower extremity Confirmed Active *[facility] [phone] TIP CEMENTER MEME GREGORY Confirmed Active Pruritus with morphine [...] Effective Dates Health Status Clinical Service Informant Jejunostomy tube in situ Discharge Diagnosis 01/07/23 Chronic back pain Discharge Diagnosis 01/07/23 Vital Signs Most recent to oldest [Reference Range]: 1 Height 165 cm (01/07/23 1:52 PM) Weight 111.8 kg (01/07/23 1:52 PM) Oxygen Saturation [94-100 %] 98 % (01/07/23 1:52 PM) Pulse Rate [55-90 bpm] 58 bpm (01/07/23 1:52 PM) Body Mass Index [18.5-24.99 kg/m2] 41.07 kg/m2 *>HHI* (01/07/23 1:52 PM) Blood Pressure [90-138/55-84 mm Hg] 101/ 65mm Hg (01/07/23 1:52 PM) Blood pressure sites Arm, left (01/07/23 1:52 PM) Dry Weight Obtained Via Standing scale (01/07/23 1:52 PM) Social History Social History Type Response Smoking Status Former smoker; Other : quit few months ago; entered on: 02/15/15 Sex Female Note * Sharon Cuello: PERFORM, SIGN, VERIFY Event Display: Patient Education/Instruction Authored Date: [facility] *[facility] Clinical Summary Name JACK CHRISTY Age 42 Years 1980 PCP Juan Alvarado DO PCP Visit Date 01/07/2023 13:39:00 Additional Instructions: Scheduled Appointments?? Future Appointments ?No Future Appointments Scheduled Follow-Up Instructions ?? Diagnosis Other chronic pain; Dorsalgia, unspecified; Other artificial openings of gastrointestinal tract status Medications: Please continue your medications until treatment is completed or stopped by your provider. Discuss any questions related to medications with your provider. New Medications [facility], [address], [place] [id number], [phone] Capsaicin Topical (capsaicin 0.025% topical cream) 1 huma Topically twice a day. Refills: 3. Next Dose: Cyclobenzaprine (cyclobenzaprine 5 mg oral tablet) 1 tab(s) Oral 3 times a day. Refills: 0. Next Dose: Medications to Continue [...] Left arm [facility]:12887-766-92 Lot:[id number] Exp: 07/23. Refills: 0. Next Dose: Cyanocobalamin (Cyanocobalamin 1000 mcg/mL injection) 1,000 Microgram Intramuscular. Left deltoid IM. Pt tolerated well. Office Supplied Medication [facility] 2752-1553-13 Lot [id number] Exp 08/2020. Next Dose: Docusate [...] 0. Next Dose: Miscellaneous Rx (J-tube) 16 Argentine Bvpxo-Godzoj-Cdqmq J tube, transgastric. Refills: 0. Next Dose: [...] orders Vital Signs Height 165 cm Weight 111.8 kg BMI 41.07 kg/m2 Blood Pressure 101 mm Hg/65 mm Hg Temperature Pulse Rate 58 bpm Respiratory Rate 02 Sat Mode of Delivery 98 %/ You can now view a summary of your hospital visit from the comfort of your home through a free online portal called komoot. komoot is a website that allows you to securely view your medical information including discharge summary, medications and follow-up visits. ??You can alsosend a secure electronic message to your doctor???s office to request appointments, renew medications or just ask a question. You can enroll at [email or web address] or register during your next office [...] primary care provider, you may find a [facility] provider by calling [facility] [employer] at [phone]. For information about the plan of care including goals and instructions for your diagnosis, please see the patient education orders section of this document. Patient Education Materials?? The content of this educational material or handout may have been modified, supplemented, or adapted from its original content and format to support your individualized medical care. * Romina Bell: PERFORM, SIGN, VERIFY Event Display: Patient Education/Instruction Authored Date: [id number] [facility] *[facility] Clinical Summary Name JACK CHRISTY Age 42 Years 1980 PCP Juan Alvarado DO PCP Visit Date 01/07/2023 13:39:00 Additional Instructions: Scheduled Appointments?? Future Appointments ?No Future Appointments Scheduled Follow-Up Instructions ?? Diagnosis Other chronic pain; Dorsalgia, unspecified; Other artificial openings of gastrointestinal tract status Medications: Please continue your medications until treatment is completed or stopped by your provider. Discuss any questions related to medications with your provider. New Medications [facility], [address], [place] [id number], [phone] Capsaicin Topical (capsaicin 0.025% topical cream) 1 huma Topically twice a day. Refills: 3. Next Dose: Cyclobenzaprine (cyclobenzaprine 5 mg oral tablet) 1 tab(s) Oral 3 times a day. Refills: 0. Next Dose: Medications to Continue [...] Left arm [facility]:45763-504-58 Lot:[id number] Exp: 07/23. Refills: 0. Next Dose: Cyanocobalamin (Cyanocobalamin 1000 mcg/mL injection) 1,000 Microgram Intramuscular. Left deltoid IM. Pt tolerated well. Office Supplied Medication [facility] 6620-5185-34 Lot [id number] Exp 08/2020. Next Dose: Docusate [...] 0. Next Dose: Miscellaneous Rx (J-tube) 16 Argentine Jwkny-Esnbco-Xylem J tube, transgastric. Refills: 0. Next Dose: [...] orders Vital Signs Height 165 cm Weight 111.8 kg BMI 41.07 kg/m2 Blood Pressure 101 mm Hg/65 mm Hg Temperature Pulse Rate 58 bpm Respiratory Rate 02 Sat Mode of Delivery 98 %/ You can now view a summary of your hospital visit from the comfort of your home through a free online portal called komoot. komoot is a website that allows you to securely view your medical information including discharge summary, medications and follow-up visits. ??You can alsosend a secure electronic message to your doctor???s office to request appointments, renew medications or just ask a question. You can enroll at [email or web address] or register during your next office [...] primary care provider, you may find a [facility] provider by calling [facility] [employer] at [phone]. For information about the plan of care [...] Team Personnel Name: Renea Thayer RN Position: [facility] RN Member Role: Primary Care Nurse Name: Radha Woods RN Position: [facility] RN Member Role: Primary Care Nurse Name: Larissa Pino RN Position: [facility] ED RN W/OE and Tasks Member Role: Primary Care Nurse Name: Lela Mcintyre RN Position: [facility] SN RN Member Role: Primary Care Nurse Name: Charisse Chris RN Position: [facility] SN RN Member Role: Primary Care Nurse Name: Omar Henning RN Position: [facility] RN Member Role: Primary Care Nurse Name: Marlyn Evans NP Position: [facility] Associate Professional Member Role: Primary Care Nurse Address: Address: [address] [place] [address]- [place] Name: Junie Kenny RN Position: [facility] RN Member Role: Primary Care Nurse Name: Jayla De RN Position: [facility] RN Member Role: Primary Care Nurse Name: Shea Stevens RN Position: [facility] ED RN W/OE and Tasks Member Role: Primary Care Nurse Name: Margarita Bain RN Position: [facility] SN RN Member Role: Primary Care Nurse Name: Yady Tanner RN Position: [facility] RN Member Role: Primary Care Nurse Name: Omar Rutledge RN Position: [facility] ED RN W/OE and Tasks Member Role: Primary Care Nurse Name: Rashmi Mendez RN Position: [facility] OB RN Member Role: Primary Care Nurse Name: Omar John RN Position: [facility] RN Member Role: Primary Care Nurse Name: Jayla Lai RN Position: [facility] RN Member Role: Primary Care Nurse Name: Pricilla Hendricks RN Position: [facility] RN Member Role: Primary Care Nurse Name: Zabrina Beck RN Position: [facility] RN Member Role: Primary Care Nurse Name: Juan Alvarado DO Position: [facility] Physician - Primary Care Member Role: PCP Address: Address: [address] [place] [address]- [place] Name: Sophie Luciano RN Position: [facility] SN RN Member Role: Primary Care Nurse Name: Trace Elliott RN Position: [facility] SN RN Member Role: Primary Care Nurse Name: Ashley Langley RN Position: [facility] ED RN W/OE and Tasks Member Role: Primary Care Nurse Name: Flora Gonzalez RN Position: [facility] [employer]serter Member Role: Primary Care Nurse Name: Mary Anne Simons RN Position: [facility] RN Member Role: Primary Care Nurse Name: Viktor RN, Lela Stark Position: [facility] Onco RN Member Role: Primary Care Nurse Name: Estela Che RN Position: [facility] RN Member Role: Primary Care Nurse Name: Lisandra Gan RN Position: [facility] [place] [employer] Inserter Member Role: Primary Care Nurse Name: Ottoniel RN, Bia Position: [facility] [employer] [employer]ter Member Role: Primary Care Nurse Name: Everton Cosby RN Position: [facility] SN RN Member Role: Primary Care Nurse Care Team Related Persons Name: ARIEL CHRISTY Address: home [address] [place] [address] Name: ARIEL CHRISTY Address: home [address] [place] [address] Name: MARIBEL CHRISTY Address: [place] [address] Name: NURY TREJO Address: home [address] [place] [id number] Name: NURY WOLFE Address: [place] [address]
--- OUTSIDE RECORDS SUMMARY | 2023-05-29 06:06 | XMS_ITS | Continuity of Care Document ---
Author Name Unknown Organization [facility] Address [address] [place] [address]- Care Team Providers Care Driller And Broacher Name Role Phone Luzma SENIOR, Carlos Gaston Primary Care Physician Encounter [facility] [place] Date(s): 04/04/21 - 05/04/21 [facility] [address] [place] [address]- Allergies, Adverse Reactions, Alerts Substance Reaction Severity [...] Eric rded influenza virus vaccine, inactivated 06/12/19 Reic rded influenza virus vaccine, inactivated 1 08/18/18 [...] Comment: [08/18/2018] [facility]: [id number] 2Result Comment: [05/29/2017] [facility]:[id number] 3Admin Note: [facility] clinic, date approx per patient 4Admin Note: VIM given dated 03/14/10 MULIT 5Result Comment: [08/18/2018] [facility]: 32850-669-28 6Admin Note: VIM GIVIN 08/20/06 # 3 [...] 13:48:36 EDT, Aerosol, Route to Pharmacy Electronically, [id number], [facility], Compound Start [...] to Left arm [facility]:[id number] Lot:[id number] Exp: 07/23, # 1 mL, 0 Refills, Maintenance, 04/13/19 14:55:41 EDT, Solution Start Date: 04/13/19 Status: Ordered Cyanocobalamin 1000 mcg/mL injection = 1,000 mcg, Intramuscular, Left deltoid IM. Pt tolerated well. Office Supplied Medication [facility] [id number] Lot [id number] Exp 08/2020, # 1 mL, [...] Refills 0, Tot. Refills 0, Maintenance, 16 Turkish Ayhtp-Djlxfm-Wodzx J tube, transgastric, 02/20/21 9:48:00 EDT, Supply [...] Replace Required Details, Route to Pharmacy Electronically, [id number], [facility] Start Date: 05/18/17 Status: Ordered Vitamin [...] of lower extremity(Confirmed) Active *[facility] [phone] CARE MANAG LUANN GREGORY(Confirmed) Active Pruritus with [...]
--- OUTSIDE RECORDS SUMMARY | 2023-05-29 06:06 | XMS_ITS | Continuity of Care Document ---
Author Name Unknown Organization [facility] Address [address] [place] [address]- Care Team Providers Care Call Center Team Leader Name Role Phone Luzma SENIOR, Carlos Gaston Primary Care Physician [place] [facility] [place] 05/25[place]21 - 06/29/21 [facility] [address] [place] [address]- Attending Physician: James Hunter MD Allergies, Adverse Reactions, Alerts Substance Reaction [...] term) 9 06/23/06 Given 1Result Comment: [08/18/2018] [facility]: [id number] 2Result Comment: [05/29/2017] [facility]:[id number] 3Admin [facility], date approx per patient 4Admin Note: VIM given dated 03/14/10 MULIT 5Result Comment: [08/18/2018] [facility]: [id number] 6Admin Note: VIM GIVIN 08/20/06 # 3 [...] 13:48:36 EDT, Aerosol, Route to Pharmacy Electronically, [id number], [facility], Compound Start [...] 30 days, IM injection to Left arm [facility]:64921-108-01 Lot:[id number] Exp: 07/23, # 1 mL, 0 Refills, Maintenance, 04/13/19 14:55:41 EDT, Solution Start Date: 04/13/19 Status: Ordered Cyanocobalamin 1000 mcg/mL injection = 1,000 mcg, Intramuscular, Left deltoid IM. Pt tolerated well. Office Supplied Medication [facility] [id number] Lot [id number] Exp 08/2020, # 1 mL, [...] 0, Tot. Refills 0, Maintenance, 16 Armenian Ntuuz-Rerzxs-Kznlv J tube, transgastric, 02/20/21 9:48:00 EDT, Supply [...] Refills, Maintenance, 02/14/20 16:00:00 EDT, [facility], 165, cm, 12/29/19 14:57:00 EDT, Height, 128.1, kg, 04/08/19 8:08:00 EDT, Dry Weight Start Date: 02/14/20 Status: Ordered traZODone 100 mg oral tablet See Instructions, 1 - 2 tablet By Mouth at bedtime 30 days, # 60 tablet, Refills 0, Tot. Refills 0,Maintenance, 05/18/17 15:31:13 EDT, Instructions Replace Required Details, Route to Pharmacy Electronically, [id number], [facility] Start Date: 05/18/17 Status: Ordered Vitamin D3 1000 intl units oral tablet 1 tablet, By Mouth, Daily, WITH FOOD., # 90 Unknown, 3 Refills, Maintenance, 02/14/21 15:18:00 EDT,[facility], 165.1, cm, 01/24/21 11:40:00 EDT, [...] Active *[facility] [phone] CARE MANAG MEME GREGORY(Confirmed) Active Pruritus with [...]
--- OUTSIDE RECORDS SUMMARY | 2023-05-29 06:06 | XMS_ITS | Continuity of Care Document ---
Author Name Unknown Organization [facility] Address [address] [place] [address]- Care Team Providers Care Assistant Plant Controller Name Role Phone Juan Alvarado DO Primary Care Physician [phone] [place] [facility] [place] 11[place]/22 [facility] [address] [place] [address]- Attending Physician: Admtr, Ar8 Allergies, Adverse Reactions, [...] Given 1Result Comment: [08/18/2018] [facility]: [id number] 2Result Comment: [05/29/2017] [facility]:[id number] 3[facility] 4Admin Note: VIM given dated 03/14/10 MULIT 5Result Comment: [08/18/2018] [facility]: [id number] 6Admin Note: VIM GIVIN 08/20/06 # 3 [...] 13:48:36 EDT, Aerosol, Route to Pharmacy Electronically, [id number], [facility], Compound Start [...] days, IM injection to Left arm [facility]:[id number] Lot:[id number] Exp: 07/23, # 1 mL, 0 Refills, Maintenance, 04/13/19 14:55:41 EDT, Solution Start Date: 04/13/19 Status: Ordered Cyanocobalamin 1000 mcg/mL injection = 1,000 mcg, Intramuscular, Left deltoid IM. Pt tolerated well. Office Supplied Medication [facility] 3140-7699-18 Lot [id number] Exp 08/2020, # 1 mL, [...] EST, Route to Pharmacy Electronically, [facility], Partial fill upon patient request if the prescription is for a ginger... Start Date: 08/02/22 Status: Ordered J-tube J-tube, See Instructions, # 1 each, Refills 0, Tot. Refills 0, Maintenance, 16 Ukrainian Xytks-Xmvjtj-Nwlrx J tube, transgastric, 02/20/21 9:48:00 EDT, Supply Start Date: 02/20/21 Status: Ordered Jantoven 5 mg oral tablet 1 tablet, By Mouth, Daily, for 30 days, OR DIRECTED BY COUMADIN CLINIC NURSE., # 30 tablet, 11 Refills, Physician Stop 08/29/23 8:30:00 EST, 09/03/22 8:30:00 EST, [facility], 165, cm, 08/28/22 10:52:00 EST, [...] Maintenance, 07/03/22 9:21:00 EST, Syrup, [facility], Partial fill upon patient request [...] Refills, Maintenance, 02/14/20 16:00:00 EDT, [facility], 165, cm, 12/29/19 14:57:00 EDT, Height, 128.1, kg, 04/08/19 8:08:00 EDT, Dry Weight Start Date: 02/14/20 Status: Ordered traZODone 100 mg oral tablet See Instructions, 1 - 2 tablet By Mouth at bedtime 30 days, # 60 tablet, Refills 0, Tot. Refills 0,Maintenance, 05/18/17 15:31:13 EDT, Instructions Replace Required Details, Route to Pharmacy Electronically, [id number], [facility] Start Date: 05/18/17 Status: Ordered Trulicity Pen 0.75 mg/0.5 mL subcutaneous solution INJECT 0.5ML INTO THE SKIN EVERY 7 DAYS Start Date: 10/08/22 Status: Ordered Vitamin D3 1000 intl units oral tablet 1 tablet, By Mouth, Daily, WITH FOOD., # 90 tablet, 1 Refills, Maintenance, 07/18/22 16:49:00 EST, [facility], 165, cm, 03/18/22 14:23:00 EDT, [...] Neuropathic pain of lower extremity Confirmed Active *[facility] [phone] HAND CULTIVATOR MEME BRI Confirmed Active Pruritus with morphine Confirmed Active [...] VERIFY Event Display: Patient Education/Instruction Authored Date: [id number] [facility] BMP PV Family Clinical Summary Person Information Visit Date 04/26/2016 3:00 PM Name JACK CHRISTY Age 36 Years 1980 12:00 AM PCP Marques [place] MD PCP Sex Female Race White Ethnicity Non-/Non- Language Libyan You can now view a summary of your hospital visit from the comfort of your home through a free online portal called RESAAS. RESAAS is a website that allows you to securely view your medical information including discharge summary, medications and follow-up visits. You can also send a secure electronic message to your doctor???s office to request appointments, renew medicationsor just ask a question. You can enroll at [email or web address] or register during your next office visit. Smoking can increase your chances of developing chronic health problems and can cause harmful effects to other family members in your house. If you smoke, you are strongly encouraged to quit. Please call the [place] Smokers??? Helpline at 5-567-GDAWNOW (or ) or log on to [email or web address] for more information. Reason for Visit: Allergy [...] patch, Topically, every 72 hours, Refills: 0 Colome (lithium 450 mg oral tablet, extended release) [...] days, Refills: 0 Nystatin Topical (nystatin topical 454231 u/gm powder) , See Instructions, Topically 3 [...] primary care provider, you may find a [facility] provider by calling [facility] at [phone]. For information about the plan of care including goals and instructions for your diagnosis, please see the patient education orders section of this document. Patient Visit Summary: Future Appointments: Follow-Up Instructions With: Address: When: friday 1:40 Comments: Patient Education Materials Additional Instructions: * Marques [place] MD: PERFORM, SIGN, VERIFY Event Display: Patient Education/Instruction Authored Date: [id number] [facility] BMP PV Family Clinical Summary Person Information Visit Date 04/26/2016 3:00 PM Name JACK CHRISTY Age 36 Years 1980 12:00 AM PCP Marques [place] MD PCP Sex Female Race White Ethnicity Non-/Non- Language Libyan You can now view a summary of your hospital visit from the comfort of your home through a free online portal called RESAAS. RESAAS is a website that allows you to securely view your medical information including discharge summary, medications and follow-up visits. You can also send a secure electronic message to your doctor???s office to request appointments, renew medicationsor just ask a question. You can enroll at [email or web address] or register during your next office visit. Smoking can increase your chances of developing chronic health problems and can cause harmful effects to other family members in your house. If you smoke, you are strongly encouraged to quit. Please call the [place] Smokers??? Helpline at 2-791-NWXA-NOW (or ) or log on to [email or web address] for more information. Reason for Visit: Allergy [...] patch, Topically, every 72 hours, Refills: 0 Colome (lithium 450 mg oral tablet, extended release) [...] days, Refills: 0 Nystatin Topical (nystatin topical 054389 u/gm powder) , See Instructions, Topically 3 [...] primary care provider, you may find a [facility] provider by calling [facility] at [phone]. For information about the plan of care [...] Event Display: Radiology Results Scanned Authored Date: [id number] * Pricila Vargas: PERFORM Event Display: Radiology Results Scanned Authored Date: [id number] * Cleggett, Pricila: PERFORM Event Display: Radiology Results Scanned Authored Date: [facility] XR Chest Views * Event Display: X-Ray [...] RN Position: [facility] RN Member Role: Primary Care Nurse Name: Radha Woods RN Position: [facility] RN Member Role: Primary Care Nurse Name: Larissa Pino RN Position: [facility] ED RN W/OE and Tasks Member Role: Primary Care Nurse Name: Lela Mcintyre RN Position: [facility] RN Member Role: Primary Care Nurse Name: Charisse Chris RN Position: [facility] SN RN Member Role: Primary Care Nurse Name: Omar Henning RN Position: [facility] RN Member Role: Primary Care Nurse Name: Marlyn Evans NP Position: [facility] Associate Professional Member Role: Primary Care Nurse Address: Address: [address] [place] [address]- Name: Junie Kneny RN Position: [facility] RN Member Role: Primary Care Nurse Name: Jayla De RN Position: [facility] RN Member Role: Primary Care Nurse Name: Shea Stevens RN Position: [facility] RN Member Role: Primary Care Nurse Name: Margarita Bain RN Position: [facility] SN RN Member Role: Primary Care Nurse Name: Yady Tanner RN Position: [facility] RN Member Role: Primary Care Nurse Name: Maty RNOmar Position: [facility] RN Member Role: Primary Care Nurse Name: Rashmi Mendez RN Position: [facility] OB RN Member Role: Primary Care Nurse Name: Omar John RN Position: [facility] RN Member Role: Primary Care Nurse Name: Jayla Lai RN Position: [facility] RN Member Role: Primary Care Nurse Name: Pricilla Hendricks RN Position: [facility] RN Member Role: Primary Care Nurse Name: Zabrina Beck RN Position: [facility] RN Member Role: Primary Care Nurse Name: Juan Alvarado DO Position: [facility] Primary Care Physician Member Role: PCP Address: Address: [address] [place] [id number] [[email or web address]] Name: Sophie Luciano RN Position: [facility] SN RN Member Role: Primary Care Nurse Name: Trace Elliott RN Position: [facility] SN RN Member Role: Primary Care Nurse Name: Ashley Langley RN Position: [facility] ED RN W/OE and Tasks Member Role: Primary Care Nurse Name: Flora Gonzalez RN Position: [facility] Centrifuge Operator Member Role: Primary Care Nurse Name: Ronak RNMary Anne Position: [facility] RN Member Role: Primary Care Nurse Name: Lela Hoang RN Position: [facility] Onco RN Member Role: Primary Care Nurse Name: Estela Che RN Position: [facility] RN Member Role: Primary Care Nurse Name: Lisandra Gan RN Position: [facility] Centrifuge Operator Member Role: Primary Care Nurse Name: Bia Alcazar RN Position: [facility] Centrifuge Operator Member Role: Primary Care Nurse Name: Everton Cosby RN Position: [facility] SN RN Member Role: Primary Care Nurse Care Team Related Persons Name: WESTLEYARIEL Address: home [address] [place] [address] Name: ARIEL CHRISTY Address: [address] [place] [address] Name: MARIBEL CHRISTY Address: [place] [address] Name: NURY TREJO Address: home [address] [place] [address] Name: NURY WOLFE Address: [place] [address]
--- OUTSIDE RECORDS SUMMARY | 2023-05-29 06:06 | XMS_ITS | Continuity of Care Document ---
Author Name Unknown Organization [facility] Address [address] [place] [address]- Care Team Providers Care Human Resources Receptionist Name Role Phone Tresa SENIOR, Hannah Mccoy Primary Care Physician [phone] Encounter [facility] Date(s): 02/28/22 - 03/30/22 [facility] Adult [address] [place] [address]- Allergies, Adverse Reactions, Alerts Substance Reaction Severity [...] 1Result Comment: [08/18/2018] [facility]: 63306-045-35 2Result Comment: [05/29/2017] [facility]:87261-259-84 3Admin Note: [facility] clinic, date approx per patient 4Admin Note: VIM given dated 03/14/10 MULIT 5Result Comment: [08/18/2018] [facility]: 31431-894-38 6Admin Note: VIM GIVIN 08/20/06 # 3 [...] 13:48:36 EDT, Aerosol, Route to Pharmacy Electronically, [id number], [facility], Compound Start [...] to Left arm [facility]:12918-579-04 Lot:[id number] Exp: 07/23, # 1 mL, 0 Refills, Maintenance, 04/13/19 14:55:41 EDT, Solution Start Date: 04/13/19 Status: Ordered Cyanocobalamin 1000 mcg/mL injection = 1,000 mcg, Intramuscular, Left deltoid IM. Pt tolerated well. Office Supplied Medication [facility] 7065-0698-05 Lot [id number] Exp 08/2020, # 1 mL, [...] Refills 0, Tot. Refills 0, Maintenance, 16 Guinean Yqddf-Wbhqyn-Qaiwk J tube, transgastric, 02/20/21 9:48:00 EDT, Supply [...] Replace Required Details, Route to Pharmacy Electronically, [id number], [facility] Start Date: 05/18/17 Status: Ordered Vitamin [...] Active Neuropathic pain of lower extremity(Confirmed) Active *[facility] [phone] CARE MANAG ER MEME LEDEZMADORON(Confirmed) Active Pruritus with morphine(Confirmed) Active Pulmonary embolus(Confirmed) [...] Personnel Name: Hannah Gtz NP Address: [address] [place], [place] [address]
--- OUTSIDE RECORDS SUMMARY | 2023-05-29 06:06 | XMS_ITS | Continuity of Care Document ---
Author Name Unknown Organization [facility] Address [address] [place] [address]- Care Team Providers Care Linter Saw Sharpener Name Role Phone Juan Alvarado DO Primary Care Physician [place] [facility] [place] 11/13/22 - 12/13/22 [facility] [address] [place] [address]- Allergies, Adverse Reactions, Alerts Substance Reaction Severity [...] 1Result Comment: [08/18/2018] [facility]: 03039-253-48 2Result Comment: [05/29/2017] [facility]:75173-963-90 3[facility]x per patient 4Admin Note: VIM given dated 03/14/10 MULIT 5Result Comment: [08/18/2018] [facility]: 16957-792-97 6Admin Note: VIM GIVIN 08/20/06 # 3 [...] 13:48:36 EDT, Aerosol, Route to Pharmacy Electronically, [id number], [facility], Compound Start [...] to Left arm [facility]:71811-680-11 Lot:[id number] Exp: 07/23, # 1 mL, 0 Refills, Maintenance, 04/13/19 14:55:41 EDT, Solution Start Date: 04/13/19 Status: Ordered Cyanocobalamin 1000 mcg/mL injection = 1,000 mcg, Intramuscular, Left deltoid IM. Pt tolerated well. Office Supplied Medication [facility] 0838-3295-12 Lot [id number] Exp 08/2020, # 1 mL, [...] Refills 0, Tot. Refills 0, Maintenance, 16 Maori Ofvdr-Csxsty-Tflnk J tube, transgastric, 02/20/21 9:48:00 EDT, Supply Start Date: 02/20/21 Status: Ordered Jantoven 5 mg oral tablet 1 tablet, By Mouth, Daily, for 30 days, OR DIRECTED BY COUMADIN CLINIC NURSE., # 30 tablet, 11 Refills, Physician Stop 08/29/23 8:30:00 EST, 09/03/22 8:30:00 EST, [facility], 165, cm, 08/28/22 10:52:00 EST, [...] Replace Required Details, Route to Pharmacy Electronically, [id number], [facility] Start Date: 05/18/17 Status: Ordered Trulicity [...] Neuropathic pain of lower extremity Confirmed Active *[facility] [phone] MANAGER TELECOM MEME HARDINBonnie Confirmed Active Pruritus with morphine [...] Team Personnel Name: Renea Thayer RN Position: [facility] RN Member Role: Primary Care Nurse Name: Radha Woods RN Position: [facility] RN Member Role: Primary Care Nurse Name: Larissa Pino RN Position: [facility] ED RN W/OE and Tasks Member Role: Primary Care Nurse Name: Lela Mcintyre RN Position: [facility] SN RN Member Role: Primary Care Nurse Name: Charisse Chris RN Position: [facility] RN Member Role: Primary Care Nurse Name: Omar Henning RN Position: [facility] RN Member Role: Primary Care Nurse Name: Marlyn Evans NP Position: [facility] Associate Professional Member Role: Primary Care Nurse Address: Address: [address] [place] [address] Name: Junie Kenny RN Position: [facility] RN Member Role: Primary Care Nurse Name: Jayla De RN Position: [facility] RN Member Role: Primary Care Nurse Name: Shea Stevens RN Position: [facility] RN Member Role: Primary Care Nurse Name: Margarita Bain RN Position: [facility] SN RN Member Role: Primary Care Nurse Name: Yady Tanner RN Position: [facility] RN Member Role: Primary Care Nurse Name: Omar Rutledge RN Position: [facility] RN Member Role: Primary Care Nurse Name: Rashmi Mendez RN Position: [facility] OB RN Member Role: Primary Care Nurse Name: Omar John RN Position: [facility] RN Member Role: Primary Care Nurse Name: Jayla Lai RN Position: [facility] RN Member Role: Primary Care Nurse Name: Pricilla Hendricks RN Position: [facility] RN Member Role: Primary Care Nurse Name: Zabrina Beck RN Position: [facility] RN Member Role: Primary Care Nurse Name: Juan Alvarado DO Position: [facility] Primary Care Physician Member Role: PCP Address: Address: [address] [place] [address] Name: Sophie Luciano RN Position: [facility] SN RN Member Role: Primary Care Nurse Name: Trace Elliott RN Position: [facility] SN RN Member Role: Primary Care Nurse Name: Ashley Langley RN Position: [facility] ED RN W/OE and Tasks Member Role: Primary Care Nurse Name: Flora Gonzalez RN Position: [facility] Member Role: Primary Care Nurse Name: Mary Anne Simons RN Position: [facility] RN Member Role: Primary Care Nurse Name: Lela Hoang RN Position: [facility] Onco RN Member Role: Primary Care Nurse Name: Estela Che RN Position: [facility] RN Member Role: Primary Care Nurse Name: Lisandra Gan RN Position: [facility] Member Role: Primary Care Nurse Name: Bia Alcazar RN Position: [facility] Member Role: Primary Care Nurse Name: Harjeet ZHENG [place] Position: [facility] SN RN Member Role: Primary Care Nurse Care Team Related Persons Name: ARIEL CHRISTY Address: [place] [address] Name: ARIEL CHRISTY Address: home [address] [place] [address] Name: MARIBEL CHRISTY Address: [place] [address] Name: NURY TREJO Address: [address] [place] [address] Name: NURY WOLFE Address: [place] [address]
--- OUTSIDE RECORDS SUMMARY | 2023-05-29 06:06 | XMS_ITS | Continuity of Care Document ---
Author Name Unknown Organization [facility] Address [address] [place] [address]- Care Team Providers Care Bridal Service Sales And Management Name Role Phone Luzma SENIOR, Carlos Gaston Primary Care Physician [phone] [place] [facility] 06/15/21 - 07/15/21 [facility] [address] [place] [address]- Allergies, Adverse Reactions, Alerts Substance Reaction Severity [...] influenza virus vaccine, inactivated 4 07/19/10 Gi nevni influenza virus vaccine, inactivated 04/20/09 Give n tetanus/diphtheria/pertussis, acel(Tdap) 5 08/18/18 Given pneumococcal 23-valent vaccine 02/12/14 Given Human Papillomavirus Vaccine 6 06/30/07 Given Human Papillomavirus Vaccine 03/02/07 Given Human Papillomavirus Vaccine 7 01/01/07 Given Influenza Inactive (IM) (oldterm) 8 06/12/07 Given Hepatitis B Vaccine (old term) 9 06/23/06 Given 1Result Comment: [08/18/2018] [facility]: [id number] 2Result Comment: [05/29/2017] [facility]:[id number] 3Admin Note: [facility] clinic, date approx per patient 4Admin Note: VIM given dated 03/14/10 MULIT 5Result Comment: [08/18/2018] [facility]: [id number] 6Admin Note: VIM GIVIN 08/20/06 # 3 [...] 13:48:36 EDT, Aerosol, Route to Pharmacy Electronically, [id number], [facility], Compound Start [...] 30 days, IM injection to Left arm [facility]:71921-573-67 Lot:[id number] Exp: 07/23, # 1 mL, 0 Refills, Maintenance, 04/13/19 14:55:41 EDT, Solution Start Date: 04/13/19 Status: Ordered Cyanocobalamin 1000 mcg/mL injection = 1,000 mcg, Intramuscular, Left deltoid IM. Pt tolerated well. Office Supplied Medication [facility] 7185-8270-21 Lot [id number] Exp 08/2020, # 1 mL, [...] Refills 0, Tot. Refills 0, Maintenance, 16 Sinhala Ubpdw-Zrrrho-Nnhec J tube, transgastric, 02/20/21 9:48:00 EDT, Supply [...] Replace Required Details, Route to Pharmacy Electronically, [id number], [facility] Start Date: 05/18/17 Status: Ordered Vitamin D3 1000 intl units oral tablet 1 tablet, By Mouth, Daily, WITH FOOD., # 90 Unknown, 3 Refills, Maintenance, 02/14/21 15:18:00 EDT,[facility], 165.1, cm, 01/24/21 11:40:00 EDT, [...] pain of lower extremity(Confirmed) Active *[facility] [phone] CARE MANAG ER MEME GREGORY(Confirmed) Active Pruritus [...]
--- OUTSIDE RECORDS SUMMARY | 2023-05-29 06:07 | XMS_ITS | Continuity of Care Document ---
Author Name Unknown Organization [facility] Address [address] [place] [address]- Care Team Providers Care Lighter Name Role Phone Tresa SENIOR, Hannah Primary Care Physician [phone] Encounter [facility] Date(s): 07/02/22 - 08/01/22 [facility] [address] [place] [address]- Allergies, Adverse Reactions, Alerts Substance Reaction Severity [...] term) 9 06/23/06 Given 1Result Comment: [08/18/2018] [facility]: [id number] 2Result Comment: [05/29/2017] [facility]:[id number] 3Admin Note: [facility] clinic, date approx per patient 4Admin Note: VIM given dated 03/14/10 MULIT 5Result Comment: [08/18/2018] [facility]: [id number] 6Admin Note: VIM GIVIN 08/20/06 # 3 [...] 13:48:36 EDT, Aerosol, Route to Pharmacy Electronically, [id number], [facility], Compound Start [...] 30 days, IM injection to Left arm [facility]:91135-348-87 Lot:[id number] Exp: 07/23, # 1 mL, 0 Refills, Maintenance, 04/13/19 14:55:41 EDT, Solution Start Date: 04/13/19 Status: Ordered Cyanocobalamin 1000 mcg/mL injection = 1,000 mcg, Intramuscular, Left deltoid IM. Pt tolerated well. Office Supplied Medication [facility] 2546-8236-87 Lot [id number] Exp 08/2020, # 1 mL, [...] 0, Tot. Refills 0, Maintenance, 16 Tajik Jnqoi-Kvgpdg-Aajlq J tube, transgastric, 02/20/21 9:48:00 EDT, Supply [...] opioid drug... Start Date: 07/03/22 Status: Ordered propranolol 60 mg oral capsule, [...] Replace Required Details, Route to Pharmacy Electronically, [id number], [facility] Start Date: 05/18/17 Status: Ordered Vitamin [...] Confirmed Active Chronic colitis Confirmed Active Chronic use of opiate drugs therapeutic purposes Confirmed 10/28/13 Active Self-catheterizes urinary bladder Confirmed Active Vitamin B 12 deficiency Confirmed Active [...] pain of lower extremity Confirmed Active *[facility] [phone] [facility] CUT[facility] MEME GREGORY Confirmed Active Pruritus with morphine Confirmed Active Pulmonary embolus 1 Confirmed Active Recurrent UTI Confirmed Active Reflex sympathetic dystrophy Confirmed Active Dry heaves Confirmed Active Urinary retention Confirmed Active Urinary retention Confirmed Active Sepsis Confirmed Active Severe obesity Confirmed Active Sleep-disordered breathing Confirmed Active Feeding by G-tube Confirmed Active Suprapubic catheter Confirmed Active 1unprovoked PE 2014, heme recommended lifelong anticogulation due to high-risk of recurrence Social History Social History Type Response Smoking Status Former smoker; Other : quit few months ago; entered on: 02/15/15 Sex Female Patient Care team information Care Team Personnel Name: Renea Thayer RN Position: [facility] RN Member Role: Primary Care Nurse Name: Radha Woods RN Position: [facility] SN RN Member Role: Primary Care Nurse Name: Larissa Pino RN Position: [facility] ED RN W/OE and Tasks Member Role: Primary Care Nurse Name: Lela Mcintyre RN Position: [facility] SN RN Member Role: Primary Care Nurse Name: Charisse Chris RN Position: [facility] SN RN Member Role: Primary Care Nurse Name: Omar Henning RN Position: [facility] RN Member Role: Primary Care Nurse Name: Marlyn Evans NP Position: [facility] Associate Professional Member Role: Primary Care Nurse Address: Address: [address] [place] [address] Name: Junie Kenny RN Position: [facility] RN Member Role: Primary Care Nurse Name: Jayla De RN Position: [facility] RN Member Role: Primary Care Nurse Name: Shea Stevens RN Position: [facility] ED RN W/OE and Tasks Member Role: Primary Care Nurse Name: Margarita Bain RN Position: [facility] SN RN Member Role: Primary Care Nurse Name: Yady Tanner RN Position: [facility] RN Member Role: Primary Care Nurse Name: Omar Rutledge RN Position: [facility] RN Member Role: Primary Care Nurse Name: Rashmi Mendez RN Position: [facility] OB RN Member Role: Primary Care Nurse Name: Omar John RN Position: [facility] RN Member Role: Primary Care Nurse Name: Jayla Lai RN Position: [facility] RN Member Role: Primary Care Nurse Name: Pricilla Hendricks RN Position: [facility] RN Member Role: Primary Care Nurse Name: Hannah Gtz NP Position: [facility] PCO Associate Professional Member Role: PCP Address: Address: [address] [place] [address] [place], [place] [address] Name: Zabrina Beck RN Position: [facility] RN Member Role: Primary Care Nurse Name: Sophie Luciano RN Position: [facility] SN RN Member Role: Primary Care Nurse Name: Trace Elliott RN Position: [facility] SN RN Member Role: Primary Care Nurse Name: Ashley Langley RN Position: [facility] ED RN W/OE and Tasks Member Role: Primary Care Nurse Name: Flora Gonzalez RN Position: [facility] Road Equipment Operator Member Role: Primary Care Nurse Name: Mary Anne Simons RN Position: [facility] RN Member Role: Primary Care Nurse Name: Lela Hoang RN Position: [facility] Onco RN Member Role: Primary Care Nurse Name: Estela Che RN Position: [facility] RN Member Role: Primary Care Nurse Name: Lisandra Gan RN Position: [facility] Road Equipment Operator Member Role: Primary Care Nurse Name: Bia Alcazar RN Position: [facility] Road Equipment Operator Member Role: Primary Care Nurse Name: Harjeet RN [place] Position: [facility] SN RN Member Role: Primary Care Nurse Care Team Related Persons Name: ARIEL CHRISTY Address: home [address] [place] [address] Name: ARIEL CHRISTY Address: home [address] [place] [address] Name: MARIBEL CHRISTY Address: [place] [address] Name: NURY TREJO Address: home [address] [place] [address] Name: NURY WOLFE Address: [place] [address]
--- OUTSIDE RECORDS SUMMARY | 2023-05-29 06:07 | XMS_ITS | Continuity of Care Document ---
Author Name Unknown Organization [facility] Address [address] [place] [address]- Care Team Providers Care Cad Intern Name Role Phone Luzma SENIOR, Carlos Gaston Primary Care Physician [phone] Encounter [facility] Date(s): 03/21/21 - 03/28/21 [facility] [address] [place] [address]- Encounter Diagnosis Gastrostomy tube in place(Discharge Diagnosis) - 03/25/21 Parastomal hernia(Discharge Diagnosis) - 03/25/21 Attending Physician: Tahmina AVALOS, [place] Referring Physician: Carlos Segal NP Allergies, Adverse Reactions, Alerts Substance Reaction Severity Status cephalosporins 1 Hives Active sulfa drugs Hives Active Lovenox hives Active 1Patient tolerated Zosyn in ED as demonstrated during April 2015 admission. Immunizations Given and Recorded Vaccine Date Status Refusal Reason influenza virus vaccine, inactivated 06/12/19 Eric rded [...] [08/18/2018] [facility]: [id number] 2Result Comment: [05/29/2017] [facility]:[id number] 3Admin Note: [facility] clinic, date approx per patient 4Admin Note: VIM given dated 03/14/10 MULIT 5Result Comment: [08/18/2018] [facility]: [id number] 6Admin Note: VIM GIVIN 08/20/06 # 3 [...] 13:48:36 EDT, Aerosol, Route to Pharmacy Electronically, [id number], [facility], Compound Start [...] Left arm [facility]:01501-290-26 Lot:[id number] Exp: 07/23, # 1 mL, 0 Refills, Maintenance, 04/13/19 14:55:41 EDT, Solution Start Date: 04/13/19 Status: Ordered Cyanocobalamin 1000 mcg/mL injection = 1,000 mcg, Intramuscular, Left deltoid IM. Pt tolerated well. Office Supplied Medication [facility] 2275-9366-80 Lot 9038 Exp 08/2020, # 1 mL, [...] G tube change 6Fr with 5cc baloon, 07/05/20 11:59:00 EST, Supply Start Date: 07/05/20 Status: Ordered J-tube J-tube, See Instructions, # 1 each, Refills 0, Tot. Refills 0, Maintenance, 16 Estonian Lkzvm-Iqvlus-Bymjk J tube, transgastric, 02/20/21 9:48:00 EDT, Supply [...] EDT, Compound Start Date: 11/21/17 Status: Ordered Sublocade 100 mg/0.5 mL subcutaneous [...] Replace Required Details, Route to Pharmacy Electronically, [id number], [facility] Start Date: 05/18/17 Status: Ordered Vitamin [...] Active Neuropathic pain of lower extremity(Confirmed) Active *[facility] [phone] CARE MANAG ER MEME GREGORY(Confirmed) Active Pruritus with morphine(Confirmed) Active Recurrent UTI(Confirmed) Active Reflex sympathetic dystrophy(Confirmed) Active Dry heaves(Confirmed) Active Urinary retention(Confirmed) Active Urinary retention(Confirmed) Active Sepsis(Confirmed) Active Sleep-disordered breathing(Confirmed) Active Feeding by G-tube(Confirmed) Active Suprapubic catheter(Confirmed) Active Diagnosis Diagnosis Type Effective Dates Health Status Clinical Service Informant Gastrostomy tube in place Discharge Diagnosis 03/25/21 Parastomal hernia Discharge Diagnosis 03/25/21 Vital Signs Most recent to oldest [Reference Range]: 1 Height 165.1 cm (03/21/21 1:47 PM) Weight 133.5 kg (03/21/21 1:47 PM) Body Mass Index [18.5-24.99] 48.98 *>HHI* (03/21/21 1:47 PM) Blood pressure sites Arm, left (03/21/21 1:47 PM) Weight Obtained Via Standing scale (03/21/21 1:47 PM) Social History Social History Type Response Smoking Status Former smoker; Other : quit few months ago; entered on: 02/15/15 Sex
--- OUTSIDE RECORDS SUMMARY | 2023-05-29 06:07 | XMS_ITS | Continuity of Care Document ---
Author Name Unknown Organization [facility] Address [address] [place] [address]- Care Team Providers Care Resaw Carriage Operator Name Role Phone Luzma SENIOR, Carlos Gaston Primary Care Physician [phone] Encounter [facility] Date(s): 04/03/21 - 05/03/21 [facility] [address] [place] [address]- Allergies, Adverse Reactions, Alerts Substance Reaction Severity [...] Given 1Result Comment: [08/18/2018] [facility]: [id number] 2Result Comment: [05/29/2017] [facility]:[id number] 3Admin Note: [facility] clinic, date approx per patient 4Admin Note: VIM given dated 03/14/10 MULIT 5Result Comment: [08/18/2018] [facility]: [id number] 6Admin Note: VIM GIVIN 08/20/06 # 3 [...] 13:48:36 EDT, Aerosol, Route to Pharmacy Electronically, [id number], [facility], Compound Start [...] injection to Left arm [facility]:34767-526-93 Lot:[id number] Exp: 07/23, # 1 mL, 0 Refills, Maintenance, 04/13/19 14:55:41 EDT, Solution Start Date: 04/13/19 Status: Ordered Cyanocobalamin 1000 mcg/mL injection = 1,000 mcg, Intramuscular, Left deltoid IM. Pt tolerated well. Office Supplied Medication [facility] 8921-4889-78 Lot 9038 Exp 08/2020, # 1 mL, [...] 0, Tot. Refills 0, Maintenance, 16 Lithuanian Wzgao-Kjsjrz-Nirol J tube, transgastric, 02/20/21 9:48:00 EDT, Supply [...] Replace Required Details, Route to Pharmacy Electronically, [id number], [facility] Start Date: 05/18/17 Status: Ordered Vitamin D3 1000 intl units oral tablet 1 tablet, By Mouth, Daily, WITH FOOD., # 90 Unknown, 3 Refills, Maintenance, 02/14/21 15:18:00 EDT,[facility], 165.1, cm, 01/24/21 11:40:00 EDT, [...] of lower extremity(Confirmed) Active *[facility] [phone] CARE MANAG ER MEME GREGORY(Confirmed) Active Pruritus [...]
--- OUTSIDE RECORDS SUMMARY | 2023-05-29 06:07 | XMS_ITS | Continuity of Care Document ---
Author Name Unknown Organization [facility] Address [address] [place] [address]- Care Team Providers Care Stick Welder Name Role Phone Juan Alvarado DO Primary Care Physician Encounter [facility] Date(s): 02/12/23 - 03/14/23 [facility] [address] [place] [address]- Allergies, Adverse Reactions, Alerts Substance Reaction Severity [...] 9 06/23/06 Given 1Result Comment: [08/18/2018] [facility]: [id number] 2Result Comment: [05/29/2017] [facility]:[id number] 3Admin Note[facility], date approx per patient 4Admin Note: VIM given dated 03/14/10 MULIT 5Result Comment: [08/18/2018] [facility]: 37279-577-46 6Admin Note: VIM GIVIN 08/20/06 # 3 [...] 13:48:36 EDT, Aerosol, Route to Pharmacy Electronically, [id number], [facility], Compound Start [...] days, IM injection to Left arm [facility]:07190-702-96 Lot:[id number] Exp: 07/23, # 1 mL, 0 Refills, Maintenance, 04/13/19 14:55:41 EDT, Solution Start Date: 04/13/19 Status: Ordered Cyanocobalamin 1000 mcg/mL injection = 1,000 mcg, Intramuscular, Left deltoid IM. Pt tolerated well. Office Supplied Medication [facility] 6664-8976-30 Lot 9038 Exp 08/2020, # 1 mL, [...] Refills 0, Tot. Refills 0, Maintenance, 16 Bahamian Tedaj-Szzjgu-Psmfs J tube, transgastric, 02/20/21 9:48:00 EDT, Supply [...] Replace Required Details, Route to Pharmacy Electronically, [id number], [facility] Start Date: 05/18/17 Status: Ordered Trulicity [...] List Condition Confirmation Course Effective Dates Status [facility] St at Informant Secondary nephrogenic diabetes [...] of lower extremity Confirmed Active *[facility] [phone] FRUIT OR NUT GROWER MEME GREGORY Confirmed Active Pruritus with morphine [...] Member Role: Primary Care Nurse Address: Address: [address] [place] [address] Name: Junie Kenny RN Position: [facility] [...] Name: Juan Alvarado DO Position: [facility] Physician - Primary Care Member Role: PCP Address: Address: [address] [place] [address]- Name: Sophie Luciano RN Position: [facility] SN RN Member Role: Primary Care Nurse Name: Trace Elliott RN Position: [facility] SN RN Member Role: Primary Care Nurse Name: Ashley Langley RN Position: [facility] ED RN W/OE and Tasks Member Role: Primary Care Nurse Name: Flora Gonzalez RN Position: [facility] Pain Management Physician Member Role: Primary Care Nurse Name: Mary Anne Simons RN Position: [facility] RN Member Role: Primary Care Nurse Name: Lela Hoang RN Position: [facility] Onco RN Member Role: Primary Care Nurse Name: Estela Che RN Position: [facility] RN Member Role: Primary Care Nurse Name: Lisandra Gan RN Position: [facility] Physician Member Role: Primary Care Nurse Name: Bia Alcazar RN Position: [facility] Physician Member Role: Primary Care Nurse Name: Everton Cosby RN Position: [facility] SN RN Member Role: Primary Care Nurse Care Team Related Persons Name: ARIEL CHRISTY Address: home [address] [place] [address] Name: ARIEL CHRISTY Address: home [address] [place] [address] Name: MARIBEL CHRISTY Address: [place] [address] Name: NURY TREJO Address: home [address] [place] [address] Name: NURY WOLFE Address: [place] [address]
--- OUTSIDE RECORDS SUMMARY | 2023-05-29 06:07 | XMS_ITS | Continuity of Care Document ---
Author Name Unknown Organization [facility] Address [address] [facility] [place] [address]- Care Team Providers Care Plastic Surgery Coordinator Name Role Phone Tresa SENIOR, Hannah Mccoy Primary Care Physician Encounter 01/09/22 - 01/16/22 [facility] [address] [facility], [address] [place] [address]- Attending Physician: Luzma SENIOR, Carlos Gaston Admitting Physician: Carlos Segal NP Referring Physician: Carlos Segal NP Allergies, Adverse [...] Comment: [08/18/2018] [facility]: 52510-303-58 2Result Comment: [05/29/2017] [facility]:98179-246-76 3Admin Note: [facility], date approx per patient 4Admin Note: VIM given dated 03/14/10 MULIT 5Result Comment: [08/18/2018] [facility]: [id number] 6Admin Note: VIM GIVIN 08/20/06 # 3 [...] 13:48:36 EDT, Aerosol, Route to Pharmacy Electronically, [id number], [facility], Compound Start Date: 04/24/18 Stop [...] to Left arm [facility]:97696-515-45 Lot:[id number] Exp: 07/23, # 1 mL, 0 Refills, Maintenance, 04/13/19 14:55:41 EDT, Solution Start Date: 04/13/19 Status: Ordered Cyanocobalamin 1000 mcg/mL injection = 1,000 mcg, Intramuscular, Left deltoid IM. Pt tolerated well. Office Supplied Medication [facility] 2528-4706-42 Lot 9038 Exp 08/2020, # 1 mL, [...] Refills 0, Tot. Refills 0, Maintenance, 16 Barbadian Lcqen-Nmdsot-Frykb J tube, transgastric, 02/20/21 9:48:00 EDT, Supply [...] Replace Required Details, Route to Pharmacy Electronically, [id number], [facility] Start Date: 05/18/17 Status: Ordered Vitamin [...] Active Neuropathic pain of lower extremity(Confirmed) Active *[facility] [phone] CARE MANAG ER MEME GREGORY(Confirmed) Active Pruritus [...]
--- OUTSIDE RECORDS SUMMARY | 2023-05-29 06:07 | XMS_ITS | Continuity of Care Document ---
Author Name Unknown Organization [facility] Address [address] [place] [address]- Care Team Providers Care Screedman/Laborer Name Role Phone Tresa SENIOR, Hannah Mccoy Primary Care Physician [facility]counter [facility] Date(s): 02/28/22 - 03/30/22 [facility] Adult [address] [place] [address]- Allergies, Adverse Reactions, Alerts Substance Reaction Severity [...] 9 06/23/06 Given 1Result Comment: [08/18/2018] [facility]: 81639-498-54 2Result Comment: [05/29/2017] [facility]:[id number] 3Admin Note: [facility] clinic, date approx per patient 4Admin Note: VIM given dated 03/14/10 MULIT 5Result Comment: [08/18/2018] [facility]: 90392-817-37 6Admin Note: VIM GIVIN 08/20/06 # 3 [...] 13:48:36 EDT, Aerosol, Route to Pharmacy Electronically, [id number], [facility], Compound Start [...] days, IM injection to Left arm [facility]:79335-937-07 Lot:[id number] Exp: 07/23, # 1 mL, 0 Refills, Maintenance, 04/13/19 14:55:41 EDT, Solution Start Date: 04/13/19 Status: Ordered Cyanocobalamin 1000 mcg/mL injection = 1,000 mcg, Intramuscular, Left deltoid IM. Pt tolerated well. Office Supplied Medication [facility] 6427-7829-33 Lot 9038 Exp 08/2020, # 1 mL, [...] Refills 0, Tot. Refills 0, Maintenance, 16 Liberian Xwhfn-Hxraxa-Dekot J tube, transgastric, 02/20/21 9:48:00 EDT, Supply [...] Replace Required Details, Route to Pharmacy Electronically, [id number], [facility] Start Date: 05/18/17 Status: Ordered Vitamin [...] Active Neuropathic pain of lower extremity(Confirmed) Active *[facility] [phone] CARE MANAG ER MEME LEDEZMADORON(Confirmed) Active Pruritus [...] Personnel Name: Hannah Gtz NP Address: [address] [place], [place] [address]
--- OUTSIDE RECORDS SUMMARY | 2023-05-29 06:07 | XMS_ITS | Continuity of Care Document ---
Author Name Unknown Organization [facility] Address [address] [place] [address]- Care Team Providers Care Joint Supervisor Name Role Phone Luzma SENIOR, Carlos Gaston Primary Care Physician Encounter [facility] Date(s): 05/18/21 - 06/17/21 [facility] [address] [place] [address]- Allergies, Adverse Reactions, Alerts Substance Reaction Severity [...] Comment: [08/18/2018] [facility]: [id number] 2Result Comment: [05/29/2017] [facility]:[id number] 3Admin Note: [facility] clinic, date approx per patient 4Admin Note: VIM given dated 03/14/10 MULIT 5Result Comment: [08/18/2018] [facility]: 61408-445-95 6Admin Note: VIM GIVIN 08/20/06 # 3 [...] 13:48:36 EDT, Aerosol, Route to Pharmacy Electronically, [id number], [facility], Compound Start [...] to Left arm [facility]:68997-959-59 Lot:[id number] Exp: 07/23, # 1 mL, 0 Refills, Maintenance, 04/13/19 14:55:41 EDT, Solution Start Date: 04/13/19 Status: Ordered Cyanocobalamin 1000 mcg/mL injection = 1,000 mcg, Intramuscular, Left deltoid IM. Pt tolerated well. Office Supplied Medication [facility] 2518-5856-93 Lot 9038 Exp 08/2020, # 1 mL, [...] 0, Tot. Refills 0, Maintenance, 16 Turkmen Decls-Dvujvy-Icbsh J tube, transgastric, 02/20/21 9:48:00 EDT, Supply [...] Replace Required Details, Route to Pharmacy Electronically, [id number], [facility] Start Date: 05/18/17 Status: Ordered Vitamin D3 1000 intl units oral tablet 1 tablet, By Mouth, Daily, WITH FOOD., # 90 Unknown, 3 Refills, Maintenance, 02/14/21 15:18:00 EDT,[facility], 165.1, cm, 01/24/21 11:40:00 EDT, [...] extremity(Confirmed) Active *[facility] [phone] CARE MANAG MEME GREGORY(Confirmed) Active Pruritus with [...]
--- OUTSIDE RECORDS SUMMARY | 2023-05-29 06:07 | XMS_ITS | Continuity of Care Document ---
Author Name Unknown Organization [facility] Address [address] [place] [address]- Care Team Providers Care Barometers Calibrator Name Role Phone Tresa SENIOR, Hannah Primary Care Physician En[place] [facility] [place] Date(s): 08/02/22 - 08/09/22 [facility] [address] [place] [address]- Encounter Diagnosis Low back pain with right-sided sciatica(Discharge Diagnosis) - 08/05/22 Attending Physician: Carlos Segal NP Allergies, Adverse [...] 1Result Comment: [08/18/2018] [facility]: 30761-508-52 2Result Comment: [05/29/2017] [facility]:84208-380-20 3[facility], date approx per patient 4Admin Note: VIM given dated 03/14/10 MULIT 5Result Comment: [08/18/2018] [facility]: 42309-811-23 6Admin Note: VIM GIVIN 08/20/06 # 3 [...] 13:48:36 EDT, Aerosol, Route to Pharmacy Electronically, [id number], [facility], Compound Start [...] injection to Left arm [facility]:[id number] Lot:[id number] Exp: 07/23, # 1 mL, 0 Refills, Maintenance, 04/13/19 14:55:41 EDT, Solution Start Date: 04/13/19 Status: Ordered Cyanocobalamin 1000 mcg/mL injection = 1,000 mcg, Intramuscular, Left deltoid IM. Pt tolerated well. Office Supplied Medication [facility] 4827-9173-95 Lot [id number] Exp 08/2020, # 1 mL, [...] Route to Pharmacy Electronically, [facility], Partial fill upon patient request if the prescription is for a ginger... Start Date: 08/02/22 Status: Ordered J-tube J-tube, See Instructions, # 1 each, Refills 0, Tot. Refills 0, Maintenance, 16 Yoruba Mgdjy-Lhnmyx-Atfkh J tube, transgastric, 02/20/21 9:48:00 EDT, Supply Start Date: 02/20/21 Status: Ordered Jantoven 5 mg oral tablet 1 tablet, By Mouth, Daily, OR DIRECTED BY COUMADIN CLINIC NURSE., # 30 tablet, 5 Refills, 03/05/22 8:34:00 EDT, [facility], 165, cm, 12/11/21 10:50:00 EDT, [...] Refills, Maintenance, 02/14/20 16:00:00 EDT, [facility], 165, cm, 12/29/19 14:57:00 EDT, Height, 128.1, kg, 04/08/19 8:08:00 EDT, Dry Weight Start Date: 02/14/20 Status: Ordered traZODone 100 mg oral tablet See Instructions, 1 - 2 tablet By Mouth at bedtime 30 days, # 60 tablet, Refills 0, Tot. Refills 0,Maintenance, 05/18/17 15:31:13 EDT, Instructions Replace Required Details, Route to Pharmacy Electronically, [id number], [facility] Start Date: 05/18/17 Status: Ordered Vitamin [...] of lower extremity Confirmed Active *[facility] [phone] [facility] GREGORY Confirmed Active Pruritus with morphine [...] Diagnosis Diagnosis Type Effective Dates Health Status inical Service Informant Low back pain with right-sided sciatica Discharge Diagnosis 08/05/22 Vital Signs Most recent to oldest [Reference Range]: 1 Height 165 cm (08/02/22 9:07 AM) Oxygen Saturation [94-100 %] 99 % (08/02/22 9:07 AM) Pulse Rate [55-90 bpm] 125 bpm *H* (08/02/22 9:07 AM) Blood Pressure [90-138/55-84 mm Hg] 117/ 79mm Hg (08/02/22 9:07 AM) Mode of Delivery (Oxygen) Room air (08/02/22 9:07 AM) Blood pressure sites Arm, right (08/02/22 9:07 AM) Social History Social History Type Response Smoking Status Former smoker; Other : quit few months ago; entered on: 02/15/15 Sex Female EKG study * Event Display: ECG 12-Lead Authored Date: Please click on pdf link to open report * Event Display: ECG 12-Lead Authored Date: Ventricular Rate: 93 BPM Atrial Rate: 93 BPM P-R Interval: 134 ms QRS Duration: 96 ms Q-T Interval: 346 ms QTC Calculation(Bazett): 430 ms P [place]: -8 degrees R [place]: 2 degrees T [place]: -1 degrees Normal sinus rhythm Normal ECG When compared with ECG of 15-APR-2016 16:47, Nonspecific T wave abnormality now evident in Lateral leads QT has shortened Confirmed by CASTILLO ZUÑIGA ([id number]) on 08/06/2022 8:09:07 PM [place]: CASTILLO ZUÑIGA Patient Care team information Care Team Personnel Name: Renea Thayer RN Position: [facility] RN Member Role: Primary Care Nurse Name: Radha Woods RN Position: [facility] SN RN Member Role: Primary Care Nurse Name: Larissa Pino RN Position: [facility] ED RN W/OE and Tasks Member Role: Primary Care Nurse Name: Lela Mcintyre RN Position: [facility] SN RN Member Role: Primary Care Nurse Name: Charisse Chris RN Position: [facility] SN RN Member Role: Primary Care Nurse Name: Omar Henning RN Position: [facility] RN Member Role: Primary Care Nurse Name: Marlyn Evans NP Position: [facility] Associate Professional Member Role: Primary Care Nurse Address: Address: [address] [place] [address] Name: Junie Kenny RN Position: [facility] RN Member Role: Primary Care Nurse Name: Jayla De RN Position: [facility] RN Member Role: Primary Care Nurse Name: Shea Stevens RN Position: [facility] ED RN W/OE and Tasks Member Role: Primary Care Nurse Name: Margarita Bain RN Position: [facility] SN RN Member Role: Primary Care Nurse Name: Yady Tanner RN Position: [facility] RN Member Role: Primary Care Nurse Name: Omar Rutledge RN Position: [facility] RN Member Role: Primary Care Nurse Name: Rashmi Mendez RN Position: [facility] OB RN Member Role: Primary Care Nurse Name: Omar John RN Position: [facility] RN Member Role: Primary Care Nurse Name: Jayla Lai RN Position: [facility] RN Member Role: Primary Care Nurse Name: Pricilla Hendricks RN Position: [facility] RN Member Role: Primary Care Nurse Name: Hannah Gtz NP Position: [facility] PCO Associate Professional Member Role: PCP Address: Address: [address] [place] [address] [place]astro[place], [place] [address] Name: Zabrina Beck RN Position: [facility] RN Member Role: Primary Care Nurse Name: Sophie Luciano RN Position: [facility] SN RN Member Role: Primary Care Nurse Name: Trace Elliott RN Position: [facility] SN RN Member Role: Primary Care Nurse Name: Ashley Langley RN Position: [facility] ED RN W/OE and Tasks Member Role: Primary Care Nurse Name: Flora Gonzalez RN Position: [facility] [employer] [facility] Member Role: Primary Care Nurse Name: Mary Anne Simons RN Position: [facility] RN Member Role: Primary Care Nurse Name: Lela Hoang RN Position: [facility] Onco RN Member Role: Primary Care Nurse Name: Estela Che RN Position: [facility] RN Member Role: Primary Care Nurse Name: Lisandra Gan RN Position: [facility] Developer Member Role: Primary Care Nurse Name: Bia Alcazar RN Position: [facility] Member Role: Primary Care Nurse Name: Duane Cosby RNe[place]apajuliet Position: [facility] SN RN Member Role: Primary Care Nurse Care Team Related Persons Name: WESTLEY ARIEL Address: home [address] [place] [address] Name: ARIEL CHRISTY Address: home [address] [place] [address] Name: MARIBEL CHRISTY Address: [place] [address] Name: NURY TREJO Address: [address] [place] [address] Name: NURY WOLFE Address: [place] [address]
--- OUTSIDE RECORDS SUMMARY | 2023-05-29 06:07 | XMS_ITS | Continuity of Care Document ---
Author Name Unknown Organization [facility] Address [address] [place] [address]- Care Team Providers Care Clinic Supervisor Name Role Phone Tresa SENIOR, Hannah Mccoy Primary Care Physician [phone] [place] [facility] [place] 03/25/22 [facility] [address] [place] [address]- Encounter Diagnosis Abdominal wall hernia(Discharge Diagnosis) - 03/24/22 Headache(Discharge Diagnosis) - 03/24/22 Attending Physician: Luzma SENIOR, Carlos Gaston Allergies, Adverse Reactions, Alerts Substance Reaction Severity [...] term) 9 06/23/06 Given 1Result Comment: [08/18/2018] [facility]: 74113-837-07 2Result Comment: [05/29/2017] [facility]:78642-929-86 3Admin Note[facility], date approx per patient 4Admin Note: VIM given dated 03/14/10 MULIT 5Result Comment: [08/18/2018] [facility]: 23515-334-80 6Admin Note: VIM GIVIN 08/20/06 # 3 [...] 13:48:36 EDT, Aerosol, Route to Pharmacy Electronically, [id number], [facility], Compound Start [...] 30 days, IM injection to Left arm [facility]:02128-866-66 Lot:[id number] Exp: 07/23, # 1 mL, 0 Refills, Maintenance, 04/13/19 14:55:41 EDT, Solution Start Date: 04/13/19 Status: Ordered Cyanocobalamin 1000 mcg/mL injection = 1,000 mcg, Intramuscular, Left deltoid IM. Pt tolerated well. Office Supplied Medication [facility] 0298-0752-28 Lot [id number] Exp 08/2020, # 1 mL, [...] Maintenance, G tube change 6Fr with 5cc tiffanie, 04/05/21 10:00:00 EDT, Supply Start Date: 04/05/21 Status: Ordered J-tube J-tube, See Instructions, # 1 each, Refills 0, Tot. Refills 0, Maintenance, 16 Spanish Xrqiy-Pbbpjc-Ghfiy J tube, transgastric, 02/20/21 9:48:00 EDT, Supply Start Date: 02/20/21 Status: Ordered Jantoven 5 mg oral tablet 1 tablet, By Mouth, Daily, OR DIRECTED BY COUMADIN CLINIC NURSE., # 30 tablet, 5 Refills, 03/05/22 8:34:00 EDT, [facility], 165, cm, 12/11/21 10:50:00 EDT, [...] Maintenance, 12/27/20 13:14:00 EDT, Suppository, [facility], Partial fill upon patient request [...] Replace Required Details, Route to Pharmacy Electronically, [id number], [facility] Start Date: 05/18/17 Status: Ordered Vitamin [...] Active Neuropathic pain of lower extremity(Confirmed) Active *[facility] [phone] C[facility] MANAG ER MEME GREGORY(Confirmed) Active Pruritus [...] Dates Health Status Cl inical Service Informant Abdominal wall hernia Discharge Diagnosis 03/24/22 Headache Discharge Diagnosis 03/24/22 Vital Signs Most recent to oldest [Reference Range]: 1 Height 165 cm (03/18/22 2:23 PM) Weight 115.4 kg (03/18/22 2:23 PM) Oxygen Saturation [94-100 %] 96 % (03/18/22 2:23 PM) Pulse Rate [55-90 bpm] 95 bpm *H* (03/18/22 2:23 PM) Body Mass Index [18.5-24.99] 42.39 *>HHI* (03/18/22 2:23 PM) Blood Pressure [90-138/55-84 mm Hg] 132/ 87mm Hg (03/18/22 2:23 PM) Blood pressure sites Arm, left (03/18/22 2:23 PM) Weight Obtained Via Standing scale (03/18/22 2:23 PM) Social History Social History Type Response Smoking Status Former smoker; Other : quit few months ago; entered on: 02/15/15 Sex Female
--- OUTSIDE RECORDS SUMMARY | 2023-05-29 06:08 | XMS_ITS | Continuity of Care Document ---
Author Name Unknown Organization [facility] Address [address] [place] [address]- Care Team Providers Care Technical Support Specialist Name Role Phone Tresa SENIOR, Hannah Barnes Primary Care Physician [place] [facility] [place](s): 04/04/22 - 05/04/22 [facility] [address] [place] [address]- [place] Allergies, Adverse Reactions, Alerts Substance Reaction Severity [...] 9 06/23/06 Given 1Result Comment: [08/18/2018] [facility]: 46381-167-18 2Result Comment: [05/29/2017] [facility]:24204-835-25 3Admin Note: [facility] clinic, date approx per patient 4Admin Note: VIM given dated 03/14/10 MULIT 5Result Comment: [08/18/2018] [facility]: 27872-208-32 6Admin Note: VIM GIVIN 08/20/06 # 3 [...] 13:48:36 EDT, Aerosol, Route to Pharmacy Electronically, [id number], [facility], Compound Start [...] days, IM injection to Left arm [facility]:12702-758-93 Lot:[id number] Exp: 07/23, # 1 mL, 0 Refills, Maintenance, 04/13/19 14:55:41 EDT, Solution Start Date: 04/13/19 Status: Ordered Cyanocobalamin 1000 mcg/mL injection = 1,000 mcg, Intramuscular, Left deltoid IM. Pt tolerated well. Office Supplied Medication [facility] 1172-2843-44 Lot [id number] Exp 08/2020, # 1 mL, [...] Refills 0, Tot. Refills 0, Maintenance, 16 Romansh Nnhgw-Apntja-Qewir J tube, transgastric, 02/20/21 9:48:00 EDT, Supply [...] Replace Required Details, Route to Pharmacy Electronically, [id number], [facility] Start Date: 05/18/17 Status: Ordered Vitamin D3 1000 intl units oral tablet 1 tablet, By Mouth, Daily, WITH FOOD., # 90 tablet, 1 Refills, [facility], 165, cm, 12/11/21 10:50:00 EDT, Height, 113.4, kg, 08/16/21 8:31:00 EST, Dry Weight Start Date: 01/15/22 Status: Ordered Problem List Condition Confirmation Course Effective Dates Status [facility] atus Informant Secondary nephrogenic diabetes insipidus [...] Neuropathic pain of lower extremity Confirmed Active *[facility] [phone] PERSONNEL REPRESENTATIVE MEME GREGORY Confirmed Active Pruritus with morphine Confirmed Active Pulmonary embolus 1 Confirmed Active Recurrent UTI Confirmed Active Reflex sympathetic dystrophy Confirmed Active Dry heaves Confirmed Active Urinary retention Confirmed Active Urinary retention Confirmed Active Sepsis Confirmed Active Severe obesity Confirmed Active Sleep-disordered breathing Confirmed Active Feeding by G-tube Confirmed Active Suprapubic catheter Confirmed Active 1unprovoked PE 2013, heme recommended lifelong anticogulation due to high-risk of recurrence Social History Social History Type Response Smoking Status Former smoker; Other : quit few months ago; entered on: 02/15/15 Sex Female Patient Care team information Personnel Name: Tresa SENIOR, Hannah Barnes Address: Address: [address] [place] [address] Gastroenterology [place], [place] [address]
--- OUTSIDE RECORDS SUMMARY | 2023-05-29 06:08 | XMS_ITS | Continuity of Care Document ---
Author Name Unknown Organization [facility] Address [address] [place] [address]- Care Team Providers Care Office Automation Technician Name Role Phone Juan Alvarado DO Primary Care Physician [phone] Encounter [facility] Date(s): 11/14/22 - 12/14/22 [facility] [address] [place] [address]- Allergies, Adverse Reactions, Alerts Substance Reaction Severity [...] 1Result Comment: [08/18/2018] [facility]: 04148-988-49 2Result Comment: [05/29/2017] [facility]:62282-537-02 3Admin Note[facility], date approx per patient 4Admin Note: VIM given dated 03/14/10 MULIT 5Result Comment: [08/18/2018] [facility]: 20463-501-67 6Admin Note: VIM GIVIN 08/20/06 # 3 [...] 13:48:36 EDT, Aerosol, Route to Pharmacy Electronically, [id number], [facility], Compound Start [...] injection to Left arm [facility]:37471-910-13 Lot:[id number] Exp: 07/23, # 1 mL, 0 Refills, Maintenance, 04/13/19 14:55:41 EDT, Solution Start Date: 04/13/19 Status: Ordered Cyanocobalamin 1000 mcg/mL injection = 1,000 mcg, Intramuscular, Left deltoid IM. Pt tolerated well. Office Supplied Medication [facility] 2310-2626-17 Lot [id number] Exp 08/2020, # 1 mL, [...] 0, Tot. Refills 0, Maintenance, 16 Turkmen Awdvu-Cnpgct-Wygub J tube, transgastric, 02/20/21 9:48:00 EDT, Supply Start Date: 02/20/21 Status: Ordered Jantoven 5 mg oral tablet 1 tablet, By Mouth, Daily, for 30 days, OR DIRECTED BY COUMADIN CLINIC NURSE., # 30 tablet, 11 Refills, Physician Stop 08/29/23 8:30:00 EST, 09/03/22 8:30:00 EST, [email or web address], 165, cm, 08/28/22 10:52:00 EST, [...] Replace Required Details, Route to Pharmacy Electronically, [id number], [facility] Start Date: 05/18/17 Status: Ordered Trulicity [...] of lower extremity Confirmed Active *[facility] [phone] [facility] HARDINBonnie Confirmed Active Pruritus with morphine [...] Team Personnel Name: Renea Thayer RN Position: [facility] RN Member Role: Primary Care Nurse Name: Radha Woods RN Position: [facility] RN Member Role: Primary Care Nurse Name: Larissa Pino RN Position: [facility] ED RN W/OE and Tasks Member Role: Primary Care Nurse Name: Lela Mcintyre RN Position: [facility] SN RN Member Role: Primary Care Nurse Name: Charisse Chris RN Position: [facility] RN Member Role: Primary Care Nurse Name: Omar Henning RN Position: [facility] RN Member Role: Primary Care Nurse Name: Marlyn Evans NP Position: [facility] Associate Professional Member Role: Primary Care Nurse Address: Address: [address] [place] [address] Name: Junie Kenny RN Position: [facility] RN Member Role: Primary Care Nurse Name: Jayla De RN Position: [facility] RN Member Role: Primary Care Nurse Name: Shea Stevens RN Position: [facility] RN Member Role: Primary Care Nurse Name: Margarita Bain RN Position: [facility] SN RN Member Role: Primary Care Nurse Name: Yady Tanner RN Position: [facility] RN Member Role: Primary Care Nurse Name: Omar Rutledge RN Position: [facility] RN Member Role: Primary Care Nurse Name: Rashmi Mendez RN Position: [facility] OB RN Member Role: Primary Care Nurse Name: Omar John RN Position: [facility] RN Member Role: Primary Care Nurse Name: Jayla Lai RN Position: [facility] RN Member Role: Primary Care Nurse Name: Pricilla Hendricks RN Position: [facility] RN Member Role: Primary Care Nurse Name: Zabrina Beck RN Position: [facility] RN Member Role: Primary Care Nurse Name: Juan Alvarado DO Position: [facility] Primary Care Physician Member Role: PCP Address: Address: [address] [place] [address] Name: Sophie Luciano RN Position: [facility] SN RN Member Role: Primary Care Nurse Name: Trace Elliott RN Position: [facility] SN RN Member Role: Primary Care Nurse Name: Ashley Langley RN Position: [facility] ED RN W/OE and Tasks Member Role: Primary Care Nurse Name: Flora Gonzalez RN Position: [facility] Retail Support Specialist Member Role: Primary Care Nurse Name: Mary Anne Simons RN Position: [facility] RN Member Role: Primary Care Nurse Name: Lela Hoang RN Position: [facility] Onco RN Member Role: Primary Care Nurse Name: Estela Che RN Position: [facility] RN Member Role: Primary Care Nurse Name: Lisandra Gan RN Position: [facility] Retail Support Specialist Member Role: Primary Care Nurse Name: Bia Alcazar RN Position: [facility] Retail Support Specialist Member Role: Primary Care Nurse Name: Harjeet ZHENG [place] Position: [facility] SN RN Member Role: Primary Care Nurse Care Team Related Persons Name: ARIEL CHRISTY Address: [place] [address] Name: ARIEL CHRISTY Address: home [address] [place] [address] Name: MARIBEL CHRISTY Address: [place] [address] Name: NURY TREJO Address: [address] [place] [address] Name: NURY WOLFE Address: [place] [address]
--- OUTSIDE RECORDS SUMMARY | 2023-05-29 06:08 | XMS_ITS | Continuity of Care Document ---
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 Name Role Phone Luzma SENIOR, Carlos Gaston Primary Care Physician Encounter [facility] [place] Date(s): 05/02/21 - 06/01/21 [facility] Attending Physician: Heidi Figueroa Admitting Physician: Heidi Figueroa Referring Physician: AdmtrHeidi Allergies, Adverse Reactions, Alerts [...] Comment: [08/18/2018] [facility]: 48377-395-55 2Result Comment: [05/29/2017] [facility]:60013-515-25 3Admin Note: [facility] clinic, date approx per patient 4Admin Note: VIM given dated 03/14/10 MULIT 5Result Comment: [08/18/2018] [facility]: 18403-813-02 6Admin Note: VIM GIVIN 08/20/06 # 3 [...] 13:48:36 EDT, Aerosol, Route to Pharmacy Electronically, [id number], [facility], Compound Start [...] to Left arm [facility]:21563-481-19 Lot:[id number] Exp: 07/23, # 1 mL, 0 Refills, Maintenance, 04/13/19 14:55:41 EDT, Solution Start Date: 04/13/19 Status: Ordered Cyanocobalamin 1000 mcg/mL injection = 1,000 mcg, Intramuscular, Left deltoid IM. Pt tolerated well. Office Supplied Medication [facility] 6019-9020-27 Lot [id number] Exp 08/2020, # 1 mL, [...] Refills 0, Tot. Refills 0, Maintenance, 16 Czech Snunl-Ilkhrj-Aboau J tube, transgastric, 02/20/21 9:48:00 EDT, Supply [...] Replace Required Details, Route to Pharmacy Electronically, [id number], [facility] Start Date: 05/18/17 Status: Ordered Vitamin D3 1000 intl units oral tablet 1 tablet, By Mouth, Daily, WITH FOOD., # 90 Unknown, 3 Refills, Maintenance, 02/14/21 15:18:00 EDT,[facility], 165.1, cm, 01/24/21 11:40:00 EDT, [...] pain of lower extremity(Confirmed) Active *[facility] [phone] [facility] GREG[facility](Confirmed) Active Pruritus with morphine(Confirmed) Active Recurrent UTI(Confirmed) Active Reflex sympathetic dystrophy(Confirmed) Active Dry heaves(Confirmed) Active Urinary retention(Confirmed) Active Urinary retention(Confirmed) Active Sepsis(Confirmed) Active Sleep-disordered breathing(Confirmed) Active Feeding by G-tube(Confirmed) Active Suprapubic catheter(Confirmed) Active Social History Social History Type Response Smoking Status Former smoker; Other : quit few months ago; entered on: 02/15/15 Sex
[2023-05-29 06:16] LABS: Glucose, Whole Blood 116 mg/dL (60-115)
[2023-05-29 06:25] LABS: Hematocrit 44.7 % (37.0-47.0); Hemoglobin 15.7 g/dl (12.0-16.0); Mean Corpuscular HGB Conc 35.1 g/dl (31.0-35.0); Mean Corpuscular Hemoglobin 29.4 pg (27.0-33.0); Mean Corpuscular Volume 83.7 fL (80.0-98.0); Mean Platelet Volume 9.2 fL (9.4-12.3); Platelet Count 170 X10*3/uL (160-400); Red Blood Count 5.34 X10*6/uL (4.20-5.50); Red Cell Distribution Width 12.3 % (11.0-16.0); White Blood Count 5.5 X10*3/uL (4.8-10.8)
[2023-05-29 06:33] LABS: Prothrombin Time 11.6 SEC (11.1-13.3)
[2023-05-29] MEDS: Lactated Ringers 1,000 ML 100 ML IVCONT (06:33)
[2023-05-29] MEDS: Gabapentin 300 MG CAPSULE PO (06:33)
[2023-05-29] MEDS: methocarbamoL 750 MG TABLET PO (06:34)
--- NOTE | 2023-05-29 07:00 | MHC.SHP ---
Pre-Procedural Eval Section A Date of Service: 05/29/23 Section B Chief Complaint: Intervertebral disc disorders with radiculopathy, Allergies: Allergies Allergy/AdvReac Type Severity Reaction Status Date / Time Cephalosporins Allergy Intermediate Hives Verified 05/15/23 09:23 enoxaparin [From Lovenox] Allergy Intermediate Hives Verified 05/15/23 09:23 Sulfa (Sulfonamide Allergy Intermediate Hives Verified 05/15/23 09:23 Antibiotics) Review of Systems Sugical H&P ROS: Negative: Constitution, Cardiovascular, Respiratory, Neurological, Psychiatric, Hem-Onc, Allergic/Immunologic, Gastrointestinal, Genitourinary, Musculoskeletal, Integumentary, Endocrine and Eyes/Ears/Nose/Throat Exam Surgical H&P Exam: Not Evaluated: HEENT, Not Evaluated: Heart, Not Evaluated: Lungs, Not Evaluated: Extremities, Not Evaluated: Abdomen, Not Evaluated: Skin and Not Evaluated: Neurological Plan Diagnosis/Plan: Unchanged I have reviewed the history and physical and performed a pertinent physical examination on my patient. No changes have occurred unless specified. Plan remains the same, [id number]-[id number] microdiskectomy. Time Spent With Patient Time: Total time managing care of this patient today ___10_ minutes.
--- NOTE | 2023-05-29 10:07 | P.DS_ITS ---
DS: Providers Provider Date of Service: 05/29/23 Primary care physician: Juan Alvarado DO DS: Summary Time Spent with Patient Time attestation: Total time managing care of this patient today ____ minutes. Discharge coordination time: Less than 30 minutes Quality: Safe Use of Opioids Does Pt have an Active Cancer Diagnosis on the Problem List?: No Quality: Stroke Does the patient have a stroke diagnosis?: No Physical Exam Vital Signs: Vital Signs: Last Vital Signs Temp 97.4 F 05/29/23 06:21 Pulse 93 05/29/23 06:21 Resp 18 05/29/23 06:21 BP 123/82 05/29/23 06:21 Pulse Ox 96 05/29/23 06:21 O2 Del Method Room Air 05/29/23 06:21 BMI result Body Mass Index 39.1 DS: Data Data Completed and Pending Labs on day of discharge: Laboratory Results - last 24 hr 05/29/23 05/29/23 06:12 06:13 WBC 5.5 RBC 5.34 Hgb 15.7 Hct 44.7 MCV 83.7 MCH 29.4 MCHC 35.1 H RDW 12.3 Plt Count 170 MPV 9.2 L Absolute Nucleated RBC 0.000 Nucleated RBC % (auto) 0.0 PT 11.6 INR 1.0 POC Glucose 116 H Blood Type O Negative Antibody Screen NEGATIVE Discharge Plan Discharge Patient Disposition: Home, Self-Care Referrals: Juan Alvarado DO [Primary Care Provider] - 1 Week Discharge Medications: New doxycycline hyclate 100 mg capsule 100 mg PO BID Qty: 10 0RF oxycodone 5 mg tablet 5 mg PO Q6H PRN (Reason: severe pain (scale score 7-10)) Qty: 21 0RF Rx Instructions: Partial Fill upon patient request. docusate sodium 100 mg capsule 100 mg PO BID PRN (Reason: constipation) Qty: 14 0RF Continued promethazine 6.25 mg/5 mL syrup 25 mg PO TID PRN (Reason: Nausea And Vomiting) methylphenidate HCl 5 mg tablet 5 mg PO TID ondansetron 8 mg tablet,disintegrating 8 mg PO QID PRN (Reason: nausea) trazodone 100 mg tablet 250 mg PO BEDTIME gabapentin 300 mg capsule 300 mg PO QPM albuterol sulfate [Ventolin HFA] 90 mcg/actuation Hfa Aerosol Inhaler 2 puff INHALATION Q4-6H PRN (Reason: Shortness Of Breath) cholecalciferol (vitamin D3) 25 mcg (1,000 unit) capsule 50 mcg PO DAILY cyclobenzaprine 5 mg tablet 5 mg PO TID bupropion HCl 150 mg tablet extended release 24 hr 300 mg PO BEDTIME lurasidone 80 mg tablet 80 mg PO QPM testosterone [AndroGel] 20.25 mg/1.25 gram (1.62 %) Gel In Metered-Dose Pump 2 pump TOPICAL DAILY Rx Instructions: apply 1 pump amount over max area of EACH upper arm and shoulder Trulicity 4.5 mg/0.5 mL pen injector 4.5 mg subcut QWEEK Rx Instructions: takes on Friday Held warfarin [Jantoven] 5 mg tablet 5 mg PO DAILY Hold Instructions: Resume on 06/01/23. 72 HOURS capsaicin 0.025 % cream 1 appl topical BID Hold Instructions: Resume on 06/29/23. Do not apply directly to incision area Discharge Orders: Discharge Order (Routine); Ordered 05/29/23 Ordered By: Deejay Jc Diet: Advance to usual diet Activity on Discharge: As tolerated Activity Restrictions/Additional Instructions: After your spinal surgery we ask you to observe the following restrictions/guidelines: Activity: It is normal to feel some discomfort as you increase your activity, but that will improve with time. We ask you avoid heavy lifting or acitivities that cause pain. As a general rule, 8lbs is a safe limit for lifting right after surgery. Walk as much as you feel comfortable but not to exhaustion. You will feel extra tired the first few days after surgery. Stay well hydrated. It is OK to walk up and down stairs You may return to driving when you are off narcotics (such as vicodin, oxycodone, dilaudid, etc), and you are back to normal functional capacity. If you have any concerns please check with office before driving. Return to work is specific to each patient and each surgery, so please speak with your doctor/PA at first follow up. Please bring paperwork such as FMLA at that time if you need it filled out. Medications: We will give you a short supply of narcotics after surgery (usually one weeks worth). If you need more please call the office but do not use more than prescr ibed. You will need to give our office 48 hours notice if you need narcotics refilled and we do not fill narcotics on weekends or evenings. If you are on a narcotic, it is a good idea to take a stool softener such as colace or senna to avoid constipation If you take blood thinner such as aspirin, Plavix, Coumadin, Effient, Eliquis etc for conditions such as Afib, DVT, Pulmonary embolus, coronary disease, stents etc please speak with your surgeon about specific details as to when you can resume these medications. You can resume NSAIDs on post op day 1 (eg: Motrin, Naproxen, etc). Follow up: Please call the office, , after surgery to arrange a 3 week follow up for wound check. Wound Care: You may remove your dressing on the first day after surgery. You may leave open to air. Please do not remove the steri strips underneath. they will fall off on their own in one week. IT IS NORMAL FOR THE WOUND TO OOZE OR BE BLOODY FOR A FEW DAYS AFTER SURGERY. IF THIS HAPPENS JUST PLACE NEW DRESSING OVER IT TO AVOID STAINING CLOTHES. You may shower on post op day # 1 We ask that you do not let the water soak the wound. If it does get wet, just towel dry lightly. Please do not scrub your incision or place any type of chemical/ointment on the wound. No tub baths, pools or jacuzzis for one month. If you have any leaking or redness from your wound, or fevers, please call the office.
[2023-05-29] MEDS: oxyCODONE HCl Immed Release 5 MG TABLET PO (10:56)
--- NOTE | 2023-05-29 14:32 | W.PM.OPN ---
Operative Note Operative Note Date of Service: 05/29/23 Narrative: Preoperative diagnosis: Right S1 radiculopathy due to disc herniation Postoperative diagnosis: Same Procedure: right L5-S1 lumbar microdiskectomy with microscope Surgeon: Arron Salgado MD, PhD Director Medical Affairs: Zoltan ROSSI This 43-year-old patient is suffering from right S1 radiculopathy due to a disc herniation L5-S1 compressing the right S1 nerve root. The patient was offered a lumbar microdiskectomy to decompress the nerve root. The procedure complications were explained. The patient was consented. The patient was brought to the operating room and endotracheally intubated. The patient was turned in a prone position on the Ottoniel frame. Prepping and draping was done followed by time-out. The physician commercial lending assistant provided the initial access. A mid lumbar incision was made followed by release of the paravertebral muscles on the right side to expose the L5-S1 interspace. An intraoperative x-rays obtained to confirm the correct level. The exposure took much longer due to patient's obesity.I took over the procedure. The microscope was brought in. A L5 laminotomy was done with a partial facetectomy. It was very hard to perform the procedure due to the depth of the working channel. I identified the medial wall of the S1 pedicle and exposed the L5-S1 disc space. A preexistent perforation was found in the disc space. A straight pituitary was used to see if this fragments could be removed. The net result was minimal. However I was able to maneuver my nerve hook and no resistance was found.The microscope was removed. Marcaine was injected intramuscularly.The incision was closed in two layers. Steri-Strips used to approximate seizure. An op-site were taken there was used to cover the incision. All sponge and needle counts were correct. Patient was extubated and transported in stable condition to recovery room. this procedure was done with the aid of a physician commercial lending assistant who performed the initial exposure until the microscope was brought in and performed the closure of the incision. Anesthesia: General Blood loss: 30 mL Complications: None Specimen: None Disposition: Discharge home
== END 2023-05-29 11:57 | disposition home or self-care (01) ==
PROVIDERS: Nurse Practitioner; PCP Family Medicine; Visit Provider Neurological Surgery
PROC: (CPT 63030; principal; 2023-05-29 07:30)
DX: M51.36 Other intervertebral disc degeneration, lumbar region (principal); R20.2 Paresthesia of skin; G89.4 Chronic pain syndrome; Z96.82 Presence of neurostimulator; E23.2 Diabetes insipidus; F31.9 Bipolar disorder, unspecified; G47.33 Obstructive sleep apnea (adult) (pediatric); Z86.711 Personal history of pulmonary embolism; Z79.01 Long term (current) use of anticoagulants; Z79.85 Long-term (current) use of injectable non-insulin antidiabetic drugs; Z79.899 Other long term (current) drug therapy; Z99.89 Dependence on other enabling machines and devices; Z88.1 Allergy status to other antibiotic agents; Z88.2 Allergy status to sulfonamides; M51.17 Intervertebral disc disorders with radiculopathy, lumbosacral region
CPT/HCPCS: 63030; 36415; 82947; 85027; 85610; 86850; 86900; 86901; J0131; J1100; J1170; J1200; J1885; J2250; J2371; J2405; J3010; J3371

== ENCOUNTER → 2023-05-29 05:57 | Outpatient (BNV) | payer OTHER, SELFPAY | PROVIDERS: PCP Family Medicine; Visit Provider Physician Assistant | DX: M51.16 Intervertebral disc disorders with radiculopathy, lumbar region (principal) | CPT/HCPCS: 63030; 99499 ==

== ENCOUNTER 2023-06-20 13:17 | Outpatient (AMB) | payer OTHER, SELFPAY ==
--- NOTE | 2023-06-20 13:33 | A.SPINEOV_ITS ---
Intake Intake Visit Reasons: 1st post op Intake Note: Nazario is here today for the 1 post-op visit after surgery. 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 She reports she is very satisfied with the surgery and feels much better than she did preoperatively. The patient reports she is up walking around and completing the majority of her ADLs. She reports that she no longer suffers from her right-sided shooting radiculopathy. She still reports some tenderness in her right buttocks, feels that is improving. We discussed the postoperative healing course and I explained how inflammation can wax and wane causing a variety of symptoms that self resolve. She further reports that her bleeding has stopped, and she has had no issues with bleeding since the last time she spoke with us. No neurological deficits. Patient is able to ambulate well with cane for stability, rises from a seated position without difficulty. Incision sites are closed, well healing, with no signs of drainage. Bob reports that she feels very well and does not want to come back for a 2nd postoperative visit. Therefore we will not reschedule her, and she may come back as needed. Deejay Salgado MD,PhD [facility] Coding Level of Care Code Global (73245) Diagnoses Lumbar disc herniation with radiculopathy M51.16
== END 2023-06-20 13:56 | disposition home or self-care (01) ==
PROVIDERS: PCP Family Medicine; Visit Provider Physician Assistant
DX: M51.16 Intervertebral disc disorders with radiculopathy, lumbar region (principal)
CPT/HCPCS: 99024

== ENCOUNTER → 2023-06-20 13:17 | Outpatient (BNVA) | payer OTHER, SELFPAY | PROVIDERS: PCP Family Medicine; Visit Provider Physician Assistant ==

== ENCOUNTER 2023-07-02 13:58 | Outpatient (AMB) | payer OTHER, SELFPAY ==
--- NOTE | 2023-07-02 14:01 | HO.NEPHOV_ITS ---
HPI HPI Comments History of Present Illness Details Nazario is a 43 yr old trans-male with multiple medical comorbidities including lithium-induced diabetes insipidus, has feeding tube for free water at night, He also has history of neurogenic bladder, currently with suprapubic catheter. He also has history of total hysterectomy with bilateral salpingo-oophorectomy back in 2017. He also has history of pulmonary embolism and takes chronic anticoagulation with Coumadin. He also has history of chronic pain He started hormonal treatment with testosterone initially with injectable back in 2003 in [place]. He has been on generic testosterone gel 1.62%, 2 pumps application daily.He did have a very good response to the hormonal treatment with good facial and extremities hair growth.He had top surgery in 2012 in [place]. He goes with the pronoun he , Recently underwent spine surgery with right L5-S1 micro diskectomy. Continues to have polyuria along with polydipsia. [facility] Medical History (Updated 07/02/23 @ 14:56 by Sunny Keenan MD) VRE (vancomycin-resistant Enterococci) Sleep apnea Neurogenic bladder Chronic nausea Secondary nephrogenic diabetes insipidus Reflex sympathetic dystrophy Recurrent UTI (urinary tract infection) Neuropathic pain of lower extremity Chronic renal insufficiency Asthma Transgender man on hormone therapy Depression Anxiety Bipolar disorder Chronic pain syndrome Pulmonary embolism Right lumbar radiculopathy Surgical History (Updated 05/15/23 @ 14:32 by Shavonne Adamson RN) Hx of total cystectomy History of esophagogastroduodenoscopy (EGD) H/O colonoscopy Hx of bilateral mastectomy Hx of appendectomy Hx of arthroscopic knee surgery Hx of hysterectomy S/P placement of nerve stimulator Social History Are you a primary career placement specialist to a significant other at home: No Do you presently have visiting nurse or other home services: 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) Comment: uses crutch or wheelchair due to back issues Patient Tobacco Use Status: Former Tobacco user Quit Date: age23 Tobacco use type: Cigarette Vital Signs 07/02/23 14:03 Height 5 ft 5 in Weight 245 lb BMI 40.8 BP 104/72 Blood Pressure Location Lt brachial Position Sitting Pulse 95 Pulse Source Pulse Oximeter Pulse Oximetry (%) 97 Oxygen Delivery Method Room Air Physical Exam Vital Signs: Last Vital Signs Pulse 95 07/02/23 14:03 BP 104/72 07/02/23 14:03 Pulse Ox 97 07/02/23 14:03 Oxygen Delivery Method Room Air 11/29/23 14:03 BMI result Body Mass Index 40.8 Const General: comfortable; No acute distress Orientation/consciousness: patient oriented x3 Eyes General: appearance normal, both eyes and all related structures Visual Wan: normal visual wan by confrontation Neck Neck: Yes supple and Yes no JVD Resp Effort & Inspection: normal respiratory effort and respiratory effort not decreased Auscultation: rhonchi Cardio Palpation: no palpable S3 and no palpable S4 Heart sounds: no rubs GI Inspection: Yes normal to inspection Palpation (GI): Soft to palpation Percussion: Yes normal to percussion Auscultation: normal bowel sounds General: Yes no CVA tenderness Back/Spine/Pelvis Back: no CVA tenderness Skin General skin exam: no petechiae and no purpura Neuro General: patient oriented x3 and no focal motor deficits Extrem General: No clubbing and No edema Results Reviewed Results Reviewed: Labs labs from [facility] was reviewed As of February 2023 serum creatinine 1.1 serum electrolytes normal Assessment & Plan Assessment & Plan (1) Chronic renal insufficiency: Comment: stage 3-follows with Sunny Keenan at [facility] Code(s): N18.9 - Chronic kidney disease, unspecified (2) Diabetes insipidus: Code(s): E23.2 - Diabetes insipidus Plan Nazario has diabetes insipidus due to chronic lithium use in the past. He continues to have polyuria with polydipsia. Renal function has been stable with a creatinine 1.1 mg/dL and he has mild CKD Given the polyuria I will recheck the 24 hour urine collection. I have encouraged him to stand low-sodium diet. Increase his p.o. fluid intake. Blood pressure is acceptable. No changes were made to his medications. Orders: Orders Creatinine, 24 Hr Group Today N18.9 - Chronic kidney disease, unspecified Electrolytes Today N18.9 - Chronic kidney disease, unspecified Creatinine Today N18.9 - Chronic kidney disease, unspecified Sodium, 24Hr Urine Group Today N18.9 - Chronic kidney disease, unspecified Blood Urea Nitrogen Today N18.9 - Chronic kidney disease, unspecified Calcium Today N18.9 - Chronic kidney disease, unspecified Coding Level of Care Code Est Pt Level 3 (30556) Diagnoses Chronic renal insufficiency N18.9 Diabetes insipidus E23.2
[2023-07-02 14:03] VITALS: BP 104/72; PULSE 95; O2SAT 97; BMI 40.8
== END 2023-07-02 14:25 | disposition home or self-care (01) ==
PROVIDERS: PCP Family Medicine; Visit Provider Internal Medicine Hypertension Specialist
DX: N18.9 Chronic kidney disease, unspecified (principal); E23.2 Diabetes insipidus
CPT/HCPCS: 99213

== ENCOUNTER → 2023-07-02 13:58 | Outpatient (BNVA) | payer OTHER, SELFPAY | PROVIDERS: PCP Family Medicine; Visit Provider Internal Medicine Hypertension Specialist | DX: N18.9 Chronic kidney disease, unspecified (principal); E23.2 Diabetes insipidus | CPT/HCPCS: 99212 ==